=== PATIENT | female | born 1965 | race Two or more races ===

== ENCOUNTER 2023-10-25 14:41 | Emergency (ER) | payer OTHER, SELFPAY ==
[2023-10-25 14:44] VITALS: BP 160/90; PULSE 82; RESP 20; TEMP 37; O2SAT 99; BMI 40.6
--- NOTE | 2023-10-25 14:46 | ED_ITS ---
HPI - Abdominal Pain General Chief Complaint: Abdominal Pain Stated Complaint: R Side Pain Time Seen by Provider: 10/25/23 22:29 Related Data Allergies Allergy/AdvReac Type Severity Reaction Status Date / Time egg Allergy Rash Verified 10/25/23 14:48 Penicillins Allergy Rash Verified 10/25/23 14:48 [facility] Social History Social History Advance Directives: No Advance Directives Information Provided: No Physical Exam ED Vital Signs: BMI result Body Mass Index 40.6 Course Course Course Narrative: This is a rapid medical exam. Deferred additional HPI, ROS, PE to primary provider. 57 yo female with history of asthma, DM, hypothyroidism, HTN here with right sided abdominal pain, nausea x 3 days. Will obtain labs, UA VSS Medical Decision Making Lab Data 10/25/23 15:01 10/25/23 15:01 Labs: Lab Results 10/25/23 Range/Units 15:01 WBC 10.1 (4.8-10.8) X10*3/uL RBC 5.09 (4.20-5.50) X10*6/uL Hgb 13.3 (12.0-16.0) g/dl Hct 41.6 (37.0-47.0) % MCV 81.7 (80.0-98.0) fL MCH 26.1 L (27.0-33.0) pg MCHC 32.0 (31.0-35.0) g/dl RDW 14.0 (11.0-16.0) % Plt Count 348 (160-400) X10*3/uL MPV 9.3 L (9.4-12.3) fL Immature Gran % (Auto) 0.3 (0.0-0.4) % Neut % (Auto) 50.4 (45-73) % Lymph % (Auto) 39.3 (20-40) % [place] % (Auto) 4.9 (2-11) % Eos % (Auto) 4.6 H (0-4) % Baso % (Auto) 0.5 (0-2) % Lymph # (Auto) 4.0 (1.2-4.9) X10*3/uL [place] # (Auto) 0.5 (0.1-1.2) X10*3/uL Eos # (Auto) 0.5 H (0.0-0.4) X10*3/uL Baso # (Auto) 0.1 (0.0-0.2) X10*3/uL Abs Immat Gran (auto) 0.03 (0.00-0.03) X10*3/uL Absolute Neuts (auto) 5.1 (2.0-8.3) x10*3/uL Absolute Nucleated RBC 0.000 (0.0-0.012) X10*3/uL Nucleated RBC % (auto) 0.0 (0.0-0.2) /100WBC Sodium 140 (135-145) mmol/L Potassium 3.8 (3.3-5.1) mmol/L Chloride 108 (96-108) mmol/L Carbon Dioxide 25 (22-29) mmol/L Anion Gap 11 L (12-20) BUN 16 (9-16) mg/dL Creatinine 0.92 (0.5-1.4) mg/dL Estim Creat Clear Calc 85.6 Estimated GFR > 60 Random Glucose 119 H (60-115) mg/dL Calcium 11.4 H (8.4-10.2) mg/dL Total Bilirubin 0.2 (0.0-1.0) mg/dL Direct Bilirubin < 0.2 (0.0-0.5) mg/dL AST 11 (5-31) U/L ALT 15 (0-31) U/L Alkaline Phosphatase 105 (39-117) U/L Total Protein 7.2 (6.5-8.0) g/dL Albumin 4.0 (3.5-5.0) g/dL Urine Color Yellow Urine Appearance Turbid Urine pH 8.5 (5.0-9.0) Ur Specific [place] 1.015 (1.005-1.025) Urine Protein Negative (Neg-Trace) mg/dL Urine Glucose (UA) Negative (Negative) mg/dL Urine Ketones Negative (Negative) mg/dL Urine Blood Negative (Negative) Urine Nitrite Negative (Negative) Ur Leukocyte Esterase Trace H (Negative) Urine RBC 0-2 (0-2) /HPF Urine WBC 0-5 (0-5) /HPF Ur Squamous Epith Cells 0-2 (0-2) /HPF Urine Bacteria None Seen (None Seen) Hyaline Casts 0-2 (0-2) /LPF Discharge Plan Discharge Clinical Impression: Abdominal pain Patient Disposition: Left W/O Completing Treatment Interventions: LWBS Worksheet Last Done: 10/26/23 00:47 Discharge Date/Time: 10/26/23 00:47
[2023-10-25 15:13] LABS: MANUAL DIFF FLAG NO
[2023-10-25 15:15] LABS: Basophils Absolute Auto 0.1 X10*3/uL (0.0-0.2); Basophils Percent Auto 0.5 % (0-2); Eosinophils Absolute Auto 0.5 X10*3/uL (0.0-0.4); Eosinophils Percent Auto 4.6 % (0-4); Hematocrit 41.6 % (37.0-47.0); Hemoglobin 13.3 g/dl (12.0-16.0); Imm Gran Abs Auto 0.03 X10*3/uL (0.00-0.03); Imm Gran Pct Auto 0.3 % (0.0-0.4); Lymphocytes Percent Auto 39.3 % (20-40); Mean Corpuscular Hemoglobin 26.1 pg (27.0-33.0); Mean Corpuscular Volume 81.7 fL (80.0-98.0); Mean Platelet Volume 9.3 fL (9.4-12.3); Monocytes Absolute Auto 0.5 X10*3/uL (0.1-1.2); Monocytes Percent Auto 4.9 % (2-11); Neutrophils Absolute Auto 5.1 x10*3/uL (2.0-8.3); Neutrophils Percent Auto 50.4 % (45-73); Platelet Count 348 X10*3/uL (160-400); Red Blood Count 5.09 X10*6/uL (4.20-5.50); White Blood Count 10.1 X10*3/uL (4.8-10.8)
[2023-10-25 15:16] LABS: Appearance Urine Turbid; Color Urine Yellow; Glucose Urine UA Negative (Negative); Leukocyte Esterase Urine Trace (Negative); Nitrite Urine Negative (Negative); PH 8.5 (5.0-9.0); Specific Gravity - Urine 1.015 (1.005-1.025); UMIC TRIGGER UACC YES; Urine Blood Negative (Negative); Urine Ketones Negative (Negative); Urine Protein Negative (Neg-Trace)
[2023-10-25 15:21] LABS: Bacteria Urine None Seen (None Seen); Hyaline Casts Urine 0-2 /LPF (0-2); RBC Urine 0-2 /HPF (0-2); Squamous Epithelial Cell Urine 0-2 /HPF (0-2); WBC Urine 0-5 /HPF (0-5)
[2023-10-25 15:31] LABS: Alanine Aminotransferase 15 U/L (0-31); Alkaline Phosphatase 105 U/L (39-117); Anion Gap 11 (12-20); Aspartate Amino Transferase 11 U/L (5-31); Bilirubin Direct < 0.2 mg/dL (0.0-0.5); Bilirubin Total 0.2 mg/dL (0.0-1.0); Blood Urea Nitrogen 16 mg/dL (9-16); Calcium 11.4 mg/dL (8.4-10.2); Carbon Dioxide 25 mmol/L (22-29); Chloride 108 mmol/L (96-108); Creatinine Clr Calc Pharmacy 85.6; Estimated Glomerular Filt Rate > 60; Glucose Random 119 mg/dL (60-115); Potassium 3.8 mmol/L (3.3-5.1); Sodium 140 mmol/L (135-145); Total Protein 7.2 g/dL (6.5-8.0)
--- OUTSIDE RECORDS SUMMARY | 2023-10-25 23:53 | XMS_ITS | Continuity of Care Document ---
Author Name Unknown Organization [facility] Address [address] [place] [address]- Care Team Providers Care Wildlife Refuge Specialist Name Role Phone Bridget Burk INSURANCE CLAIM APPROVER, Ila Primary Care Physician Encounter [facility] Date(s): 02/23/23 - 03/25/[address] [address]- Encounter Diagnosis Diabetes mellitus(Discharge Diagnosis) - 02/24/23 Allergies, Adverse Reactions, Alerts Substance Reaction Severity Status penicillin rash Active Celexa rash Active Egg Allergy Active Immunizations Given and Recorded Vaccine Date Status Refusal Reason pneumococcal 23-valent vaccine 12/21/18 Given pneumococcal 13-valent vaccine 10/24/17 Given influenza virus vaccine, inactivated 10/24/17 Give n influenza virus vaccine, inactivated 08/09/16 Give n tetanus/diphtheria/pertussis, acel(Tdap) 07/03/15 Given tetanus-diphtheria toxoids (Td) 05/01/99 Given Medications acetaZOLAMIDE 250 mg oral tablet 250 mg, 1, tablet, By Mouth, 2 times a day, prescribed by Neurology, Refills 0, Maintenance, 01/03/17 8:43:00 Start Date: 01/03/17 Status: Ordered Advair HFA 230 mcg / 21 mcg 2 puffs, Inhalation, 2 times a day, # 12 Gm, 6 Refills, Maintenance, 08/26/22 10:52:00 [facility] #[id number], 30, INHALE 2 PUFFS BY MOUTH TWICE DAILY, 165, cm, 05/20/22 13:56:00 EDT, Height, 118, kg, 01/18/22 15:08:00 EDT, Dry Weight Start Date: 08/26/22 Status: Ordered AutoCPAP 10-16 with heated humidification AutoCPAP 10-16 with heated humidification, See Instructions, # 1 each, Refills 0, Tot. Refills 0, Maintenance, use overnight and [facility]aps from [facility], 03/25/20 13:05:00 EDT, Compound Start Date: 03/25/20 Status: Ordered Blood Pressure Monitor See Instructions, # 1 each, Maintenance, dx: htn on antihypertensive medicines. dx: obesity - pls supply cuff which is 21 inches or more in size sig: check bp daily to help adjust medications. lengthof need: 99, 02/12/21 13:25:00 EDT, Compound Start Date: 02/12/21 Status: Ordered Compression stockings calf length 20-30mmg Hg pressure Compression stockings calf length 20-30mmg Hg pressure, See Instructions, # 2 pair, Refills 6, Tot.Refills 6, Maintenance, use for venous stasis Length of need: 99, 04/15/16 10:59:18, Compound Start Date: 04/15/16 Status: Ordered Cpap suplies: mask, tubing, filters, head gear and water chamber Cpap suplies: mask, tubing, filters, head gear and water chamber, See Instructions, # 1 each, Refills 12, Tot. Refills 12, Maintenance, Use with c-pap machine, 06/12/21 10:46:00 EDT, Compound Start Date: 06/12/21 Status: Ordered desloratadine 5 mg oral tablet 1 tablet = 5 mg, By Mouth, Daily, # 30 tablet, 5 Refills, Maintenance, 06/04/20 13:35:00 EDT, Tablet, [facility] #[id number], 165, cm, 03/14/20 15:15:00 EDT, Height Start Date: 06/04/20 Status: Ordered dextromethorphan-guaifenesin 10 mg-100 mg/5 mL oral liquid 5 mL, By Mouth, Every 4 hours, PRN for cough, # 300 mL, 0 Refills, Maintenance, 03/24/22 10:17:00 EDT, Liquid, [facility] #[id number], Partial fill upon patient request if the prescription is for a schedule II opioid drug., 5 mL By Mouth Every 4... Start Date: 03/24/22 Status: Ordered Diclofenac = 75 mg, By Mouth, 2 times a day, prescribed by Dr. Pierre, Neurologist in [facility] takesprn, 0 Refills, Maintenance, 08/09/16 8:32:51 Start Date: 08/09/16 Status: Ordered docusate sodium 100 mg oral capsule 1 capsule = 100 mg, By Mouth, 2 times a day, PRN as needed for constipation, with plenty of water, # 60 capsule, 1 Refills, Maintenance, 02/21/23 15:56:00 EDT, Capsule, [facility] #[id number], Partial fill upon patient request if the prescription... Start Date: 02/21/23 Stop Date: 04/22/23 Status: Ordered docusate sodium 100 mg oral capsule 100 mg, 1, capsule, By Mouth, 2 times a day, PRN, Use 1 tab po bid as needed for constipation to achieve soft stools., # 60 capsule, Refills 0, Tot. Refills 0, Maintenance, for constipation, 12/31/2312:29:00 EDT, Route to [facility]acy Electronically, [facility] Start Date: 12/31/22 Stop Date: 01/30/23 Status: Ordered Freestyle Lite Lancets See Instructions, # 200 each, Refills 5, Tot. Refills 5, Maintenance, use as directed for Type 2 Diabetes Mellitus Check Blood sugar once a day in AM, 03/11/21 10:43:00 EDT, Supply, 165, cm, :56:00 EDT, Height Start Date: 03/11/21 Stop Date: 09/07/21 Status: Ordered Freestyle Lite Monitor See Instructions, # 1 each, Maintenance, Check blood sugar once a day, 03/11/21 10:41:00 EDT, Supply, 165, cm, 03/11/21 9:56:00 EDT, Height Start Date: 03/11/21 Status: Ordered Freestyle Lite Test Strips See Instructions, # 200 each, Tot. Refills 5, Maintenance, use as directed for Type 2 Diabetes Mellitus, 03/11/21 10:42:00 EDT, Supply, 165, cm, 03/11/21 9:56:00 EDT, Height Start Date: 03/11/21 Stop Date: 04/10/21 Status: Ordered Gabapentin = 300 mg, By Mouth, Daily, 0 Refills, Maintenance, 10/19/17 14:27:32 Start Date: 10/19/17 Status: Ordered hydrochlorothiazide-lisinopril 25 mg-20 mg oral tablet 1 tablet, By Mouth, Daily, ADEQUATE WATER AND CONTINUE TO MONITOR BLOOD PRESSURE., # 270 tablet, 0 Refills, Maintenance, 05/29/22 21:25:00 EDT, [email or web address] #[id number], 90, TAKE 1 TABLET BY MOUTHEVERY DAY, DRINK ADEQUATE WATER AND CONTINUE TO MON... Start Date: 05/29/22 Status: Ordered ipratropium nasal 21 mcg/inh spray See Instructions, PRN Nasal Congestion, 1 spray each nostril BID, # 1 each, 4 Refills, Maintenance,07/10/20 14:41:00 EDT, [facility] #[id number], 1 spray each nostril BID,PRN:Nasal Congestion, 165, cm, 03/14/20 15:15:00 EDT, Height Start Date: 07/10/20 Status: Ordered levothyroxine 175 mcg (0.175 mg) oral tablet 1 tablet, By Mouth, Daily, # 90 tablet, 0 Refills, Maintenance, 03/20/23 19:27:00 EDT, [email or web address] #[email or web address], 165, cm, 02/21/23 15:26:00 EDT, Height, 112.7, kg, 09/27/22 14:59:00 EST, Dry Weight Start Date: 03/20/23 Status: Ordered lidocaine 4% topical cream 1 application, Topically, 3 times a day, # 15 Gm, 1 Refills, Maintenance, 03/14/20 15:53:00 EDT, Cream, [email or web address] #[id number], 1 application Topically 3 times a day, 165, cm, 03/14/20 15:15:00 EDT, Height, 118.4, kg, 04/28/18 17:05:00 EDT, Dry W... Start Date: 03/14/20 Status: Ordered Lubricant Eye Drops ophthalmic solution 1 drops, Eyes, Both, 2 times a day, PRN for dry eyes, # 30 each, 1 Refills, Maintenance, 06/04/20 13:37:00 EDT, Solution, [email or web address] #[email or web address], 1 drops Eyes, Both 2 times a day,PRN:for dry eyes, 165, cm, 03/14/20 15:15:00 EDT, Height Start Date: 06/04/20 Status: Ordered metFORMIN 750 mg oral tablet, extended release 1 tablet = 750 mg, By Mouth, 2 times a day, Take with meals., # 60 tablet, 2 Refills, Maintenance, 05/22/23 21:27:00 EDT, ER Tablet, [facility] #[id number], Partial fill upon patient request if the prescription is for a schedule II opioid drug.,... Start Date: 05/22/23 Stop Date: 08/20/23 Status: Ordered metFORMIN 750 mg oral tablet, extended release 1 tablet = 750 mg, By Mouth, Daily, for 30 days, Take 1, 750 mg tablet with breakfast and 1, 750 mgtablet with dinner/evening meal. Take 12 hours apart., # 30 tablet, 2 Refills, Hard Stop 05/22/23 21:27:00 EDT, 02/21/23 21:27:00 EDT, ER Tablet, W... Start Date: 02/21/23 Stop Date: 05/22/23 Status: Ordered MiraLax oral powder for reconstitution = 17 Gm, By Mouth, Daily, PRN Constipation, dissolve in water before taking, # 255 Gm, 0 Refills, Maintenance, 02/21/23 15:55:00 EDT, REC Powder, [facility] #[id number], Partial fill upon patient request if the prescription is for a schedule II o... Start Date: 02/21/23 Status: Ordered Nebulizer tubing Nebulizer tubing, See Instructions, # 1 each, Refills 0, Tot. Refills 0, Maintenance, Neb tubing, 07/11/19 11:11:45 EDT, Compound Start Date: 07/11/19 Status: Ordered Nebulizer/Compressor See Instructions, # 1 each, Maintenance, Nebulizer and tubing, 07/11/19 11:07:06 EDT, Compound Start Date: 07/11/19 Status: Ordered pantoprazole 40 mg oral delayed release tablet 1 tablet, By Mouth, Daily, # 90 tablet, 3 Refills, Maintenance, 09/27/22 15:11:00 EST, 165, cm, 09/27/22 14:59:00 EST, Height, 112.7, kg, 09/27/22 14:59:00 EST, Dry Weight Start Date: 09/27/22 Status: Ordered polyethylene glycol 3350 oral powder for reconstitution = 17 Gm, By Mouth, Daily, PRN for constipation, dissolve in water before taking, # 255 Gm, 0 Refills, Maintenance, 12/31/22 13:28:00 EDT, REC Powder, [facility] #[id number], Partial fill upon patient request if the prescription is for a schedule... Start Date: 12/31/22 Status: Ordered ProAir HFA 90 mcg/inh inhalation aerosol with adapter 2, puffs, Inhalation, Every 4 hours, PRN, # 8.5 Gm, Refills 0, Route to Pharmacy Electronically, [id number], [facility] #[id number], 165, cm, 04/30/22 10:50:00 EDT, Height, 118, kg, 01/18/22 15:08:00 EDT, Dry Weight Start Date: 05/10/22 Status: Ordered Saline Mist 0.65% nasal spray 1 sprays, Nares, Both, 3 times a day, followed by bulb suction as directed and as needed for nasal congestion., # 1 each, 4 Refills, Maintenance, 09/08/20 12:56:00 [facility], [email or web address] #[id number], 1sprays Nares, Both 3 times a day,x7 days,Instr:foll... Start Date: 09/08/20 Stop Date: 10/13/20 Status: Ordered Senna 8.6 mg oral tablet See Instructions, Start 1 tablet by mouth at night. If no relief, increase to 2 tablets by mouth atnight. If no relief, increase to 2 tablets in AM and 2 tablets in PM., # 50 tablet, Refills 0, Tot.Refills 0, Maintenance, 12/31/22 13:29:00 EDT, Inst... Start Date: 12/31/22 Status: Ordered sertraline 25 mg oral tablet 1 tablet, By Mouth, Daily, # 30 tablet, 0 Refills, Maintenance, 10/27/22 17:07:00 EST, [facility] #[id number], 165, cm, 09/27/22 14:59:00 EST, Height, 112.7, kg, 09/27/22 14:59:00 EST, Dry Weight Start Date: 10/27/22 Status: Ordered sucralfate 1 gm oral tablet See Instructions, # 120 tablet, TAKE 1 TABLET BY MOUTH FOUR TIMES DAILY, [id number] Start Date: 03/26/19 Status: Ordered Zithromax Z-Mulugeta 250 mg oral tablet 1 pack/packet, By Mouth, Once, # 6 tablet, 0 Refills, Soft Stop, 03/24/22 10:16:00 EDT, Tablet, [facility] #[id number], Partial fill upon patient request if the prescription is for a schedule IIopioid drug., 165, cm, 02/03/22 16:08:00 EDT, Heigh... Start Date: 03/24/22 Status: Ordered Problem List Condition Confirmation Course Effective Dates Status Health St atus Informant Abdominal pain, lower Confirmed Active Asthma Confirmed Active Mild binge-eating disorder, in partial remission Confirmed Active Burning epigastric pain Confirmed Active Chronic abdominal pain Confirmed Active Chronic pseudotumor- followed by Mike, has had 9 operations including multiple shunts etc. Confirmed 1991 Active Depression Confirmed Active Diabetic peripheral neuropathy Confirmed Active Diagnostic colonoscopy Confirmed Active Neuropathy, peripheral Confirmed Active Heartburn Confirmed Active Hypertension Confirmed Active Hypothyroid Confirmed Active Tonsillar enlargement Confirmed Active Low back pain Confirmed Active Migraines Confirmed Active Anxiety and depression Confirmed Active Morbid obesity with BMI of 40.0-44.9, adult Confirmed Active Myalgia/myositis - lower leg Confirmed Active Nasal congestion Confirmed Active TOÑITO on CPAP Confirmed Active Severe obesity Confirmed Active Type 2 diabetes mellitus with hemoglobin A1c goal of less than 7.0% Confirmed Active Diagnosis Diagnosis Type Effective Dates Health Status inical Service Informant Diabetes mellitus Discharge Diagnosis 02/24/23 Non-Specified Social History Social History Type Response Smoking Status Former smoker; Tobac co user in household: No; Other: stop 3 years ago 2012; entered on: 08/19/15 Sex Patient Care team information Care Team Personnel Name: Vanessa Perry NP Position: S PCO Associate Professional Member Role: Lifetime Consulting Provider Address: Address: [address] [place] [address] Name: Ila Freed NP Position: [facility]O Associate Professional Member Role: PCP Address: Address: [address] [place], [place] [id number]- Care Team Related Persons Name: YESENIA ALARCON Address: [place] [address] Name: DORA ALARCON Address: home [address] [place] [id number]
--- OUTSIDE RECORDS SUMMARY | 2023-10-25 23:53 | XMS_ITS | Continuity of Care Document ---
Author Name Unknown Organization [facility] Address [address] [place] [id number]- Care Team Providers Care Installers Mechanical Name Role Phone Bridget Burk NP, Ila Primary Care Physician Encounter [facility] [place] Date(s[place] 08/02/23 - 10/21/23 [facility] [address] [place] [id number] Attending Physician: Maya Tenorio MD Admitting Physician: Maya Tenorio MD Referring Physician: Bridget Burk NP, Ila Allergies, Adverse Reactions, Alerts Substance Reaction Severity Status penicillin rash Active Celexa rash Active Egg Allergy Active Immunizations Given and Recorded Vaccine Date Status Refusal Reason pneumococcal 23-valent vaccine 12/21/18 Given pneumococcal 13-valent vaccine 10/24/17 Given influenza virus vaccine, inactivated 10/24/17 Give n influenza virus vaccine, inactivated 08/09/16 Give n tetanus/diphtheria/pertussis, acel(Tdap) 07/03/15 Given tetanus-diphtheria toxoids (Td) 05/01/99 Given Medications acetaminophen-oxyCODONE 325 mg-5 mg oral tablet 30 each, 0 Refill(s), TAKE 1 TABLET BY MOUTH EVERY 6 HOURS NEEDED, Refills 0, 10/14/23 10:24:00 EST, Partial fill upon patient request if the prescription is for a schedule II opioid drug. Start Date: 10/14/23 Status: Ordered acetaminophen/butalbital/caffeine 325 mg-50 mg-40 mg oral tablet 2 each, 0 Refill(s), TAKE 1 TABLET BY MOUTH EVERY 4 TO 6 HOURS FOR 30 DAYS, 0 Refills, 10/14/23 10:24:00 EST, Partial fill upon patient request if the prescription is for a schedule II opioid drug. Start Date: 10/14/23 Status: Ordered acetaZOLAMIDE 250 mg oral tablet 250 mg, 1, tablet, By Mouth, 2 times a day, prescribed by Neurology, Refills 0, Maintenance, 01/03/17 8:43:00 Start Date: 01/03/17 Status: Ordered Advair HFA 230 mcg / 21 mcg 2 puffs, Inhalation, 2 times a day, # 12 Gm, 5 Refills, Maintenance, 06/06/23 10:02:00 EDT, [facility] #[id number], 30, INHALE 2 PUFFS BY MOUTH TWICE DAILY, 165, cm, 05/12/23 12:42:00 EDT, Height, 112.7, kg, 09/27/22 14:59:00 EST, Dry Weight Start Date: 06/06/23 Status: Ordered amitriptyline 25 mg oral tablet 60 each, 0 Refill(s), TAKE 2 TABLETS BY MOUTH EVERY DAY, Refills 0, 10/14/23 10:24:00 EST, Partial fill upon patient request if the prescription is for a schedule II opioid drug. Start Date: 10/14/23 Status: Ordered AutoCPAP 10-16 with heated humidification AutoCPAP 10-16 with heated humidification, See Instructions, # 1 each, Refills 0, Tot. Refills 0, Maintenance, use overnight and naps from [facility], 03/25/20 13:05:00 EDT, Compound Start Date: 03/25/20 [...] 5 Refills, Maintenance, 06/04/20 13:35:00 EDT, Tablet, [facility] #[id number], 165, cm, 03/14/20 15:15:00 EDT, Height Start Date: 06/04/20 Status: Ordered diclofenac sodium 75 mg oral delayed release tablet 54 each, 0 Refill(s), TAKE 1 TABLET BY MOUTH TWICE DAILY AFTER A MEAL, 0 Refills, 10/14/23 10:24:00EST, Partial fill upon patient request if the prescription is for a schedule II opioid drug. Start Date: 10/14/23 Status: Ordered docusate sodium 100 mg oral capsule 1 capsule = 100 mg, By Mouth, 2 times a day, PRN as needed for constipation, with plenty of water, # 60 capsule, 1 Refills, Maintenance, 02/21/23 15:56:00 EDT, Capsule, [facility] #[id number], Partial fill upon patient request if the prescription... Start Date: 02/21/23 Stop Date: 04/22/23 Status: Ordered Freestyle Lite Lancets See Instructions, [...] Date: 03/11/21 Stop Date: 04/10/21 Status: Ordered ipratropium nasal 21 mcg/inh spray See Instructions, PRN Nasal Congestion, 1 spray each nostril BID, # 1 each, 4 Refills, Maintenance,07/10/20 14:41:00 EDT, [facility] #[id number], 1 spray each nostril BID,PRN:Nasal Congestion, 165, cm, 03/14/20 15:15:00 EDT, Height Start Date: 07/10/20 Status: Ordered levothyroxine 150 mcg (0.15 mg) oral tablet 1 tablet = 150 mcg, By Mouth, Daily, # 30 tablet, 11 Refills, Maintenance, 05/21/23 7:23:00 EDT, Tablet, [facility] #[id number], Partial fill upon patient request if the prescription is for a schedule II opioid drug., 165, cm, 05/12/23 12:42:00 E... Start Date: 05/21/23 Stop Date: 05/15/24 Status: Ordered lidocaine 5% topical film 1 patch, Topically, Daily, PRN Pain , Moderate, remove patches after 12 hours, # 30 patch, 1 Refills, Maintenance, 08/08/23 14:19:00 EST, Film, [facility] #[id number], Partial fill upon patient request if the prescription is for a schedule II opi... Start Date: 08/08/23 Status: Ordered lisinopril 20 mg oral tablet 1, tablet, By Mouth, Daily, # 90 tablet, Refills 0, Maintenance, 10/17/23 13:56:00 EST, Route to Pharmacy Electronically, [facility] #[id number], 165, cm, 10/14/23 10:25:00 EST, Height, 112.7, kg, 09/27/22 14:59:00 EST, Dry Weight Start Date: 10/17/23 Status: Ordered metFORMIN 750 mg oral tablet, extended release See Instructions, TAKE 1 TABLET BY MOUTH TWICE DAILY TAKE WITH MEALS, # 60 tablet, 3 Refills, Maintenance, 08/03/23 20:55:00 EST, [facility] #[id number], 165, cm, 07/25/23 13:56:00 EST, Height, 112.7, kg, 09/27/22 14:59:00 EST, Dry Weight Start Date: 08/03/23 Status: Ordered MiraLax oral powder for reconstitution = 17 Gm, By Mouth, Daily, PRN Constipation, dissolve in water before taking, # 255 Gm, 0 Refills, Maintenance, 02/21/23 15:55:00 EDT, REC Powder, [facility] #[id number], Partial fill upon patient request if the [...] tablet, By Mouth, Daily, # 90 tablet, 1 Refills, Maintenance, 09/26/23 20:15:00 EST, 165, cm, 09/08/23 15:01:00 EST, Height, 112.7, kg, 09/27/22 14:59:00 EST, Dry Weight Start Date: 09/26/23 Status: Ordered polyethylene glycol 3350 oral powder for reconstitution = 17 Gm, By Mouth, Daily, PRN for constipation, dissolve in water before taking, # 255 Gm, 0 Refills, Maintenance, 12/31/22 13:28:00 EDT, REC Powder, [facility] #[id number], Partial fill upon patient request if the prescription is for a schedule... Start Date: 12/31/22 Status: Ordered ProAir HFA 90 mcg/inh inhalation aerosol with adapter 2, puffs, Inhalation, Every 4 hours, PRN, # 8.5 Gm, Refills 0, Route to Pharmacy Electronically, [id number], [facility] #[id number], 165, cm, 04/30/22 10:50:00 EDT, Height, 118, kg, 01/18/22 15:08:00 EDT, Dry Weight Start Date: 05/10/22 Status: Ordered Saline Mist 0.65% nasal spray 1 sprays, Nares, Both, 3 times a day, followed by bulb suction as directed and as needed for nasal congestion., # 1 each, 4 Refills, Maintenance, 09/08/20 12:56:00 EST, [facility] #[id number], 1sprays Nares, Both 3 times a day,x7 [...] tablet, 0 Refills, Maintenance, 10/27/22 17:07:00 EST, [facility] #[id number], 165, cm, 09/27/22 14:59:00 EST, Height, 112.7, kg, 09/27/22 14:59:00 EST, Dry Weight Start Date: 10/27/22 Status: Ordered sucralfate 1 gm oral tablet See Instructions, # 120 tablet, TAKE 1 TABLET BY MOUTH FOUR TIMES DAILY, [id number] Start Date: 03/26/19 Status: Ordered Problem List Condition Confirmation Course [...] goal of less than 7.0% Confirmed Active Social History Social History Type Response Smoking Status Former smoker; Tobac co user in household: No; Other: stop 3 years ago 2012; entered on: 08/19/15 Sex Patient Care team information Care Team Personnel Name: Vanessa Perry NP Position: [facility] PCO Associate Professional Member Role: Lifetime Consulting Provider Address: Address: [address] [place] [address]- Name: Ila Freed NP Position[facility] Associate Professional Member Role: PCP Address: Address: [address] [place] [address] Care Team Related Persons Name: YESENIA ALARCON Address: [place] [address] Name: DORA ALARCON Address: home [address] [place] [address]
--- OUTSIDE RECORDS SUMMARY | 2023-10-25 23:54 | XMS_ITS | Continuity of Care Document ---
Author Name Unknown Organization [facility] Address [address] [place] [address]- Care Team Providers Care Senior Associate Name Role Phone Bridget Burk COMMIS CHEF, Ila Primary Care Physician Encounter [facility] [place] Date(s): 07/08/23 - 08/07/23 [facility] [address] [place] [id number] Allergies, Adverse Reactions, Alerts Substance Reaction Severity [...] Gm, 5 Refills, Maintenance, 06/06/23 10:02:00 EDT, [facility] #[id number], 30, INHALE 2 PUFFS BY MOUTH TWICE DAILY, 165, cm, 05/12/23 12:42:00 EDT, Height, 112.7, kg, 09/27/22 14:59:00 EST, Dry Weight Start Date: 06/06/23 Status: Ordered amLODIPine 5 mg oral tablet 5 mg, 1, tablet, By Mouth, Daily, # 30 tablet, Refills 0, Tot. Refills 0, Maintenance, 07/18/23 12:11:00 EDT, Route to Pharmacy Electronically, [facility] #[id number], Partial fill upon patient request if the prescription is for a schedule II opi... Start Date: 07/18/23 Status: Ordered AutoCPAP 10-16 with heated humidification [...] 5 Refills, Maintenance, 06/04/20 13:35:00 EDT, Tablet, [facility] #[id number], 165, cm, 03/14/20 15:15:00 EDT, Height Start Date: 06/04/20 Status: Ordered dextromethorphan-guaifenesin 10 mg-100 mg/5 mL oral liquid 5 mL, By Mouth, Every 4 hours, PRN for cough, # 300 mL, 0 Refills, Maintenance, 03/24/22 10:17:00 EDT, Liquid, [facility] #[id number], Partial fill upon patient request if the prescription is for a schedule II opioid drug., 5 mL By Mouth Every 4... Start Date: 03/24/22 Status: Ordered Diclofenac = 75 mg, By Mouth, 2 times a day, prescribed by Dr. Pierre, Neurologist in [facility] takesprn, 0 Refills, Maintenance, 08/09/16 8:32:51 Start Date: 08/09/16 Status: Ordered docusate sodium 100 mg oral capsule 1 capsule = 100 mg, By Mouth, 2 times a day, PRN as needed for constipation, with plenty of water, # 60 capsule, 1 Refills, Maintenance, 02/21/23 15:56:00 EDT, Capsule, [facility] #[id number], Partial fill upon patient request if the [...] 10/19/17 14:27:32 Start Date: 10/19/17 Status: Ordered ipratropium nasal 21 mcg/inh spray See Instructions, PRN Nasal Congestion, 1 spray each nostril BID, # 1 each, 4 Refills, Maintenance,07/10/20 14:41:00 EDT, [facility] #[id number], 1 spray each nostril BID,PRN:Nasal Congestion, 165, cm, 03/14/20 15:15:00 EDT, Height Start Date: 07/10/20 Status: Ordered levothyroxine 150 mcg (0.15 mg) oral tablet 1 tablet = 150 mcg, By Mouth, Daily, # 30 tablet, 11 Refills, Maintenance, 05/21/23 7:23:00 EDT, Tablet, [facility] #[id number], Partial fill upon patient request if the prescription is for a schedule II opioid drug., 165, cm, 05/12/23 12:42:00 E... Start Date: 05/21/23 Stop Date: 05/15/24 Status: Ordered lidocaine 4% topical cream 1 application, Topically, 3 times a day, # 15 Gm, 1 Refills, Maintenance, 03/14/20 15:53:00 EDT, Cream, [facility] #[id number], 1 application Topically 3 times a day, 165, cm, 03/14/20 15:15:00 EDT, Height, 118.4, kg, 04/28/18 17:05:00 EDT, Dry W... Start Date: 03/14/20 Status: Ordered lisinopril 20 mg oral tablet 20 mg, 1, tablet, By Mouth, Daily, # 90 tablet, Refills 0, Tot. Refills 0, Maintenance, 07/18/23 12:11:00 EDT, Route to Pharmacy Electronically, [facility] #[id number], Partial fill upon patientrequest if the prescription is for a schedule II op... Start Date: 07/18/23 Status: Ordered Lubricant Eye Drops ophthalmic solution 1 drops, Eyes, Both, 2 times a day, PRN for dry eyes, # 30 each, 1 Refills, Maintenance, 06/04/20 13:37:00 EDT, Solution, [facility] #[id number], 1 drops Eyes, Both 2 times a day,PRN:for dry eyes, 165, cm, 03/14/20 15:15:00 EDT, Height Start Date: 06/04/20 Status: Ordered metFORMIN 750 mg oral tablet, extended release See Instructions, TAKE 1 TABLET BY MOUTH TWICE DAILY TAKE WITH MEALS, # 60 tablet, 3 Refills, Maintenance, 08/03/23 20:55:00 EST, [facility] #[id number], 165, cm, 07/25/23 13:56:00 EST, Height, 112.7, kg, 09/27/22 14:59:00 EST, Dry Weight Start Date: 08/03/23 Status: Ordered MiraLax oral powder for reconstitution = 17 Gm, By Mouth, Daily, PRN Constipation, dissolve in water before taking, # 255 Gm, 0 Refills, Maintenance, 02/21/23 15:55:00 EDT, REC Powder, [facility] #[id number], Partial fill upon patient request if the [...] Refills, Maintenance, 12/31/22 13:28:00 EDT, REC Powder, [facility] #[id number], Partial fill upon patient request if the prescription is for a schedule... Start Date: 12/31/22 Status: Ordered ProAir HFA 90 mcg/inh inhalation aerosol with adapter 2, puffs, Inhalation, Every 4 hours, PRN, # 8.5 Gm, Refills 0, Route to Pharmacy Electronically, [id number], [facility] #[id number], 165, cm, 04/30/22 10:50:00 EDT, Height, 118, kg, 01/18/22 15:08:00 EDT, Dry Weight Start Date: 05/10/22 Status: Ordered Saline Mist 0.65% nasal spray 1 sprays, Nares, Both, 3 times a day, followed by bulb suction as directed and as needed for nasal congestion., # 1 each, 4 Refills, Maintenance, 09/08/20 12:56:00 EST, [facility] #[id number], 1sprays Nares, Both 3 times a day,x7 [...] tablet, 0 Refills, Maintenance, 10/27/22 17:07:00 EST, [facility] #[id number], 165, cm, 09/27/22 14:59:00 EST, Height, 112.7, kg, 09/27/22 14:59:00 EST, Dry Weight Start Date: 10/27/22 Status: Ordered sucralfate 1 gm oral tablet See Instructions, # 120 tablet, TAKE 1 TABLET BY MOUTH FOUR TIMES DAILY, [id number] Start Date: 03/26/19 Status: Ordered Zithromax Z-Mulugeta 250 mg oral tablet 1 pack/packet, By Mouth, Once, # 6 tablet, 0 Refills, Soft Stop, 03/24/22 10:16:00 EDT, Tablet, [facility] #[id number], Partial fill upon patient request if the [...] Team Personnel Name: Vanessa Perry NP Position: [facility] PCO Associate Professional Member Role: [employer] Provider Address: Address: [address] [place] [address]- Name: Ila Freed NP Position: [facility] PCO Associate Professional Member Role: PCP Address: Address: [address] [place] [address] Care Team Related Persons Name: YESENIA ALARCON Address: [place] [address] Name: DORA ALARCON Address: home [address] [place] [address]
--- OUTSIDE RECORDS SUMMARY | 2023-10-25 23:54 | XMS_ITS | Continuity of Care Document ---
Author Name Unknown Organization [facility] Address [address] [place] [address]- Care Team Providers Care Physical Therapy Aide Name Role Phone Bridget Burk NP, Ila Primary Care Physician Encounter [facility] Date(s): 10/19/22 - 11/18/[address] [address] Allergies, Adverse Reactions, Alerts Substance Reaction [...] 12 Gm, 6 Refills, Maintenance, 08/26/22 10:52:00 [facility], [facility] #[id number], 30, INHALE 2 PUFFS BY MOUTH TWICE [...] 5 Refills, Maintenance, 06/04/20 13:35:00 EDT, Tablet, [facility] #[id number], 165, cm, 03/14/20 15:15:00 EDT, Height Start Date: 06/04/20 Status: Ordered dextromethorphan-guaifenesin 10 mg-100 mg/5 mL oral liquid 5 mL, By Mouth, Every 4 hours, PRN for cough, # 300 mL, 0 Refills, Maintenance, 03/24/22 10:17:00 EDT, Liquid, [facility] #[id number], Partial fill upon patient request if the prescription is for a schedule II opioid drug., 5 mL By Mouth Every 4... Start Date: 03/24/22 Status: Ordered Diclofenac = 75 mg, By Mouth, 2 times a day, prescribed by Dr. Pierre, Neurologist in [facility] takesprn, 0 Refills, Maintenance, 08/09/16 8:32:51 Start Date: 08/09/16 Status: Ordered Freestyle Lite Lancets See Instructions, # 200 each, Refills 5, Tot. Refills 5, Maintenance, use as directed for Type 2 Diabetes Mellitus Check Blood sugar once a day in AM, 03/11/21 10:43:00 EDT, Supply, 165, cm, 219:56:00 EDT, Height Start Date: 03/11/21 Stop Date: [...] tablet, 0 Refills, Maintenance, 05/29/22 21:25:00 EDT, [facility] #[id number], 90, TAKE 1 TABLET BY MOUTHEVERY DAY, DRINK ADEQUATE WATER AND CONTINUE TO MON... Start Date: 05/29/22 Status: Ordered ipratropium nasal 21 mcg/inh spray See Instructions, PRN Nasal Congestion, 1 spray each nostril BID, # 1 each, 4 Refills, Maintenance,07/10/20 14:41:00 EDT, [facility] #[id number], 1 spray each nostril BID,PRN:Nasal Congestion, 165, cm, 03/14/20 15:15:00 EDT, Height Start Date: 07/10/20 Status: Ordered levothyroxine 175 mcg (0.175 mg) oral tablet 1 tablet, By Mouth, Daily, # 90 tablet, 1 Refills, [facility] #[id number], 165, cm, 03/26/22 11:46:00 EDT, Height, 118, kg, 01/18/22 15:08:00 EDT, Dry Weight Start Date: 04/29/22 Status: Ordered lidocaine 4% topical cream 1 application, Topically, 3 times a day, # 15 Gm, 1 Refills, Maintenance, 03/14/20 15:53:00 EDT, Cream, [facility] #[id number], 1 application Topically 3 times a day, 165, cm, 03/14/20 15:15:00 EDT, Height, 118.4, kg, 04/28/18 17:05:00 EDT, Dry W... Start Date: 03/14/20 Status: Ordered Lubricant Eye Drops ophthalmic solution 1 drops, Eyes, Both, 2 times a day, PRN for dry eyes, # 30 each, 1 Refills, Maintenance, 06/04/20 13:37:00 EDT, Solution, [facility] #[id number], 1 drops Eyes, Both 2 times a day,PRN:for dry eyes, 165, cm, 03/14/20 15:15:00 EDT, Height Start Date: 06/04/20 Status: Ordered MetFORMIN (Eqv-Glucophage XR) 500 mg oral tablet, extended release 2 tablet, By Mouth, Daily, # 180 tablet, 0 Refills, Maintenance, 10/21/22 10:18:00 EST, [facility] #[id number], 165, cm, 09/27/22 14:59:00 EST, Height, 112.7, kg, 09/27/22 14:59:00 EST, Dry Weight Start Date: 10/21/22 Status: Ordered Nebulizer tubing Nebulizer tubing, See [...] Dry Weight Start Date: 09/27/22 Status: Ordered ProAir HFA 90 mcg/inh inhalation aerosol with adapter 2, puffs, Inhalation, Every 4 hours, PRN, # 8.5 Gm, Refills 0, Route to Pharmacy Electronically, [id number], [facility] #[id number], 165, cm, 04/30/22 10:50:00 EDT, Height, 118, kg, 01/18/22 15:08:00 EDT, Dry Weight Start Date: 05/10/22 Status: Ordered rosuvastatin 10 mg oral tablet 1 tablet = 10 mg, By Mouth, Daily, Take 1 tablet/day at the same time each day. Take with or without food. May take with food if it causes an upset stomach., # 30 tablet, 6 Refills, Maintenance, 02/03/22 17:18:00 EDT, Tablet, [facility] #1... Start Date: 02/03/22 Stop Date: 09/01/22 Status: Ordered Saline Mist 0.65% nasal spray 1 sprays, Nares, Both, 3 times a day, followed by bulb suction as directed and as needed for nasal congestion., # 1 each, 4 Refills, Maintenance, 09/08/20 12:56:00 EST, [facility] #[id number], 1sprays Nares, Both 3 times a day,x7 days,Instr:foll... Start Date: 09/08/20 Stop Date: 10/13/20 Status: Ordered sertraline 25 mg oral tablet 1 tablet, By Mouth, Daily, # 30 tablet, 0 Refills, Maintenance, 10/27/22 17:07:00 EST, [facility] #[id number], 165, cm, 09/27/22 14:59:00 EST, Height, 112.7, kg, 09/27/22 14:59:00 EST, Dry Weight Start Date: 10/27/22 Status: Ordered sucralfate 1 gm oral tablet See Instructions, # 120 tablet, TAKE 1 TABLET BY MOUTH FOUR TIMES DAILY, [facility] [id number] Start Date: 03/26/19 Status: Ordered Zithromax Z-Mulugeta 250 mg oral tablet 1 pack/packet, By Mouth, Once, # 6 tablet, 0 Refills, Soft Stop, 03/24/22 10:16:00 EDT, Tablet, [facility] #[id number], Partial fill upon patient request if the [...] colonoscopy Confirmed Active Neuropathy, peripheral Confirmed Active Goal-TO WORK ON HEADACHES Confirmed Active Heartburn Confirmed Active Hypertension Confirmed [...] Care team information Care Team Personnel Name: Ila Freed NP Position: [facility] PCO Associate Professional Member Role: PCP Address: Address: [address] [place] [address]- Care Team Related Persons Name: YESENIA ALARCON Address: [place] [address] Name: DORA ALARCON Address: home [address] [place] [address]
--- OUTSIDE RECORDS SUMMARY | 2023-10-25 23:54 | XMS_ITS | Continuity of Care Document ---
Author Name Unknown Organization [facility] Address [address] [place] [address]- Care Team Providers Care Dope Edger Name Role Phone Zuleika Head NP Primary Care Physician Encounter [facility] Date(s): 04/14/20 - 05/14/[address] [address]- [facility] Attending Physician: Nely Medina Allergies, Adverse Reactions, Alerts Substance Reaction Severity [...] 8:43:00 Start Date: 01/03/17 Status: Ordered Advair Diskus 500 mcg-50 mcg inhalation powder 1, puffs, Inhalation, 2 times a day, rinse mouth and throat after use, # 60 each, Refills 3, Tot. Refills 3, Maintenance, 10/02/19 16:07:00 EST, Powder, Route to Pharmacy Electronically, [id number], [email or web address] #[id number]... Start Date: 10/02/19 Status: Ordered AirDuo RespiClick 55 mcg-14 mcg/inh inhalation powder 1, inhalation, Inhalation, 2 times a day, # 1 each, Refills 11, Tot. Refills 11, Maintenance, 12/10/19 12:44:00 EDT, Route to Pharmacy Electronically, [id number], [facility] #[id number], 165, cm, 11/26/19 14:41:00 EDT, [facility] Start Date: 12/10/19 Status: Ordered albuterol 0.083% inhalation solution 3 mL = 2.5 mg, Neb, Once, given as duoneb LOT [id number] EXP 01/2021, 0 Refills, Maintenance, 07/11/19 11:14:40 EDT Start Date: 07/11/19 Status: Ordered albuterol-ipratropium 3 mg-0.5 mg/3 ml inhalation solution 3 mL, Inhalation, 4 times a day, # 30 each, 0 Refills, Maintenance, 10/02/19 16:07:00 EST, Solution, [facility] #[id number], 3 mL Inhalation 4 times a day, 165, cm, 10/02/19 15:38:00 EST, Height, 118.4, kg, 04/28/18 17:05:00 EDT, Dry Weight Start Date: 10/02/19 Status: Ordered amitriptyline 25 mg oral tablet 1, tablet, By Mouth, 2 times a day, # 60 tablet, Refills 2, Tot. Refills 0, Maintenance, 09/13/19 16:25:00 EST, Route to Pharmacy Electronically, [facility] #[id number], 165, cm, 07/11/19 10:33:00 EDT, Height, 118.4, kg, 04/28/18 17:05:00 EDT, Start Date: 09/13/19 Status: Ordered AutoCPAP 10-16 with heated humidification AutoCPAP 10-16 with heated humidification, See Instructions, # 1 each, Refills 0, Tot. Refills 0, Maintenance, use overnight and naps from [facility], 03/25/20 13:05:00 EDT, Compound Start Date: 03/25/20 Status: Ordered cetirizine 10 mg oral tablet 1 tablet = 10 mg, By Mouth, Daily, # 30 tablet, 11 Refills, Maintenance, 10/02/19 16:08:00 EST, Tablet, [facility] #[id number], 165, cm, 10/02/19 15:38:00 EST, Height, 118.4, kg, 04/28/18 17:05:00 EDT, Dry Weight Start Date: 10/02/19 Status: Ordered Compression stockings calf length 20-30mmg Hg pressure Compression stockings calf length 20-30mmg Hg pressure, See Instructions, # 2 pair, Refills 6, Tot.Refills 6, Maintenance, use for venous stasis Length of need: 99, 04/15/16 10:59:18, Compound Start Date: 04/15/16 Status: Ordered cyclobenzaprine 10 mg oral tablet 10 mg, 1, tablet, By Mouth, 3 times a day, PRN, prescribed by Dr Pierre Neurologist in [place], # 30 tablet, Refills 0, Maintenance, for spasm, 08/09/16 8:33:39 Start Date: 08/09/16 Stop Date: 08/23/16 Status: Ordered Diclofenac = 75 mg, By Mouth, 2 times a day, prescribed by Dr. Pierre, Neurologist in [place] pt states takesprn, 0 Refills, Maintenance, 08/09/16 8:32:51 Start Date: 08/09/16 Status: Ordered Fioricet Tablet 1 tab, By Mouth, Every 4 hours, prescribed by Dr. Mckeon for migraines, # 30 tablet, 0 Refills, Maintenance, 04/18/14 11:41:59 Start Date: 04/18/14 Status: Ordered Flonase 50 mcg/inh nasal spray 1 sprays, Nares, Both, 2 times a day, # 16 Gm, 2 Refills, Maintenance, 10/02/19 16:08:00 EST, [place], [email or web address] #[id number], 1 sprays Nares, Both 2 times a day, 165, cm, 10/02/19 15:38:00 EST, Height, 118.4, kg, 04/28/18 17:05:00 EDT, Dry Weight Start Date: 10/02/19 Status: Ordered Gabapentin = 300 mg, By Mouth, Daily, 0 Refills, Maintenance, 10/19/17 14:27:32 Start Date: 10/19/17 Status: Ordered hydrochlorothiazide-lisinopril 12.5 mg-20 mg oral tablet 1 tablet, By Mouth, Daily, for blood pressure, # 30 tablet, 1 Refills, Maintenance, 04/04/20 14:33:00 EDT, Tablet, [facility] #[id number], 1 tablet By Mouth Daily,x30 days,Instr:for blood pressure, 165, cm, 03/14/20 15:15:00 EDT, Height, 118.4, k... Start Date: 04/04/20 Stop Date: 06/03/20 Status: Ordered Ipratropium 0.02% Inhalation Solution 2.5, mL, Neb, Once, given as duoneb LOT [id number] EXP 12/2020, Refills 0, Maintenance, 07/11/19 11:15:17 EDT Start Date: 07/11/19 Status: Ordered ipratropium nasal 21 mcg/inh spray See Instructions, PRN Nasal Congestion, 1 spray each nostril BID, # 1 each, 4 Refills, Maintenance,06/09/17 9:14:23, 1 spray each nostril BID,PRN:Nasal Congestion Start Date: 06/09/17 Status: Ordered levothyroxine 175 mcg (0.175 mg) oral tablet 1 tablet, By Mouth, Daily, # 90 tablet, 2 Refills, Maintenance, 12/27/19 15:39:00 EDT, [facility] #[id number], 165, cm, 11/26/19 14:41:00 EDT, Height, 118.4, kg, 04/28/18 17:05:00 EDT, Dry Weight Start Date: 12/27/19 Status: Ordered lidocaine 4% topical cream 1 application, Topically, 3 times a day, # 15 Gm, 1 Refills, Maintenance, 03/14/20 15:53:00 EDT, Cream, [facility] #[id number], 1 application Topically 3 times a day, 165, cm, 03/14/20 15:15:00 EDT, Height, 118.4, kg, 04/28/18 17:05:00 EDT, Dry W... Start Date: 03/14/20 Status: Ordered metFORMIN 500 mg oral tablet, extended release 2 tablet = 1,000 mg, By Mouth, Daily, # 60 tablet, 5 Refills, Maintenance, 02/18/20 18:03:00 EDT, [facility] #[id number], 165, cm, 02/18/20 15:42:00 EDT, Height, 118.4, kg, 04/28/18 17:05:00 EDT, Dry Weight Start Date: 02/18/20 Stop Date: 08/16/20 Status: Ordered MiraLax oral powder for reconstitution = 17 Gm, By Mouth, Daily, # 527 Gm, 0 Refills, Maintenance, 07/11/19 11:15:11 EDT, 17 Gm By Mouth Daily Start Date: 07/11/19 Status: Ordered Nebulizer tubing Nebulizer tubing, See Instructions, # 1 each, Refills 0, Tot. Refills 0, Maintenance, Neb tubing, 07/11/19 11:11:45 EDT, Compound Start Date: 07/11/19 Status: Ordered Nebulizer/Compressor See Instructions, # 1 each, Maintenance, Nebulizer and tubing, 07/11/19 11:07:06 EDT, Compound Start Date: 07/11/19 Status: Ordered Percocet-5/325 325 mg-5 mg oral tablet 2, tablet, By Mouth, Every 8 hours, Refills 0, Tot. Refills 0, Maintenance, 12/22/15 9:08:45 Start Date: 12/22/15 Status: Ordered ProAir HFA 90 mcg/inh inhalation aerosol with adapter 2, puffs, Inhalation, Every 4 hours, PRN, # 1 each, Refills 11, Tot. Refills 11, Maintenance, 10/02/19 16:08:00 EST, Aerosol, Route to Pharmacy Electronically, [id number], [facility] #[id number], 165, cm, 10/02/19 15:38:... Start Date: 10/02/19 Stop Date: 09/26/20 Status: Ordered Protonix 40 mg oral delayed release tablet 1 tablet = 40 mg, By Mouth, Daily, # 90 tablet, 0 Refills, Maintenance, 04/04/20 14:33:00 EDT, EC Tablet, 165, cm, 03/14/20 15:15:00 EDT, Height, 118.4, kg, 04/28/18 17:05:00 EDT, Dry Weight Start Date: 04/04/20 Status: Ordered sertraline 25 mg oral tablet 1 tablet, By Mouth, Daily, # 30 tablet, 2 Refills, Maintenance, 09/13/19 16:25:00 EST, [facility] #[id number], 165, cm, 07/11/19 10:33:00 EDT, Height, 118.4, kg, 04/28/18 17:05:00 EDT, Dry Weight Start Date: 09/13/19 Status: Ordered sucralfate 1 gm oral tablet See Instructions, # 120 tablet, TAKE 1 TABLET BY MOUTH FOUR TIMES DAILY, [facility] [id number] Start Date: 03/26/19 Status: Ordered traZODone 50 mg oral tablet 1, tablet, By Mouth, Daily at bedtime, # 30 tablet, Refills 2, Tot. Refills 0, Maintenance, 02/20/20 15:07:00 EDT, Route to Pharmacy Electronically, [facility] #[id number], 165, cm, 02/18/20 15:42:00 EDT, Height, 118.4, kg, 04/28/18 17:05:00 EDT,... 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, has had 9 operations including multiple shunts etc.(Confirmed) 1991 Active Depression(Confirmed) Active Diabetic peripheral neuropathy(Confirmed) Active Diagnostic colonoscopy(Confirmed) Active Neuropathy, peripheral(Confirmed) Active Goal-TO WORK ON HEADACHES(Confirmed) Active Heartburn(Confirmed) Active Hypertension(Confirmed) Active Hypothyroid(Confirmed) Active Tonsillar enlargement(Confirmed) Active Low back pain(Confirmed) Active Migraines(Confirmed) Active Anxiety and depression(Confirmed) Active Morbid obesity with BMI of 4 0.0-44.9, adult(Confirmed) Active Myalgia/myositis - lower leg(Confirmed) Active Nasal congestion(Confirmed) Active TOÑITO on CPAP(Confirmed) Active Type 2 diabetes mellitus wit h hemoglobin A1c goal of less than 7.0%(Confirmed) Active Social History Social History Type Response Smoking Status Former smoker; Tobac co user in household: No; Other: stop 3 years ago 2012; entered on: 08/19/15 Sex
--- OUTSIDE RECORDS SUMMARY | 2023-10-25 23:54 | XMS_ITS | Continuity of Care Document ---
Author Name Unknown Organization [facility] Address [address] [place] [address]- Care Team Providers Care Tin Worker Name Role Phone Bridget Burk BROODMARE FOREMAN, Ila Primary Care Physician Encounter [facility] Date(s): 11/20/21 - 12/20/[address] [id number] Allergies, Adverse Reactions, Alerts Substance Reaction [...] puffs, Inhalation, 2 times a day, # 60 each, 6 Refills, Maintenance, 06/17/21 11:50:00 EDT, Aerosol, [facility] #[id number], Partial fill upon patient request if the prescription is for a schedule II opioid drug., 2 puffs Inhalation 2 times a d... Start Date: 06/17/21 Status: Ordered Aspercreme 10% topical cream 1 application, Topically, 4 times a day, PRN for pain, n., # 1 each, 3 Refills, Maintenance, 07/13/21 11:47:00 EDT, Cream, [facility] #[id number], Partial fill upon patient request if the prescription is for a schedule II opioid drug., 1 applicat... Start Date: 07/13/21 Stop Date: 11/10/21 Status: Ordered AutoCPAP 10-16 with heated humidification [...] 5 Refills, Maintenance, 06/04/20 13:35:00 EDT, Tablet, [facility] #[id number], 165, cm, 03/14/20 15:15:00 EDT, Height Start Date: 06/04/20 Status: Ordered dextromethorphan-guaifenesin 10 mg-100 mg/5 mL oral liquid 5 mL, By Mouth, Every 4 hours, PRN for cough, # 300 mL, 0 Refills, Maintenance, 09/08/20 12:59:00 EST, Liquid, [facility] #[id number], Partial fill upon patient request if the prescription is for a schedule II opioid drug., 5 mL By Mouth Every 4... Start Date: 09/08/20 Status: Ordered Diclofenac = 75 mg, By Mouth, 2 times a day, prescribed by Dr. Pierre, Neurologist in [facility] states takesprn, 0 Refills, Maintenance, 08/09/16 8:32:51 [...] oral tablet 1 tablet, By Mouth, Daily, You are due for lab work. Order is in please go to the lab thank you FORBLOOD PRESSURE., # 30 tablet, 2 Refills, Maintenance, 11/04/21 16:10:00 [facility] #[id number], pt needs labs, 1 tablet By Mouth Daily,x3... Start Date: 11/04/21 Stop Date: 02/02/22 Status: Ordered ipratropium nasal 21 mcg/inh spray See Instructions, PRN Nasal Congestion, 1 spray each nostril BID, # 1 each, 4 Refills, Maintenance,07/10/20 14:41:00 EDT, [facility][id number], 1 spray each nostril BID,PRN:Nasal Congestion, 165, cm, 03/14/20 15:15:00 EDT, Height Start Date: 07/10/20 Status: Ordered levothyroxine 175 mcg (0.175 mg) oral tablet 1 tablet, By Mouth, Daily, # 90 tablet, 2 Refills, Maintenance, 09/01/21 12:27:00 EST, [facility] #[id number], 165, cm, 07/13/21 11:17:00 EDT, Height Start Date: 09/01/21 Status: Ordered lidocaine 4% topical cream 1 application, Topically, 3 times a day, # 15 Gm, 1 Refills, Maintenance, 03/14/20 15:53:00 EDT, Cream, [email or web address] #52551, 1 application Topically 3 times a day, 165, cm, 03/14/20 15:15:00 EDT, Height, 118.4, kg, 04/28/18 17:05:00 EDT, Dry W... Start Date: 03/14/20 Status: Ordered Lubricant Eye Drops ophthalmic solution 1 drops, Eyes, Both, 2 times a day, PRN for dry eyes, # 30 each, 1 Refills, Maintenance, 06/04/20 13:37:00 EDT, Solution, [email or web address] #55925, 1 drops Eyes, Both 2 times a day,PRN:for dry eyes, 165, cm, 03/14/20 15:15:00 EDT, Height Start Date: 06/04/20 Status: Ordered metFORMIN 500 mg oral tablet, extended release 2 tablet = 1,000 mg, By Mouth, Daily, # 60 tablet, 2 Refills, Maintenance, 11/04/21 16:11:00 EST, [facility] #[id number], 165, cm, 09/25/21 7:59:00 EST, Height Start Date: 11/04/21 Stop Date: 02/02/22 Status: Ordered Nebulizer tubing Nebulizer tubing, See [...] Mouth, Daily, # 90 tablet, 0 Refills, 165, cm, 09/25/21 7:59:00 EST, Height Start Date: 10/08/21 Status: Ordered ProAir HFA 90 mcg/inh inhalation aerosol with adapter 2, puffs, Inhalation, Every 4 hours, PRN, for 30 days, # 1 each, Refills 2, Tot. Refills 2, Hard Stop 02/05/22 9:34:00 EDT, 11/07/21 9:34:00 EST, Aerosol, Route to Pharmacy Electronically, [id number], [id number]... Start Date: 11/07/21 Stop Date: 02/05/22 Status: Ordered Saline Mist 0.65% nasal spray 1 sprays, Nares, Both, 3 times a day, followed by bulb suction as directed and as needed for nasal congestion., # 1 each, 4 Refills, Maintenance, 09/08/20 12:56:00 EST, [email or web address] #[id number], 1sprays Nares, Both 3 times a day,x7 days,Instr:foll... Start Date: 09/08/20 Stop Date: 10/13/20 Status: Ordered sertraline 25 mg oral tablet 1 tablet, By Mouth, Daily, # 30 tablet, 3 Refills, Maintenance, 09/01/21 12:27:00 EST, [email or web address] #[id number], 165, cm, 07/13/21 11:17:00 EDT, Height Start Date: 09/01/21 Status: Ordered sucralfate 1 gm oral tablet See Instructions, # 120 tablet, TAKE 1 TABLET BY MOUTH FOUR TIMES DAILY, [facility] [id number] Start Date: 03/26/19 Status: Ordered Problem List Condition Effective Dates Status Health Status Inform ant Abdominal pain, lower(Confirmed) Active Asthma(Confirmed) Active Mild binge-eating disorder, in partial remission(Confirmed) Active Burning epigastric pain(Confirmed) Active Chronic abdominal pain(Confirmed) Active Chronic pseudotumor- followe d by Mike, [...] Nasal congestion(Confirmed) Active TOÑITO on CPAP(Confirmed) Active Severe obesity(Confirmed) Active Type 2 diabetes mellitus wit h hemoglobin A1c goal of less than 7.0%(Confirmed) Active Social History Social History Type Response Smoking Status Former smoker; Tobac co user in household: No; Other: stop 3 years ago 2012; entered on: 08/19/15 Sex
--- OUTSIDE RECORDS SUMMARY | 2023-10-25 23:54 | XMS_ITS | Continuity of Care Document ---
Author Name Unknown Organization [facility] Address [address] [place] [address]- Care Team Providers Care Surveyor Helper Name Role Phone Bridget Burk STOCK COUNTER, Ila Primary Care Physician Encounter [facility] Date(s): 08/29/23 - 09/28/[address] [id number] Allergies, Adverse Reactions, Alerts Substance Reaction Severity [...] Gm, 5 Refills, Maintenance, 06/06/23 10:02:00 EDT, [facility] #[id number], 30, INHALE 2 PUFFS BY MOUTH TWICE DAILY, 165, cm, 05/12/23 12:42:00 EDT, Height, 112.7, kg, 09/27/22 14:59:00 EST, Dry Weight Start Date: 06/06/23 Status: Ordered amLODIPine 5 mg oral tablet 5 mg, 1, tablet, By Mouth, Daily, # 30 tablet, Refills 0, Tot. Refills 0, Maintenance, 10/30/23 12:11:00 EDT, Route to Pharmacy Electronically, [facility] #[id number], Partial fill upon patient request if the prescription is for a schedule II opi... Start Date: 07/18/23 Status: Ordered AutoCPAP 10-16 with heated humidification AutoCPAP 10-16 with heated humidification, See Instructions, # 1 each, Refills 0, Tot. Refills 0, Maintenance, use overnight and naps from [facility] [place], 03/25/20 13:05:00 EDT, Compound Start Date: 03/25/20 Status: Ordered Blood Pressure Monitor See Instructions, # 1 each, Maintenance, dx: htn on antihypertensive medicines. dx: obesity - pls supply cuff which is 21 inches or more in size sig: check bp daily to help adjust medications. lengthof need: 99, 02/12/21 13:25:00 EDT, Compound Start Date: 02/12/21 Status: Ordered capsaicin 0.025% topical cream 1 application, Topically, 2 times a day, PRN Pain , Moderate, avoid contact with face and eyes apply to affected area do not use at same time with Lidocaine patch. Make sure skin is clear, clean and dry. If any irritaiton, stop using., # 45 Gm, 0 Re... Start Date: 08/08/23 Status: Ordered Compression stockings calf length 20-30mmg [...] 5 Refills, Maintenance, 06/04/20 13:35:00 EDT, Tablet, [facility] #[id number], 165, cm, 03/14/20 15:15:00 EDT, Height Start Date: 06/04/20 Status: Ordered dextromethorphan-guaifenesin 10 mg-100 mg/5 mL oral liquid 5 mL, By Mouth, Every 4 hours, PRN for cough, # 300 mL, 0 Refills, Maintenance, 03/24/22 10:17:00 EDT, Liquid, [facility] #[id number], Partial fill upon patient request if the prescription is for a schedule II opioid drug., 5 mL By Mouth Every 4... Start Date: 03/24/22 Status: Ordered Diclofenac = 75 mg, By Mouth, 2 times a day, prescribed by Dr. Pierre, Neurologist in [facility] takesprn, 0 Refills, Maintenance, 08/09/16 8:32:51 Start Date: 08/09/16 Status: Ordered docusate sodium 100 mg oral capsule 1 capsule = 100 mg, By Mouth, 2 times a day, PRN as needed for constipation, with plenty of water, # 60 capsule, 1 Refills, Maintenance, 02/21/23 15:56:00 EDT, Capsule, [facility] #[id number], Partial fill upon patient request if the [...] 1 each, 4 Refills, Maintenance,07/10/20 14:41:00 EDT, [facility] #[id number], 1 spray each nostril BID,PRN:Nasal Congestion, 165, cm, 03/14/20 15:15:00 EDT, Height Start Date: 07/10/20 Status: Ordered levothyroxine 150 mcg (0.15 mg) oral tablet 1 tablet = 150 mcg, By Mouth, Daily, # 30 tablet, 11 Refills, Maintenance, 05/21/23 7:23:00 EDT, [facility] #[id number], Partial fill upon patient request if the prescription is for a schedule II opioid drug., 165, cm, 05/12/23 12:42:00 E... Start Date: 05/21/23 Stop Date: 05/15/24 Status: Ordered lidocaine 4% topical cream 1 application, Topically, 3 times a day, # 15 Gm, 1 Refills, Maintenance, 03/14/20 15:53:00 EDT, Cream, [facility] #[id number], 1 application Topically 3 times a day, 165, cm, 03/14/20 15:15:00 EDT, Height, 118.4, kg, 08/10/18 17:05:00 EDT, Dry W... Start Date: 03/14/20 Status: Ordered lidocaine 5% topical film 1 patch, Topically, Daily, PRN Pain , Moderate, remove patches after 12 hours, # 30 patch, 1 Refills, Maintenance, 08/08/23 14:19:00 EST, Film, [facility] #[id number], Partial fill upon patient request if the prescription is for a schedule II opi... Start Date: 08/08/23 Status: Ordered lisinopril 20 mg oral tablet 20 mg, 1, tablet, By Mouth, Daily, # 90 tablet, Refills 0, Tot. Refills 0, Maintenance, 07/18/23 12:11:00 EDT, Route to Pharmacy Electronically, [facility] #[id number], Partial fill upon patientrequest if the prescription is for a schedule II op... Start Date: 07/18/23 Status: Ordered Lubricant Eye Drops ophthalmic solution 1 drops, Eyes, Both, 2 times a day, PRN for dry eyes, # 30 each, 1 Refills, Maintenance, 06/04/20 13:37:00 EDT, Solution, [facility] #[id number], 1 drops Eyes, Both 2 times a day,PRN:for dry eyes, 165, cm, 03/14/20 15:15:00 EDT, Height Start Date: 06/04/20 Status: Ordered metFORMIN 750 mg oral tablet, extended release See Instructions, TAKE 1 TABLET BY MOUTH TWICE DAILY TAKE WITH MEALS, # 60 tablet, 3 Refills, Maintenance, 08/03/23 20:55:00 EST, [facility] #[id number], 165, cm, 07/25/23 13:56:00 EST, Height, 112.7, kg, 09/27/22 14:59:00 EST, Dry Weight Start Date: 08/03/23 Status: Ordered MiraLax oral powder for reconstitution = 17 Gm, By Mouth, Daily, PRN Constipation, dissolve in water before taking, # 255 Gm, 0 Refills, Maintenance, 02/21/23 15:55:00 EDT, REC Powder, [facility] #[id number], Partial fill upon patient request if the [...] Refills, Maintenance, 12/31/22 13:28:00 EDT, REC Powder, [facility] #[id number], Partial fill upon patient request if the prescription is for a schedule... Start Date: 12/31/22 Status: Ordered ProAir HFA 90 mcg/inh inhalation aerosol with adapter 2, puffs, Inhalation, Every 4 hours, PRN, # 8.5 Gm, Refills 0, Route to Pharmacy Electronically, [id number], [facility] #[id number], 165, cm, 04/30/22 10:50:00 EDT, Height, 118, kg, 01/18/22 15:08:00 EDT, Dry Weight Start Date: 05/10/22 Status: Ordered Saline Mist 0.65% nasal spray 1 sprays, Nares, Both, 3 times a day, followed by bulb suction as directed and as needed for nasal congestion., # 1 each, 4 Refills, Maintenance, 09/08/20 12:56:00 EST, [facility] #[id number], 1sprays Nares, Both 3 times a day,x7 [...] tablet, 0 Refills, Maintenance, 10/27/22 17:07:00 EST, [facility] #[id number], 165, cm, 09/27/22 14:59:00 EST, Height, 112.7, kg, 09/27/22 14:59:00 EST, Dry Weight Start Date: 10/27/22 Status: Ordered sucralfate 1 gm oral tablet See Instructions, # 120 tablet, TAKE 1 TABLET BY MOUTH FOUR TIMES DAILY, [facility] [id number] Start Date: 03/26/19 Status: Ordered Zithromax Z-Mulugeta 250 mg oral tablet 1 pack/packet, By Mouth, Once, # 6 tablet, 0 Refills, Soft Stop, 03/24/22 10:16:00 EDT, Tablet, [facility] #[id number], Partial fill upon patient request if the prescription is for a schedule IIopioid drug., 165, cm, 02/03/22 16:08:00 EDT, [facility]... Start Date: 03/24/22 Status: Ordered Problem List Condition Confirmation Course Effective Dates Status [facility] atus Informant Abdominal pain, lower Confirmed [...] Team Personnel Name: Vanessa Perry NP Position: [facility] Associate Professional Member Role: Lifetime Consulting Provider Address: Address: [address] [place] [address]- Name: Ila Freed NP [facility] Associate Professional Member Role: PCP Address: Address: [address] [place] [address]- Care Team Related Persons Name: YESENIA ALARCON Address: [place] [address] Name: DORA ALARCON Address: home [address] [place] [id number]
--- OUTSIDE RECORDS SUMMARY | 2023-10-25 23:54 | XMS_ITS | Continuity of Care Document ---
Author Name Unknown Organization [facility] Address [address] [place] [address]- Care Team Providers Care Senior Software Systems Engineer Name Role Phone Bridget Burk RADAR OPERATOR, Ila Primary Care Physician Encounter [facility] Date(s): 07/08/23 - 08/07/23 [facility] [address] [place] [address] Allergies, Adverse Reactions, Alerts Substance Reaction Severity [...] Gm, 5 Refills, Maintenance, 06/06/23 10:02:00 EDT, [email or web address] #[id number], 30, INHALE 2 PUFFS BY MOUTH TWICE DAILY, 165, cm, 05/12/23 12:42:00 EDT, Height, 112.7, kg, 09/27/22 14:59:00 EST, Dry Weight Start Date: 06/06/23 Status: Ordered amLODIPine 5 mg oral tablet 5 mg, 1, tablet, By Mouth, Daily, # 30 tablet, Refills 0, Tot. Refills 0, Maintenance, 07/18/23 12:11:00 EDT, Route to Pharmacy Electronically, [facility] #[id number], Partial fill upon patient request if the [...] 5 Refills, Maintenance, 06/04/20 13:35:00 EDT, Tablet, [facility] #[id number], 165, cm, 03/14/20 15:15:00 EDT, Height Start Date: 06/04/20 Status: Ordered dextromethorphan-guaifenesin 10 mg-100 mg/5 mL oral liquid 5 mL, By Mouth, Every 4 hours, PRN for cough, # 300 mL, 0 Refills, Maintenance, 03/24/22 10:17:00 EDT, Liquid, [email or web address] #[id number], Partial fill upon patient request if the prescription is for a schedule II opioid drug., 5 mL By Mouth Every 4... Start Date: 03/24/22 Status: Ordered Diclofenac = 75 mg, By Mouth, 2 times a day, prescribed by Dr. Pierre, Neurologist in [facility] takesprn, 0 Refills, Maintenance, 08/09/16 8:32:51 Start Date: 08/09/16 Status: Ordered docusate sodium 100 mg oral capsule 1 capsule = 100 mg, By Mouth, 2 times a day, PRN as needed for constipation, with plenty of water, # 60 capsule, 1 Refills, Maintenance, 02/21/23 15:56:00 EDT, Capsule, [email or web address] #[id number], Partial fill upon patient request if the [...] 1 each, 4 Refills, Maintenance,07/10/20 14:41:00 EDT, [facility] #[id number], 1 spray each nostril BID,PRN:Nasal Congestion, 165, cm, 03/14/20 15:15:00 EDT, Height Start Date: 07/10/20 Status: Ordered levothyroxine 150 mcg (0.15 mg) oral tablet 1 tablet = 150 mcg, By Mouth, Daily, # 30 tablet, 11 Refills, Maintenance, 05/21/23 7:23:00 EDT, Tablet, [facility] #[id number], Partial fill upon patient request if the prescription is for a schedule II opioid drug., 165, cm, 05/12/23 12:42:00 E... Start Date: 05/21/23 Stop Date: 05/15/24 Status: Ordered lidocaine 4% topical cream 1 application, Topically, 3 times a day, # 15 Gm, 1 Refills, Maintenance, 03/14/20 15:53:00 EDT, Cream, [facility] #[id number], 1 application Topically 3 times a day, 165, cm, 03/14/20 15:15:00 EDT, Height, 118.4, kg, 04/28/18 17:05:00 EDT, Dry W... Start Date: 03/14/20 Status: Ordered lisinopril 20 mg oral tablet 20 mg, 1, tablet, By Mouth, Daily, # 90 tablet, Refills 0, Tot. Refills 0, Maintenance, 07/18/23 12:11:00 EDT, Route to Pharmacy Electronically, [facility] #[id number], Partial fill upon patientrequest if the prescription is for a schedule II op... Start Date: 07/18/23 Status: Ordered Lubricant Eye Drops ophthalmic solution 1 drops, Eyes, Both, 2 times a day, PRN for dry eyes, # 30 each, 1 Refills, Maintenance, 06/04/20 13:37:00 EDT, Solution, [facility] #[id number], 1 drops Eyes, Both 2 times a day,PRN:for dry eyes, 165, cm, 03/14/20 15:15:00 EDT, Height Start Date: 06/04/20 Status: Ordered metFORMIN 750 mg oral tablet, extended release See Instructions, TAKE 1 TABLET BY MOUTH TWICE DAILY TAKE WITH MEALS, # 60 tablet, 3 Refills, Maintenance, 08/03/23 20:55:00 EST, [facility] #[id number], 165, cm, 07/25/23 13:56:00 EST, Height, 112.7, kg, 09/27/22 14:59:00 EST, Dry Weight Start Date: 08/03/23 Status: Ordered MiraLax oral powder for reconstitution = 17 Gm, By Mouth, Daily, PRN Constipation, dissolve in water before taking, # 255 Gm, 0 Refills, Maintenance, 02/21/23 15:55:00 EDT, REC Powder, [facility] #[id number], Partial fill upon patient request if the [...] Refills, Maintenance, 12/31/22 13:28:00 EDT, REC Powder, [facility] #[id number], Partial fill upon patient request if the prescription is for a schedule... Start Date: 12/31/22 Status: Ordered ProAir HFA 90 mcg/inh inhalation aerosol with adapter 2, puffs, Inhalation, Every 4 hours, PRN, # 8.5 Gm, Refills 0, Route to Pharmacy Electronically, [id number], [facility] #[id number], 165, cm, 04/30/22 10:50:00 EDT, Height, 118, kg, 01/18/22 15:08:00 EDT, Dry Weight Start Date: 05/10/22 Status: Ordered Saline Mist 0.65% nasal spray 1 sprays, Nares, Both, 3 times a day, followed by bulb suction as directed and as needed for nasal congestion., # 1 each, 4 Refills, Maintenance, 09/08/20 12:56:00 EST, [facility] #[id number], 1sprays Nares, Both 3 times a day,x7 [...] tablet, 0 Refills, Maintenance, 10/27/22 17:07:00 EST, [facility] #[id number], 165, cm, 09/27/22 14:59:00 EST, Height, 112.7, kg, 09/27/22 14:59:00 EST, Dry Weight Start Date: 10/27/22 Status: Ordered sucralfate 1 gm oral tablet See Instructions, # 120 tablet, TAKE 1 TABLET BY MOUTH FOUR TIMES DAILY, [facility] [id number] Start Date: 03/26/19 Status: Ordered Zithromax Z-Mulugeta 250 mg oral tablet 1 pack/packet, By Mouth, Once, # 6 tablet, 0 Refills, Soft Stop, 03/24/22 10:16:00 EDT, Tablet, [facility] #[id number], Partial fill upon patient request if the [...] Team Personnel Name: Vanessa Perry NP Position: [facility] Associate Professional Member Role: Lifetime Consulting Provider Address: Address: [address] [place] [address]- Name: Ila Freed NP Position: [facility] Associate Professional Member Role: PCP Address: Address: [address] [place] [address] Care Team Related Persons Name: YESENIA ALARCON Address: [place] [address] Name: DORA ALARCON Address: home [address] [place] [id number]
--- OUTSIDE RECORDS SUMMARY | 2023-10-25 23:54 | XMS_ITS | Continuity of Care Document ---
Author Name Unknown Organization [facility] Address [address] [place] [address]- Care Team Providers Care Elevator Constructor Name Role Phone Bridget Burk CARDIOVASCULAR SPECIALIST, Ila Primary Care Physician Encounter [facility] Date(s): 05/21/23 - 06/20/23 [facility] [address] [place] [id number] Allergies, Adverse Reactions, Alerts Substance Reaction [...] Gm, 5 Refills, Maintenance, 06/06/23 10:02:00 EDT, [facility] #[id number], 30, INHALE 2 PUFFS BY MOUTH TWICE DAILY, 165, cm, 05/12/23 12:42:00 EDT, Height, 112.7, kg, 09/27/22 14:59:00 EST, Dry Weight Start Date: 06/06/23 Status: Ordered AutoCPAP 10-16 with heated humidification [...] 5 Refills, Maintenance, 06/04/20 13:35:00 EDT, Tablet, [facility] #[id number], 165, cm, 03/14/20 15:15:00 EDT, Height Start Date: 06/04/20 Status: Ordered dextromethorphan-guaifenesin 10 mg-100 mg/5 mL oral liquid 5 mL, By Mouth, Every 4 hours, PRN for cough, # 300 mL, 0 Refills, Maintenance, 03/24/22 10:17:00 EDT, Liquid, [facility] #60702, Partial fill upon patient request if the prescription is for a schedule II opioid drug., 5 mL By Mouth Every 4... Start Date: 03/24/22 Status: Ordered Diclofenac = 75 mg, By Mouth, 2 times a day, prescribed by Dr. Pierre, Neurologist in [place] pt states takesprn, 0 Refills, Maintenance, 08/09/16 8:32:51 Start Date: 08/09/16 Status: Ordered docusate sodium 100 mg oral capsule 1 capsule = 100 mg, By Mouth, 2 times a day, PRN as needed for constipation, with plenty of water, # 60 capsule, 1 Refills, Maintenance, 02/21/23 15:56:00 EDT, Capsule, [facility] #31508, Partial fill upon patient request if the [...] tablet, 0 Refills, Maintenance, 05/29/22 21:25:00 EDT, [facility] #[id number], 90, TAKE 1 TABLET BY MOUTHEVERY DAY, DRINK ADEQUATE WATER AND CONTINUE TO MON... Start Date: 05/29/22 Status: Ordered ipratropium nasal 21 mcg/inh spray See Instructions, PRN Nasal Congestion, 1 spray each nostril BID, # 1 each, 4 Refills, Maintenance,07/10/20 14:41:00 EDT, [facility] #28675, 1 spray each nostril BID,PRN:Nasal Congestion, 165, cm, 03/14/20 15:15:00 EDT, Height Start Date: 07/10/20 Status: Ordered levothyroxine 150 mcg (0.15 mg) oral tablet 1 tablet = 150 mcg, By Mouth, Daily, # 30 tablet, 11 Refills, Maintenance, 05/21/23 7:23:00 EDT, Tablet, [facility] #95109, Partial fill upon patient request if the prescription is for a schedule II opioid drug., 165, cm, 05/12/23 12:42:00 E... Start Date: 05/21/23 Stop Date: 05/15/24 Status: Ordered lidocaine 4% topical cream 1 application, Topically, 3 times a day, # 15 Gm, 1 Refills, Maintenance, 03/14/20 15:53:00 EDT, Cream, [facility] #59473, 1 application Topically 3 times a day, 165, cm, 03/14/20 15:15:00 EDT, Height, 118.4, kg, 04/28/18 17:05:00 EDT, Dry W... Start Date: 03/14/20 Status: Ordered Lubricant Eye Drops ophthalmic solution 1 drops, Eyes, Both, 2 times a day, PRN for dry eyes, # 30 each, 1 Refills, Maintenance, 06/04/20 13:37:00 EDT, Solution, [facility] #57642, 1 drops Eyes, Both 2 times a day,PRN:for dry eyes, 165, cm, 03/14/20 15:15:00 EDT, Height Start Date: 06/04/20 Status: Ordered MetFORMIN (Eqv-Glucophage XR) 500 mg oral tablet, extended release 2 tablet, By Mouth, Daily, # 180 tablet, 0 Refills, Maintenance, 05/06/23 19:10:00 EDT, [facility] #69704, 165, cm, 02/21/23 15:26:00 EDT, Height, 112.7, kg, 09/27/22 14:59:00 EST, Dry Weight Start Date: 05/06/23 Status: Ordered MiraLax oral powder for reconstitution = 17 Gm, By Mouth, Daily, PRN Constipation, dissolve in water before taking, # 255 Gm, 0 Refills, Maintenance, 02/21/23 15:55:00 EDT, REC Powder, [facility] #31722, Partial fill upon patient request if the [...] Refills, Maintenance, 12/31/22 13:28:00 EDT, REC Powder, [facility] #[id number], Partial fill upon patient request if the prescription is for a schedule... Start Date: 12/31/22 Status: Ordered ProAir HFA 90 mcg/inh inhalation aerosol with adapter 2, puffs, Inhalation, Every 4 hours, PRN, # 8.5 Gm, Refills 0, Route to Pharmacy Electronically, [id number], [facility] #[id number], 165, cm, 04/30/22 10:50:00 EDT, Height, 118, kg, 01/18/22 15:08:00 EDT, Dry Weight Start Date: 05/10/22 Status: Ordered Saline Mist 0.65% nasal spray 1 sprays, Nares, Both, 3 times a day, followed by bulb suction as directed and as needed for nasal congestion., # 1 each, 4 Refills, Maintenance, 09/08/20 12:56:00 EST, [facility] #05678, 1sprays Nares, Both 3 times a day,x7 [...] tablet, 0 Refills, Maintenance, 10/27/22 17:07:00 EST, [facility] #07121, 165, cm, 09/27/22 14:59:00 EST, Height, 112.7, kg, 09/27/22 14:59:00 EST, Dry Weight Start Date: 10/27/22 Status: Ordered sucralfate 1 gm oral tablet See Instructions, # 120 tablet, TAKE 1 TABLET BY MOUTH FOUR TIMES DAILY, [facility] [id number] Start Date: 03/26/19 Status: Ordered Zithromax Z-Mulugeta 250 mg oral tablet 1 pack/packet, By Mouth, Once, # 6 tablet, 0 Refills, Soft Stop, 03/24/22 10:16:00 EDT, Tablet, [facility] #25804, Partial fill upon patient request if the prescription is for a schedule IIopioid drug., 165, cm, 02/03/22 16:08:00 EDT, [facility]... Start Date: 03/24/22 Status: Ordered Problem List [...] Team Personnel Name: Vanessa Perry NP Position: [facility] PCO Associate Professional Member Role: Lifetime Consulting Provider Address: Address: [address] [place] [address]- Name: Ila Freed NP [facility] Associate Professional Member Role: PCP Address: Address: [address] [place] [address]- Care Team Related Persons Name: YESENIA ALARCON Address: [place] [address] Name: DORA ALARCON Address: home [address] [place] [address]
--- OUTSIDE RECORDS SUMMARY | 2023-10-25 23:54 | XMS_ITS | Continuity of Care Document ---
Author Name Unknown Organization [facility] Address [address] [place] [address]- Care Team Providers Care Search And Rescue Officer Name Role Phone Bridget Burk NP, Ila Primary Care Physician Encounter [facility] Date(s): 09/08/23 - 10/08/[address] [address]- Attending Physician: Admtr, Nely Allergies, Adverse Reactions, Alerts Substance Reaction Severity [...] Gm, 5 Refills, Maintenance, 06/06/23 10:02:00 EDT, [facility] #97084, 30, INHALE 2 PUFFS BY MOUTH TWICE DAILY, 165, cm, 05/12/23 12:42:00 EDT, Height, 112.7, kg, 09/27/22 14:59:00 EST, Dry Weight Start Date: 06/06/23 Status: Ordered amLODIPine 5 mg oral tablet 5 mg, 1, tablet, By Mouth, Daily, # 30 tablet, Refills 0, Tot. Refills 0, Maintenance, 07/18/23 12:11:00 EDT, Route to Pharmacy Electronically, [facility] #[id number], Partial fill upon patient request if the [...] 5 Refills, Maintenance, 06/04/20 13:35:00 EDT, Tablet, [facility] #02404, 165, cm, 03/14/20 15:15:00 EDT, Height Start Date: 06/04/20 Status: Ordered dextromethorphan-guaifenesin 10 mg-100 mg/5 mL oral liquid 5 mL, By Mouth, Every 4 hours, PRN for cough, # 300 mL, 0 Refills, Maintenance, 03/24/22 10:17:00 EDT, Liquid, [facility] #00955, Partial fill upon patient request if the prescription is for a schedule II opioid drug., 5 mL By Mouth Every 4... Start Date: 03/24/22 Status: Ordered Diclofenac = 75 mg, By Mouth, 2 times a day, prescribed by Dr. Pierre, Neurologist in [facility] takesprn, 0 Refills, Maintenance, 08/09/16 8:32:51 Start Date: 08/09/16 Status: Ordered docusate sodium 100 mg oral capsule 1 capsule = 100 mg, By Mouth, 2 times a day, PRN as needed for constipation, with plenty of water, # 60 capsule, 1 Refills, Maintenance, 02/21/23 15:56:00 EDT, Capsule, [facility] #77705, Partial fill upon patient request if the [...] 1 each, 4 Refills, Maintenance,07/10/20 14:41:00 EDT, [facility] #05859, 1 spray each nostril BID,PRN:Nasal Congestion, 165, cm, 03/14/20 15:15:00 EDT, Height Start Date: 07/10/20 Status: Ordered levothyroxine 150 mcg (0.15 mg) oral tablet 1 tablet = 150 mcg, By Mouth, Daily, # 30 tablet, 11 Refills, Maintenance, 05/21/23 7:23:00 EDT, Tablet, [facility] #[id number], Partial fill upon patient request if the prescription is for a schedule II opioid drug., 165, cm, 05/12/23 12:42:00 E... Start Date: 05/21/23 Stop Date: 05/15/24 Status: Ordered lidocaine 4% topical cream 1 application, Topically, 3 times a day, # 15 Gm, 1 Refills, Maintenance, 03/14/20 15:53:00 EDT, Cream, [facility] #85922, 1 application Topically 3 times a day, 165, cm, 03/14/20 15:15:00 EDT, Height, 118.4, kg, 04/28/18 17:05:00 EDT, Dry W... Start Date: 03/14/20 Status: Ordered lidocaine 5% topical film 1 patch, Topically, Daily, PRN Pain , Moderate, remove patches after 12 hours, # 30 patch, 1 Refills, Maintenance, 08/08/23 14:19:00 EST, Film, [facility] #[id number], Partial fill upon patient request if the prescription is for a schedule II opi... Start Date: 08/08/23 Status: Ordered lisinopril 20 mg oral tablet 20 mg, 1, tablet, By Mouth, Daily, # 90 tablet, Refills 0, Tot. Refills 0, Maintenance, 07/18/23 12:11:00 EDT, Route to Pharmacy Electronically, [facility] #[id number], Partial fill upon patientrequest if the prescription is for a schedule II op... Start Date: 07/18/23 Status: Ordered Lubricant Eye Drops ophthalmic solution 1 drops, Eyes, Both, 2 times a day, PRN for dry eyes, # 30 each, 1 Refills, Maintenance, 06/04/20 13:37:00 EDT, Solution, [facility] #[id number], 1 drops Eyes, Both 2 times a day,PRN:for dry eyes, 165, cm, 03/14/20 15:15:00 EDT, Height Start Date: 06/04/20 Status: Ordered metFORMIN 750 mg oral tablet, extended release See Instructions, TAKE 1 TABLET BY MOUTH TWICE DAILY TAKE WITH MEALS, # 60 tablet, 3 Refills, Maintenance, 08/03/23 20:55:00 EST, [facility] #[id number], 165, cm, 07/25/23 13:56:00 EST, Height, 112.7, kg, 09/27/22 14:59:00 EST, Dry Weight Start Date: 08/03/23 Status: Ordered MiraLax oral powder for reconstitution = 17 Gm, By Mouth, Daily, PRN Constipation, dissolve in water before taking, # 255 Gm, 0 Refills, Maintenance, 02/21/23 15:55:00 EDT, REC Powder, [facility] #[id number], Partial fill upon patient request if the [...] Refills, Maintenance, 12/31/22 13:28:00 EDT, REC Powder, [facility] #[id number], Partial fill upon patient request if the prescription is for a schedule... Start Date: 12/31/22 Status: Ordered ProAir HFA 90 mcg/inh inhalation aerosol with adapter 2, puffs, Inhalation, Every 4 hours, PRN, # 8.5 Gm, Refills 0, Route to Pharmacy Electronically, [id number], [facility] #[id number], 165, cm, 04/30/22 10:50:00 EDT, Height, 118, kg, 01/18/22 15:08:00 EDT, Dry Weight Start Date: 05/10/22 Status: Ordered Saline Mist 0.65% nasal spray 1 sprays, Nares, Both, 3 times a day, followed by bulb suction as directed and as needed for nasal congestion., # 1 each, 4 Refills, Maintenance, 09/08/20 12:56:00 EST, [facility] #94645, 1sprays Nares, Both 3 times a day,x7 [...] tablet, 0 Refills, Maintenance, 10/27/22 17:07:00 EST, [facility] #68424, 165, cm, 09/27/22 14:59:00 EST, Height, 112.7, kg, 09/27/22 14:59:00 EST, Dry Weight Start Date: 10/27/22 Status: Ordered sucralfate 1 gm oral tablet See Instructions, # 120 tablet, TAKE 1 TABLET BY MOUTH FOUR TIMES DAILY, [facility] [address] Start Date: 03/26/19 Status: Ordered Zithromax Z-Mulugeta 250 mg oral tablet 1 pack/packet, By Mouth, Once, # 6 tablet, 0 Refills, Soft Stop, 03/24/22 10:16:00 EDT, Tablet, [facility] #02891, Partial fill upon patient request if the prescription is for a schedule IIopioid drug., 165, cm, 02/03/22 16:08:00 EDT, Heigh... Start Date: 03/24/22 Status: Ordered Problem List Condition Confirmation Course Effective Dates Status [facility] atus Informant Abdominal pain, lower [...] years ago 2012; entered on: 08/19/15 Sex Laboratory * Zhou Garza: PERFORM Event Display: Laboratory Results Scanned Authored Date: [id number] Consult note * Valentina Montana: MODIFY, SIGN Aniyah Mae DO: PERFORM, SIGN Aniyah Mae DO: SIGN, VERIFY Aniyah Mae DO: VERIFY Event Display: Consultation Note Authored Date: [id number] Patient: GLADIS JOSUE Age: 44 years Sex: Female : 1965 Associated Diagnoses: None Author: Aniyah Mae DO Attachments: None Consult to: General Surgery or Dermatology Reason for Consultation Changing Mole. Gladis Josue was seen in the office of Dr. Beebe who was concerned about a 6 mm medium nevus on tip of he L- shoulder with irregular borders and color. He recommended that she be seen by a surgeon /maori liaison adviser to do an excisional biopsy. 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 Penicillin- No reactions were documented. Current medications (Selected) Prescriptions Ordered Advair Diskus 500 mcg-50 mcg inhalation powder: 1 puffs, Inhalation, 2 times a day, # 1 cartridge, 3 Refills, Maintenance, Powder Flexeril 10 mg oral tablet: 1 tablet = 10 mg, By Mouth, 2 times a day, PRN spasm, # 6 tablet, 0 Refills, Maintenance, Tablet Levoxyl 0.2 mg oral tablet: 1 tablet = 200 mcg, By Mouth, Daily, # 30 tablet, 11 Refills ProAir HFA 90 mcg/inh inhalation aerosol with adapter: 2 puffs, Inhalation, Every 4 hours, PRN for wheezing, # 8.5 Gm, 11 Refills, Maintenance, Aerosol Zoloft 50 mg oral tablet: 1 tablet = 50 mg, By Mouth, Daily, # 30 tablet, 3 Refills, Maintenance, Bereavement, Tablet levothyroxine 175 mcg (0.175 mg) oral tablet: 1 tablet = 0.175 mg, By Mouth, Daily, # 30 tablet, 5 Refills, Maintenance omeprazole 20 mg oral enteric coated tablet: 1 tablet = 20 mg, By Mouth, Daily, # 60 tablet, 1 Refills, Maintenance post op boot: post op boot, See Instructions, # 1 applicator, Refills 0, Tot. Refills 0, Maintenance, 1 ramiro, 03/16/10 13:26:27 Suspended Hydrochlorothiazide: 12.5, mg, By Mouth, Daily, 30, 2, 0, 2, 01/17/07 13:53:22, Print GAVIN Number, [id number], Constant Indicator Documented Medications Documented Fioricet 325 mg-50 mg-40 mg oral tablet: 2, tablet, By Mouth, Every 4 hours, 0, 0, 11/21/07 14:59:25, Print GAVIN Number, [address] [place] [address], 51, Constant Indicator Percocet-5/325 325 mg-5 mg oral tablet: 1, tablet, By Mouth, Every 6 hours, 0, 0, 11/21/07 14:58:57, Print GAVIN Number, [address] [place] [address], 54, Constant Indicator * Valentina Montana: PERFORM Event Display: Consultation Note Authored Date: APPT MADE FOR 06/11/10 @ 10:00AM DR. [facility] [facility] REF#[id number] 15 VISITS Radiology * Hillary Constantino: PERFORM Event Display: Radiology Results Scanned Authored Date: [id number] * Hillary Constantino: PERFORM Event Display: Radiology Results Scanned Authored Date: [id number] * Adriana Rudolph: PERFORM Event Display: Radiology Results Scanned Authored Date: [id number] Patient Care team information Care Team Personnel Name: Vanessa Perry NP Position: [facility] PCO Associate Professional Member Role: Lifetime Consulting Provider Address: Address: [address] [place] [address]- Name: Ila Freed NP Position: [facility]O Associate Professional Member Role: PCP Address: Address: [address] [place] [address]- Care Team Related Persons Name: YESENIA ALARCON Address: [place] [address] Name: DORA ALARCON Address: home [address] [place] [address]
--- OUTSIDE RECORDS SUMMARY | 2023-10-25 23:54 | XMS_ITS | Continuity of Care Document ---
Author Name Unknown Organization [facility] Address [address] [place] [address]- Care Team Providers Care Public Services Librarian Name Role Phone Sonido VILLAREAL, Zuleika Lincoln Primary Care Physician [phone] Encounter [facility] Date(s): 09/08/20 - 10/08/[address] [address] Attending Physician: Nely Mednia Allergies, Adverse Reactions, Alerts Substance Reaction Severity [...] throat after use, # 60 each, Refills 11, Tot. Refills 11, Maintenance, 07/10/20 14:48:00 EDT, Powder, Route to Pharmacy Electronically, [id number], [facility] #10... Start Date: 07/10/20 Status: Ordered albuterol 0.083% inhalation solution 3 mL = 2.5 mg, Neb, Once, given as duoneb LOT [id number] EXP 01/2021, 0 Refills, Maintenance, 07/11/19 11:14:40 EDT Start Date: 07/11/19 Status: Ordered albuterol-ipratropium 3 mg-0.5 mg/3 ml inhalation solution 3 mL, Inhalation, 4 times a day, # 30 each, 0 Refills, Maintenance, 10/02/19 16:07:00 EST, Solution, [facility] #[id number], 3 mL Inhalation 4 times a day, 165, cm, 10/02/19 15:38:00 EST, Height, 118.4, kg, 04/28/18 17:05:00 EDT, Dry Weight Start Date: 10/02/19 Status: Ordered AutoCPAP 10-16 with heated humidification AutoCPAP 10-16 with heated humidification, See Instructions, # 1 each, Refills 0, Tot. Refills 0, Maintenance, use overnight and naps from Regional, 03/25/20 13:05:00 EDT, Compound Start Date: 03/25/20 Status: Ordered Compression stockings calf length 20-30mmg Hg pressure Compression stockings calf length 20-30mmg Hg pressure, See Instructions, # 2 pair, Refills 6, Tot.Refills 6, Maintenance, use for venous stasis Length of need: 99, 04/15/16 10:59:18, Compound Start Date: 04/15/16 Status: Ordered desloratadine 5 mg oral tablet 1 tablet = 5 mg, By Mouth, Daily, # 30 tablet, 5 Refills, Maintenance, 06/04/20 13:35:00 EDT, Tablet, [facility] #87856, 165, cm, 03/14/20 15:15:00 EDT, Height Start Date: 06/04/20 Status: Ordered dextromethorphan-guaifenesin 10 mg-100 mg/5 mL oral liquid 5 mL, By Mouth, Every 4 hours, PRN for cough, # 300 mL, 0 Refills, Maintenance, 09/08/20 12:59:00 EST, Liquid, [facility] #15623, Partial fill upon patient request if the prescription is for a schedule II opioid drug., 5 mL By Mouth Every 4... Start Date: 09/08/20 Status: Ordered Diclofenac = 75 mg, By Mouth, 2 times a day, prescribed by Dr. Pierre, Neurologist in [facility] takesprn, 0 Refills, Maintenance, 08/09/16 8:32:51 Start Date: 08/09/16 Status: Ordered Fioricet Tablet 1 tab, By Mouth, Every 4 hours, prescribed by Dr. Mckeon for migraines, # 30 tablet, 0 Refills, Maintenance, 04/18/14 11:41:59 Start Date: 04/18/14 Status: Ordered Gabapentin = 300 mg, By Mouth, Daily, 0 Refills, Maintenance, 10/19/17 14:27:32 Start Date: 10/19/17 Status: Ordered hydrochlorothiazide-lisinopril 12.5 mg-20 mg oral tablet 1 tablet, By Mouth, Daily, FOR BLOOD PRESSURE., # 30 tablet, 2 Refills, Maintenance, 09/08/20 8:13:00 EST, [facility] #[id number], 30, 1 tablet By Mouth Daily,Instr:FOR BLOOD PRESSURE., 165, cm,03/14/20 15:15:00 EDT, Height Start Date: 09/08/20 Status: Ordered Ipratropium 0.02% Inhalation Solution 2.5, mL, Neb, Once, given as duoneb LOT [id number] EXP 12/2020, Refills 0, Maintenance, 07/11/19 11:15:17 EDT Start Date: 07/11/19 Status: Ordered ipratropium nasal 21 mcg/inh spray See Instructions, PRN Nasal Congestion, 1 spray each nostril BID, # 1 each, 4 Refills, Maintenance,07/10/20 14:41:00 EDT, [facility] #79050, 1 spray each nostril BID,PRN:Nasal Congestion, 165, cm, 03/14/20 15:15:00 EDT, Height Start Date: 07/10/20 Status: Ordered levothyroxine 175 mcg (0.175 mg) oral tablet 1 tablet, By Mouth, Daily, # 90 tablet, 2 Refills, Maintenance, 09/08/20 12:51:00 EST, [facility] #21969, 165, cm, 03/14/20 15:15:00 EDT, Height Start Date: 09/08/20 Status: Ordered lidocaine 4% topical cream 1 application, Topically, 3 times a day, # 15 Gm, 1 Refills, Maintenance, 03/14/20 15:53:00 EDT, Cream, [facility] #63444, 1 application Topically 3 times a day, 165, cm, 03/14/20 15:15:00 EDT, Height, 118.4, kg, 04/28/18 17:05:00 EDT, Dry W... Start Date: 03/14/20 Status: Ordered Lubricant Eye Drops ophthalmic solution 1 drops, Eyes, Both, 2 times a day, PRN for dry eyes, # 30 each, 1 Refills, Maintenance, 06/04/20 13:37:00 EDT, Solution, [facility] #[id number], 1 drops Eyes, Both 2 times a day,PRN:for dry eyes, 165, cm, 03/14/20 15:15:00 EDT, Height Start Date: 06/04/20 Status: Ordered metFORMIN 500 mg oral tablet, extended release 2 tablet = 1,000 mg, By Mouth, Daily, # 60 tablet, 5 Refills, Maintenance, 09/08/20 12:51:[facility], 165, cm, 03/14/20 15:15:00 EDT, Height Start Date: 09/08/20 Stop Date: 03/07/21 Status: Ordered Nebulizer tubing Nebulizer tubing, See [...] 16:08:00 EST, Aerosol, Route to Pharmacy Electronically, [id number], [facility] #[id number], 165, cm, 10/02/19 15:38:... Start Date: 10/02/19 Stop Date: 09/26/20 Status: Ordered Protonix 40 mg oral delayed release tablet 1 tablet = 40 mg, By Mouth, Daily, # 90 tablet, 0 Refills, Maintenance, 07/15/20 12:27:00 EDT, EC Tablet, 165, cm, 03/14/20 15:15:00 EDT, Height, Dry Weight Start Date: 07/15/20 Status: Ordered Saline Mist 0.65% nasal spray 1 sprays, Nares, Both, 3 times a day, followed by bulb suction as directed and as needed for nasal congestion., # 1 each, 4 Refills, Maintenance, 09/08/20 12:56:00 EST, [facility] #67466, 1sprays Nares, Both 3 times a day,x7 days,Instr:foll... Start Date: 09/08/20 Stop Date: 10/13/20 Status: Ordered Spiriva HandiHaler 18 mcg inhalation capsule 1 capsule = 18 mcg, Inhalation, Daily, use two inhalations of one capsule for each dose, # 30 capsule, 11 Refills, Maintenance, 07/10/20 14:50:00 EDT, [facility] #19537, 165, cm, 03/14/20 15:15:00 EDT, Height Start Date: 07/10/20 Status: Ordered sucralfate 1 gm oral tablet See Instructions, # 120 tablet, TAKE 1 TABLET BY MOUTH FOUR TIMES DAILY, [facility] [address] Start Date: 03/26/19 Status: Ordered traZODone 50 mg oral tablet 1, tablet, By Mouth, Daily at bedtime, # 30 tablet, Refills 2, Tot. Refills 2, Maintenance, 09/14/20 12:55:00 EST, Route to Pharmacy Electronically, [facility] #42900, 165, cm, 03/14/20 15:15:00 EDT, Height Start Date: 09/14/20 Status: Ordered Problem List Condition Effective Dates [...]
--- OUTSIDE RECORDS SUMMARY | 2023-10-25 23:54 | XMS_ITS | Continuity of Care Document ---
Author Name Unknown Organization [facility] Address [address] [address]- Care Team Providers Care Cadd Instructor Name Role Phone Bridget Burk PRECINCT POLICE SERGEANT, Ila Primary Care Physician Encounter [facility] Date(s): 09/21/23 - 10/21/23 [facility] [address] [place] [address]- Attending Physician: Nely Medina Admitting Physician: AdmtrNely Referring Physician: Admtr Ar8 Allergies, Adverse Reactions, Alerts Substance Reaction Severity [...] Gm, 5 Refills, Maintenance, 06/06/23 10:02:00 EDT, [facility] #[id number], 30, INHALE 2 PUFFS BY MOUTH TWICE [...] 0, Maintenance, use overnight and naps from [facility], 03/25/20 13:05:00 EDT, Compound Start Date: 03/25/20 [...] 5 Refills, Maintenance, 06/04/20 13:35:00 EDT, Tablet, [facility] #[id number], 165, cm, 03/14/20 15:15:00 EDT, Height Start [...] 1 Refills, Maintenance, 02/21/23 15:56:00 EDT, Capsule, [facility] #[id number], Partial fill upon patient request if the [...] 1 each, 4 Refills, Maintenance,07/10/20 14:41:00 EDT, [facility] #[id number], 1 spray each nostril BID,PRN:Nasal Congestion, 165, cm, 03/14/20 15:15:00 EDT, Height Start Date: 07/10/20 Status: Ordered levothyroxine 150 mcg (0.15 mg) oral tablet 1 tablet = 150 mcg, By Mouth, Daily, # 30 tablet, 11 Refills, Maintenance, 05/21/23 7:23:00 EDT, Tablet, [facility] #[id number], Partial fill upon patient request if the prescription is for a schedule II opioid drug., 165, cm, 05/12/23 12:42:00 E... Start Date: 05/21/23 Stop Date: 05/15/24 Status: Ordered lidocaine 5% topical film 1 patch, Topically, Daily, PRN Pain , Moderate, remove patches after 12 hours, # 30 patch, 1 Refills, Maintenance, 08/08/23 14:19:00 EST, Film, [facility] #[id number], Partial fill upon patient request if the prescription is for a schedule II opi... Start Date: 08/08/23 Status: Ordered lisinopril 20 mg oral tablet 1, tablet, By Mouth, Daily, # 90 tablet, Refills 0, Maintenance, 10/17/23 13:56:00 EST, Route to Pharmacy Electronically, [facility] #[id number], 165, cm, 10/14/23 10:25:00 EST, Height, 112.7, kg, 09/27/22 14:59:00 EST, Dry Weight Start Date: 10/17/23 Status: Ordered metFORMIN 750 mg oral tablet, extended release See Instructions, TAKE 1 TABLET BY MOUTH TWICE DAILY TAKE WITH MEALS, # 60 tablet, 3 Refills, Maintenance, 08/03/23 20:55:00 EST, [facility] #[id number], 165, cm, 07/25/23 13:56:00 EST, Height, 112.7, kg, 09/27/22 14:59:00 EST, Dry Weight Start Date: 08/03/23 Status: Ordered MiraLax oral powder for reconstitution = 17 Gm, By Mouth, Daily, PRN Constipation, dissolve in water before taking, # 255 Gm, 0 Refills, Maintenance, 02/21/23 15:55:00 EDT, REC Powder, [facility] #[id number], Partial fill upon patient request if the [...] Refills, Maintenance, 12/31/22 13:28:00 EDT, REC Powder, [facility] #[id number], Partial fill upon patient request if the prescription is for a schedule... Start Date: 12/31/22 Status: Ordered ProAir HFA 90 mcg/inh inhalation aerosol with adapter 2, puffs, Inhalation, Every 4 hours, PRN, # 8.5 Gm, Refills 0, Route to Pharmacy Electronically, [id number], [facility] #[id number], 165, cm, 04/30/22 10:50:00 EDT, Height, 118, kg, 01/18/22 15:08:00 EDT, Dry Weight Start Date: 05/10/22 Status: Ordered Saline Mist 0.65% nasal spray 1 sprays, Nares, Both, 3 times a day, followed by bulb suction as directed and as needed for nasal congestion., # 1 each, 4 Refills, Maintenance, 09/08/20 12:56:00 EST, [facility] #[id number], 1sprays Nares, Both 3 times a day,x7 [...] tablet, 0 Refills, Maintenance, 10/27/22 17:07:00 EST, [facility] #[id number], 165, cm, 09/27/22 14:59:00 EST, Height, 112.7, kg, 09/27/22 14:59:00 EST, Dry Weight Start Date: 10/27/22 Status: Ordered sucralfate 1 gm oral tablet See Instructions, # 120 tablet, TAKE 1 TABLET BY MOUTH FOUR TIMES DAILY, [facility] [id number] Start Date: 03/26/19 Status: Ordered Problem List [...] Team Personnel Name: Vanessa Perry NP Position: [facility] Associate Professional Member Role: Lifetime Consulting Provider Address: Address: [address] [place] [address] Name: Ila Freed NP Position: [facility] Associate Professional Member Role: PCP Address: Address: [address] [place] [address] Care Team Related Persons Name: YESENIA ALARCON Address: [place] [address] Name: DORA ALARCON Address: [place] [address]
--- OUTSIDE RECORDS SUMMARY | 2023-10-25 23:54 | XMS_ITS | Continuity of Care Document ---
Author Name Unknown Organization [facility] Address [address] [place] [address]- Care Team Providers Care Black Studies Professor Name Role Phone Bridget Burk ROTATING EQUIPMENT SPECIALIST, Ila Primary Care Physician Encounter [facility] Date(s): 07/16/23 - 08/15/23 [facility] [address] [place] [address] Allergies, Adverse Reactions, Alerts Substance Reaction [...] Gm, 5 Refills, Maintenance, 06/06/23 10:02:00 EDT, [facility] #[id number], 30, INHALE 2 PUFFS BY MOUTH TWICE DAILY, 165, cm, 05/12/23 12:42:00 EDT, Height, 112.7, kg, 09/27/22 14:59:00 EST, Dry Weight Start Date: 06/06/23 Status: Ordered amLODIPine 5 mg oral tablet 5 mg, 1, tablet, By Mouth, Daily, # 30 tablet, Refills 0, Tot. Refills 0, Maintenance, 07/18/23 12:11:00 EDT, Route to Pharmacy Electronically, [facility] #[id number], Partial fill upon patient request if the prescription is for a schedule II opi... Start Date: 07/18/23 Status: Ordered AutoCPAP 10-16 with heated humidification AutoCPAP 10-16 with heated humidification, See Instructions, # 1 each, Refills 0, Tot. Refills 0, Maintenance, use overnight and naps from [facility], 03/25/20 13:05:00 EDT, Compound Start [...] 5 Refills, Maintenance, 06/04/20 13:35:00 EDT, Tablet, [facility] #08502, 165, cm, 03/14/20 15:15:00 EDT, Height Start Date: 06/04/20 Status: Ordered dextromethorphan-guaifenesin 10 mg-100 mg/5 mL oral liquid 5 mL, By Mouth, Every 4 hours, PRN for cough, # 300 mL, 0 Refills, Maintenance, 03/24/22 10:17:00 EDT, Liquid, [facility] #[id number], Partial fill upon patient request if the prescription is for a schedule II opioid drug., 5 mL By Mouth Every 4... Start Date: 03/24/22 Status: Ordered Diclofenac = 75 mg, By Mouth, 2 times a day, prescribed by Dr. Pierre, Neurologist in [facility] takesprn, 0 Refills, Maintenance, 08/09/16 8:32:51 Start Date: 08/09/16 Status: Ordered docusate sodium 100 mg oral capsule 1 capsule = 100 mg, By Mouth, 2 times a day, PRN as needed for constipation, with plenty of water, # 60 capsule, 1 Refills, Maintenance, 02/21/23 15:56:00 EDT, Capsule, [facility] #[id number], Partial fill upon patient request if the [...] 1 each, 4 Refills, Maintenance,07/10/20 14:41:00 EDT, [facility] #[id number], 1 spray each nostril BID,PRN:Nasal Congestion, 165, cm, 03/14/20 15:15:00 EDT, Height Start Date: 07/10/20 Status: Ordered levothyroxine 150 mcg (0.15 mg) oral tablet 1 tablet = 150 mcg, By Mouth, Daily, # 30 tablet, 11 Refills, Maintenance, 05/21/23 7:23:00 EDT, Tablet, [facility] #[id number], Partial fill upon patient request if the prescription is for a schedule II opioid drug., 165, cm, 05/12/23 12:42:00 E... Start Date: 05/21/23 Stop Date: 05/15/24 Status: Ordered lidocaine 4% topical cream 1 application, Topically, 3 times a day, # 15 Gm, 1 Refills, Maintenance, 03/14/20 15:53:00 EDT, Cream, [facility] #39948, 1 application Topically 3 times a day, 165, cm, 03/14/20 15:15:00 EDT, Height, 118.4, kg, 04/28/18 17:05:00 EDT, Dry W... Start Date: 03/14/20 Status: Ordered lidocaine 5% topical film 1 patch, Topically, Daily, PRN Pain , Moderate, remove patches after 12 hours, # 30 patch, 1 Refills, Maintenance, 08/08/23 14:19:00 EST, Film, [facility] #[id number], Partial fill upon patient request if the prescription is for a schedule II opi... Start Date: 08/08/23 Status: Ordered lisinopril 20 mg oral tablet 20 mg, 1, tablet, By Mouth, Daily, # 90 tablet, Refills 0, Tot. Refills 0, Maintenance, 07/18/23 12:11:00 EDT, Route to Pharmacy Electronically, [facility] #[id number], Partial fill upon patientrequest if the prescription is for a schedule II op... Start Date: 07/18/23 Status: Ordered Lubricant Eye Drops ophthalmic solution 1 drops, Eyes, Both, 2 times a day, PRN for dry eyes, # 30 each, 1 Refills, Maintenance, 06/04/20 13:37:00 EDT, Solution, [facility] #06376, 1 drops Eyes, Both 2 times a day,PRN:for dry eyes, 165, cm, 03/14/20 15:15:00 EDT, Height Start Date: 06/04/20 Status: Ordered metFORMIN 750 mg oral tablet, extended release See Instructions, TAKE 1 TABLET BY MOUTH TWICE DAILY TAKE WITH MEALS, # 60 tablet, 3 Refills, Maintenance, 08/03/23 20:55:00 EST, [facility] #[id number], 165, cm, 07/25/23 13:56:00 EST, Height, 112.7, kg, 09/27/22 14:59:00 EST, Dry Weight Start Date: 08/03/23 Status: Ordered MiraLax oral powder for reconstitution = 17 Gm, By Mouth, Daily, PRN Constipation, dissolve in water before taking, # 255 Gm, 0 Refills, Maintenance, 02/21/23 15:55:00 EDT, REC Powder, [facility] #[id number], Partial fill upon patient request if the [...] Refills, Maintenance, 12/31/22 13:28:00 EDT, REC Powder, [facility] #[id number], Partial fill upon patient request if the prescription is for a schedule... Start Date: 12/31/22 Status: Ordered ProAir HFA 90 mcg/inh inhalation aerosol with adapter 2, puffs, Inhalation, Every 4 hours, PRN, # 8.5 Gm, Refills 0, Route to Pharmacy Electronically, [id number], [facility] #[id number], 165, cm, 04/30/22 10:50:00 EDT, Height, 118, kg, 01/18/22 15:08:00 EDT, Dry Weight Start Date: 05/10/22 Status: Ordered Saline Mist 0.65% nasal spray 1 sprays, Nares, Both, 3 times a day, followed by bulb suction as directed and as needed for nasal congestion., # 1 each, 4 Refills, Maintenance, 09/08/20 12:56:00 EST, [facility] #[id number], 1sprays Nares, Both 3 times a day,x7 [...] tablet, 0 Refills, Maintenance, 10/27/22 17:07:00 EST, [facility] #[id number], 165, cm, 09/27/22 14:59:00 EST, Height, 112.7, kg, 09/27/22 14:59:00 EST, Dry Weight Start Date: 10/27/22 Status: Ordered sucralfate 1 gm oral tablet See Instructions, # 120 tablet, TAKE 1 TABLET BY MOUTH FOUR TIMES DAILY, [facility]343 Start Date: 03/26/19 Status: Ordered Zithromax Z-Mulugeta 250 mg oral tablet 1 pack/packet, By Mouth, Once, # 6 tablet, 0 Refills, Soft Stop, 03/24/22 10:16:00 EDT, Tablet, [facility] #32807, Partial fill upon patient request if the prescription is for a schedule IIopioid drug., 165, cm, 02/03/22 16:08:00 EDT, Heigh... Start Date: 03/24/22 Status: Ordered Problem List Condition Confirmation Course Effective Dates Status [facility] atus Informant Abdominal pain, lower [...] TOÑITO on CPAP Confirmed Active Severe obesity (BMI 35.0-39.9) with comorbidity Confirmed Active Type 2 diabetes mellitus with hemoglobin A1c goal of less than 7.0% Confirmed Active Social History Social History Type Response Smoking Status Former smoker; Tobac co user in household: No; Other: stop 3 years ago 2012; entered on: 08/19/15 Sex Patient Care team information Care Team Personnel Name: Vanessa Perry NP Position: [facility] PCO Associate Professional Member Role: Lifetime Consulting Provider Address: Address: [address] [place] [address]- Name: Ila Freed NP Position: [facility]O Associate Professional Member Role: PCP Address: Address: [address] [place] [address]- Care Team Related Persons Name: YESENIA ALARCON Address: [place] [address] Name: DORA ALARCON Address: home [address] [place] [id number]
--- OUTSIDE RECORDS SUMMARY | 2023-10-25 23:55 | XMS_ITS | Continuity of Care Document ---
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 Apprentice Name Role Phone Bridget Burk FURNACE FITTER, Ila Primary Care Physician Encounter [facility] Date(s): 02/24/22 - 03/26/22 [facility] [address] [place], [place] [address] Attending Physician: Nely Medina Admitting Physician: AdmtrNely Referring Physician: Admtr, Ar8 Allergies, Adverse Reactions, Alerts Substance Reaction [...] 6 Refills, Maintenance, 06/17/21 11:50:00 EDT, [facility], [id number], Partial fill upon patient request if the prescription is for a schedule II opioid drug., 2 puffs Inhalation 2 times a d... Start Date: 06/17/21 Status: Ordered AutoCPAP 10-16 with heated humidification [...] 5 Refills, Maintenance, 06/04/20 13:35:00 EDT, Tablet, [facility] #[id number], 165, cm, 03/14/20 15:15:00 EDT, Height Start Date: 06/04/20 Status: Ordered dextromethorphan-guaifenesin 10 mg-100 mg/5 mL oral liquid 5 mL, By Mouth, Every 4 hours, PRN for cough, # 300 mL, 0 Refills, Maintenance, 03/24/22 10:17:00 EDT, Liquid, [facility] #[id number], Partial fill upon patient request if the prescription is for a schedule II opioid drug., 5 mL By Mouth Every 4... Start Date: 03/24/22 Status: Ordered Diclofenac = 75 mg, By Mouth, 2 times a day, prescribed by Dr. Pierre, Neurologist in [place] pt states takesprn, 0 Refills, Maintenance, 08/09/16 [...] 30 tablet, 2 Refills, Maintenance, 11/04/21 16:10:00 [facility] #17908, pt needs labs, 1 tablet By Mouth Daily,x3... Start Date: 11/04/21 Stop Date: 02/02/22 Status: Ordered hydrochlorothiazide-lisinopril 25 mg-20 mg oral tablet 1 tablet, By Mouth, Daily, Continue to monitor your blood pressure at home. Please bring your bloodpressure recordings to your next provider's appointment. Be sure to drink adequate water., # 90 tablet, 2 Refills, Maintenance, 01/20/22 17:16:00 EDT... Start Date: 01/20/22 Status: Ordered ipratropium nasal 21 mcg/inh spray See Instructions, PRN Nasal Congestion, 1 spray each nostril BID, # 1 each, 4 Refills, Maintenance,07/10/20 14:41:00 EDT, [facility] #[id number], 1 spray each nostril BID,PRN:Nasal Congestion, 165, cm, 03/14/20 15:15:00 EDT, Height Start Date: 07/10/20 Status: Ordered levothyroxine 175 mcg (0.175 mg) oral tablet 1 tablet, By Mouth, Daily, # 90 tablet, 2 Refills, Maintenance, 09/01/21 12:27:00 EST, [facility] #[id number], 165, cm, 07/13/21 11:17:00 EDT, Height Start Date: 09/01/21 Status: Ordered lidocaine 4% topical cream 1 application, Topically, 3 times a day, # 15 Gm, 1 Refills, Maintenance, 03/14/20 15:53:00 EDT, Cream, [facility] #15836, 1 application Topically 3 times a day, 165, cm, 03/14/20 15:15:00 EDT, Height, 118.4, kg, 04/28/18 17:05:00 EDT, Dry W... Start Date: 03/14/20 Status: Ordered Lubricant Eye Drops ophthalmic solution 1 drops, Eyes, Both, 2 times a day, PRN for dry eyes, # 30 each, 1 Refills, Maintenance, 06/04/20 13:37:00 EDT, Solution, [facility] #[id number], 1 drops Eyes, Both 2 times a day,PRN:for dry eyes, 165, cm, 03/14/20 15:15:00 EDT, Height Start Date: 06/04/20 Status: Ordered metFORMIN 500 mg oral tablet, extended release 2 tablet = 1,000 mg, By Mouth, Daily, # 60 tablet, 5 Refills, Maintenance, 02/02/22 16:11:00 EDT, [facility] #58698, 165, cm, 01/20/22 15:45:00 EDT, Height, 118, kg, 01/18/22 15:08:00 EDT, Dry Weight Start Date: 02/02/22 Stop Date: 08/01/22 Status: Ordered Nebulizer tubing Nebulizer tubing, See [...] Daily, # 90 tablet, 0 Refills, Maintenance, 01/06/22 10:09:00 EDT, 165, cm, 01/04/22 8:59:00 EDT, Height Start Date: 01/06/22 Status: Ordered predniSONE 20 mg oral tablet 2 tablet = 40 mg, By Mouth, Daily, for 5 days, # 10 tablet, 0 Refills, Acute 03/29/22 10:16:00 EDT,03/24/22 10:16:00 EDT, Tablet, [facility] #[id number], Partial fill upon patient request if the prescription is for a schedule II opioid drug., 16... Start Date: 03/24/22 Stop Date: 03/29/22 Status: Ordered rosuvastatin 10 mg oral tablet 1 tablet = 10 mg, By Mouth, Daily, Take 1 tablet/day at the same time each day. Take with or without food. May take with food if it causes an upset stomach., # 30 tablet, 6 Refills, Maintenance, 02/03/22 17:18:00 EDT, Tablet, [facility] #1... Start Date: 02/03/22 Stop Date: 09/01/22 Status: Ordered Saline Mist 0.65% nasal spray 1 sprays, Nares, Both, 3 times a day, followed by bulb suction as directed and as needed for nasal congestion., # 1 each, 4 Refills, Maintenance, 09/08/20 12:56:00 EST, [facility] #06256, 1sprays Nares, Both 3 times a day,x7 days,Instr:foll... Start Date: 09/08/20 Stop Date: 10/13/20 Status: Ordered sertraline 25 mg oral tablet 1 tablet, By Mouth, Daily, # 30 tablet, 3 Refills, Maintenance, 09/01/21 12:27:00 EST, [facility] #[id number], 165, cm, 07/13/21 11:17:00 EDT, Height Start Date: 09/01/21 Status: Ordered sucralfate 1 gm oral tablet See Instructions, # 120 tablet, TAKE 1 TABLET BY MOUTH FOUR TIMES DAILY, [facility] 09860 Start Date: 03/26/19 Status: Ordered Zithromax Z-Mulugeta 250 mg oral tablet 1 pack/packet, By Mouth, Once, # 6 tablet, 0 Refills, Soft Stop, 03/24/22 10:16:00 EDT, Tablet, [facility] #[id number], Partial fill upon patient request if the prescription is for a schedule IIopioid drug., 165, cm, 02/03/22 16:08:00 EDT, Heigh... Start Date: 03/24/22 Status: Ordered Problem List Condition Effective Dates [...]
--- OUTSIDE RECORDS SUMMARY | 2023-10-25 23:55 | XMS_ITS | Continuity of Care Document ---
Author Name Unknown Organization [facility] Address [address] [place] [address]- Care Team Providers Care Hotel Superintendent Name Role Phone Bridget Burk NP, Ila Primary Care Physician Encounter [facility] Date(s): 01/25/23 - 02/24/[address] [address] Allergies, Adverse Reactions, [...] 12 Gm, 6 Refills, Maintenance, 08/26/22 10:52:00 Innovate/Protect, [facility] #75811, 30, INHALE 2 PUFFS BY MOUTH TWICE [...] 5 Refills, Maintenance, 06/04/20 13:35:00 EDT, Tablet, [facility] #10457, 165, cm, 03/14/20 15:15:00 EDT, Height Start Date: 06/04/20 Status: Ordered dextromethorphan-guaifenesin 10 mg-100 mg/5 mL oral liquid 5 mL, By Mouth, Every 4 hours, PRN for cough, # 300 mL, 0 Refills, Maintenance, 03/24/22 10:17:00 EDT, Liquid, [facility] #[id number], Partial fill upon patient request if the prescription is for a schedule II opioid drug., 5 mL By Mouth Every 4... Start Date: 03/24/22 Status: Ordered Diclofenac = 75 mg, By Mouth, 2 times a day, prescribed by Dr. Pierre, Neurologist in [facility] takesprn, 0 Refills, Maintenance, 08/09/16 8:32:51 Start Date: 08/09/16 Status: Ordered docusate sodium 100 mg oral capsule 1 capsule = 100 mg, By Mouth, 2 times a day, PRN as needed for constipation, with plenty of water, # 60 capsule, 1 Refills, Maintenance, 02/21/23 15:56:00 EDT, Capsule, [facility] #[id number], Partial fill upon patient request if the [...] tablet, 0 Refills, Maintenance, 05/29/22 21:25:00 EDT, [facility] #64634, 90, TAKE 1 TABLET BY MOUTHEVERY DAY, DRINK ADEQUATE WATER AND CONTINUE TO MON... Start Date: 05/29/22 Status: Ordered ipratropium nasal 21 mcg/inh spray See Instructions, PRN Nasal Congestion, 1 spray each nostril BID, # 1 each, 4 Refills, Maintenance,07/10/20 14:41:00 EDT, [facility] #36419, 1 spray each nostril BID,PRN:Nasal Congestion, 165, cm, 03/14/20 15:15:00 EDT, Height Start Date: 07/10/20 Status: Ordered levothyroxine 175 mcg (0.175 mg) oral tablet 1 tablet, By Mouth, Daily, # 90 tablet, 0 Refills, Maintenance, 12/27/22 10:51:00 EDT, [facility] #[id number], 165, cm, 09/27/22 14:59:00 EST, Height, 112.7, kg, 09/27/22 14:59:00 EST, Dry Weight Start Date: 12/27/22 Status: Ordered lidocaine 4% topical cream 1 application, Topically, 3 times a day, # 15 Gm, 1 Refills, Maintenance, 03/14/20 15:53:00 EDT, Cream, [facility] #[id number], 1 application Topically 3 times a day, 165, cm, 03/14/20 15:15:00 EDT, Height, 118.4, kg, 04/28/18 17:05:00 EDT, Dry W... Start Date: 03/14/20 Status: Ordered Lubricant Eye Drops ophthalmic solution 1 drops, Eyes, Both, 2 times a day, PRN for dry eyes, # 30 each, 1 Refills, Maintenance, 06/04/20 13:37:00 EDT, Solution, [facility] #34073, 1 drops Eyes, Both 2 times a day,PRN:for dry eyes, 165, cm, 03/14/20 15:15:00 EDT, Height Start Date: 06/04/20 Status: Ordered metFORMIN 750 mg oral tablet, extended release 1 tablet = 750 mg, By Mouth, 2 times a day, Take with meals., # 60 tablet, 2 Refills, Maintenance, 05/22/23 21:27:00 EDT, ER Tablet, [facility] #04001, Partial fill upon patient request if the [...] Refills, Maintenance, 02/21/23 15:55:00 EDT, REC Powder, [facility] #27677, Partial fill upon patient request if the [...] Refills, Maintenance, 12/31/22 13:28:00 EDT, REC Powder, [facility] #61802, Partial fill upon patient request if the prescription is for a schedule... Start Date: 12/31/22 Status: Ordered ProAir HFA 90 mcg/inh inhalation aerosol with adapter 2, puffs, Inhalation, Every 4 hours, PRN, # 8.5 Gm, Refills 0, Route to Pharmacy Electronically, [id number], [facility] #[id number], 165, cm, 04/30/22 10:50:00 EDT, Height, 118, kg, 01/18/22 15:08:00 EDT, Dry Weight Start Date: 05/10/22 Status: Ordered Saline Mist 0.65% nasal spray 1 sprays, Nares, Both, 3 times a day, followed by bulb suction as directed and as needed for nasal congestion., # 1 each, 4 Refills, Maintenance, 09/08/20 12:56:00 EST, [facility] #[id number], 1sprays Nares, Both 3 times a day,x7 [...] tablet, 0 Refills, Maintenance, 10/27/22 17:07:00 EST, [facility] #54200, 165, cm, 09/27/22 14:59:00 EST, Height, 112.7, kg, 09/27/22 14:59:00 EST, Dry Weight Start Date: 10/27/22 Status: Ordered sucralfate 1 gm oral tablet See Instructions, # 120 tablet, TAKE 1 TABLET BY MOUTH FOUR TIMES DAILY, [facility] Start Date: 03/26/19 Status: Ordered Zithromax Z-Mulugeta 250 mg oral tablet 1 pack/packet, By Mouth, Once, # 6 tablet, 0 Refills, Soft Stop, 03/24/22 10:16:00 EDT, Tablet, [facility] #[id number], Partial fill upon patient request if the [...] Team Personnel Name: Vanessa Perry NP Position: [facility] PCO Associate Professional Member Role: Lifetime Consulting Provider Address: Address: [address] [place] [id number]- Name: Ila Freed NP Position: [facility] Associate Professional Member Role: PCP Address: Address: [address] [place] [id number]- [place] Care Team Related Persons Name: YESENIA ALARCON Address: [place] [address] Name: DORA ALARCON Address: home [address] [place] [id number]
--- OUTSIDE RECORDS SUMMARY | 2023-10-25 23:55 | XMS_ITS | Continuity of Care Document ---
Author Name Unknown Organization [facility] Address [address] [place] [id number]- Care Team Providers Care Mmd Unit Teacher Name Role Phone Bridget Burk NP, Ila Primary Care Physician [place] [facility] [place] [facility] [address] [address] Attending Physician: Nely Medina Admitting Physician: [...] 6 Refills, Maintenance, 06/17/21 11:50:00 EDT, Aerosol, [facility][id number], Partial fill upon patient request if the [...] 5 Refills, Maintenance, 06/04/20 13:35:00 EDT, Tablet, [facility] #[id number], 165, cm, 03/14/20 15:15:00 EDT, Height Start Date: 06/04/20 Status: Ordered dextromethorphan-guaifenesin 10 mg-100 mg/5 mL oral liquid 5 mL, By Mouth, Every 4 hours, PRN for cough, # 300 mL, 0 Refills, Maintenance, 03/24/22 10:17:00 EDT, Liquid, [facility] #[id number], Partial fill upon patient request if the prescription is for a schedule II opioid drug., 5 mL By Mouth Every 4... Start Date: 03/24/22 Status: Ordered Diclofenac = 75 mg, By Mouth, 2 times a day, prescribed by Dr. Pierre, Neurologist in [place] pt states takesprn, 0 Refills, Maintenance, 08/09/16 [...] 30 tablet, 2 Refills, Maintenance, 11/04/21 16:10:00 [facility] #[id number], pt needs labs, 1 tablet By Mouth [...] 1 each, 4 Refills, Maintenance,07/10/20 14:41:00 EDT, [facility] #[id number], 1 spray each nostril BID,PRN:Nasal Congestion, 165, cm, 03/14/20 15:15:00 EDT, Height Start Date: 07/10/20 Status: Ordered levothyroxine 175 mcg (0.175 mg) oral tablet 1 tablet, By Mouth, Daily, # 90 tablet, 2 Refills, Maintenance, 09/01/21 12:27:00 EST, [facility] #[id number], 165, cm, 07/13/21 11:17:00 EDT, Height Start Date: 09/01/21 Status: Ordered lidocaine 4% topical cream 1 application, Topically, 3 times a day, # 15 Gm, 1 Refills, Maintenance, 03/14/20 15:53:00 EDT, Cream, [facility] #[id number], 1 application Topically 3 times a day, 165, cm, 03/14/20 15:15:00 EDT, Height, 118.4, kg, 04/28/18 17:05:00 EDT, Dry W... Start Date: 03/14/20 Status: Ordered Lubricant Eye Drops ophthalmic solution 1 drops, Eyes, Both, 2 times a day, PRN for dry eyes, # 30 each, 1 Refills, Maintenance, 06/04/20 13:37:00 EDT, Solution, [facility] #21177, 1 drops Eyes, Both 2 times a day,PRN:for dry eyes, 165, cm, 03/14/20 15:15:00 EDT, Height Start Date: 06/04/20 Status: Ordered metFORMIN 500 mg oral tablet, extended release 2 tablet = 1,000 mg, By Mouth, Daily, # 60 tablet, 5 Refills, Maintenance, 02/02/22 16:11:00 EDT, [facility] #[id number], 165, cm, 01/20/22 15:45:00 EDT, Height, 118, [...] EDT, Height Start Date: 01/06/22 Status: Ordered rosuvastatin 10 mg oral tablet 1 tablet = 10 mg, By Mouth, Daily, Take 1 tablet/day at the same time each day. Take with or without food. May take with food if it causes an upset stomach., # 30 tablet, 6 Refills, Maintenance, 02/03/22 17:18:00 EDT, Tablet, [facility] #1... Start Date: 02/03/22 Stop Date: 09/01/22 Status: Ordered Saline Mist 0.65% nasal spray 1 sprays, Nares, Both, 3 times a day, followed by bulb suction as directed and as needed for nasal congestion., # 1 each, 4 Refills, Maintenance, 09/08/20 12:56:00 [facility] #[id number], 1sprays Nares, Both 3 times a day,x7 days,Instr:foll... Start Date: 09/08/20 Stop Date: 10/13/20 Status: Ordered sertraline 25 mg oral tablet 1 tablet, By Mouth, Daily, # 30 tablet, 3 Refills, Maintenance, 09/01/21 12:27:00 [facility] #[id number], 165, cm, 07/13/21 11:17:00 EDT, Height Start Date: 09/01/21 Status: Ordered sucralfate 1 gm oral tablet See Instructions, # 120 tablet, TAKE 1 TABLET BY MOUTH FOUR TIMES DAILY, [facility] [address] Start Date: 03/26/19 Status: Ordered Zithromax Z-Mulugeta 250 mg oral tablet 1 pack/packet, By Mouth, Once, # 6 tablet, 0 Refills, Soft Stop, 03/24/22 10:16:00 EDT, Tablet, [facility] #[id number], Partial fill upon patient request if the [...]
--- OUTSIDE RECORDS SUMMARY | 2023-10-25 23:55 | XMS_ITS | Continuity of Care Document ---
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 Name Role Phone Bridget Burk OPTOMETRY DOCTOR, Ila Primary Care Physician Encounter [facility] Date(s): 07/13/23 - 08/14/[address] [address] Attending Physician: Not on Staff, Attending MD Allergies, Adverse Reactions, Alerts Substance Reaction Severity [...] Gm, 5 Refills, Maintenance, 06/06/23 10:02:00 EDT, [facility] #[id number], 30, INHALE 2 PUFFS BY MOUTH TWICE DAILY, 165, cm, 05/12/23 12:42:00 EDT, Height, 112.7, kg, 09/27/22 14:59:00 EST, Dry Weight Start Date: 06/06/23 Status: Ordered amLODIPine 5 mg oral tablet 5 mg, 1, tablet, By Mouth, Daily, # 30 tablet, Refills 0, Tot. Refills 0, Maintenance, 07/18/23 12:11:00 EDT, Route to Pharmacy Electronically, [facility] #[id number], Partial fill upon patient request if the prescription is for a schedule II opi... Start Date: 07/18/23 Status: Ordered AutoCPAP 10-16 with heated humidification AutoCPAP 10-16 with heated humidification, See Instructions, # 1 each, Refills 0, Tot. Refills 0, Maintenance, [facility], 03/25/20 13:05:00 EDT, Compound Start Date: [...] 5 Refills, Maintenance, 06/04/20 13:35:00 EDT, Tablet, [facility] #[id number], 165, cm, 03/14/20 15:15:00 EDT, Height Start Date: 06/04/20 Status: Ordered dextromethorphan-guaifenesin 10 mg-100 mg/5 mL oral liquid 5 mL, By Mouth, Every 4 hours, PRN for cough, # 300 mL, 0 Refills, Maintenance, 03/24/22 10:17:00 EDT, Liquid, [facility] #[id number], Partial fill upon patient request if the prescription is for a schedule II opioid drug., 5 mL By Mouth Every 4... Start Date: 03/24/22 Status: Ordered Diclofenac = 75 mg, By Mouth, 2 times a day, prescribed by Dr. Pierre, Neurologist in [facility] takesprn, 0 Refills, Maintenance, 08/09/16 8:32:51 Start Date: 08/09/16 Status: Ordered docusate sodium 100 mg oral capsule 1 capsule = 100 mg, By Mouth, 2 times a day, PRN as needed for constipation, with plenty of water, # 60 capsule, 1 Refills, Maintenance, 02/21/23 15:56:00 EDT, Capsule, [facility] #[id number], Partial fill upon patient request if the [...] 1 each, 4 Refills, Maintenance,07/10/20 14:41:00 EDT, [facility] #[id number], 1 spray each nostril BID,PRN:Nasal Congestion, 165, cm, 03/14/20 15:15:00 EDT, Height Start Date: 07/10/20 Status: Ordered levothyroxine 150 mcg (0.15 mg) oral tablet 1 tablet = 150 mcg, By Mouth, Daily, # 30 tablet, 11 Refills, Maintenance, 05/21/23 7:23:00 EDT, Tablet, [facility] #[id number], Partial fill upon patient request if the prescription is for a schedule II opioid drug., 165, cm, 05/12/23 12:42:00 E... Start Date: 05/21/23 Stop Date: 05/15/24 Status: Ordered lidocaine 4% topical cream 1 application, Topically, 3 times a day, # 15 Gm, 1 Refills, Maintenance, 03/14/20 15:53:00 EDT, Cream, [facility] #[id number], 1 application Topically 3 times a day, 165, cm, 03/14/20 15:15:00 EDT, Height, 118.4, kg, 04/28/18 17:05:00 EDT, Dry W... Start Date: 03/14/20 Status: Ordered lidocaine 5% topical film 1 patch, Topically, Daily, PRN Pain , Moderate, remove patches after 12 hours, # 30 patch, 1 Refills, Maintenance, 08/08/23 14:19:00 EST, Film, [facility] #[id number], Partial fill upon patient request if the prescription is for a schedule II opi... Start Date: 08/08/23 Status: Ordered lisinopril 20 mg oral tablet 20 mg, 1, tablet, By Mouth, Daily, # 90 tablet, Refills 0, Tot. Refills 0, Maintenance, 07/18/23 12:11:00 EDT, Route to Pharmacy Electronically, [facility] #[id number], Partial fill upon patientrequest if the prescription is for a schedule II op... Start Date: 07/18/23 Status: Ordered Lubricant Eye Drops ophthalmic solution 1 drops, Eyes, Both, 2 times a day, PRN for dry eyes, # 30 each, 1 Refills, Maintenance, 06/04/20 13:37:00 EDT, Solution, [facility] #[id number], 1 drops Eyes, Both 2 times a day,PRN:for dry eyes, 165, cm, 03/14/20 15:15:00 EDT, Height Start Date: 06/04/20 Status: Ordered metFORMIN 750 mg oral tablet, extended release See Instructions, TAKE 1 TABLET BY MOUTH TWICE DAILY TAKE WITH MEALS, # 60 tablet, 3 Refills, Maintenance, 08/03/23 20:55:00 EST, [facility] #[id number], 165, cm, 07/25/23 13:56:00 EST, Height, 112.7, kg, 09/27/22 14:59:00 EST, Dry Weight Start Date: 08/03/23 Status: Ordered MiraLax oral powder for reconstitution = 17 Gm, By Mouth, Daily, PRN Constipation, dissolve in water before taking, # 255 Gm, 0 Refills, Maintenance, 02/21/23 15:55:00 EDT, REC Powder, [facility] #[id number], Partial fill upon patient request if the [...] Refills, Maintenance, 12/31/22 13:28:00 EDT, REC Powder, [facility] #[id number], Partial fill upon patient request if the prescription is for a schedule... Start Date: 12/31/22 Status: Ordered ProAir HFA 90 mcg/inh inhalation aerosol with adapter 2, puffs, Inhalation, Every 4 hours, PRN, # 8.5 Gm, Refills 0, Route to Pharmacy Electronically, [id number], [facility] #[id number], 165, cm, 04/30/22 10:50:00 EDT, Height, 118, kg, 01/18/22 15:08:00 EDT, Dry Weight Start Date: 05/10/22 Status: Ordered Saline Mist 0.65% nasal spray 1 sprays, Nares, Both, 3 times a day, followed by bulb suction as directed and as needed for nasal congestion., # 1 each, 4 Refills, Maintenance, 09/08/20 12:56:00 EST, [facility] #[id number], 1sprays Nares, Both 3 times a day,x7 [...] tablet, 0 Refills, Maintenance, 10/27/22 17:07:00 EST, [facility] #46686, 165, cm, 09/27/22 14:59:00 EST, Height, 112.7, kg, 09/27/22 14:59:00 EST, Dry Weight Start Date: 10/27/22 Status: Ordered sucralfate 1 gm oral tablet See Instructions, # 120 tablet, TAKE 1 TABLET BY MOUTH FOUR TIMES DAILY, [facility] 49656 Start Date: 03/26/19 Status: Ordered Zithromax Z-Mulugeta 250 mg oral tablet 1 pack/packet, By Mouth, Once, # 6 tablet, 0 Refills, Soft Stop, 03/24/22 10:16:00 EDT, Tablet, [facility] #12793, Partial fill upon patient request if the prescription is for a schedule IIopioid drug., 165, cm, 02/03/22 16:08:00 EDT, Heigh... Start Date: 03/24/22 Status: Ordered Problem List Condition Confirmation Course Effective Dates Status [facility] atus Informant Abdominal pain, lower [...] Team Personnel Name: Vanessa Perry NP Position: [facility] PC[facility] Associate Professional Member Role: Lifetime Consulting Provider Address: Address: [address] [place] [address]- Name: Ila Freed NP Position: [facility] Associate Professional Member Role: PCP Address: Address: [address] [place] [address] Care Team Related Persons Name: YESENIA ALARCON Address: [place] [address] Name: DORA ALARCON Address: home [address] [place] [address]
--- OUTSIDE RECORDS SUMMARY | 2023-10-25 23:55 | XMS_ITS | Continuity of Care Document ---
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 Start Date: 07/10/20 Status: Ordered albuterol 0.083% inhalation solution 3 mL = 2.5 mg, Neb, Once, given as duoneb LOT [id number] EXP 01/2021, 0 Refills, Maintenance, 07/11/19 11:14:40 EDT Start Date: 07/11/19 Status: Ordered albuterol-ipratropium 3 mg-0.5 mg/3 ml inhalation solution 3 mL, Inhalation, 4 times a day, # 30 each, 0 Refills, Maintenance, 10/02/19 16:07:00 EST, Solution, [facility] #[id number], 3 mL Inhalation 4 times a day, [...] 5 Refills, Maintenance, 06/04/20 13:35:00 EDT, Tablet, [facility] #76081, 165, cm, 03/14/20 15:15:00 EDT, Height Start Date: 06/04/20 Status: Ordered dextromethorphan-guaifenesin 10 mg-100 mg/5 mL oral liquid 5 mL, By Mouth, Every 4 hours, PRN for cough, # 300 mL, 0 Refills, Maintenance, 09/08/20 12:59:00 EST, Liquid, [facility] #59292, Partial fill upon patient request if the prescription is for a schedule II opioid drug., 5 mL By Mouth Every 4... Start Date: 09/08/20 Status: Ordered Diclofenac = 75 mg, By Mouth, 2 times a day, prescribed by Dr. Pierre, Neurologist in [place] pt states takesprn, 0 Refills, Maintenance, 08/09/16 [...] please go to the lab thank you ANDRES JALLOH., # 30 tablet, 2 Refills, Maintenance, 12/17/20 16:02:00 EDT, [facility] #24138, 30, pt needs labs, 1 tablet By Mouth David... Start Date: 12/17/20 Status: Ordered Ipratropium 0.02% Inhalation Solution 2.5, mL, Neb, Once, given as duoneb LOT [id number] EXP 12/2020, Refills 0, Maintenance, 07/11/19 11:15:17 EDT Start Date: 07/11/19 Status: Ordered ipratropium nasal 21 mcg/inh spray See Instructions, PRN Nasal Congestion, 1 spray each nostril BID, # 1 each, 4 Refills, Maintenance,07/10/20 14:41:00 EDT, [facility] #50873, 1 spray each nostril BID,PRN:Nasal Congestion, 165, cm, 03/14/20 15:15:00 EDT, Height Start Date: 07/10/20 Status: Ordered levothyroxine 175 mcg (0.175 mg) oral tablet 1 tablet, By Mouth, Daily, # 90 tablet, 2 Refills, Maintenance, 09/08/20 12:51:00 EST, [facility] #09702, 165, cm, 03/14/20 15:15:00 EDT, Height Start Date: 09/08/20 Status: Ordered lidocaine 4% topical cream 1 application, Topically, 3 times a day, # 15 Gm, 1 Refills, Maintenance, 03/14/20 15:53:00 EDT, Cream, [facility] #91235, 1 application Topically 3 times a day, 165, cm, 03/14/20 15:15:00 EDT, Height, 118.4, kg, 04/28/18 17:05:00 EDT, Dry W... Start Date: 03/14/20 Status: Ordered Lubricant Eye Drops ophthalmic solution 1 drops, Eyes, Both, 2 times a day, PRN for dry eyes, # 30 each, 1 Refills, Maintenance, 06/04/20 13:37:00 EDT, Solution, [facility] #[id number], 1 drops Eyes, Both 2 times a day,PRN:for dry eyes, 165, cm, 03/14/20 15:15:00 EDT, Height Start Date: 06/04/20 Status: Ordered metFORMIN 500 mg oral tablet, extended release 2 tablet = 1,000 mg, By Mouth, Daily, # 60 tablet, 5 Refills, Maintenance, 09/08/20 12:51:00 EST, [facility] #[id number], 165, cm, 03/14/20 15:15:00 EDT, Height Start [...] Daily, # 90 tablet, 2 Refills, Maintenance, 10/14/20 13:13:00 EST, 165, cm, 03/14/20 15:15:00 EDT, Height Start Date: 10/14/20 Status: Ordered Percocet-5/325 325 mg-5 mg oral tablet 2, tablet, By Mouth, Every 8 hours, Refills 0, Tot. Refills 0, Maintenance, 12/22/15 9:08:45 Start Date: 12/22/15 Status: Ordered ProAir HFA 90 mcg/inh inhalation aerosol with adapter 2, puffs, Inhalation, Every 4 hours, PRN, # 1 each, Refills 11, Tot. Refills 11, Maintenance, 11/12/20 9:34:00 EST, Aerosol, Route to Pharmacy Electronically, [id number], [facility] #[id number], 165, cm, 11/12/20 9:01:00... Start Date: 11/12/20 Stop Date: 11/07/21 Status: Ordered Saline Mist 0.65% nasal spray 1 sprays, Nares, Both, 3 times a day, followed by bulb suction as directed and as needed for nasal congestion., # 1 each, 4 Refills, Maintenance, 09/08/20 12:56:00 EST, [facility] #[id number], 1sprays Nares, Both 3 times a day,x7 days,Instr:foll... Start Date: 09/08/20 Stop Date: 10/13/20 Status: Ordered sertraline 25 mg oral tablet 1 tablet, By Mouth, Daily, # 30 tablet, 3 Refills, Maintenance, 02/10/21 22:06:00 EDT, [facility] #[id number], 165, cm, 01/16/21 16:24:00 EDT, Height Start Date: 02/10/21 Status: Ordered Spiriva HandiHaler 18 mcg inhalation capsule 1 capsule = 18 mcg, Inhalation, Daily, use two inhalations of one capsule for each dose, # 30 capsule, 11 Refills, Maintenance, 07/10/20 14:50:00 EDT, [facility] #20035, 165, cm, 03/14/20 15:15:00 EDT, Height Start Date: 07/10/20 Status: Ordered sucralfate 1 gm oral tablet See Instructions, # 120 tablet, TAKE 1 TABLET BY MOUTH FOUR TIMES DAILY, [facility] 29965 Start Date: 03/26/19 Status: Ordered traZODone 50 mg oral tablet 1, tablet, By Mouth, Daily at bedtime, # 30 tablet, Refills 2, Tot. Refills 2, Maintenance, 12/12/20 11:25:00 EDT, Route to Pharmacy Electronically, [facility] #[id number], 165, cm, 11/12/20 9:01:00 EST, Height Start Date: 12/12/20 Status: Ordered Problem List Condition Effective Dates [...]
--- OUTSIDE RECORDS SUMMARY | 2023-10-25 23:55 | XMS_ITS | Continuity of Care Document ---
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 Refills 0, Maintenance, 07/18/23 12:11:00 EDT, Route to Pharmacy Electronically, [facility] #[id number], Partial fill upon patient request if the prescription is for a schedule II opi... Start Date: 07/18/23 Status: Ordered AutoCPAP 10-16 with heated humidification AutoCPAP 10-16 with heated humidification, See Instructions, # 1 each, Refills 0, Tot. Refills 0, Maintenance, use overnight and naps from [facility], 03/25/20 13:05:00 EDT, Compound Start [...] 5 Refills, Maintenance, 06/04/20 13:35:00 EDT, Tablet, [facility] #[id number], 165, cm, 03/14/20 15:15:00 EDT, Height Start Date: 06/04/20 Status: Ordered dextromethorphan-guaifenesin 10 mg-100 mg/5 mL oral liquid 5 mL, By Mouth, Every 4 hours, PRN for cough, # 300 mL, 0 Refills, Maintenance, 03/24/22 10:17:00 EDT, Liquid, [facility] #[id number], Partial fill upon patient request if the prescription is for a schedule II opioid drug., 5 mL By Mouth Every 4... Start Date: 03/24/22 Status: Ordered Diclofenac = 75 mg, By Mouth, 2 times a day, prescribed by Dr. Pierre, Neurologist in [facility] takesprn, 0 Refills, Maintenance, 08/09/16 8:32:51 Start Date: 08/09/16 Status: Ordered docusate sodium 100 mg oral capsule 1 capsule = 100 mg, By Mouth, 2 times a day, PRN as needed for constipation, with plenty of water, # 60 capsule, 1 Refills, Maintenance, 02/21/23 15:56:00 EDT, Capsule, [facility] #[id number], Partial fill upon patient request if the [...] 1 each, 4 Refills, Maintenance,07/10/20 14:41:00 EDT, [facility] #[id number], 1 spray each nostril BID,PRN:Nasal Congestion, 165, cm, 03/14/20 15:15:00 EDT, Height Start Date: 07/10/20 Status: Ordered levothyroxine 150 mcg (0.15 mg) oral tablet 1 tablet = 150 mcg, By Mouth, Daily, # 30 tablet, 11 Refills, Maintenance, 05/21/23 7:23:00 EDT, [facility] #88254, Partial fill upon patient request if the prescription is for a schedule II opioid drug., 165, cm, 05/12/23 12:42:00 E... Start Date: 05/21/23 Stop Date: 05/15/24 Status: Ordered lidocaine 4% topical cream 1 application, Topically, 3 times a day, # 15 Gm, 1 Refills, Maintenance, 03/14/20 15:53:00 EDT, Cream, [facility] #[id number], 1 application Topically 3 times a day, 165, cm, 03/14/20 15:15:00 EDT, Height, 118.4, kg, 04/28/18 17:05:00 EDT, Dry W... Start Date: 03/14/20 Status: Ordered lidocaine 5% topical film 1 patch, Topically, Daily, PRN Pain , Moderate, remove patches after 12 hours, # 30 patch, 1 Refills, Maintenance, 08/08/23 14:19:00 EST, Film, [facility] #[id number], Partial fill upon patient request if the prescription is for a schedule II opi... Start Date: 08/08/23 Status: Ordered lisinopril 20 mg oral tablet 20 mg, 1, tablet, By Mouth, Daily, # 90 tablet, Refills 0, Tot. Refills 0, Maintenance, 07/18/23 12:11:00 EDT, Route to Pharmacy Electronically, [facility] #[id number], Partial fill upon patientrequest if the prescription is for a schedule II op... Start Date: 07/18/23 Status: Ordered Lubricant Eye Drops ophthalmic solution 1 drops, Eyes, Both, 2 times a day, PRN for dry eyes, # 30 each, 1 Refills, Maintenance, 06/04/20 13:37:00 EDT, Solution, [facility] #43101, 1 drops Eyes, Both 2 times a day,PRN:for dry eyes, 165, cm, 03/14/20 15:15:00 EDT, Height Start Date: 06/04/20 Status: Ordered metFORMIN 750 mg oral tablet, extended release See Instructions, TAKE 1 TABLET BY MOUTH TWICE DAILY TAKE WITH MEALS, # 60 tablet, 3 Refills, Maintenance, 08/03/23 20:55:00 EST, [facility] #[id number], 165, cm, 07/25/23 13:56:00 EST, Height, 112.7, kg, 09/27/22 14:59:00 EST, Dry Weight Start Date: 08/03/23 Status: Ordered MiraLax oral powder for reconstitution = 17 Gm, By Mouth, Daily, PRN Constipation, dissolve in water before taking, # 255 Gm, 0 Refills, Maintenance, 02/21/23 15:55:00 EDT, REC Powder, [facility] #[id number], Partial fill upon patient request if the [...] Refills, Maintenance, 12/31/22 13:28:00 EDT, REC Powder, [facility] #13753, Partial fill upon patient request if the prescription is for a schedule... Start Date: 12/31/22 Status: Ordered ProAir HFA 90 mcg/inh inhalation aerosol with adapter 2, puffs, Inhalation, Every 4 hours, PRN, # 8.5 Gm, Refills 0, Route to Pharmacy Electronically, [id number], [facility] #[id number], 165, cm, 04/30/22 10:50:00 EDT, Height, 118, kg, 01/18/22 15:08:00 EDT, Dry Weight Start Date: 05/10/22 Status: Ordered Saline Mist 0.65% nasal spray 1 sprays, Nares, Both, 3 times a day, followed by bulb suction as directed and as needed for nasal congestion., # 1 each, 4 Refills, Maintenance, 09/08/20 12:56:00 EST, [facility] #48274, 1sprays Nares, Both 3 times a day,x7 [...] tablet, 0 Refills, Maintenance, 10/27/22 17:07:00 EST, [facility] #[id number], 165, cm, 09/27/22 14:59:00 EST, Height, 112.7, kg, 09/27/22 14:59:00 EST, Dry Weight Start Date: 10/27/22 Status: Ordered sucralfate 1 gm oral tablet See Instructions, # 120 tablet, TAKE 1 TABLET BY MOUTH FOUR TIMES DAILY, [facility] [address] Start Date: 03/26/19 Status: Ordered Zithromax Z-Mulugeta 250 mg oral tablet 1 pack/packet, By Mouth, Once, # 6 tablet, 0 Refills, Soft Stop, 03/24/22 10:16:00 EDT, Tablet, [facility] #74017, Partial fill upon patient request if the prescription is for a schedule IIopioid drug., 165, cm, 02/03/22 16:08:00 EDT, Heigh... Start Date: 03/24/22 Status: Ordered Problem List Condition Confirmation Course Effective Dates Status [facility] atus Informant Abdominal pain, lower Confirmed [...] Team Personnel Name: Vanessa Perry NP Position: [facility] PCO Associate Professional Member Role: Lifetime Consulting Provider Address: Address: [address] [place] [address] Name: Ila Freed NP Position[facility] Associate Professional Member Role: PCP Address: Address: [address] [place] [address] Care Team Related Persons Name: YESENIA ALAROCN Address: [place] [address] Name: DORA ALARCON Address: [place] [address]
--- OUTSIDE RECORDS SUMMARY | 2023-10-25 23:55 | XMS_ITS | Continuity of Care Document ---
Author Name Unknown Organization [facility] Address [address] [place] [address]- Care Team Providers Care Utility Teller Name Role Phone Bridget Burk NP, Ila Primary Care Physician Encounter [facility] Date(s): 02/21/23 - 03/23/[address] [address]- Attending Physician: Admtr, Nely Allergies, Adverse Reactions, [...] 12 Gm, 6 Refills, Maintenance, 08/26/22 10:52:00 EST, [facility] #[id number], 30, INHALE 2 PUFFS BY MOUTH TWICE [...] 5 Refills, Maintenance, 06/04/20 13:35:00 EDT, Tablet, [facility] #[id number], 165, cm, 03/14/20 15:15:00 EDT, Height Start Date: 06/04/20 Status: Ordered dextromethorphan-guaifenesin 10 mg-100 mg/5 mL oral liquid 5 mL, By Mouth, Every 4 hours, PRN for cough, # 300 mL, 0 Refills, Maintenance, 03/24/22 10:17:00 EDT, Liquid, [facility] #[id number], Partial fill upon patient request if the prescription is for a schedule II opioid drug., 5 mL By Mouth Every 4... Start Date: 03/24/22 Status: Ordered Diclofenac = 75 mg, By Mouth, 2 times a day, prescribed by Dr. Pierre, Neurologist in [facility] takesprn, 0 Refills, Maintenance, 08/09/16 8:32:51 Start Date: 08/09/16 Status: Ordered docusate sodium 100 mg oral capsule 1 capsule = 100 mg, By Mouth, 2 times a day, PRN as needed for constipation, with plenty of water, # 60 capsule, 1 Refills, Maintenance, 02/21/23 15:56:00 EDT, Capsule, [facility] #[id number], Partial fill upon patient request if the [...] tablet, 0 Refills, Maintenance, 05/29/22 21:25:00 EDT, [facility] #[id number], 90, TAKE 1 TABLET BY MOUTHEVERY DAY, DRINK ADEQUATE WATER AND CONTINUE TO MON... Start Date: 05/29/22 Status: Ordered ipratropium nasal 21 mcg/inh spray See Instructions, PRN Nasal Congestion, 1 spray each nostril BID, # 1 each, 4 Refills, Maintenance,07/10/20 14:41:00 EDT, [facility] #[id number], 1 spray each nostril BID,PRN:Nasal Congestion, 165, cm, 03/14/20 15:15:00 EDT, Height Start Date: 07/10/20 Status: Ordered levothyroxine 175 mcg (0.175 mg) oral tablet 1 tablet, By Mouth, Daily, # 90 tablet, 0 Refills, Maintenance, 03/20/23 19:27:00 EDT, [facility] #[id number], 165, cm, 02/21/23 15:26:00 EDT, Height, 112.7, kg, 09/27/22 14:59:00 EST, Dry Weight Start Date: 03/20/23 Status: Ordered lidocaine 4% topical cream 1 application, Topically, 3 times a day, # 15 Gm, 1 Refills, Maintenance, 03/14/20 15:53:00 EDT, Cream, [facility] #[id number], 1 application Topically 3 times a day, 165, cm, 03/14/20 15:15:00 EDT, Height, 118.4, kg, 04/28/18 17:05:00 EDT, Dry W... Start Date: 03/14/20 Status: Ordered Lubricant Eye Drops ophthalmic solution 1 drops, Eyes, Both, 2 times a day, PRN for dry eyes, # 30 each, 1 Refills, Maintenance, 06/04/20 13:37:00 EDT, Solution, [facility] #[id number], 1 drops Eyes, Both 2 times a day,PRN:for dry eyes, 165, cm, 03/14/20 15:15:00 EDT, Height Start Date: 06/04/20 Status: Ordered metFORMIN 750 mg oral tablet, extended release 1 tablet = 750 mg, By Mouth, 2 times a day, Take with meals., # 60 tablet, 2 Refills, Maintenance, 05/22/23 21:27:00 EDT, ER Tablet, [facility] #[id number], Partial fill upon patient request if the [...] Refills, Maintenance, 02/21/23 15:55:00 EDT, REC Powder, [facility] #35792, Partial fill upon patient request if the [...] Refills, Maintenance, 12/31/22 13:28:00 EDT, REC Powder, [facility] #79815, Partial fill upon patient request if the prescription is for a schedule... Start Date: 12/31/22 Status: Ordered ProAir HFA 90 mcg/inh inhalation aerosol with adapter 2, puffs, Inhalation, Every 4 hours, PRN, # 8.5 Gm, Refills 0, Route to Pharmacy Electronically, [id number], [facility] #[id number], 165, cm, 04/30/22 10:50:00 EDT, Height, 118, kg, 01/18/22 15:08:00 EDT, Dry Weight Start Date: 05/10/22 Status: Ordered Saline Mist 0.65% nasal spray 1 sprays, Nares, Both, 3 times a day, followed by bulb suction as directed and as needed for nasal congestion., # 1 each, 4 Refills, Maintenance, 09/08/20 12:56:00 EST, [facility] #[id number], 1sprays Nares, Both 3 times a day,x7 [...] tablet, 0 Refills, Maintenance, 10/27/22 17:07:00 EST, [facility] #[id number], 165, cm, 09/27/22 14:59:00 EST, Height, 112.7, kg, 09/27/22 14:59:00 EST, Dry Weight Start Date: 10/27/22 Status: Ordered sucralfate 1 gm oral tablet See Instructions, # 120 tablet, TAKE 1 TABLET BY MOUTH FOUR TIMES DAILY, [facility] Start Date: 03/26/19 Status: Ordered Zithromax Z-Mulugeta 250 mg oral tablet 1 pack/packet, By Mouth, Once, # 6 tablet, 0 Refills, Soft Stop, 03/24/22 10:16:00 EDT, Tablet, [facility] #[id number], Partial fill upon patient request if the [...] Event Display: Laboratory Results Scanned Authored Date: [id number] Consult note * Valentina Montana: MODIFY, SIGN Aniyah Mae DO: PERFORM, SIGN Aniyah Mae DO: SIGN, VERIFY Aniyah Mae DO: VERIFY Event Display: Consultation Note Authored Date: Patient: GLADIS JOSUE Age: 44 years Sex: [...] that she be 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 Allergies Allergic Reactions (Selected) Celexa- [...] 0, 2, 01/17/07 13:53:22, Print [facility] Number, [id number], Constant Indicator Documented Medications Documented Fioricet 325 mg-50 mg-40 mg oral tablet: 2, tablet, By Mouth, Every 4 hours, 0, 0, 11/21/07 14:59:25, Print [facility] Number, [address] [place] [address], 51, Constant Indicator Percocet-5/325 325 mg-5 mg oral tablet: 1, tablet, By Mouth, Every 6 hours, 0, 0, 11/21/07 14:58:57, Print [facility] Number, [address] [place] [address], 54, Constant Indicator * Valentina Montana: PERFORM Event Display: Consultation Note Authored Date: [id number] APPT MADE FOR 06/11/10 @ 10:00AM [facility] [address] [place] [address] REF#[id number] 15 VISITS Radiology * Hillary Constantino: PERFORM Event Display: Radiology Results Scanned Authored Date: [id number] * Hillary Constantino: PERFORM Event Display: Radiology Results Scanned Authored Date: [id number] * Adriana Rudolph: PERFORM Event Display: Radiology Results Scanned Authored Date: [id number] Patient Care team information Care Team Personnel Name: Vanessa Perry NP Position: [facility] Associate Professional Member Role: Lifetime Consulting Provider Address: Address: [address] [place] [address]- [place] Name: Ila Freed NP Position: [facility] Associate Professional Member Role: PCP Address: Address: [address] [place], [place] [phone]- Care Team Related Persons Name: YESENIA ALARCON Address: [place] [address] Name: DORA ALARCON Address: home [address] [place] [id number]
--- OUTSIDE RECORDS SUMMARY | 2023-10-25 23:55 | XMS_ITS | Continuity of Care Document ---
Author Name Unknown Organization [facility] Address Unknown Care Team Providers Care Buckle Sewer Machine Name Role Phone Sonido VILLAREAL, Zuleika Lincoln Primary Care Physician [place] [facility] [facility] [id number] Date(s): 09/25/21 - 10/25/21 [facility] Attending Physician: Nely Medina Admitting Physician: Nely Medina Referring Physician: Nely Medina Allergies, Adverse Reactions, Alerts [...] 6 Refills, Maintenance, 06/17/21 11:50:00 EDT, Aerosol, [facility] #[id number], Partial fill upon patient request if the prescription is for a schedule II opioid drug., 2 puffs Inhalation 2 times a d... Start Date: 06/17/21 Status: Ordered Aspercreme 10% topical cream 1 application, Topically, 4 times a day, PRN for pain, n., # 1 each, 3 Refills, Maintenance, 07/13/21 11:47:00 EDT, Cream, [facility] #60462, Partial fill upon patient request if the [...] 5 Refills, Maintenance, 06/04/20 13:35:00 EDT, Tablet, [facility] #02694, 165, cm, 03/14/20 15:15:00 EDT, Height Start Date: 06/04/20 Status: Ordered dextromethorphan-guaifenesin 10 mg-100 mg/5 mL oral liquid 5 mL, By Mouth, Every 4 hours, PRN for cough, # 300 mL, 0 Refills, Maintenance, 09/08/20 12:59:00 EST, Liquid, [facility] #[id number], Partial fill upon patient request if the prescription is for a schedule II opioid drug., 5 mL By Mouth Every 4... Start Date: 09/08/20 Status: Ordered Diclofenac = 75 mg, By Mouth, 2 times a day, prescribed by Dr. Pierre, Neurologist in [facility] states takesprn, 0 Refills, Maintenance, 08/09/16 [...] thank you FORBLOOD PRESSURE., # 30 tablet, 5 Refills, Maintenance, 06/12/21 11:20:00 EDT, [facility] #40481, 30, pt needs labs, 1 tablet By Mouth David... Start Date: 06/12/21 Status: Ordered ipratropium nasal 21 mcg/inh spray See Instructions, PRN Nasal Congestion, 1 spray each nostril BID, # 1 each, 4 Refills, Maintenance,07/10/20 14:41:00 EDT, [facility] #35037, 1 spray each nostril BID,PRN:Nasal Congestion, 165, cm, 03/14/20 15:15:00 EDT, Height Start Date: 07/10/20 Status: Ordered levothyroxine 175 mcg (0.175 mg) oral tablet 1 tablet, By Mouth, Daily, # 90 tablet, 2 Refills, Maintenance, 09/01/21 12:27:00 EST, [facility] #21850, 165, cm, 07/13/21 11:17:00 EDT, Height Start Date: 09/01/21 Status: Ordered lidocaine 4% topical cream 1 application, Topically, 3 times a day, # 15 Gm, 1 Refills, Maintenance, 03/14/20 15:53:00 EDT, Cream, [facility] #81093, 1 application Topically 3 times a day, 165, cm, 03/14/20 15:15:00 EDT, Height, 118.4, kg, 04/28/18 17:05:00 EDT, Dry W... Start Date: 03/14/20 Status: Ordered Lubricant Eye Drops ophthalmic solution 1 drops, Eyes, Both, 2 times a day, PRN for dry eyes, # 30 each, 1 Refills, Maintenance, 06/04/20 13:37:00 EDT, Solution, [facility] #51900, 1 drops Eyes, Both 2 times a day,PRN:for dry eyes, 165, cm, 03/14/20 15:15:00 EDT, Height Start Date: 06/04/20 Status: Ordered metFORMIN 500 mg oral tablet, extended release 2 tablet = 1,000 mg, By Mouth, Daily, # 60 tablet, 5 Refills, Maintenance, 03/11/21 10:40:00 EDT, [facility] #04443, 165, cm, 03/11/21 9:56:00 EDT, Height Start Date: 03/11/21 Stop Date: 09/07/21 Status: Ordered Nebulizer tubing Nebulizer tubing, See [...] for 30 days, # 1 each, Refills 11, Tot. Refills 11, Hard Stop 11/07/21 9:34:00 EST, 11/12/20 9:34:00 EST, Aerosol, Route to Pharmacy Electronically, [id number], [facility] #... Start Date: 11/12/20 Stop Date: 11/07/21 Status: Ordered Saline Mist 0.65% nasal spray 1 sprays, Nares, Both, 3 times a day, followed by bulb suction as directed and as needed for nasal congestion., # 1 each, 4 Refills, Maintenance, 09/08/20 12:56:00 EST, [facility] #79383, 1sprays Nares, Both 3 times a day,x7 days,Instr:foll... Start Date: 09/08/20 Stop Date: 10/13/20 Status: Ordered sertraline 25 mg oral tablet 1 tablet, By Mouth, Daily, # 30 tablet, 3 Refills, Maintenance, 09/01/21 12:27:00 EST, [facility] #76615, 165, cm, 07/13/21 11:17:00 EDT, Height Start Date: 09/01/21 Status: Ordered sucralfate 1 gm oral tablet See Instructions, # 120 tablet, TAKE 1 TABLET BY MOUTH FOUR TIMES DAILY, [facility] Start Date: 03/26/19 Status: Ordered Problem List [...]
--- OUTSIDE RECORDS SUMMARY | 2023-10-25 23:55 | XMS_ITS | Continuity of Care Document ---
Author Name Unknown Organization [facility] Address [address] [place] [address]- Care Team Providers Care Senior Functional Analyst Name Role Phone Bridget Burk NP, Ila Primary Care Physician Encounter [facility] [place] ACCT R [id number] Date(s): 05/09/23 - 07/10/[address] [address]- Attending Physician: Rebeca Hylton MD Admitting Physician: Rebeca Hylton MD Allergies, Adverse Reactions, Alerts Substance Reaction [...] Gm, 5 Refills, Maintenance, 06/06/23 10:02:00 EDT, [facility] #[id number], 30, INHALE 2 PUFFS BY MOUTH TWICE DAILY, 165, cm, 05/12/23 12:42:00 EDT, Height, 112.7, kg, 09/27/22 14:59:00 EST, Dry Weight Start Date: 9/18/23 Status: Ordered AutoCPAP 10-16 with heated humidification [...] 5 Refills, Maintenance, 06/04/20 13:35:00 EDT, Tablet, [facility] #35683, 165, cm, 03/14/20 15:15:00 EDT, Height Start Date: 06/04/20 Status: Ordered dextromethorphan-guaifenesin 10 mg-100 mg/5 mL oral liquid 5 mL, By Mouth, Every 4 hours, PRN for cough, # 300 mL, 0 Refills, Maintenance, 03/24/22 10:17:00 EDT, Liquid, [facility] #57395, Partial fill upon patient request if the prescription is for a schedule II opioid drug., 5 mL By Mouth Every 4... Start Date: 03/24/22 Status: Ordered Diclofenac = 75 mg, By Mouth, 2 times a day, prescribed by Dr. Pierre, Neurologist in [facility] takesprn, 0 Refills, Maintenance, 08/09/16 8:32:51 Start Date: 08/09/16 Status: Ordered docusate sodium 100 mg oral capsule 1 capsule = 100 mg, By Mouth, 2 times a day, PRN as needed for constipation, with plenty of water, # 60 capsule, 1 Refills, Maintenance, 02/21/23 15:56:00 EDT, Capsule, [facility] #[id number], Partial fill upon patient request if the [...] cm, 03/11/21 9:56:00 EDT, Height Start Date: 6/23/21 Stop Date: 04/10/21 Status: Ordered Gabapentin = 300 mg, By Mouth, Daily, 0 Refills, Maintenance, 10/19/17 14:27:32 Start Date: 10/19/17 Status: Ordered hydrochlorothiazide-lisinopril 25 mg-20 mg oral tablet 1 tablet, By Mouth, Daily, ADEQUATE WATER AND CONTINUE TO MONITOR BLOOD PRESSURE., # 270 tablet, 0 Refills, Maintenance, 06/23/23 6:36:00 EDT, [facility] #00287, 77, TAKE 1 TABLET BY MOUTH EVERY DAY, DRINK ADEQUATE WATER AND CONTINUE TO FRANCISCO... Start Date: 06/23/23 Status: Ordered ipratropium nasal 21 mcg/inh spray See Instructions, PRN Nasal Congestion, 1 spray each nostril BID, # 1 each, 4 Refills, Maintenance,07/10/20 14:41:00 EDT, [facility] #39177, 1 spray each nostril BID,PRN:Nasal Congestion, 165, cm, 03/14/20 15:15:00 EDT, Height Start Date: 07/10/20 Status: Ordered levothyroxine 150 mcg (0.15 mg) oral tablet 1 tablet = 150 mcg, By Mouth, Daily, # 30 tablet, 11 Refills, Maintenance, 05/21/23 7:23:00 EDT, Tablet, [facility] #[id number], Partial fill upon patient request if the prescription is for a schedule II opioid drug., 165, cm, 05/12/23 12:42:00 E... Start Date: 05/21/23 Stop Date: 05/15/24 Status: Ordered lidocaine 4% topical cream 1 application, Topically, 3 times a day, # 15 Gm, 1 Refills, Maintenance, 03/14/20 15:53:00 EDT, Cream, [facility] #31231, 1 application Topically 3 times a day, 165, cm, 03/14/20 15:15:00 EDT, Height, 118.4, kg, 04/28/18 17:05:00 EDT, Dry W... Start Date: 03/14/20 Status: Ordered Lubricant Eye Drops ophthalmic solution 1 drops, Eyes, Both, 2 times a day, PRN for dry eyes, # 30 each, 1 Refills, Maintenance, 06/04/20 13:37:00 EDT, Solution, [facility] #48212, 1 drops Eyes, Both 2 times a day,PRN:for dry eyes, 165, cm, 03/14/20 15:15:00 EDT, Height Start Date: 06/04/20 Status: Ordered metFORMIN 750 mg oral tablet, extended release See Instructions, TAKE 1 TABLET BY MOUTH TWICE DAILY TAKE WITH MEALS, # 60 tablet, 0 Refills, Maintenance, 07/06/23 20:00:00 EDT, [facility] #[id number], 165, cm, 05/12/23 12:42:00 EDT, Height, 112.7, kg, 09/27/22 14:59:00 EST, Dry Weight Start Date: 07/06/23 Status: Ordered MiraLax oral powder for reconstitution = 17 Gm, By Mouth, Daily, PRN Constipation, dissolve in water before taking, # 255 Gm, 0 Refills, Maintenance, 02/21/23 15:55:00 EDT, REC Powder, [facility] #[id number], Partial fill upon patient request if the [...] Refills, Maintenance, 12/31/22 13:28:00 EDT, REC Powder, [facility] #03542, Partial fill upon patient request if the prescription is for a schedule... Start Date: 12/31/22 Status: Ordered ProAir HFA 90 mcg/inh inhalation aerosol with adapter 2, puffs, Inhalation, Every 4 hours, PRN, # 8.5 Gm, Refills 0, Route to Pharmacy Electronically, [id number], [facility] #35001, 165, cm, 04/30/22 10:50:00 EDT, Height, 118, kg, 01/18/22 15:08:00 EDT, Dry Weight Start Date: 05/10/22 Status: Ordered Saline Mist 0.65% nasal spray 1 sprays, Nares, Both, 3 times a day, followed by bulb suction as directed and as needed for nasal congestion., # 1 each, 4 Refills, Maintenance, 09/08/20 12:56:00 EST, [facility] #57023, 1sprays Nares, Both 3 times a day,x7 [...] tablet, 0 Refills, Maintenance, 10/27/22 17:07:00 EST, [facility] #[id number], 165, cm, 09/27/22 14:59:00 EST, Height, 112.7, kg, 09/27/22 14:59:00 EST, Dry Weight Start Date: 10/27/22 Status: Ordered sucralfate 1 gm oral tablet See Instructions, # 120 tablet, TAKE 1 TABLET BY MOUTH FOUR TIMES DAILY, [facility] Start Date: 03/26/19 Status: Ordered Zithromax Z-Mulugeta 250 mg oral tablet 1 pack/packet, By Mouth, Once, # 6 tablet, 0 Refills, Soft Stop, 03/24/22 10:16:00 EDT, Tablet, [facility] #39036, Partial fill upon patient request if the [...] Team Personnel Name: Vanessa Perry NP Position: [facility] Associate Professional Member Role: Lifetime Consulting Provider Address: Address: [address] [place] [address]- Name: Ila Freed NP Position: [facility] Associate Professional Member Role: PCP Address: Address: [address] [place] [address]- Care Team Related Persons Name: YESENIA ALARCON Address: [place] [address] Name: DORA ALARCON Address: home [address] [place] [address]
--- OUTSIDE RECORDS SUMMARY | 2023-10-25 23:55 | XMS_ITS | Continuity of Care Document ---
Author Name Unknown Organization [facility] Address [address] [place] [address]- Care Team Providers Care Foreign Exchange Dealer Name Role Phone Bridget Burk MANAGING DIRECTOR ATLAS, Ila Primary Care Physician [facility]counter [facility] Date(s): 07/13/23 - 08/13/[address] [address] Attending Physician: Not on Staff, Attending MD [...] Gm, 5 Refills, Maintenance, 06/06/23 10:02:00 EDT, [facility] #[id number], 30, INHALE 2 PUFFS BY MOUTH TWICE DAILY, 165, cm, 05/12/23 12:42:00 EDT, Height, 112.7, kg, 09/27/22 14:59:00 EST, Dry Weight Start Date: 06/06/23 Status: Ordered amLODIPine 5 mg oral tablet 5 mg, 1, tablet, By Mouth, Daily, # 30 tablet, Refills 0, Tot. Refills 0, Maintenance, 07/18/23 12:11:00 EDT, Route to Pharmacy Electronically, [facility] #[id number], Partial fill upon patient request if the prescription is for a schedule II opi... Start Date: 07/18/23 Status: Ordered AutoCPAP 10-16 with heated humidification AutoCPAP 10-16 with heated humidification, See Instructions, # 1 each, Refills 0, Tot. Refills 0, Maintenance, use overnight and naps from [facility], 03/25/20 13:05:00 EDT, Compound Start Date: [...] 5 Refills, Maintenance, 06/04/20 13:35:00 EDT, Tablet, [facility] #[id number], 165, cm, 03/14/20 15:15:00 EDT, Height Start Date: 06/04/20 Status: Ordered dextromethorphan-guaifenesin 10 mg-100 mg/5 mL oral liquid 5 mL, By Mouth, Every 4 hours, PRN for cough, # 300 mL, 0 Refills, Maintenance, 03/24/22 10:17:00 EDT, Liquid, [facility] #[id number], Partial fill upon patient request if the prescription is for a schedule II opioid drug., 5 mL By Mouth Every 4... Start Date: 03/24/22 Status: Ordered Diclofenac = 75 mg, By Mouth, 2 times a day, prescribed by Dr. Pierre, Neurologist in [facility] takesprn, 0 Refills, Maintenance, 08/09/16 8:32:51 Start Date: 08/09/16 Status: Ordered docusate sodium 100 mg oral capsule 1 capsule = 100 mg, By Mouth, 2 times a day, PRN as needed for constipation, with plenty of water, # 60 capsule, 1 Refills, Maintenance, 02/21/23 15:56:00 EDT, Capsule, [facility] #[id number], Partial fill upon patient request if the [...] 1 each, 4 Refills, Maintenance,07/10/20 14:41:00 EDT, [facility] #[id number], 1 spray each nostril BID,PRN:Nasal Congestion, 165, cm, 03/14/20 15:15:00 EDT, Height Start Date: 07/10/20 Status: Ordered levothyroxine 150 mcg (0.15 mg) oral tablet 1 tablet = 150 mcg, By Mouth, Daily, # 30 tablet, 11 Refills, Maintenance, 05/21/23 7:23:00 EDT, Tablet, [facility] #[id number], Partial fill upon patient request if the prescription is for a schedule II opioid drug., 165, cm, 05/12/23 12:42:00 E... Start Date: 05/21/23 Stop Date: 05/15/24 Status: Ordered lidocaine 4% topical cream 1 application, Topically, 3 times a day, # 15 Gm, 1 Refills, Maintenance, 03/14/20 15:53:00 EDT, Cream, [facility] #[id number], 1 application Topically 3 times a day, 165, cm, 03/14/20 15:15:00 EDT, Height, 118.4, kg, 04/28/18 17:05:00 EDT, Dry W... Start Date: 03/14/20 Status: Ordered lidocaine 5% topical film 1 patch, Topically, Daily, PRN Pain , Moderate, remove patches after 12 hours, # 30 patch, 1 Refills, Maintenance, 08/08/23 14:19:00 EST, Film, [facility] #[id number], Partial fill upon patient request if the prescription is for a schedule II opi... Start Date: 08/08/23 Status: Ordered lisinopril 20 mg oral tablet 20 mg, 1, tablet, By Mouth, Daily, # 90 tablet, Refills 0, Tot. Refills 0, Maintenance, 07/18/23 12:11:00 EDT, Route to Pharmacy Electronically, [facility] #[id number], Partial fill upon patientrequest if the prescription is for a schedule II op... Start Date: 07/18/23 Status: Ordered Lubricant Eye Drops ophthalmic solution 1 drops, Eyes, Both, 2 times a day, PRN for dry eyes, # 30 each, 1 Refills, Maintenance, 06/04/20 13:37:00 EDT, Solution, [facility] #[id number], 1 drops Eyes, Both 2 times a day,PRN:for dry eyes, 165, cm, 03/14/20 15:15:00 EDT, Height Start Date: 06/04/20 Status: Ordered metFORMIN 750 mg oral tablet, extended release See Instructions, TAKE 1 TABLET BY MOUTH TWICE DAILY TAKE WITH MEALS, # 60 tablet, 3 Refills, Maintenance, 08/03/23 20:55:00 EST, [facility] #[id number], 165, cm, 07/25/23 13:56:00 EST, Height, 112.7, kg, 09/27/22 14:59:00 EST, Dry Weight Start Date: 08/03/23 Status: Ordered MiraLax oral powder for reconstitution = 17 Gm, By Mouth, Daily, PRN Constipation, dissolve in water before taking, # 255 Gm, 0 Refills, Maintenance, 02/21/23 15:55:00 EDT, REC Powder, [facility] #[id number], Partial fill upon patient request if the [...] Refills, Maintenance, 12/31/22 13:28:00 EDT, REC Powder, [facility] #[id number], Partial fill upon patient request if the prescription is for a schedule... Start Date: 12/31/22 Status: Ordered ProAir HFA 90 mcg/inh inhalation aerosol with adapter 2, puffs, Inhalation, Every 4 hours, PRN, # 8.5 Gm, Refills 0, Route to Pharmacy Electronically, [id number], [facility] #[id number], 165, cm, 04/30/22 10:50:00 EDT, Height, 118, kg, 01/18/22 15:08:00 EDT, Dry Weight Start Date: 05/10/22 Status: Ordered Saline Mist 0.65% nasal spray 1 sprays, Nares, Both, 3 times a day, followed by bulb suction as directed and as needed for nasal congestion., # 1 each, 4 Refills, Maintenance, 09/08/20 12:56:00 EST, [facility] #[id number], 1sprays Nares, Both 3 times a day,x7 [...] tablet, 0 Refills, Maintenance, 10/27/22 17:07:00 EST, [facility] #[id number], 165, cm, 09/27/22 14:59:00 EST, Height, 112.7, kg, 09/27/22 14:59:00 EST, Dry Weight Start Date: 10/27/22 Status: Ordered sucralfate 1 gm oral tablet See Instructions, # 120 tablet, TAKE 1 TABLET BY MOUTH FOUR TIMES DAILY, [facility] Start Date: 03/26/19 Status: Ordered Zithromax Z-Mulugeta 250 mg oral tablet 1 pack/packet, By Mouth, Once, # 6 tablet, 0 Refills, Soft Stop, 03/24/22 10:16:00 EDT, Tablet, [facility] #62024, Partial fill upon patient request if the prescription is for a schedule IIopioid drug., 165, cm, 02/03/22 16:08:00 EDT, Heigh... Start Date: 03/24/22 Status: Ordered Problem List Condition Confirmation Course Effective Dates Status [facility] atus Informant Abdominal pain, lower Confirmed [...] Team Personnel Name: Vanessa Perry NP Position: [facility] Associate Professional Member Role: Lifetime Consulting Provider Address: Address: [address] [place] [address] Name: Ila Freed NP Position: [facility] Associate Professional Member Role: PCP Address: Address: [address] [place] [address] Care Team Related Persons Name: YESENIA ALARCON Address: [place] [address] Name: DORA ALARCON Address: home [address] [place] [address]
--- OUTSIDE RECORDS SUMMARY | 2023-10-25 23:55 | XMS_ITS | Continuity of Care Document ---
Author Name Unknown Organization [facility] Address [address] [place] [address]- Care Team Providers Care Inhalation Therapist Name Role Phone Zuleika Head NP Primary Care Physician [phone] [place] [facility] [place] 09/01/21 - 10/01/[address] [address] Allergies, Adverse Reactions, Alerts Substance Reaction [...] 6 Refills, Maintenance, 06/17/21 11:50:00 EDT, Aerosol, [facility] #[id number], Partial fill upon patient request if the prescription is for a schedule II opioid drug., 2 puffs Inhalation 2 times a d... Start Date: 06/17/21 Status: Ordered Aspercreme 10% topical cream 1 application, Topically, 4 times a day, PRN for pain, n., # 1 each, 3 Refills, Maintenance, 07/13/21 11:47:00 EDT, Cream, [facility] #[id number], Partial fill upon patient request if the [...] 5 Refills, Maintenance, 06/04/20 13:35:00 EDT, Tablet, [facility] #[id number], 165, cm, 03/14/20 15:15:00 EDT, Height Start Date: 06/04/20 Status: Ordered dextromethorphan-guaifenesin 10 mg-100 mg/5 mL oral liquid 5 mL, By Mouth, Every 4 hours, PRN for cough, # 300 mL, 0 Refills, Maintenance, 09/08/20 12:59:00 EST, Liquid, [facility] #[id number], Partial fill upon patient request if the prescription is for a schedule II opioid drug., 5 mL By Mouth Every 4... Start Date: 09/08/20 Status: Ordered Diclofenac = 75 mg, By Mouth, 2 times a day, prescribed by Dr. Pierre, Neurologist in [facility] states takesprn, 0 Refills, Maintenance, 08/09/16 [...] tablet, 5 Refills, Maintenance, 06/12/21 11:20:00 EDT, [facility] #[id number], 30, pt needs labs, 1 tablet By Mouth David... Start Date: 06/12/21 Status: Ordered ipratropium nasal 21 mcg/inh spray See Instructions, PRN Nasal Congestion, 1 spray each nostril BID, # 1 each, 4 Refills, Maintenance,07/10/20 14:41:00 EDT, [facility] #[id number], 1 spray each nostril BID,PRN:Nasal Congestion, 165, cm, 03/14/20 15:15:00 EDT, Height Start Date: 07/10/20 Status: Ordered levothyroxine 175 mcg (0.175 mg) oral tablet 1 tablet, By Mouth, Daily, # 90 tablet, 2 Refills, Maintenance, 09/01/21 12:27:00 EST, [facility] #[id number], 165, cm, 07/13/21 11:17:00 EDT, Height Start Date: 09/01/21 Status: Ordered lidocaine 4% topical cream 1 application, Topically, 3 times a day, # 15 Gm, 1 Refills, Maintenance, 03/14/20 15:53:00 EDT, Cream, [facility] #[id number], 1 application Topically 3 times a day, 165, cm, 03/14/20 15:15:00 EDT, Height, 118.4, kg, 04/28/18 17:05:00 EDT, Dry W... Start Date: 03/14/20 Status: Ordered Lubricant Eye Drops ophthalmic solution 1 drops, Eyes, Both, 2 times a day, PRN for dry eyes, # 30 each, 1 Refills, Maintenance, 06/04/20 13:37:00 EDT, Solution, [facility] #[id number], 1 drops Eyes, Both 2 times a day,PRN:for dry eyes, 165, cm, 03/14/20 15:15:00 EDT, Height Start Date: 06/04/20 Status: Ordered metFORMIN 500 mg oral tablet, extended release 2 tablet = 1,000 mg, By Mouth, Daily, # 60 tablet, 5 Refills, Maintenance, 03/11/21 10:40:00 EDT, [facility] #[id number], 165, cm, 03/11/21 9:56:00 EDT, Height Start [...] Daily, # 90 tablet, 0 Refills, Maintenance, 07/10/21 7:00:00 EDT, 165, cm, 06/17/21 11:21:00 EDT, Height Start Date: 07/10/21 Status: Ordered ProAir HFA 90 mcg/inh inhalation aerosol with adapter 2, puffs, Inhalation, Every 4 hours, PRN, for 30 days, # 1 each, Refills 11, Tot. Refills 11, Hard Stop 11/07/21 9:34:00 EST, 11/12/20 9:34:00 EST, Aerosol, Route to Pharmacy Electronically, [id number], [facility] #... Start Date: 11/12/20 Stop Date: 11/07/21 Status: Ordered Saline Mist 0.65% nasal spray 1 sprays, Nares, Both, 3 times a day, followed by bulb suction as directed and as needed for nasal congestion., # 1 each, 4 Refills, Maintenance, 09/08/20 12:56:00 EST, [facility] #[id number], 1sprays Nares, Both 3 times a day,x7 days,Instr:foll... Start Date: 09/08/20 Stop Date: 10/13/20 Status: Ordered sertraline 25 mg oral tablet 1 tablet, By Mouth, Daily, # 30 tablet, 3 Refills, Maintenance, 09/01/21 12:27:00 EST, [facility] #[id number], 165, cm, 07/13/21 11:17:00 EDT, Height Start Date: 09/01/21 Status: Ordered sucralfate 1 gm oral tablet See Instructions, # 120 tablet, TAKE 1 TABLET BY MOUTH FOUR TIMES DAILY, [facility] 93264 Start Date: 03/26/19 Status: Ordered Problem List [...]
--- OUTSIDE RECORDS SUMMARY | 2023-10-25 23:55 | XMS_ITS | Continuity of Care Document ---
Author Name Unknown Organization [facility] Address [address] [place] [address]- Care Team Providers Care Tread Tuber Machine Operator Name Role Phone Zuleika Head NP Primary Care Physician Encounter [facility] Date(s): 04/04/20 - 05/04/[address] [address]- [facility] Allergies, Adverse Reactions, Alerts Substance Reaction Severity [...] 16:07:00 EST, Powder, Route to Pharmacy Electronically, [id number], [facility] #[id number]... Start Date: 10/02/19 Status: Ordered AirDuo RespiClick 55 mcg-14 mcg/inh inhalation powder 1, inhalation, Inhalation, 2 times a day, # 1 each, Refills 11, Tot. Refills 11, Maintenance, 12/10/19 12:44:00 EDT, Route to Pharmacy Electronically, [id number], [facility] #[id number], 165, cm, 11/26/19 14:41:00 EDT, [place]. Start Date: 12/10/19 Status: Ordered albuterol 0.083% inhalation solution 3 mL = 2.5 mg, Neb, Once, given as duoneb LOT [id number] EXP 01/2021, 0 Refills, Maintenance, 07/11/19 11:14:40 EDT Start Date: 07/11/19 Status: Ordered albuterol-ipratropium 3 mg-0.5 mg/3 ml inhalation solution 3 mL, Inhalation, 4 times a day, # 30 each, 0 Refills, Maintenance, 10/02/19 16:07:00 EST, Solution, [facility] #[id number], 3 mL Inhalation 4 times a day, 165, cm, 10/02/19 15:38:00 EST, Height, 118.4, kg, 04/28/18 17:05:00 EDT, Dry Weight Start Date: 10/02/19 Status: Ordered amitriptyline 25 mg oral tablet 1, tablet, By Mouth, 2 times a day, # 60 tablet, Refills 2, Tot. Refills 0, Maintenance, 09/13/19 16:25:00 EST, Route to Pharmacy Electronically, [facility] #[id number], 165, cm, 07/11/19 10:33:00 EDT, Height, 118.4, [...] 11 Refills, Maintenance, 10/02/19 16:08:00 EST, Tablet, [facility] #[id number], 165, cm, 10/02/19 15:38:00 EST, Height, 118.4, [...] PRN, prescribed by Dr Pierre Neurologist in [place], # 30 tablet, Refills 0, Maintenance, for spasm, 08/09/16 8:33:39 Start Date: 08/09/16 Stop Date: 08/23/16 Status: Ordered Diclofenac = 75 mg, By Mouth, 2 times a day, prescribed by Dr. Pierre, Neurologist in [place] pt states takesprn, 0 Refills, Maintenance, 08/09/16 8:32:51 Start Date: 08/09/16 Status: Ordered Fioricet Tablet 1 tab, By Mouth, Every 4 hours, prescribed by Dr. Mckeon for migraines, # 30 tablet, 0 Refills, Maintenance, 04/18/14 11:41:59 Start Date: 04/18/14 Status: Ordered Flonase 50 mcg/inh nasal spray 1 sprays, Nares, Both, 2 times a day, # 16 Gm, 2 Refills, Maintenance, 10/02/19 16:08:00 EST, [place], [facility] #[id number], 1 sprays Nares, Both 2 times a [...] 1 Refills, Maintenance, 04/04/20 14:33:00 EDT, Tablet, [facility] #[id number], 1 tablet By Mouth Daily,x30 days,Instr:for blood pressure, 165, cm, 03/14/20 15:15:00 EDT, Height, 118.4, k... Start Date: 04/04/20 Stop Date: 06/03/20 Status: Ordered Ipratropium 0.02% Inhalation Solution 2.5, mL, Neb, Once, given as duoneb LOT [id number] EXP 12/2020, Refills 0, Maintenance, 07/11/19 11:15:17 [...] tablet, 2 Refills, Maintenance, 12/27/19 15:39:00 EDT, [facility] #[id number], 165, cm, 11/26/19 14:41:00 EDT, Height, 118.4, kg, 04/28/18 17:05:00 EDT, Dry Weight Start Date: 12/27/19 Status: Ordered lidocaine 4% topical cream 1 application, Topically, 3 times a day, # 15 Gm, 1 Refills, Maintenance, 03/14/20 15:53:00 EDT, Cream, [facility] #[id number], 1 application Topically 3 times a day, 165, cm, 03/14/20 15:15:00 EDT, Height, 118.4, kg, 04/28/18 17:05:00 EDT, Dry W... Start Date: 03/14/20 Status: Ordered metFORMIN 500 mg oral tablet, extended release 2 tablet = 1,000 mg, By Mouth, Daily, # 60 tablet, 5 Refills, Maintenance, 02/18/20 18:03:00 EDT, [facility] #[id number], 165, cm, 02/18/20 15:42:00 EDT, Height, 118.4, [...] 16:08:00 EST, Aerosol, Route to Pharmacy Electronically, [id number], [facility] #[id number], 165, cm, 10/02/19 15:38:... Start Date: 10/02/19 [...] tablet, 2 Refills, Maintenance, 09/13/19 16:25:00 EST, [facility] #[id number], 165, cm, 07/11/19 10:33:00 EDT, Height, 118.4, kg, 04/28/18 17:05:00 EDT, Dry Weight Start Date: 09/13/19 Status: Ordered sucralfate 1 gm oral tablet See Instructions, # 120 tablet, TAKE 1 TABLET BY MOUTH FOUR TIMES DAILY, [facility] [id number] Start Date: 03/26/19 Status: Ordered traZODone 50 mg oral tablet 1, tablet, By Mouth, Daily at bedtime, # 30 tablet, Refills 2, Tot. Refills 0, Maintenance, 02/20/20 15:07:00 EDT, Route to Pharmacy Electronically, [facility] #[id number], 165, cm, 02/18/20 15:42:00 EDT, Height, 118.4, [...]
--- OUTSIDE RECORDS SUMMARY | 2023-10-25 23:55 | XMS_ITS | Continuity of Care Document ---
Author Name Unknown Organization [facility] Address [address] [place] [address]- Care Team Providers Care Motion Picture Scene Builder Name Role Phone Bridget Burk NP, Ila Primary Care Physician [place] [facility] [id number] Date(s): 04/04/23 - 06/09/[address] [address]- Attending Physician: Rebeca Hylton MD Admitting Physician: [...] Gm, 5 Refills, Maintenance, 06/06/23 10:02:00 EDT, [facility] #[id number], 30, INHALE 2 PUFFS BY MOUTH TWICE [...] 5 Refills, Maintenance, 06/04/20 13:35:00 EDT, Tablet, [facility] #[id number], 165, cm, 03/14/20 15:15:00 EDT, Height Start Date: 06/04/20 Status: Ordered dextromethorphan-guaifenesin 10 mg-100 mg/5 mL oral liquid 5 mL, By Mouth, Every 4 hours, PRN for cough, # 300 mL, 0 Refills, Maintenance, 03/24/22 10:17:00 EDT, Liquid, [facility] #[id number], Partial fill upon patient request if the prescription is for a schedule II opioid drug., 5 mL By Mouth Every 4... Start Date: 03/24/22 Status: Ordered Diclofenac = 75 mg, By Mouth, 2 times a day, prescribed by Dr. Pierre, Neurologist in [facility] takesprn, 0 Refills, Maintenance, 08/09/16 8:32:51 Start Date: 08/09/16 Status: Ordered docusate sodium 100 mg oral capsule 1 capsule = 100 mg, By Mouth, 2 times a day, PRN as needed for constipation, with plenty of water, # 60 capsule, 1 Refills, Maintenance, 02/21/23 15:56:00 EDT, Capsule, [facility] #[id number], Partial fill upon patient request if the [...] tablet, 0 Refills, Maintenance, 05/29/22 21:25:00 EDT, [facility] #[id number], 90, TAKE 1 TABLET BY MOUTHEVERY DAY, DRINK ADEQUATE WATER AND CONTINUE TO MON... Start Date: 05/29/22 Status: Ordered ipratropium nasal 21 mcg/inh spray See Instructions, PRN Nasal Congestion, 1 spray each nostril BID, # 1 each, 4 Refills, Maintenance,07/10/20 14:41:00 EDT, [facility] #[id number], 1 spray each nostril BID,PRN:Nasal Congestion, 165, cm, 03/14/20 15:15:00 EDT, Height Start Date: 07/10/20 Status: Ordered levothyroxine 150 mcg (0.15 mg) oral tablet 1 tablet = 150 mcg, By Mouth, Daily, # 30 tablet, 11 Refills, Maintenance, 05/21/23 7:23:00 EDT, Tablet, [facility] #[id number], Partial fill upon patient request if the prescription is for a schedule II opioid drug., 165, cm, 05/12/23 12:42:00 E... Start Date: 05/21/23 Stop Date: 05/15/24 Status: Ordered lidocaine 4% topical cream 1 application, Topically, 3 times a day, # 15 Gm, 1 Refills, Maintenance, 03/14/20 15:53:00 EDT, Cream, [facility] #[id number], 1 application Topically 3 times a day, 165, cm, 03/14/20 15:15:00 EDT, Height, 118.4, kg, 04/28/18 17:05:00 EDT, Dry W... Start Date: 03/14/20 Status: Ordered Lubricant Eye Drops ophthalmic solution 1 drops, Eyes, Both, 2 times a day, PRN for dry eyes, # 30 each, 1 Refills, Maintenance, 06/04/20 13:37:00 EDT, Solution, [facility] #[id number], 1 drops Eyes, Both 2 times a day,PRN:for dry eyes, 165, cm, 03/14/20 15:15:00 EDT, Height Start Date: 06/04/20 Status: Ordered MetFORMIN (Eqv-Glucophage XR) 500 mg oral tablet, extended release 2 tablet, By Mouth, Daily, # 180 tablet, 0 Refills, Maintenance, 05/06/23 19:10:00 EDT, [facility] #[id number], 165, cm, 02/21/23 15:26:00 EDT, Height, 112.7, kg, 09/27/22 14:59:00 EST, Dry Weight Start Date: 05/06/23 Status: Ordered MiraLax oral powder for reconstitution = 17 Gm, By Mouth, Daily, PRN Constipation, dissolve in water before taking, # 255 Gm, 0 Refills, Maintenance, 02/21/23 15:55:00 EDT, REC Powder, [facility] #[id number], Partial fill upon patient request if the [...] Refills, Maintenance, 12/31/22 13:28:00 EDT, REC Powder, [facility] #[id number], Partial fill upon patient request if the prescription is for a schedule... Start Date: 12/31/22 Status: Ordered ProAir HFA 90 mcg/inh inhalation aerosol with adapter 2, puffs, Inhalation, Every 4 hours, PRN, # 8.5 Gm, Refills 0, Route to Pharmacy Electronically, [id number], [facility] #[id number], 165, cm, 04/30/22 10:50:00 EDT, Height, 118, kg, 01/18/22 15:08:00 EDT, Dry Weight Start Date: 05/10/22 Status: Ordered Saline Mist 0.65% nasal spray 1 sprays, Nares, Both, 3 times a day, followed by bulb suction as directed and as needed for nasal congestion., # 1 each, 4 Refills, Maintenance, 09/08/20 12:56:00 EST, [facility] #[id number], 1sprays Nares, Both 3 times a day,x7 [...] tablet, 0 Refills, Maintenance, 10/27/22 17:07:00 EST, [facility] #[id number], 165, cm, 09/27/22 14:59:00 EST, Height, 112.7, kg, 09/27/22 14:59:00 EST, Dry Weight Start Date: 10/27/22 Status: Ordered sucralfate 1 gm oral tablet See Instructions, # 120 tablet, TAKE 1 TABLET BY MOUTH FOUR TIMES DAILY, [facility] [id number] Start Date: 03/26/19 Status: Ordered Zithromax Z-Mulugeta 250 mg oral tablet 1 pack/packet, By Mouth, Once, # 6 tablet, 0 Refills, Soft Stop, 03/24/22 10:16:00 EDT, Tablet, [facility] #[id number], Partial fill upon patient request if the [...] Team Personnel Name: Vanessa Perry NP Position[facility] Associate Professional Member Role: Lifetime Consulting Provider Address: Address: [address] [place] [address]- Name: Ila Freed NP Position: [facility] Associate Professional Member Role: PCP Address: Address: [address] [place] [address]- Care Team Related Persons Name: YESENIA ALARCON Address: [place] [address] Name: DORA ALARCON Address: home [address] [place] [address]
--- OUTSIDE RECORDS SUMMARY | 2023-10-25 23:56 | XMS_ITS | Continuity of Care Document ---
Author Name Unknown Organization [facility] Address [address] [place] [address]- Care Team Providers Care Registered Radiation Therapist Name Role Phone Bridget Burk ACTUARIAL TECHNICIAN, Ila Primary Care Physician Encounter [facility] Date(s): 05/21/23 - 06/20/23 [facility] [address] [place] [id number] Allergies, Adverse Reactions, Alerts Substance Reaction Severity [...] Gm, 5 Refills, Maintenance, 06/06/23 10:02:00 EDT, [email or web address] #[id number], 30, INHALE 2 PUFFS BY MOUTH TWICE [...] 5 Refills, Maintenance, 06/04/20 13:35:00 EDT, Tablet, [email or web address] #[id number], 165, cm, 03/14/20 15:15:00 EDT, Height Start Date: 06/04/20 Status: Ordered dextromethorphan-guaifenesin 10 mg-100 mg/5 mL oral liquid 5 mL, By Mouth, Every 4 hours, PRN for cough, # 300 mL, 0 Refills, Maintenance, 03/24/22 10:17:00 EDT, Liquid, [email or web address] #[id number], Partial fill upon patient request if the prescription is for a schedule II opioid drug., 5 mL By Mouth Every 4... Start Date: 03/24/22 Status: Ordered Diclofenac = 75 mg, By Mouth, 2 times a day, prescribed by Dr. Pierre, Neurologist in [place] pt states takesprn, 0 Refills, Maintenance, 08/09/16 8:32:51 Start Date: 08/09/16 Status: Ordered docusate sodium 100 mg oral capsule 1 capsule = 100 mg, By Mouth, 2 times a day, PRN as needed for constipation, with plenty of water, # 60 capsule, 1 Refills, Maintenance, 02/21/23 15:56:00 EDT, Capsule, [email or web address] #[id number], Partial fill upon patient request if the [...] tablet, 0 Refills, Maintenance, 05/29/22 21:25:00 EDT, [facility] #79159, 90, TAKE 1 TABLET BY MOUTHEVERY DAY, DRINK ADEQUATE WATER AND CONTINUE TO MON... Start Date: 05/29/22 Status: Ordered ipratropium nasal 21 mcg/inh spray See Instructions, PRN Nasal Congestion, 1 spray each nostril BID, # 1 each, 4 Refills, Maintenance,07/10/20 14:41:00 EDT, [facility] #[id number], 1 spray each nostril BID,PRN:Nasal Congestion, 165, cm, 03/14/20 15:15:00 EDT, Height Start Date: 07/10/20 Status: Ordered levothyroxine 150 mcg (0.15 mg) oral tablet 1 tablet = 150 mcg, By Mouth, Daily, # 30 tablet, 11 Refills, Maintenance, 05/21/23 7:23:00 EDT, Tablet, [facility] #[id number], Partial fill upon patient request if the prescription is for a schedule II opioid drug., 165, cm, 05/12/23 12:42:00 E... Start Date: 05/21/23 Stop Date: 05/15/24 Status: Ordered lidocaine 4% topical cream 1 application, Topically, 3 times a day, # 15 Gm, 1 Refills, Maintenance, 03/14/20 15:53:00 EDT, Cream, [facility] #38840, 1 application Topically 3 times a day, 165, cm, 03/14/20 15:15:00 EDT, Height, 118.4, kg, 04/28/18 17:05:00 EDT, Dry W... Start Date: 03/14/20 Status: Ordered Lubricant Eye Drops ophthalmic solution 1 drops, Eyes, Both, 2 times a day, PRN for dry eyes, # 30 each, 1 Refills, Maintenance, 06/04/20 13:37:00 EDT, Solution, [facility] #14947, 1 drops Eyes, Both 2 times a day,PRN:for dry eyes, 165, cm, 03/14/20 15:15:00 EDT, Height Start Date: 06/04/20 Status: Ordered MetFORMIN (Eqv-Glucophage XR) 500 mg oral tablet, extended release 2 tablet, By Mouth, Daily, # 180 tablet, 0 Refills, Maintenance, 05/06/23 19:10:00 EDT, [email or web address] #[id number], 165, cm, 02/21/23 15:26:00 EDT, Height, 112.7, kg, 09/27/22 14:59:00 EST, Dry Weight Start Date: 05/06/23 Status: Ordered MiraLax oral powder for reconstitution = 17 Gm, By Mouth, Daily, PRN Constipation, dissolve in water before taking, # 255 Gm, 0 Refills, Maintenance, 02/21/23 15:55:00 EDT, REC Powder, [facility] #40493, Partial fill upon patient request if the [...] Refills, Maintenance, 12/31/22 13:28:00 EDT, REC Powder, [facility] #60772, Partial fill upon patient request if the prescription is for a schedule... Start Date: 12/31/22 Status: Ordered ProAir HFA 90 mcg/inh inhalation aerosol with adapter 2, puffs, Inhalation, Every 4 hours, PRN, # 8.5 Gm, Refills 0, Route to Pharmacy Electronically, [id number], [facility] #[id number], 165, cm, 04/30/22 10:50:00 EDT, Height, 118, kg, 01/18/22 15:08:00 EDT, Dry Weight Start Date: 05/10/22 Status: Ordered Saline Mist 0.65% nasal spray 1 sprays, Nares, Both, 3 times a day, followed by bulb suction as directed and as needed for nasal congestion., # 1 each, 4 Refills, Maintenance, 09/08/20 12:56:00 EST, [facility] #43058, 1sprays Nares, Both 3 times a day,x7 [...] tablet, 0 Refills, Maintenance, 10/27/22 17:07:00 EST, [facility] #52774, 165, cm, 09/27/22 14:59:00 EST, Height, 112.7, kg, 09/27/22 14:59:00 EST, Dry Weight Start Date: 10/27/22 Status: Ordered sucralfate 1 gm oral tablet See Instructions, # 120 tablet, TAKE 1 TABLET BY MOUTH FOUR TIMES DAILY, [facility] [address] Start Date: 03/26/19 Status: Ordered Zithromax Z-Mulugeta 250 mg oral tablet 1 pack/packet, By Mouth, Once, # 6 tablet, 0 Refills, Soft Stop, 03/24/22 10:16:00 EDT, Tablet, [email or web address] #[id number], Partial fill upon patient request if the [...] Team Personnel Name: Vanessa Perry NP Position: [facility] Associate Professional Member Role: Lifetime Consulting Provider Address: Address: [address] [place] [address]- Name: Ila Freed NP Position: [facility] Associate Professional Member Role: PCP Address: Address: [address] [place] [address]- Care Team Related Persons Name: YESENIA ALARCON Address: [place] [address] Name: DORA ALARCON Address: home [address] [place] [id number]
--- OUTSIDE RECORDS SUMMARY | 2023-10-25 23:56 | XMS_ITS | Continuity of Care Document ---
Author Name Unknown Organization [facility] Address [address] [place] [address]- Care Team Providers Care Electronic Components Assembler Name Role Phone Bridget Burk NP, Ila Primary Care Physician Encounter [facility] Date(s): 01/10/23 - 02/09/[address] [id number] Allergies, Adverse Reactions, Alerts Substance Reaction [...] 12 Gm, 6 Refills, Maintenance, 08/26/22 10:52:00 Filtec, [facility] #[id number], 30, INHALE 2 PUFFS BY MOUTH TWICE [...] 5 Refills, Maintenance, 06/04/20 13:35:00 EDT, Tablet, [facility] #60726, 165, cm, 03/14/20 15:15:00 EDT, Height Start Date: 06/04/20 Status: Ordered dextromethorphan-guaifenesin 10 mg-100 mg/5 mL oral liquid 5 mL, By Mouth, Every 4 hours, PRN for cough, # 300 mL, 0 Refills, Maintenance, 03/24/22 10:17:00 EDT, Liquid, [facility] #89933, Partial fill upon patient request if the prescription is for a schedule II opioid drug., 5 mL By Mouth Every 4... Start Date: 03/24/22 Status: Ordered Diclofenac = 75 mg, By Mouth, 2 times a day, prescribed by Dr. Pierre, Neurologist in [facility] takesprn, 0 Refills, Maintenance, 08/09/16 [...] tablet, 0 Refills, Maintenance, 05/29/22 21:25:00 EDT, [facility] #46353, 90, TAKE 1 TABLET BY MOUTHEVERY DAY, DRINK ADEQUATE WATER AND CONTINUE TO MON... Start Date: 05/29/22 Status: Ordered ipratropium nasal 21 mcg/inh spray See Instructions, PRN Nasal Congestion, 1 spray each nostril BID, # 1 each, 4 Refills, Maintenance,07/10/20 14:41:00 EDT, [facility] #40267, 1 spray each nostril BID,PRN:Nasal Congestion, 165, cm, 03/14/20 15:15:00 EDT, Height Start Date: 07/10/20 Status: Ordered levothyroxine 175 mcg (0.175 mg) oral tablet 1 tablet, By Mouth, Daily, # 90 tablet, 0 Refills, Maintenance, 12/27/22 10:51:00 EDT, [facility] #70744, 165, cm, 09/27/22 14:59:00 EST, Height, 112.7, kg, 09/27/22 14:59:00 EST, Dry Weight Start Date: 12/27/22 Status: Ordered lidocaine 4% topical cream 1 application, Topically, 3 times a day, # 15 Gm, 1 Refills, Maintenance, 03/14/20 15:53:00 EDT, [facility], [facility] #[id number], 1 application Topically 3 times a day, 165, cm, 03/14/20 15:15:00 EDT, Height, 118.4, kg, 04/28/18 17:05:00 EDT, Dry W... Start Date: 03/14/20 Status: Ordered Lubricant Eye Drops ophthalmic solution 1 drops, Eyes, Both, 2 times a day, PRN for dry eyes, # 30 each, 1 Refills, Maintenance, 06/04/20 13:37:00 EDT, Solution, [facility] #96903, 1 drops Eyes, Both 2 times a day,PRN:for dry eyes, 165, cm, 03/14/20 15:15:00 EDT, Height Start Date: 06/04/20 Status: Ordered MetFORMIN (Eqv-Glucophage XR) 500 mg oral tablet, extended release 2 tablet, By Mouth, Daily, # 60 tablet, 0 Refills, Maintenance, 01/22/23 11:10:00 EDT, [facility] #87539, 165, cm, 01/11/23 14:39:00 EDT, Height, 112.7, kg, 09/27/22 14:59:00 EST, Dry Weight Start Date: 01/22/23 Status: Ordered Nebulizer tubing Nebulizer tubing, See [...] Refills, Maintenance, 12/31/22 13:28:00 EDT, REC Powder, [facility] #78685, Partial fill upon patient request if the prescription is for a schedule... Start Date: 12/31/22 Status: Ordered ProAir HFA 90 mcg/inh inhalation aerosol with adapter 2, puffs, Inhalation, Every 4 hours, PRN, # 8.5 Gm, Refills 0, Route to Pharmacy Electronically, [id number], [facility] #[id number], 165, cm, 04/30/22 10:50:00 EDT, Height, 118, [...] 6 Refills, Maintenance, 02/03/22 17:18:00 EDT, Tablet, [facility] #1... Start Date: 02/03/22 Stop Date: 09/01/22 Status: Ordered Saline Mist 0.65% nasal spray 1 sprays, Nares, Both, 3 times a day, followed by bulb suction as directed and as needed for nasal congestion., # 1 each, 4 Refills, Maintenance, 09/08/20 12:56:00 EST, [facility] #19101, 1sprays Nares, Both 3 times a day,x7 [...] tablet, 0 Refills, Maintenance, 10/27/22 17:07:00 EST, [facility] #32247, 165, cm, 09/27/22 14:59:00 EST, Height, 112.7, kg, 09/27/22 14:59:00 EST, Dry Weight Start Date: 10/27/22 Status: Ordered sucralfate 1 gm oral tablet See Instructions, # 120 tablet, TAKE 1 TABLET BY MOUTH FOUR TIMES DAILY, [facility] [address] Start Date: 03/26/19 Status: Ordered Zithromax Z-Mulugeta 250 mg oral tablet 1 pack/packet, By Mouth, Once, # 6 tablet, 0 Refills, Soft Stop, 03/24/22 10:16:00 EDT, Tablet, [facility] #39224, Partial fill upon patient request if the [...] Confirmed Active TOÑITO on CPAP Confirmed Active Type 2 diabetes mellitus with hemoglobin A1c goal of less than 7.0% Confirmed Active Social History Social History Type Response Smoking Status Former smoker; Tobac co user in household: No; Other: stop 3 years ago 2012; entered on: 08/19/15 Sex Patient Care team information Care Team Personnel Name: Vanessa Perry NP Position: [facility] Associate Professional Member Role: Lifetime Consulting Provider Address: Address: [address] [place] [address]- Name: Ila Freed NP Position: [facility] Associate Professional Member Role: PCP Address: Address: [address] [place] [address]- Care Team Related Persons Name: YESENIA ALARCON Address: [place] [address] Name: DORA ALARCON Address: home [address] [place] [address]
--- OUTSIDE RECORDS SUMMARY | 2023-10-25 23:56 | XMS_ITS | Continuity of Care Document ---
Author Name Unknown Organization [facility] Address [address] [place] [address]- Care Team Providers Care Clinical Trials Nurse Name Role Phone Bridget Burk NP, Ila Primary Care Physician Encounter [facility] Date(s): 07/14/23 - 08/13/[address] [address] Attending Physician: Cassie Jack MD Admitting Physician: Cassie Jack MD Allergies, Adverse Reactions, Alerts Substance Reaction [...] Gm, 5 Refills, Maintenance, 06/06/23 10:02:00 EDT, [facility] #71331, 30, INHALE 2 PUFFS BY MOUTH TWICE DAILY, 165, cm, 05/12/23 12:42:00 EDT, Height, 112.7, kg, 09/27/22 14:59:00 EST, Dry Weight Start Date: 06/06/23 Status: Ordered amLODIPine 5 mg oral tablet 5 mg, 1, tablet, By Mouth, Daily, # 30 tablet, Refills 0, Tot. Refills 0, Maintenance, 07/18/23 12:11:00 EDT, Route to Pharmacy Electronically, [facility] #[id number], Partial fill upon patient request if the prescription is for a schedule II opi... Start Date: 07/18/23 Status: Ordered AutoCPAP 10-16 with heated humidification AutoCPAP 10-16 with heated humidification, See Instructions, # 1 each, Refills 0, Tot. Refills 0, Maintenance, use overnight and naps from [facility], 03/25/20 13:05:00 EDT, Compound Start Date: 03/25/20 [...] 5 Refills, Maintenance, 06/04/20 13:35:00 EDT, Tablet, [facility] #00900, 165, cm, 03/14/20 15:15:00 EDT, Height Start Date: 06/04/20 Status: Ordered dextromethorphan-guaifenesin 10 mg-100 mg/5 mL oral liquid 5 mL, By Mouth, Every 4 hours, PRN for cough, # 300 mL, 0 Refills, Maintenance, 03/24/22 10:17:00 EDT, Liquid, [facility] #25596, Partial fill upon patient request if the prescription is for a schedule II opioid drug., 5 mL By Mouth Every 4... Start Date: 03/24/22 Status: Ordered Diclofenac = 75 mg, By Mouth, 2 times a day, prescribed by Dr. Pierre, Neurologist in [facility] takesprn, 0 Refills, Maintenance, 08/09/16 8:32:51 Start Date: 08/09/16 Status: Ordered docusate sodium 100 mg oral capsule 1 capsule = 100 mg, By Mouth, 2 times a day, PRN as needed for constipation, with plenty of water, # 60 capsule, 1 Refills, Maintenance, 02/21/23 15:56:00 EDT, Capsule, [facility] #45065, Partial fill upon patient request if the [...] 1 each, 4 Refills, Maintenance,07/10/20 14:41:00 EDT, [facility] #[id number], 1 spray each nostril BID,PRN:Nasal Congestion, 165, cm, 03/14/20 15:15:00 EDT, Height Start Date: 07/10/20 Status: Ordered levothyroxine 150 mcg (0.15 mg) oral tablet 1 tablet = 150 mcg, By Mouth, Daily, # 30 tablet, 11 Refills, Maintenance, 05/21/23 7:23:00 EDT, [facility] #92535, Partial fill upon patient request if the prescription is for a schedule II opioid drug., 165, cm, 05/12/23 12:42:00 E... Start Date: 05/21/23 Stop Date: 05/15/24 Status: Ordered lidocaine 4% topical cream 1 application, Topically, 3 times a day, # 15 Gm, 1 Refills, Maintenance, 03/14/20 15:53:00 EDT, Cream, [facility] #73209, 1 application Topically 3 times a day, 165, cm, 03/14/20 15:15:00 EDT, Height, 118.4, kg, 04/28/18 17:05:00 EDT, Dry W... Start Date: 03/14/20 Status: Ordered lidocaine 5% topical film 1 patch, Topically, Daily, PRN Pain , Moderate, remove patches after 12 hours, # 30 patch, 1 Refills, Maintenance, 08/08/23 14:19:00 EST, Film, [facility] #09849, Partial fill upon patient request if the prescription is for a schedule II opi... Start Date: 08/08/23 Status: Ordered lisinopril 20 mg oral tablet 20 mg, 1, tablet, By Mouth, Daily, # 90 tablet, Refills 0, Tot. Refills 0, Maintenance, 07/18/23 12:11:00 EDT, Route to Pharmacy Electronically, [facility] #[id number], Partial fill upon patientrequest if the prescription is for a schedule II op... Start Date: 07/18/23 Status: Ordered Lubricant Eye Drops ophthalmic solution 1 drops, Eyes, Both, 2 times a day, PRN for dry eyes, # 30 each, 1 Refills, Maintenance, 06/04/20 13:37:00 EDT, Solution, [facility] #52464, 1 drops Eyes, Both 2 times a day,PRN:for dry eyes, 165, cm, 03/14/20 15:15:00 EDT, Height Start Date: 06/04/20 Status: Ordered metFORMIN 750 mg oral tablet, extended release See Instructions, TAKE 1 TABLET BY MOUTH TWICE DAILY TAKE WITH MEALS, # 60 tablet, 3 Refills, Maintenance, 08/03/23 20:55:00 EST, [facility] #88049, 165, cm, 07/25/23 13:56:00 EST, Height, 112.7, kg, 09/27/22 14:59:00 EST, Dry Weight Start Date: 08/03/23 Status: Ordered MiraLax oral powder for reconstitution = 17 Gm, By Mouth, Daily, PRN Constipation, dissolve in water before taking, # 255 Gm, 0 Refills, Maintenance, 02/21/23 15:55:00 EDT, REC Powder, [facility] #72078, Partial fill upon patient request if the [...] Refills, Maintenance, 12/31/22 13:28:00 EDT, REC Powder, [email or web address] #75822, Partial fill upon patient request if the prescription is for a schedule... Start Date: 12/31/22 Status: Ordered ProAir HFA 90 mcg/inh inhalation aerosol with adapter 2, puffs, Inhalation, Every 4 hours, PRN, # 8.5 Gm, Refills 0, Route to Pharmacy Electronically, [id number], [facility] #[id number], 165, cm, 04/30/22 10:50:00 EDT, Height, 118, kg, 01/18/22 15:08:00 EDT, Dry Weight Start Date: 05/10/22 Status: Ordered Saline Mist 0.65% nasal spray 1 sprays, Nares, Both, 3 times a day, followed by bulb suction as directed and as needed for nasal congestion., # 1 each, 4 Refills, Maintenance, 09/08/20 12:56:00 EST, [facility] #59470, 1sprays Nares, Both 3 times a day,x7 [...] tablet, 0 Refills, Maintenance, 10/27/22 17:07:00 EST, [facility] #21019, 165, cm, 09/27/22 14:59:00 EST, Height, 112.7, kg, 09/27/22 14:59:00 EST, Dry Weight Start Date: 10/27/22 Status: Ordered sucralfate 1 gm oral tablet See Instructions, # 120 tablet, TAKE 1 TABLET BY MOUTH FOUR TIMES DAILY, [facility] [address] Start Date: 03/26/19 Status: Ordered Zithromax Z-Mulugeta 250 mg oral tablet 1 pack/packet, By Mouth, Once, # 6 tablet, 0 Refills, Soft Stop, 03/24/22 10:16:00 EDT, Tablet, [facility] #90612, Partial fill upon patient request if the [...] Team Personnel Name: Vanessa Perry NP [facility] Associate Professional Member Role: Lifetime Consulting Provider Address: Address: [address] [place] [address] Name: Ila Freed NP Position: [facility] Associate Professional Member Role: PCP Address: Address: [address] [place] [address] Care Team Related Persons Name: YESENIA ALARCON Address: [place] [address] Name: DORA ALARCON Address: [place] [address]
--- OUTSIDE RECORDS SUMMARY | 2023-10-25 23:56 | XMS_ITS | Continuity of Care Document ---
Author Name Unknown Organization [facility] Address [address] [place] [address]- Care Team Providers Care Image Scientist Name Role Phone Bridget Burk CLAY MODELER, Ila Primary Care Physician Encounter [facility] Date(s): 01/18/23 - 02/17/[address] [id number] Allergies, Adverse Reactions, Alerts Substance [...] Gm, 6 Refills, Maintenance, 08/26/22 10:52:00 EST, [facility] #[id number], 30, INHALE 2 PUFFS BY MOUTH TWICE DAILY, 165, cm, 05/20/22 13:56:00 EDT, Height, 118, kg, 01/18/22 15:08:00 EDT, Dry Weight Start Date: 08/26/22 Status: Ordered AutoCPAP 10-16 with heated humidification AutoCPAP 10-16 with heated humidification, See Instructions, # 1 each, Refills 0, Tot. Refills 0, Maintenance, use overnight and naps from [facility], 03/25/20 13:05:00 EDT, Compound Start Date: [...] 5 Refills, Maintenance, 06/04/20 13:35:00 EDT, Tablet, [facility] #15325, 165, cm, 03/14/20 15:15:00 EDT, Height Start Date: 06/04/20 Status: Ordered dextromethorphan-guaifenesin 10 mg-100 mg/5 mL oral liquid 5 mL, By Mouth, Every 4 hours, PRN for cough, # 300 mL, 0 Refills, Maintenance, 03/24/22 10:17:00 EDT, Liquid, [facility] #38742, Partial fill upon patient request if the prescription is for a schedule II opioid drug., 5 mL By Mouth Every 4... Start Date: 03/24/22 Status: Ordered Diclofenac = 75 mg, By Mouth, 2 times a day, prescribed by Dr. Pierre, Neurologist in [place] pt states takesprn, 0 Refills, Maintenance, 08/09/16 [...] tablet, 0 Refills, Maintenance, 05/29/22 21:25:00 EDT, [facility] #82606, 90, TAKE 1 TABLET BY MOUTHEVERY DAY, DRINK ADEQUATE WATER AND CONTINUE TO MON... Start Date: 05/29/22 Status: Ordered ipratropium nasal 21 mcg/inh spray See Instructions, PRN Nasal Congestion, 1 spray each nostril BID, # 1 each, 4 Refills, Maintenance,07/10/20 14:41:00 EDT, [facility] #[id number], 1 spray each nostril BID,PRN:Nasal Congestion, 165, cm, 03/14/20 15:15:00 EDT, Height Start Date: 07/10/20 Status: Ordered levothyroxine 175 mcg (0.175 mg) oral tablet 1 tablet, By Mouth, Daily, # 90 tablet, 0 Refills, Maintenance, 12/27/22 10:51:00 EDT, [facility] #63484, 165, cm, 09/27/22 14:59:00 EST, Height, 112.7, kg, 09/27/22 14:59:00 EST, Dry Weight Start Date: 12/27/22 Status: Ordered lidocaine 4% topical cream 1 application, Topically, 3 times a day, # 15 Gm, 1 Refills, Maintenance, 03/14/20 15:53:00 EDT, Cream, [facility] #45027, 1 application Topically 3 times a day, 165, cm, 03/14/20 15:15:00 EDT, Height, 118.4, kg, 04/28/18 17:05:00 EDT, Dry W... Start Date: 03/14/20 Status: Ordered Lubricant Eye Drops ophthalmic solution 1 drops, Eyes, Both, 2 times a day, PRN for dry eyes, # 30 each, 1 Refills, Maintenance, 06/04/20 13:37:00 EDT, Solution, [facility] #24231, 1 drops Eyes, Both 2 times a day,PRN:for dry eyes, 165, cm, 03/14/20 15:15:00 EDT, Height Start Date: 06/04/20 Status: Ordered MetFORMIN (Eqv-Glucophage XR) 500 mg oral tablet, extended release 2 tablet, By Mouth, Daily, # 60 tablet, 0 Refills, Maintenance, 01/22/23 11:10:00 EDT, [facility] #43747, 165, cm, 01/11/23 14:39:00 EDT, Height, 112.7, [...] Refills, Maintenance, 12/31/22 13:28:00 EDT, REC Powder, [facility] #[id number], Partial fill upon patient request if the prescription is for a schedule... Start Date: 12/31/22 Status: Ordered ProAir HFA 90 mcg/inh inhalation aerosol with adapter 2, puffs, Inhalation, Every 4 hours, PRN, # 8.5 Gm, Refills 0, Route to Pharmacy Electronically, [id number], [facility] #[id number], 165, cm, 04/30/22 10:50:00 EDT, Height, 118, kg, 01/18/22 15:08:00 EDT, Dry Weight Start Date: 05/10/22 Status: Ordered rosuvastatin 10 mg oral tablet 1 tablet, By Mouth, Daily, WITH OR WITHOUT FOOD., # 30 tablet, 0 Refills, Maintenance, 02/15/23 13:10:00 EDT, [facility] #38867, 165, cm, 01/11/23 14:39:00 EDT, Height, 112.7, kg, 09/27/22 14:59:00 EST, Dry Weight Start Date: 02/15/23 Status: Ordered Saline Mist 0.65% nasal spray 1 sprays, Nares, Both, 3 times a day, followed by bulb suction as directed and as needed for nasal congestion., # 1 each, 4 Refills, Maintenance, 09/08/20 12:56:00 EST, [facility] #45815, 1sprays Nares, Both 3 times a day,x7 [...] tablet, 0 Refills, Maintenance, 10/27/22 17:07:00 EST, [facility] #08932, 165, cm, 09/27/22 14:59:00 EST, Height, 112.7, kg, 09/27/22 14:59:00 EST, Dry Weight Start Date: 10/27/22 Status: Ordered sucralfate 1 gm oral tablet See Instructions, # 120 tablet, TAKE 1 TABLET BY MOUTH FOUR TIMES DAILY, [facility] [address] Start Date: 03/26/19 Status: Ordered Zithromax Z-Mulugeta 250 mg oral tablet 1 pack/packet, By Mouth, Once, # 6 tablet, 0 Refills, Soft Stop, 03/24/22 10:16:00 EDT, Tablet, [facility] #[id number], Partial fill upon patient request if the [...] Team Personnel Name: Vanessa Perry NP Position: [facility] Associate Professional Member Role: Lifetime Consulting Provider Address: Address: [address] [place] [address]- Name: Ila Freed NP Position: [facility] Associate Professional Member Role: PCP Address: Address: [address] [place] [address]- Care Team Related Persons Name: YESENIA ALARCON Address: [place] [address] Name: DORA ALARCON Address: home [address] [place] [id number]
--- OUTSIDE RECORDS SUMMARY | 2023-10-25 23:56 | XMS_ITS | Continuity of Care Document ---
Author Name Unknown Organization [facility] Address [address] [place] [address]- Care Team Providers Care Automatic Clipper And Stripper Name Role Phone Zuleika Head NP Primary Care Physician Encounter [facility] Date(s): 06/04/20 - 07/04/[address] [address]- [facility] Attending Physician: Nely Medina Allergies, Adverse Reactions, [...] 16:07:00 EST, Powder, Route to Pharmacy Electronically, [id number], [facility][id number]... Start Date: 10/02/19 Status: Ordered AirDuo RespiClick 55 mcg-14 mcg/inh inhalation powder 1, inhalation, Inhalation, 2 times a day, # 1 each, Refills 11, Tot. Refills 11, Maintenance, 12/10/19 12:44:00 EDT, Route to Pharmacy Electronically, [id number], [facility] #[id number], 165, cm, 11/26/19 14:41:00 EDT, [facility].. Start Date: 12/10/19 Status: Ordered albuterol 0.083% inhalation solution 3 mL = 2.5 mg, Neb, Once, given as duoneb LOT [id number] EXP 01/2021, 0 Refills, Maintenance, 07/11/19 11:14:40 EDT Start Date: 07/11/19 Status: Ordered albuterol-ipratropium 3 mg-0.5 mg/3 ml inhalation solution 3 mL, Inhalation, 4 times a day, # 30 each, 0 Refills, Maintenance, 10/02/19 16:07:00 EST, Solution, [facility] #[id number], 3 mL Inhalation 4 times a day, 165, cm, 10/02/19 15:38:00 EST, Height, 118.4, kg, 04/28/18 17:05:00 EDT, Dry Weight Start Date: 10/02/19 Status: Ordered amitriptyline 25 mg oral tablet 1, tablet, By Mouth, 2 times a day, # 60 tablet, Refills 2, Tot. Refills 0, Maintenance, 09/13/19 16:25:00 EST, Route to Pharmacy Electronically, [facility] #[id number], 165, cm, 07/11/19 10:33:00 EDT, Height, 118.4, [...] PRN, prescribed by Dr Pierre Neurologist in [place], # 30 tablet, Refills 0, Maintenance, for spasm, 08/09/16 8:33:39 Start Date: 08/09/16 Stop Date: 08/23/16 Status: Ordered desloratadine 5 mg oral tablet 1 tablet = 5 mg, By Mouth, Daily, # 30 tablet, 5 Refills, Maintenance, 06/04/20 13:35:00 EDT, Tablet, [facility] #[id number], 165, cm, 03/14/20 15:15:00 EDT, Height Start Date: 06/04/20 Status: Ordered Diclofenac = 75 mg, By Mouth, 2 times a day, prescribed by Dr. Pierre, Neurologist in [place] pt states takesprn, 0 Refills, Maintenance, 08/09/16 [...] 1 Refills, Maintenance, 04/04/20 14:33:00 EDT, Tablet, [facility] #23751, 1 tablet By Mouth Daily,x30 days,Instr:for blood pressure, 165, cm, 03/14/20 15:15:00 EDT, Height, 118.4, k... Start Date: 04/04/20 Stop Date: 06/03/20 Status: Ordered Ipratropium 0.02% Inhalation Solution 2.5, mL, Neb, Once, given as duoneb LOT [id number] EXP 12/2020, Refills 0, Maintenance, 07/11/19 11:15:17 [...] tablet, 2 Refills, Maintenance, 12/27/19 15:39:00 EDT, [facility] #58543, 165, cm, 11/26/19 14:41:00 EDT, Height, 118.4, kg, 04/28/18 17:05:00 EDT, Dry Weight Start Date: 12/27/19 Status: Ordered lidocaine 4% topical cream 1 application, Topically, 3 times a day, # 15 Gm, 1 Refills, Maintenance, 03/14/20 15:53:00 EDT, Cream, [facility] #[id number], 1 application Topically 3 times a day, 165, cm, 03/14/20 15:15:00 EDT, Height, 118.4, kg, 04/28/18 17:05:00 EDT, Dry W... Start Date: 03/14/20 Status: Ordered Lubricant Eye Drops ophthalmic solution 1 drops, Eyes, Both, 2 times a day, PRN for dry eyes, # 30 each, 1 Refills, Maintenance, 06/04/20 13:37:00 EDT, Solution, [facility] #54631, 1 drops Eyes, Both 2 times a day,PRN:for dry eyes, 165, cm, 03/14/20 15:15:00 EDT, Height Start Date: 06/04/20 Status: Ordered metFORMIN 500 mg oral tablet, extended release 2 tablet = 1,000 mg, By Mouth, Daily, # 60 tablet, 5 Refills, Maintenance, 02/18/20 18:03:00 EDT, [facility] #29120, 165, cm, 02/18/20 15:42:00 EDT, Height, 118.4, [...] 16:08:00 EST, Aerosol, Route to Pharmacy Electronically, [id number], [facility] #[id number], 165, cm, 10/02/19 15:38:... Start Date: 10/02/19 Stop Date: 09/26/20 Status: Ordered Protonix 40 mg oral delayed release tablet 1 tablet = 40 mg, By Mouth, Daily, # 90 tablet, 0 Refills, Maintenance, 04/04/20 14:33:00 EDT, EC Tablet, 165, cm, 03/14/20 15:15:00 EDT, Height, 118.4, kg, 04/28/18 17:05:00 EDT, Dry Weight Start Date: 04/04/20 Status: Ordered Saline Mist 0.65% nasal spray 1 sprays, Nares, Both, 3 times a day, followed by bulb suction as directed and as needed for nasal congestion., # 1 each, 4 Refills, Maintenance, 06/04/20 13:36:00 EDT, [facility] #22886, 1sprays Nares, Both 3 times a day,x7 days,Instr:foll... Start Date: 06/04/20 Stop Date: 07/09/20 Status: Ordered sertraline 25 mg oral tablet 1 tablet, By Mouth, Daily, # 30 tablet, 2 Refills, Maintenance, 09/13/19 16:25:00 EST, [facility] #82378, 165, cm, 07/11/19 10:33:00 EDT, Height, 118.4, kg, 04/28/18 17:05:00 EDT, Dry Weight Start Date: 09/13/19 Status: Ordered sucralfate 1 gm oral tablet See Instructions, # 120 tablet, TAKE 1 TABLET BY MOUTH FOUR TIMES DAILY, [facility] [address] Start Date: 03/26/19 Status: Ordered traZODone 50 mg oral tablet 1, tablet, By Mouth, Daily at bedtime, # 30 tablet, Refills 2, Tot. Refills 2, Maintenance, 05/21/20 14:41:00 EDT, Route to Pharmacy Electronically, [facility] #22133, 165, cm, 03/14/20 15:15:00 EDT, Height, Dry Weight Start Date: 05/21/20 Status: Ordered Problem List Condition Effective Dates [...]
--- OUTSIDE RECORDS SUMMARY | 2023-10-25 23:56 | XMS_ITS | Continuity of Care Document ---
Author Name Unknown Organization [facility] Address [address] [place] [address]- Care Team Providers Care Management Development Specialist Name Role Phone Sonido VILLAREAL, Zuleika Lincoln Primary Care Physician [phone] Encounter [facility] Date(s): 01/16/21 - 02/15/[address] [address] Attending Physician: Kayden Hedrick MD Admitting Physician: Kayden Hedrick MD Referring Physician: Zuleika Head NP Allergies, Adverse Reactions, Alerts Substance Reaction Severity [...] 14:48:00 EDT, Powder, Route to Pharmacy Electronically, [id number], [facility]... Start Date: 07/10/20 Status: Ordered albuterol 0.083% inhalation solution 3 mL = 2.5 mg, Neb, Once, given as duoneb LOT [id number] EXP 01/2021, 0 Refills, Maintenance, 07/11/19 11:14:40 EDT Start Date: 07/11/19 Status: Ordered albuterol-ipratropium 3 mg-0.5 mg/3 ml inhalation solution 3 mL, Inhalation, 4 times a day, # 30 each, 0 Refills, Maintenance, 10/02/19 16:07:00 EST, Solution, [facility] #[id number], 3 mL Inhalation 4 times a day, [...] 5 Refills, Maintenance, 06/04/20 13:35:00 EDT, Tablet, [facility] #09616, 165, cm, 03/14/20 15:15:00 EDT, Height Start Date: 06/04/20 Status: Ordered dextromethorphan-guaifenesin 10 mg-100 mg/5 mL oral liquid 5 mL, By Mouth, Every 4 hours, PRN for cough, # 300 mL, 0 Refills, Maintenance, 09/08/20 12:59:00 EST, Liquid, [facility] #31326, Partial fill upon patient request if the prescription is for a schedule II opioid drug., 5 mL By Mouth Every 4... Start Date: 09/08/20 Status: Ordered Diclofenac = 75 mg, By Mouth, 2 times a day, prescribed by Dr. Pierre, Neurologist in [place] pt states takesprn, 0 Refills, Maintenance, 08/09/16 [...] tablet, 2 Refills, Maintenance, 12/17/20 16:02:00 EDT, [facility] #67181, 30, pt needs labs, 1 tablet By Mouth David... Start Date: 12/17/20 Status: Ordered Ipratropium 0.02% Inhalation Solution 2.5, mL, Neb, Once, given as duoneb LOT [id number] EXP 12/2020, Refills 0, Maintenance, 07/11/19 11:15:17 EDT Start Date: 07/11/19 Status: Ordered ipratropium nasal 21 mcg/inh spray See Instructions, PRN Nasal Congestion, 1 spray each nostril BID, # 1 each, 4 Refills, Maintenance,07/10/20 14:41:00 EDT, [facility] #[id number], 1 spray each nostril BID,PRN:Nasal Congestion, 165, cm, 03/14/20 15:15:00 EDT, Height Start Date: 07/10/20 Status: Ordered levothyroxine 175 mcg (0.175 mg) oral tablet 1 tablet, By Mouth, Daily, # 90 tablet, 2 Refills, Maintenance, 09/08/20 12:51:00 [facility], 165, cm, 03/14/20 15:15:00 EDT, Height Start Date: 09/08/20 Status: Ordered lidocaine 4% topical cream 1 application, Topically, 3 times a day, # 15 Gm, 1 Refills, Maintenance, 03/14/20 15:53:00 EDT, Cream, [facility] #33151, 1 application Topically 3 times a day, 165, cm, 03/14/20 15:15:00 EDT, Height, 118.4, kg, 04/28/18 17:05:00 EDT, Dry W... Start Date: 03/14/20 Status: Ordered Lubricant Eye Drops ophthalmic solution 1 drops, Eyes, Both, 2 times a day, PRN for dry eyes, # 30 each, 1 Refills, Maintenance, 06/04/20 13:37:00 EDT, Solution, [facility] #35329, 1 drops Eyes, Both 2 times a day,PRN:for dry eyes, 165, cm, 03/14/20 15:15:00 EDT, Height Start Date: 06/04/20 Status: Ordered metFORMIN 500 mg oral tablet, extended release 2 tablet = 1,000 mg, By Mouth, Daily, # 60 tablet, 5 Refills, Maintenance, 09/08/20 12:51:00 EST, [facility] #25447, 165, cm, 03/14/20 15:15:00 EDT, Height Start [...] 9:34:00 EST, Aerosol, Route to Pharmacy Electronically, [id number], [facility] #[id number], 165, cm, 11/12/20 9:01:00... Start Date: 11/12/20 Stop Date: 11/07/21 Status: Ordered Saline Mist 0.65% nasal spray 1 sprays, Nares, Both, 3 times a day, followed by bulb suction as directed and as needed for nasal congestion., # 1 each, 4 Refills, Maintenance, 09/08/20 12:56:00 EST, [facility] #40925, 1sprays Nares, Both 3 times a day,x7 days,Instr:foll... Start Date: 09/08/20 Stop Date: 10/13/20 Status: Ordered sertraline 25 mg oral tablet 1 tablet, By Mouth, Daily, # 30 tablet, 3 Refills, Maintenance, 02/10/21 22:06:00 EDT, [facility] #71099, 165, cm, 01/16/21 16:24:00 EDT, Height Start Date: 02/10/21 Status: Ordered Spiriva HandiHaler 18 mcg inhalation capsule 1 capsule = 18 mcg, Inhalation, Daily, use two inhalations of one capsule for each dose, # 30 capsule, 11 Refills, Maintenance, 07/10/20 14:50:00 EDT, [facility] #26588, 165, cm, 03/14/20 15:15:00 EDT, Height Start Date: 07/10/20 Status: Ordered sucralfate 1 gm oral tablet See Instructions, # 120 tablet, TAKE 1 TABLET BY MOUTH FOUR TIMES DAILY, [facility] [address]95 Start Date: 03/26/19 Status: Ordered traZODone 50 mg oral tablet 1, tablet, By Mouth, Daily at bedtime, # 30 tablet, Refills 2, Tot. Refills 2, Maintenance, 12/12/20 11:25:00 EDT, Route to Pharmacy Electronically, [facility] #63837, 165, cm, 11/12/20 9:01:00 EST, Height Start [...]
--- OUTSIDE RECORDS SUMMARY | 2023-10-25 23:56 | XMS_ITS | Continuity of Care Document ---
Author Name Unknown Organization [facility] Address [address] [place] [address]- Care Team Providers Care Cad Designer Drafter Name Role Phone Bridget Burk ACCOUNTING ANALYST, Ila Primary Care Physician Encounter [facility] Date(s): 12/29/22 - 01/28/[address] [address] Allergies, Adverse Reactions, Alerts Substance [...] Gm, 6 Refills, Maintenance, 08/26/22 10:52:00 EST, [facility] #22443, 30, INHALE 2 PUFFS BY MOUTH TWICE DAILY, 165, cm, 05/20/22 13:56:00 EDT, Height, 118, kg, 01/18/22 15:08:00 EDT, Dry Weight Start Date: 08/26/22 Status: Ordered AutoCPAP 10-16 with heated humidification AutoCPAP 10-16 with heated humidification, See Instructions, # 1 each, Refills 0, Tot. Refills 0, Maintenance, use overnight and naps from [facility], 03/25/20 13:05:00 EDT, Compound Start Date: 03/25/20 [...] 5 Refills, Maintenance, 06/04/20 13:35:00 EDT, Tablet, [facility] #73783, 165, cm, 03/14/20 15:15:00 EDT, Height Start Date: 06/04/20 Status: Ordered dextromethorphan-guaifenesin 10 mg-100 mg/5 mL oral liquid 5 mL, By Mouth, Every 4 hours, PRN for cough, # 300 mL, 0 Refills, Maintenance, 03/24/22 10:17:00 EDT, Liquid, [facility] #99817, Partial fill upon patient request if the prescription is for a schedule II opioid drug., 5 mL By Mouth Every 4... Start Date: 03/24/22 Status: Ordered Diclofenac = 75 mg, By Mouth, 2 times a day, prescribed by Dr. Pierre, Neurologist in [place] pt states takesprn, 0 Refills, Maintenance, 08/09/16 [...] tablet, 0 Refills, Maintenance, 05/29/22 21:25:00 EDT, [facility] #17146, 90, TAKE 1 TABLET BY MOUTHEVERY DAY, DRINK ADEQUATE WATER AND CONTINUE TO MON... Start Date: 05/29/22 Status: Ordered ipratropium nasal 21 mcg/inh spray See Instructions, PRN Nasal Congestion, 1 spray each nostril BID, # 1 each, 4 Refills, Maintenance,07/10/20 14:41:00 EDT, [facility] #39521, 1 spray each nostril BID,PRN:Nasal Congestion, 165, cm, 03/14/20 15:15:00 EDT, Height Start Date: 07/10/20 Status: Ordered levothyroxine 175 mcg (0.175 mg) oral tablet 1 tablet, By Mouth, Daily, # 90 tablet, 0 Refills, Maintenance, 12/27/22 10:51:00 EDT, [facility] #63880, 165, cm, 09/27/22 14:59:00 EST, Height, 112.7, kg, 09/27/22 14:59:00 EST, Dry Weight Start Date: 12/27/22 Status: Ordered lidocaine 4% topical cream 1 application, Topically, 3 times a day, # 15 Gm, 1 Refills, Maintenance, 03/14/20 15:53:00 EDT, Cream, [facility] #55133, 1 application Topically 3 times a day, 165, cm, 03/14/20 15:15:00 EDT, Height, 118.4, kg, 04/28/18 17:05:00 EDT, Dry W... Start Date: 03/14/20 Status: Ordered Lubricant Eye Drops ophthalmic solution 1 drops, Eyes, Both, 2 times a day, PRN for dry eyes, # 30 each, 1 Refills, Maintenance, 06/04/20 13:37:00 EDT, Solution, [facility] #31126, 1 drops Eyes, Both 2 times a day,PRN:for dry eyes, 165, cm, 03/14/20 15:15:00 EDT, Height Start Date: 06/04/20 Status: Ordered MetFORMIN (Eqv-Glucophage XR) 500 mg oral tablet, extended release 2 tablet, By Mouth, Daily, # 60 tablet, 0 Refills, Maintenance, 01/22/23 11:10:00 EDT, [facility] #16640, 165, cm, 01/11/23 14:39:00 EDT, Height, 112.7, [...] Refills, Maintenance, 12/31/22 13:28:00 EDT, REC Powder, [facility] #25761, Partial fill upon patient request if the prescription is for a schedule... Start Date: 12/31/22 Status: Ordered ProAir HFA 90 mcg/inh inhalation aerosol with adapter 2, puffs, Inhalation, Every 4 hours, PRN, # 8.5 Gm, Refills 0, Route to Pharmacy Electronically, [id number], [facility] #53085, 165, cm, 04/30/22 10:50:00 EDT, Height, 118, [...] 6 Refills, Maintenance, 02/03/22 17:18:00 EDT, Tablet, [facility] #1... Start Date: 02/03/22 Stop Date: 09/01/22 Status: Ordered Saline Mist 0.65% nasal spray 1 sprays, Nares, Both, 3 times a day, followed by bulb suction as directed and as needed for nasal congestion., # 1 each, 4 Refills, Maintenance, 09/08/20 12:56:00 EST, [facility] #98894, 1sprays Nares, Both 3 times a day,x7 [...] tablet, 0 Refills, Maintenance, 10/27/22 17:07:00 EST, [facility] #56438, 165, cm, 09/27/22 14:59:00 EST, Height, 112.7, kg, 09/27/22 14:59:00 EST, Dry Weight Start Date: 10/27/22 Status: Ordered sucralfate 1 gm oral tablet See Instructions, # 120 tablet, TAKE 1 TABLET BY MOUTH FOUR [place], [place] [address] Start Date: 03/26/19 Status: Ordered Zithromax Z-Mulugeta 250 mg oral tablet 1 pack/packet, By Mouth, Once, # 6 tablet, 0 Refills, Soft Stop, 03/24/22 10:16:00 EDT, Tablet, [facility] #58646, Partial fill upon patient request if the [...] Team Personnel Name: Vanessa Perry NP Position: [facility] PCO Associate Professional Member Role: Lifetime Consulting Provider Address: Address: [address] [place] [address]- Name: Ila Freed NP Position: [facility] Associate Professional Member Role: PCP Address: Address: [address] [place] [address]- Care Team Related Persons Name: YESENIA ALARCON Address: [place] [address] Name: DORA ALARCON Address: home [address] [place] [id number]
--- OUTSIDE RECORDS SUMMARY | 2023-10-25 23:56 | XMS_ITS | Continuity of Care Document ---
Author Name Unknown Organization [facility] Address [address] [place] [address]- Care Team Providers Care Manager User Experience Name Role Phone Bridget Burk NP, Ila Primary Care Physician Encounter [facility] Date(s): 12/11/21 - 04/10/22 [facility] [address] [address] Attending Physician: Go GASCA, Leta Manzo Admitting Physician: Leta Stiles MD Referring Physician: Bridget Burk NP, Ila [...] 6 Refills, Maintenance, 06/17/21 11:50:00 EDT, Aerosol, [facility] #85627, Partial fill upon patient request if the [...] 5 Refills, Maintenance, 06/04/20 13:35:00 EDT, Tablet, [facility] #17513, 165, cm, 03/14/20 15:15:00 EDT, Height Start Date: 06/04/20 Status: Ordered dextromethorphan-guaifenesin 10 mg-100 mg/5 mL oral liquid 5 mL, By Mouth, Every 4 hours, PRN for cough, # 300 mL, 0 Refills, Maintenance, 03/24/22 10:17:00 EDT, Liquid, [facility] #54606, Partial fill upon patient request if the prescription is for a schedule II opioid drug., 5 mL By Mouth Every 4... Start Date: 03/24/22 Status: Ordered Diclofenac = 75 mg, By Mouth, 2 times a day, prescribed by Dr. Pierre, Neurologist in [facility] states takesprn, 0 Refills, Maintenance, 08/09/16 [...] 30 tablet, 2 Refills, Maintenance, 11/04/21 16:10:00 [id number], pt needs labs, 1 tablet By Mouth [...] 1 each, 4 Refills, Maintenance,07/10/20 14:41:00 EDT, [facility] #81834, 1 spray each nostril BID,PRN:Nasal Congestion, 165, cm, 03/14/20 15:15:00 EDT, Height Start Date: 07/10/20 Status: Ordered levothyroxine 175 mcg (0.175 mg) oral tablet 1 tablet, By Mouth, Daily, # 90 tablet, 2 Refills, Maintenance, 09/01/21 12:27:00 EST, [facility] #30174, 165, cm, 07/13/21 11:17:00 EDT, Height Start Date: 09/01/21 Status: Ordered lidocaine 4% topical cream 1 application, Topically, 3 times a day, # 15 Gm, 1 Refills, Maintenance, 03/14/20 15:53:00 EDT, Cream, [facility] #76751, 1 application Topically 3 times a day, 165, cm, 03/14/20 15:15:00 EDT, Height, 118.4, kg, 04/28/18 17:05:00 EDT, Dry W... Start Date: 03/14/20 Status: Ordered Lubricant Eye Drops ophthalmic solution 1 drops, Eyes, Both, 2 times a day, PRN for dry eyes, # 30 each, 1 Refills, Maintenance, 06/04/20 13:37:00 EDT, Solution, [facility] #80879, 1 drops Eyes, Both 2 times a day,PRN:for dry eyes, 165, cm, 03/14/20 15:15:00 EDT, Height Start Date: 06/04/20 Status: Ordered metFORMIN 500 mg oral tablet, extended release 2 tablet = 1,000 mg, By Mouth, Daily, # 60 tablet, 5 Refills, Maintenance, 02/02/22 16:11:00 EDT, [facility] #27317, 165, cm, 01/20/22 15:45:00 EDT, Height, 118, [...] 6 Refills, Maintenance, 02/03/22 17:18:00 EDT, Tablet, [facility] #1... Start Date: 02/03/22 Stop Date: 09/01/22 Status: Ordered Saline Mist 0.65% nasal spray 1 sprays, Nares, Both, 3 times a day, followed by bulb suction as directed and as needed for nasal congestion., # 1 each, 4 Refills, Maintenance, 09/08/20 12:56:00 [facility], 1sprays Nares, Both 3 times a day,x7 days,Instr:foll... Start Date: 09/08/20 Stop Date: 10/13/20 Status: Ordered sertraline 25 mg oral tablet 1 tablet, By Mouth, Daily, # 30 tablet, 3 Refills, Maintenance, 09/01/21 12:27:00 [facility]08698, 165, cm, 07/13/21 11:17:00 EDT, Height Start Date: 12/14/21 Status: Ordered sucralfate 1 gm oral tablet See Instructions, # 120 tablet, TAKE 1 TABLET BY MOUTH FOUR TIMES DAILY, [facility] [address] Start Date: 03/26/19 Status: Ordered Zithromax Z-Mulugeta 250 mg oral tablet 1 pack/packet, By Mouth, Once, # 6 tablet, 0 Refills, Soft Stop, 03/24/22 10:16:00 EDT, Tablet, [facility] #72784, Partial fill upon patient request if the [...]
--- OUTSIDE RECORDS SUMMARY | 2023-10-25 23:56 | XMS_ITS | Continuity of Care Document ---
Author Name Unknown Organization [facility] Address [address] [place] [address]- Care Team Providers Care Sharepoint Web Developer Name Role Phone Bridget Burk NP, Ila Primary Care Physician Encounter [id number] Date(s): 09/27/22 - 10/31/[address] [address] Attending Physician: Not on Staff, Attending [...] 12 Gm, 6 Refills, Maintenance, 08/26/22 10:52:00 [facility] #[id number], 30, INHALE 2 PUFFS BY MOUTH TWICE [...] 5 Refills, Maintenance, 06/04/20 13:35:00 EDT, Tablet, [facility] #[id number], 165, cm, 03/14/20 15:15:00 EDT, Height Start Date: 06/04/20 Status: Ordered dextromethorphan-guaifenesin 10 mg-100 mg/5 mL oral liquid 5 mL, By Mouth, Every 4 hours, PRN for cough, # 300 mL, 0 Refills, Maintenance, 03/24/22 10:17:00 EDT, Liquid, [facility] #56398, Partial fill upon patient request if the prescription is for a schedule II opioid drug., 5 mL By Mouth Every 4... Start Date: 03/24/22 Status: Ordered Diclofenac = 75 mg, By Mouth, 2 times a day, prescribed by Dr. Pierre, Neurologist in [facility] takesprn, 0 Refills, Maintenance, 08/09/16 8:32:51 [...] tablet, 0 Refills, Maintenance, 05/29/22 21:25:00 EDT, [facility] #[id number], 90, TAKE 1 TABLET BY MOUTHEVERY DAY, DRINK ADEQUATE WATER AND CONTINUE TO MON... Start Date: 05/29/22 Status: Ordered ipratropium nasal 21 mcg/inh spray See Instructions, PRN Nasal Congestion, 1 spray each nostril BID, # 1 each, 4 Refills, Maintenance,07/10/20 14:41:00 EDT, [facility] #[id number], 1 spray each nostril BID,PRN:Nasal Congestion, 165, cm, 03/14/20 15:15:00 EDT, Height Start Date: 07/10/20 Status: Ordered levothyroxine 175 mcg (0.175 mg) oral tablet 1 tablet, By Mouth, Daily, # 90 tablet, 1 Refills, [facility] #12250, 165, cm, 03/26/22 11:46:00 EDT, Height, 118, kg, 01/18/22 15:08:00 EDT, Dry Weight Start Date: 04/29/22 Status: Ordered lidocaine 4% topical cream 1 application, Topically, 3 times a day, # 15 Gm, 1 Refills, Maintenance, 03/14/20 15:53:00 EDT, Cream, [facility] #10476, 1 application Topically 3 times a day, 165, cm, 03/14/20 15:15:00 EDT, Height, 118.4, kg, 04/28/18 17:05:00 EDT, Dry W... Start Date: 03/14/20 Status: Ordered Lubricant Eye Drops ophthalmic solution 1 drops, Eyes, Both, 2 times a day, PRN for dry eyes, # 30 each, 1 Refills, Maintenance, 06/04/20 13:37:00 EDT, Solution, [facility] #74728, 1 drops Eyes, Both 2 times a day,PRN:for dry eyes, 165, cm, 03/14/20 15:15:00 EDT, Height Start Date: 06/04/20 Status: Ordered MetFORMIN (Eqv-Glucophage XR) 500 mg oral tablet, extended release 2 tablet, By Mouth, Daily, # 180 tablet, 0 Refills, Maintenance, 10/21/22 10:18:00 EST, [facility] #69782, 165, cm, 09/27/22 14:59:00 EST, Height, 112.7, [...] Gm, Refills 0, Route to Pharmacy Electronically, [id number], [facility] #[id number], 165, cm, 04/30/22 10:50:00 EDT, Height, 118, [...] 6 Refills, Maintenance, 02/03/22 17:18:00 EDT, Tablet, [facility] #1... Start Date: 02/03/22 Stop Date: 09/01/22 Status: Ordered Saline Mist 0.65% nasal spray 1 sprays, Nares, Both, 3 times a day, followed by bulb suction as directed and as needed for nasal congestion., # 1 each, 4 Refills, Maintenance, 09/08/20 12:56:00 EST, [facility] #06441, 1sprays Nares, Both 3 times a day,x7 days,Instr:foll... Start Date: 09/08/20 Stop Date: 10/13/20 Status: Ordered sertraline 25 mg oral tablet 1 tablet, By Mouth, Daily, # 30 tablet, 0 Refills, Maintenance, 10/27/22 17:07:00 EST, [facility] #[id number], 165, cm, 09/27/22 14:59:00 EST, Height, 112.7, kg, 09/27/22 14:59:00 EST, Dry Weight Start Date: 10/27/22 Status: Ordered sucralfate 1 gm oral tablet See Instructions, # 120 tablet, TAKE 1 TABLET BY MOUTH FOUR TIMES DAILY, [facility] Start Date: 03/26/19 Status: Ordered Zithromax Z-Mulugeta 250 mg oral tablet 1 pack/packet, By Mouth, Once, # 6 tablet, 0 Refills, Soft Stop, 03/24/22 10:16:00 EDT, Tablet, [facility] #[id number], Partial fill upon patient request if the [...] Associate Professional Member Role: PCP Address: Address: [address] [place] [address]- Care Team Related Persons Name: YESENIA ALARCON Address: [place] [address] Name: DORA ALARCON Address: home [address] [place] [address]
--- OUTSIDE RECORDS SUMMARY | 2023-10-25 23:56 | XMS_ITS | Continuity of Care Document ---
Author Name Unknown Organization [facility] Address [address] [place] [address]- Care Team Providers Care Dry Lumber Grader Name Role Phone Bridget Burk COMPUTER NUMERICAL CONTROL GRINDER, Ila Primary Care Physician [place] [facility] [place] [facility] [address] [place], [place] [address] Attending Physician: Not on Staff, [...] 6 Refills, Maintenance, 06/17/21 11:50:00 EDT, Aerosol, [facility] #[id number], Partial fill upon patient request if the prescription is for a schedule II opioid drug., 2 puffs Inhalation 2 times a d... Start Date: 06/17/21 Status: Ordered Aspercreme 10% topical cream 1 application, Topically, 4 times a day, PRN for pain, n., # 1 each, 3 Refills, Maintenance, 07/13/21 11:47:00 EDT, Cream, [facility] #75531, Partial fill upon patient request if the [...] 5 Refills, Maintenance, 06/04/20 13:35:00 EDT, Tablet, [facility] #61426, 165, cm, 03/14/20 15:15:00 EDT, Height Start Date: 06/04/20 Status: Ordered dextromethorphan-guaifenesin 10 mg-100 mg/5 mL oral liquid 5 mL, By Mouth, Every 4 hours, PRN for cough, # 300 mL, 0 Refills, Maintenance, 09/08/20 12:59:00 EST, Liquid, [facility] #48507, Partial fill upon patient request if the prescription is for a schedule II opioid drug., 5 mL By Mouth Every 4... Start Date: 09/08/20 Status: Ordered Diclofenac = 75 mg, By Mouth, 2 times a day, prescribed by Dr. Pierre, Neurologist in [facility] states takesprn, 0 Refills, Maintenance, 08/09/16 [...] 30 tablet, 2 Refills, Maintenance, 11/04/21 16:10:00 [facility] #10925, pt needs labs, 1 tablet By Mouth Daily,x3... Start Date: 11/04/21 Stop Date: 5/17/22 Status: Ordered hydrochlorothiazide-lisinopril 25 mg-20 mg oral [...] 1 each, 4 Refills, Maintenance,07/10/20 14:41:00 EDT, [facility] #55255, 1 spray each nostril BID,PRN:Nasal Congestion, 165, cm, 03/14/20 15:15:00 EDT, Height Start Date: 07/10/20 Status: Ordered levothyroxine 175 mcg (0.175 mg) oral tablet 1 tablet, By Mouth, Daily, # 90 tablet, 2 Refills, Maintenance, 09/01/21 12:27:00 EST, [facility] #05060, 165, cm, 07/13/21 11:17:00 EDT, Height Start Date: 09/01/21 Status: Ordered lidocaine 4% topical cream 1 application, Topically, 3 times a day, # 15 Gm, 1 Refills, Maintenance, 03/14/20 15:53:00 EDT, Cream, [facility] #45605, 1 application Topically 3 times a day, 165, cm, 03/14/20 15:15:00 EDT, Height, 118.4, kg, 04/28/18 17:05:00 EDT, Dry W... Start Date: 03/14/20 Status: Ordered Lubricant Eye Drops ophthalmic solution 1 drops, Eyes, Both, 2 times a day, PRN for dry eyes, # 30 each, 1 Refills, Maintenance, 06/04/20 13:37:00 EDT, Solution, [facility] #99640, 1 drops Eyes, Both 2 times a day,PRN:for dry eyes, 165, cm, 03/14/20 15:15:00 EDT, Height Start Date: 06/04/20 Status: Ordered metFORMIN 500 mg oral tablet, extended release 2 tablet = 1,000 mg, By Mouth, Daily, # 60 tablet, 5 Refills, Maintenance, 02/02/22 16:11:00 EDT, [facility] #[id number], 165, cm, 01/20/22 15:45:00 EDT, Height, 118, [...] 6 Refills, Maintenance, 02/03/22 17:18:00 EDT, Tablet, [facility] #1... Start Date: 02/03/22 Stop Date: 09/01/22 Status: Ordered Saline Mist 0.65% nasal spray 1 sprays, Nares, Both, 3 times a day, followed by bulb suction as directed and as needed for nasal congestion., # 1 each, 4 Refills, Maintenance, 09/08/20 12:56:00 EST, [facility] #64630, 1sprays Nares, Both 3 times a day,x7 days,Instr:foll... Start Date: 09/08/20 Stop Date: 10/13/20 Status: Ordered sertraline 25 mg oral tablet 1 tablet, By Mouth, Daily, # 30 tablet, 3 Refills, Maintenance, 09/01/21 12:27:00 EST, [facility] #23297, 165, cm, 07/13/21 11:17:00 EDT, Height Start Date: 09/01/21 Status: Ordered sucralfate 1 gm oral tablet See Instructions, # 120 tablet, TAKE 1 TABLET BY MOUTH FOUR TIMES DAILY, [facility] Start Date: 03/26/19 Status: Ordered Problem List [...]
--- OUTSIDE RECORDS SUMMARY | 2023-10-25 23:56 | XMS_ITS | Continuity of Care Document ---
Author Name Unknown Organization [facility] Address [address] [place] [address]- Care Team Providers Care Film Maker Name Role Phone Bridget Burk HEAD OF PRODUCT, Ila Primary Care Physician Encounter [facility] Date(s): 01/02/22 - 02/01/[address] [address] Allergies, Adverse Reactions, Alerts Substance [...] 6 Refills, Maintenance, 06/17/21 11:50:00 EDT, [facility]ol, [facility]32279, Partial fill upon patient request if the prescription is for a schedule II opioid drug., 2 puffs Inhalation 2 times a d... Start Date: 06/17/21 Status: Ordered Aspercreme 10% topical cream 1 application, Topically, 4 times a day, PRN for pain, n., # 1 each, 3 Refills, Maintenance, 07/13/21 11:47:00 EDT, Cream, [facility] #00159, Partial fill upon patient request if the [...] 5 Refills, Maintenance, 06/04/20 13:35:00 EDT, Tablet, [facility] #92321, 165, cm, 03/14/20 15:15:00 EDT, Height Start Date: 06/04/20 Status: Ordered dextromethorphan-guaifenesin 10 mg-100 mg/5 mL oral liquid 5 mL, By Mouth, Every 4 hours, PRN for cough, # 300 mL, 0 Refills, Maintenance, 09/08/20 12:59:00 EST, Liquid, [facility] #32109, Partial fill upon patient request if the prescription is for a schedule II opioid drug., 5 mL By Mouth Every 4... Start Date: 09/08/20 Status: Ordered Diclofenac = 75 mg, By Mouth, 2 times a day, prescribed by Dr. Pierre, Neurologist in [facility] states takesprn, 0 Refills, Maintenance, 08/09/16 [...] 30 tablet, 2 Refills, Maintenance, 11/04/21 16:10:00 [facility] #[id number], pt needs labs, 1 tablet By Mouth [...] 1 each, 4 Refills, Maintenance,07/10/20 14:41:00 EDT, [facility] #[id number], 1 spray each nostril BID,PRN:Nasal Congestion, 165, cm, 03/14/20 15:15:00 EDT, Height Start Date: 07/10/20 Status: Ordered levothyroxine 175 mcg (0.175 mg) oral tablet 1 tablet, By Mouth, Daily, # 90 tablet, 2 Refills, Maintenance, 09/01/21 12:27:00 EST, [facility] #15014, 165, cm, 07/13/21 11:17:00 EDT, Height Start Date: 09/01/21 Status: Ordered lidocaine 4% topical cream 1 application, Topically, 3 times a day, # 15 Gm, 1 Refills, Maintenance, 03/14/20 15:53:00 EDT, Cream, [facility] #[id number], 1 application Topically 3 times a day, 165, cm, 03/14/20 15:15:00 EDT, Height, 118.4, kg, 04/28/18 17:05:00 EDT, Dry W... Start Date: 03/14/20 Status: Ordered Lubricant Eye Drops ophthalmic solution 1 drops, Eyes, Both, 2 times a day, PRN for dry eyes, # 30 each, 1 Refills, Maintenance, 06/04/20 13:37:00 EDT, Solution, [facility] #[id number], 1 drops Eyes, Both 2 times a day,PRN:for dry eyes, 165, cm, 03/14/20 15:15:00 EDT, Height Start Date: 06/04/20 Status: Ordered metFORMIN 500 mg oral tablet, extended release 2 tablet = 1,000 mg, By Mouth, Daily, for 30 days, # 60 tablet, 2 Refills, Hard Stop 02/02/22 16:11:00 EDT, 11/04/21 16:11:00 EST, [facility] #[id number], 165, cm, 09/25/21 7:59:00 EST, Height Start Date: 11/04/21 Stop Date: 02/02/22 Status: Ordered metFORMIN 500 mg oral tablet, extended release 2 tablet = 1,000 mg, By Mouth, Daily, # 60 tablet, 5 Refills, Maintenance, 02/02/22 16:11:00 EDT, [facility] #[id number], 165, cm, 01/20/22 15:45:00 EDT, Height, 118, [...] EDT, Height Start Date: 01/06/22 Status: Ordered ProAir HFA 90 mcg/inh inhalation aerosol with adapter 2, puffs, Inhalation, Every 4 hours, PRN, for 30 days, # 1 each, Refills 2, Tot. Refills 2, Hard Stop 02/05/22 9:34:00 EDT, 11/07/21 9:34:00 EST, Aerosol, Route to Pharmacy Electronically, [id number], [facility] #10... Start Date: 11/07/21 Stop Date: 02/05/22 Status: Ordered Saline Mist 0.65% nasal spray 1 sprays, Nares, Both, 3 times a day, followed by bulb suction as directed and as needed for nasal congestion., # 1 each, 4 Refills, Maintenance, 09/08/20 12:56:00 EST, [facility] #[id number], 1sprays Nares, Both 3 times a day,x7 days,Instr:foll... Start Date: 09/08/20 Stop Date: 10/13/20 Status: Ordered sertraline 25 mg oral tablet 1 tablet, By Mouth, Daily, # 30 tablet, 3 Refills, Maintenance, 09/01/21 12:27:00 EST, [facility] #[id number], 165, cm, 07/13/21 11:17:00 EDT, Height Start Date: 09/01/21 Status: Ordered sucralfate 1 gm oral tablet See Instructions, # 120 tablet, TAKE 1 TABLET BY MOUTH FOUR TIMES DAILY, [facility]18 Start Date: 03/26/19 Status: Ordered Problem List [...]
--- OUTSIDE RECORDS SUMMARY | 2023-10-25 23:56 | XMS_ITS | Continuity of Care Document ---
Author Name Unknown Organization [facility] Address [address] [place] [address]- Care Team Providers Care Sourcing Coordinator Name Role Phone Zuleika Head NP Primary Care Physician Encounter [facility] Date(s): 10/02/19 - 10/12/[address] [address]- [facility] Attending Physician: Admtr, Ar8 Allergies, Adverse Reactions, Alerts [...] 16:07:00 EST, Powder, Route to Pharmacy Electronically, [id number], [facility] #[id number]... Start Date: 10/02/19 Status: Ordered albuterol 0.083% inhalation solution 3 mL = 2.5 mg, Neb, Once, given as duoneb LOT [id number] EXP 01/2021, 0 Refills, Maintenance, 07/11/19 11:14:40 EDT Start Date: 07/11/19 Status: Ordered albuterol-ipratropium 3 mg-0.5 mg/3 ml inhalation solution 3 mL, Inhalation, 4 times a day, # 30 each, 0 Refills, Maintenance, 10/02/19 16:07:00 EST, Solution, [facility] #[id number], 3 mL Inhalation 4 times a day, 165, cm, 10/02/19 15:38:00 EST, Height, 118.4, kg, 04/28/18 17:05:00 EDT, Dry Weight Start Date: 10/02/19 Status: Ordered amitriptyline 25 mg oral tablet 1, tablet, By Mouth, 2 times a day, # 60 tablet, Refills 2, Tot. Refills 0, Maintenance, 09/13/19 16:25:00 EST, Route to Pharmacy Electronically, [facility] #[id number], 165, cm, 07/11/19 10:33:00 EDT, Height, 118.4, kg, 04/28/18 17:05:00 EDT, . Start Date: 09/13/19 Status: Ordered cetirizine 10 mg oral tablet 1 tablet = 10 mg, By Mouth, Daily, # 30 tablet, 11 Refills, Maintenance, 10/02/19 16:08:00 EST, Tablet, [facility] #[id number], 165, cm, 10/02/19 15:38:00 EST, Height, 118.4, [...] PRN, prescribed by Dr Pierre Neurologist in [place], # 30 tablet, Refills 0, Maintenance, for spasm, 08/09/16 8:33:39 Start Date: 08/09/16 Stop Date: 08/23/16 Status: Ordered Diclofenac = 75 mg, By Mouth, 2 times a day, prescribed by Dr. Pierre, Neurologist in [place] pt states takesprn, 0 Refills, Maintenance, 08/09/16 8:32:51 Start Date: 08/09/16 Status: Ordered Fioricet Tablet 1 tab, By Mouth, Every 4 hours, prescribed by Dr. Mckeon for migraines, # 30 tablet, 0 Refills, Maintenance, 04/18/14 11:41:59 Start Date: 04/18/14 Status: Ordered Flonase 50 mcg/inh nasal spray 1 sprays, Nares, Both, 2 times a day, # 16 Gm, 2 Refills, Maintenance, 10/02/19 16:08:00 EST, [place], [facility] #[id number], 1 sprays Nares, Both 2 times a day, 165, cm, 10/02/19 15:38:00 EST, Height, 118.4, kg, 04/28/18 17:05:00 EDT, Dry Weight Start Date: 10/02/19 Status: Ordered Gabapentin = 300 mg, By Mouth, Daily, 0 Refills, Maintenance, 10/19/17 14:27:32 Start Date: 10/19/17 Status: Ordered hydrochlorothiazide-lisinopril 12.5 mg-20 mg oral tablet 1 tablet, By Mouth, Daily, for blood pressure, # 30 tablet, 5 Refills, Maintenance, 06/25/19 10:51:36 EDT, Tablet, 1 tablet By Mouth Daily,x30 days,Instr:for blood pressure Start Date: 06/25/19 Stop Date: 12/22/19 Status: Ordered Ipratropium 0.02% Inhalation Solution 2.5, mL, Neb, Once, given as duoneb LOT [id number] EXP 12/2020, Refills 0, Maintenance, 07/11/19 11:15:17 EDT Start Date: 07/11/19 Status: Ordered ipratropium nasal 21 mcg/inh spray See Instructions, PRN Nasal Congestion, 1 spray each nostril BID, # 1 each, 4 Refills, Maintenance,06/09/17 9:14:23, 1 spray each nostril BID,PRN:Nasal Congestion Start Date: 06/09/17 Status: Ordered levothyroxine 175 mcg (0.175 mg) oral tablet 1 tablet = 175 mcg, By Mouth, Daily, # 90 tablet, 0 Refills, Maintenance, 07/25/19 12:03:57 EST, Tablet Start Date: 07/25/19 Status: Ordered lidocaine 4% topical cream 1 application, Topically, 3 times a day, # 15 Gm, 1 Refills, Maintenance, 03/08/19 9:36:31 EDT, Cream, 1 application Topically 3 times a day Start Date: 03/08/19 Status: Ordered metFORMIN 500 mg oral tablet, extended release 2 tablet = 1,000 mg, By Mouth, Daily, replaces 750 mg tablet for diabetes, # 60 tablet, 5 Refills, Maintenance, 02/08/19 12:32:01 EDT Start Date: 02/08/19 Stop Date: 08/07/19 Status: Ordered MiraLax oral powder for reconstitution [...] 16:08:00 EST, Aerosol, Route to Pharmacy Electronically, [id number], [facility] #[id number], 165, cm, 10/02/19 15:38:... Start Date: 10/02/19 Stop Date: 09/26/20 Status: Ordered Protonix 40 mg oral delayed release tablet 1 tablet = 40 mg, By Mouth, Daily, # 90 tablet, 3 Refills, Maintenance, 03/08/19 9:38:16 EDT, [facility] Tablet Start Date: 03/08/19 Status: Ordered sertraline 25 mg oral tablet 1 tablet, By Mouth, Daily, # 30 tablet, 2 Refills, Maintenance, 09/13/19 16:25:00 EST, [facility] #[id number], 165, cm, 07/11/19 10:33:00 EDT, Height, 118.4, kg, 04/28/18 17:05:00 EDT, Dry Weight Start Date: 09/13/19 Status: Ordered Spiriva HandiHaler 18 mcg Inhalation Capsule 1 capsule = 18 mcg, Inhalation, Daily, use two inhalations of one capsule for each dose, # 30 each,11 Refills, Maintenance, 10/19/17 14:43:40, 1 capsule Inhalation Daily,Instr:use two inhalations ofone capsule for each dose Start Date: 10/19/17 Status: Ordered sucralfate 1 gm oral tablet See Instructions, # 120 tablet, TAKE 1 TABLET BY MOUTH FOUR TIMES DAILY, [facility] 83728 Start Date: 03/26/19 Status: Ordered Problem List [...]
--- OUTSIDE RECORDS SUMMARY | 2023-10-25 23:56 | XMS_ITS | Continuity of Care Document ---
Author Name Unknown Organization [facility] Address [address] [place] [address]- Care Team Providers Care Butter Grader Name Role Phone Bridget Burk JUDICIAL CLERK, Ila Primary Care Physician Encounter [facility] Date(s): 02/02/23 - 03/04/[address] [address] Allergies, Adverse Reactions, Alerts [...] Gm, 6 Refills, Maintenance, 08/26/22 10:52:00 EST, [facility] #[id number], 30, INHALE 2 PUFFS BY MOUTH TWICE DAILY, 165, cm, 05/20/22 13:56:00 EDT, Height, 118, kg, 01/18/22 15:08:00 EDT, Dry Weight Start Date: 08/26/22 Status: Ordered AutoCPAP 10-16 with heated humidification AutoCPAP 10-16 with heated humidification, See Instructions, # 1 each, Refills 0, Tot. Refills 0, Maintenance, use overnight and naps from [facility], 03/25/20 13:05:00 EDT, Compound Start Date: [...] 5 Refills, Maintenance, 06/04/20 13:35:00 EDT, Tablet, [facility] #89335, 165, cm, 03/14/20 15:15:00 EDT, Height Start Date: 06/04/20 Status: Ordered dextromethorphan-guaifenesin 10 mg-100 mg/5 mL oral liquid 5 mL, By Mouth, Every 4 hours, PRN for cough, # 300 mL, 0 Refills, Maintenance, 03/24/22 10:17:00 EDT, Liquid, [facility] #11514, Partial fill upon patient request if the prescription is for a schedule II opioid drug., 5 mL By Mouth Every 4... Start Date: 03/24/22 Status: Ordered Diclofenac = 75 mg, By Mouth, 2 times a day, prescribed by Dr. Pierre, Neurologist in [place] pt states takesprn, 0 Refills, Maintenance, 08/09/16 8:32:51 Start Date: 08/09/16 Status: Ordered docusate sodium 100 mg oral capsule 1 capsule = 100 mg, By Mouth, 2 times a day, PRN as needed for constipation, with plenty of water, # 60 capsule, 1 Refills, Maintenance, 02/21/23 15:56:00 EDT, Capsule, [facility] #[id number], Partial fill upon patient request if the [...] mg, By Mouth, Daily, 0 Refills, Maintenance, 01/31/18 14:27:32 Start Date: 10/19/17 Status: Ordered hydrochlorothiazide-lisinopril 25 mg-20 mg oral tablet 1 tablet, By Mouth, Daily, ADEQUATE WATER AND CONTINUE TO MONITOR BLOOD PRESSURE., # 270 tablet, 0 Refills, Maintenance, 05/29/22 21:25:00 EDT, [facility] #17325, 90, TAKE 1 TABLET BY MOUTHEVERY DAY, DRINK ADEQUATE WATER AND CONTINUE TO MON... Start Date: 05/29/22 Status: Ordered ipratropium nasal 21 mcg/inh spray See Instructions, PRN Nasal Congestion, 1 spray each nostril BID, # 1 each, 4 Refills, Maintenance,07/10/20 14:41:00 EDT, [facility] #54970, 1 spray each nostril BID,PRN:Nasal Congestion, 165, cm, 03/14/20 15:15:00 EDT, Height Start Date: 07/10/20 Status: Ordered levothyroxine 175 mcg (0.175 mg) oral tablet 1 tablet, By Mouth, Daily, # 90 tablet, 0 Refills, Maintenance, 12/27/22 10:51:00 EDT, [facility] #[id number], 165, cm, 09/27/22 14:59:00 EST, Height, 112.7, kg, 09/27/22 14:59:00 EST, Dry Weight Start Date: 12/27/22 Status: Ordered lidocaine 4% topical cream 1 application, Topically, 3 times a day, # 15 Gm, 1 Refills, Maintenance, 03/14/20 15:53:00 EDT, Cream, [facility] #77462, 1 application Topically 3 times a day, 165, cm, 03/14/20 15:15:00 EDT, Height, 118.4, kg, 04/28/18 17:05:00 EDT, Dry W... Start Date: 03/14/20 Status: Ordered Lubricant Eye Drops ophthalmic solution 1 drops, Eyes, Both, 2 times a day, PRN for dry eyes, # 30 each, 1 Refills, Maintenance, 06/04/20 13:37:00 EDT, Solution, [facility] #10871, 1 drops Eyes, Both 2 times a day,PRN:for dry eyes, 165, cm, 03/14/20 15:15:00 EDT, Height Start Date: 06/04/20 Status: Ordered metFORMIN 750 mg oral tablet, extended release 1 tablet = 750 mg, By Mouth, 2 times a day, Take with meals., # 60 tablet, 2 Refills, Maintenance, 05/22/23 21:27:00 EDT, ER Tablet, [facility] #01513, Partial fill upon patient request if the [...] Refills, Maintenance, 02/21/23 15:55:00 EDT, REC Powder, [facility] #45205, Partial fill upon patient request if the [...] Refills, Maintenance, 12/31/22 13:28:00 EDT, REC Powder, [facility] #74660, Partial fill upon patient request if the prescription is for a schedule... Start Date: 12/31/22 Status: Ordered ProAir HFA 90 mcg/inh inhalation aerosol with adapter 2, puffs, Inhalation, Every 4 hours, PRN, # 8.5 Gm, Refills 0, Route to Pharmacy Electronically, [id number], [facility] #[id number], 165, cm, 04/30/22 10:50:00 EDT, Height, 118, kg, 01/18/22 15:08:00 EDT, Dry Weight Start Date: 05/10/22 Status: Ordered Saline Mist 0.65% nasal spray 1 sprays, Nares, Both, 3 times a day, followed by bulb suction as directed and as needed for nasal congestion., # 1 each, 4 Refills, Maintenance, 09/08/20 12:56:00 EST, [facility] #40280, 1sprays Nares, Both 3 times a day,x7 [...] tablet, 0 Refills, Maintenance, 10/27/22 17:07:00 EST, [facility] #44218, 165, cm, 09/27/22 14:59:00 EST, Height, 112.7, kg, 09/27/22 14:59:00 EST, Dry Weight Start Date: 10/27/22 Status: Ordered sucralfate 1 gm oral tablet See Instructions, # 120 tablet, TAKE 1 TABLET BY MOUTH FOUR TIMES DAILY, [facility] [address] Start Date: 03/26/19 Status: Ordered Zithromax Z-Mulugeta 250 mg oral tablet 1 pack/packet, By Mouth, Once, # 6 tablet, 0 Refills, Soft Stop, 03/24/22 10:16:00 EDT, Tablet, [facility] #76790, Partial fill upon patient request if the [...] Team Personnel Name: Vanessa Perry NP Position: [facility] Associate Professional Member Role: Lifetime Consulting Provider Address: Address: [address] [place] [address] Name: Ila Freed NP Position: [facility] Associate Professional Member Role: PCP Address: Address: [address] [place] [address] Care Team Related Persons Name: YESENIA ALARCON Address: [place] [address] Name: DORA ALARCON Address: home [address] [place] [id number]"
--- OUTSIDE RECORDS SUMMARY | 2023-10-25 23:56 | XMS_ITS | Continuity of Care Document ---
Author Name Unknown Organization [facility] ter Address [address] [place] [address]- Care Team Providers Care Foreclosure Clerk Name Role Phone Bridget Burk NP, Ila Primary Care Physician Encounter [facility] Date(s): 01/18/22 - 01/18/[address] [address]- Discharge Disposition: A-D/C Home Attending Physician: Sherly Marti MD Admitting Physician: Sherly Marti MD Referring Physician: Not on Staff, Referring MD Allergies, Adverse Reactions, Alerts Substance Reaction [...] 6 Refills, Maintenance, 06/17/21 11:50:00 EDT, [facility]ol, [facility], Partial fill upon patient request if the prescription is for a schedule II opioid drug., 2 puffs Inhalation 2 times a d... Start Date: 06/17/21 Status: Ordered Aspercreme 10% topical cream 1 application, Topically, 4 times a day, PRN for pain, n., # 1 each, 3 Refills, Maintenance, 07/13/21 11:47:00 EDT, Cream, [facility] #84236, Partial fill upon patient request if the [...] 5 Refills, Maintenance, 06/04/20 13:35:00 EDT, Tablet, [facility] #22241, 165, cm, 03/14/20 15:15:00 EDT, Height Start Date: 06/04/20 Status: Ordered dextromethorphan-guaifenesin 10 mg-100 mg/5 mL oral liquid 5 mL, By Mouth, Every 4 hours, PRN for cough, # 300 mL, 0 Refills, Maintenance, 09/08/20 12:59:00 EST, [facility] #41023, Partial fill upon patient request if the prescription is for a schedule II opioid drug., 5 mL By Mouth Every 4... Start Date: 09/08/20 Status: Ordered Diclofenac = 75 mg, By Mouth, 2 times a day, prescribed by Dr. Pierre, Neurologist in [facility] states takesprn, 0 Refills, Maintenance, [...] 30 tablet, 2 Refills, Maintenance, 11/04/21 16:10:[facility], pt needs labs, 1 tablet By Mouth Daily,x3... Start Date: 11/04/21 Stop Date: 02/02/22 Status: Ordered ipratropium nasal 21 mcg/inh spray See Instructions, PRN Nasal Congestion, 1 spray each nostril BID, # 1 each, 4 Refills, Maintenance,07/10/20 14:41:00 EDT, [facility] #91327, 1 spray each nostril BID,PRN:Nasal Congestion, 165, cm, 03/14/20 15:15:00 EDT, Height Start Date: 07/10/20 Status: Ordered levothyroxine 175 mcg (0.175 mg) oral tablet 1 tablet, By Mouth, Daily, # 90 tablet, 2 Refills, Maintenance, 09/01/21 12:27:00 EST, [facility] #56416, 165, cm, 07/13/21 11:17:00 EDT, Height Start Date: 09/01/21 Status: Ordered lidocaine 4% topical cream 1 application, Topically, 3 times a day, # 15 Gm, 1 Refills, Maintenance, 03/14/20 15:53:00 EDT, Cream, [facility] #02434, 1 application Topically 3 times a day, 165, cm, 03/14/20 15:15:00 EDT, Height, 118.4, kg, 04/28/18 17:05:00 EDT, Dry W... Start Date: 03/14/20 Status: Ordered Lubricant Eye Drops ophthalmic solution 1 drops, Eyes, Both, 2 times a day, PRN for dry eyes, # 30 each, 1 Refills, Maintenance, 06/04/20 13:37:00 EDT, Solution, [facility] #67796, 1 drops Eyes, Both 2 times a day,PRN:for dry eyes, 165, cm, 03/14/20 15:15:00 EDT, Height Start Date: 06/04/20 Status: Ordered metFORMIN 500 mg oral tablet, extended release 2 tablet = 1,000 mg, By Mouth, Daily, # 60 tablet, 2 Refills, Maintenance, 11/04/21 16:11:00 EST, [facility] #26068, 165, cm, 09/25/21 7:59:00 EST, Height Start [...] = 40 mg, By Mouth, Daily, for 4 days, # 8 tablet, 0 Refills, Acute 01/22/22 20:33:00 EDT, 01/18/22 20:33:00 EDT, Tablet, [facility] #33894, Partial fill upon patient request if theprescription is for a schedule II opioid drug., 165... Start Date: 01/18/22 Stop Date: 01/22/22 Status: Ordered ProAir HFA 90 mcg/inh inhalation aerosol with adapter 2, puffs, Inhalation, Every 4 hours, PRN, for 30 days, # 1 each, Refills 2, Tot. Refills 2, Hard Stop 02/05/22 9:34:00 EDT, 11/07/21 9:34:00 EST, Aerosol, Route to Pharmacy Electronically, [id number], [facility] #10... Start Date: 11/07/21 Stop Date: 02/05/22 Status: Ordered Saline Mist 0.65% nasal spray 1 sprays, Nares, Both, 3 times a day, followed by bulb suction as directed and as needed for nasal congestion., # 1 each, 4 Refills, Maintenance, 09/08/20 12:56:00 EST, [facility] #48786, 1sprays Nares, Both 3 times a day,x7 days,Instr:foll... Start Date: 09/08/20 Stop Date: 10/13/20 Status: Ordered sertraline 25 mg oral tablet 1 tablet, By Mouth, Daily, # 30 tablet, 3 Refills, Maintenance, 09/01/21 12:27:00 EST, [email or web address]52435, 165, cm, 07/13/21 11:17:00 EDT, Height Start Date: 09/01/21 Status: Ordered sucralfate 1 gm oral tablet See Instructions, # 120 tablet, TAKE 1 TABLET BY MOUTH FOUR TIMES DAILY, [facility] Start Date: 03/26/19 Status: Ordered Problem List [...] A1c goal of less than 7.0%(Confirmed) Active Results Radiology Reports * Exam Date Time Procedure Performing Provider Status 01/18/22 4:56 PM Chest Portable Kanchan Madera; Auth (Briana ified) Notes: (Chest Portable) Reason For Exam: Pleuritic Pain RESULT: Chest Portable Chest Portable INDICATION: Chest pain. COMPARISON: Multiple priors, the most recent 06/17/2021. FINDINGS: LINES AND TUBES: None. LUNGS AND PLEURA: Biapical pleural thickening, otherwise clear lungs. No pleural effusion. No pneumothorax. HEART, MEDIASTINUM AND ISSA: Heart is normal in size. Aorta is somewhat tortuous. BONES AND SOFT TISSUES: No acute abnormality. IMPRESSION: No acute abnormality. I have personally reviewed the images and I agree with this report. WSN: [id number] Ordering Physician: Kaiser Kevin Dictated By: Mohamud[Radiology] Kierra GASCA Dictated Date/Time: 01/18/22 5:08 pm Reviewed By: Panchito Rawls MD, V Signed By: Panchito Rawls MD, V Signed Date/Time: 01/18/22 5:13 pm Transcribed By: TENZIN Transcribed Date/Time: 01/18/22 4:58 pm Vital Signs Most recent to oldest [Reference Range]: 1 2 3 Height 165 cm (01/18/22 3:08 PM) 165 cm (01/18/22 2:42 PM) Weight 118 kg (01/18/22 3:08 PM) 118 kg (01/18/22 2:42 PM) Oxygen Saturation [94-100 %] 96 % (01/18/22 8:36 PM) 97 % (01/18/22 6:49 PM) 100 % (01/18/22 5:59 PM) Pulse Rate [55-90 bpm] 96 bpm *H* (01/18/22 8:36 PM) 103 bpm *H* (01/18/22 6:49 PM) 108 bpm *H* (01/18/22 5:59 PM) Body Mass Index [18.5-24.99] 43.34 *>HHI* (01/18/22 2:42 PM) Blood Pressure [90-138/55-84 mm Hg] 133/68mm Hg (01/18/22 8:36 PM) 148/72mm Hg *H* (01/18/22 6:49 PM) 130/58mm Hg (01/18/22 5:59 PM) Respiratory Rate [16-30 br/min] 15 br/min *L* (01/18/22 8:36 PM) 13 br/min *L* (01/18/22 6:49 PM) 12 br/min *L* (01/18/22 5:59 PM) Temperature [96.8-100.4 DegF] 97.9 DegF (01/18/22 8:36 PM) 97.5 DegF (01/18/22 2:42 PM) Mode of Delivery (Oxygen) Room air (01/18/22 8:36 PM) Room air (01/18/22 6:49 PM) Room air (01/18/22 5:59 PM) Blood pressure sites Arm, right (01/18/22 6:49 PM) Arm, right (01/18/22 5:59 PM) Arm, right (01/18/22 2:42 PM) Temperature Route Oral (01/18/22 8:36 PM) Oral (01/18/22 2:42 PM) Dry Weight 118 kg (01/18/22 3:08 PM) 118 kg (01/18/22 2:42 PM) Weight Obtained Via Patient/family state d (01/18/22 2:42 PM) Dry Weight Obtained Via Patient/family s tated (01/18/22 2:42 PM) Social History Social History Type Response Smoking Status Former smoker; Tobac co user in household: No; Other: stop 3 years ago 2012; entered on: 08/19/15 Sex
--- OUTSIDE RECORDS SUMMARY | 2023-10-25 23:57 | XMS_ITS | Continuity of Care Document ---
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 Start Date: 07/10/20 Status: Ordered albuterol 0.083% inhalation solution 3 mL = 2.5 mg, Neb, Once, given as duoneb LOT [id number] EXP 01/2021, 0 Refills, Maintenance, 07/11/19 11:14:40 EDT Start Date: 07/11/19 Status: Ordered albuterol-ipratropium 3 mg-0.5 mg/3 ml inhalation solution 3 mL, Inhalation, 4 times a day, # 30 each, 0 Refills, Maintenance, 10/02/19 16:07:00 EST, Solution, [facility] #30074, 3 mL Inhalation 4 times a day, 165, cm, 10/02/19 15:38:00 EST, Height, 118.4, kg, 04/28/18 17:05:00 EDT, Dry Weight Start Date: 10/02/19 Status: Ordered amitriptyline 25 mg oral tablet 1, tablet, By Mouth, 2 times a day, # 60 tablet, Refills 2, Tot. Refills 0, Maintenance, 09/13/19 16:25:00 EST, Route to Pharmacy Electronically, [facility] #89723, 165, cm, 07/11/19 10:33:00 EDT, Height, 118.4, kg, 04/28/18 17:05:00 EDT, . Start Date: 09/13/19 Status: Ordered AutoCPAP 10-16 with heated humidification AutoCPAP 10-16 with heated humidification, See Instructions, # 1 each, Refills 0, Tot. Refills 0, Maintenance, use overnight and naps from [facility], 03/25/20 13:05:00 EDT, Compound Start Date: 03/25/20 [...] PRN, prescribed by Dr Pierre Neurologist in [place], # 30 tablet, Refills 0, Maintenance, for spasm, 08/09/16 8:33:39 Start Date: 08/09/16 Stop Date: 08/23/16 Status: Ordered desloratadine 5 mg oral tablet 1 tablet = 5 mg, By Mouth, Daily, # 30 tablet, 5 Refills, Maintenance, 06/04/20 13:35:00 EDT, Tablet, [facility] #38256, 165, cm, 03/14/20 15:15:00 EDT, Height Start Date: 06/04/20 Status: Ordered Diclofenac = 75 mg, By Mouth, 2 times a day, prescribed by Dr. Pierre, Neurologist in [facility] takesprn, 0 Refills, Maintenance, 08/09/16 8:32:51 [...] Daily, FOR BLOOD PRESSURE., # 30 tablet, 0 Refills, Maintenance, 07/21/20 16:15:00 EST, [facility] #13296, 30, TAKE 1 TABLET BY MOUTH DAILY FOR BLOOD PRESSURE, 165, cm, 03/14/20 15:15:00 EDT, Height Start Date: 07/21/20 Status: Ordered Ipratropium 0.02% Inhalation Solution 2.5, mL, Neb, Once, given as duoneb LOT [id number] EXP 12/2020, Refills 0, Maintenance, 07/11/19 11:15:17 EDT Start Date: 07/11/19 Status: Ordered ipratropium nasal 21 mcg/inh spray See Instructions, PRN Nasal Congestion, 1 spray each nostril BID, # 1 each, 4 Refills, Maintenance,07/10/20 14:41:00 EDT, [facility] #11659, 1 spray each nostril BID,PRN:Nasal Congestion, 165, cm, 03/14/20 15:15:00 EDT, Height Start Date: 07/10/20 Status: Ordered levothyroxine 175 mcg (0.175 mg) oral tablet 1 tablet, By Mouth, Daily, # 90 tablet, 2 Refills, Maintenance, 12/27/19 15:39:00 EDT, [facility] #60380, 165, cm, 11/26/19 14:41:00 EDT, Height, 118.4, kg, 04/28/18 17:05:00 EDT, Dry Weight Start Date: 12/27/19 Status: Ordered lidocaine 4% topical cream 1 application, Topically, 3 times a day, # 15 Gm, 1 Refills, Maintenance, 03/14/20 15:53:00 EDT, Cream, [facility] #52748, 1 application Topically 3 times a day, 165, cm, 03/14/20 15:15:00 EDT, Height, 118.4, kg, 04/28/18 17:05:00 EDT, Dry W... Start Date: 03/14/20 Status: Ordered Lubricant Eye Drops ophthalmic solution 1 drops, Eyes, Both, 2 times a day, PRN for dry eyes, # 30 each, 1 Refills, Maintenance, 06/04/20 13:37:00 EDT, Solution, [facility] #39727, 1 drops Eyes, Both 2 times a day,PRN:for dry eyes, 165, cm, 03/14/20 15:15:00 EDT, Height Start Date: 06/04/20 Status: Ordered metFORMIN 500 mg oral tablet, extended release 2 tablet = 1,000 mg, By Mouth, Daily, # 60 tablet, 5 Refills, Maintenance, 02/18/20 18:03:00 EDT, [facility] #23357, 165, cm, 02/18/20 15:42:00 EDT, Height, 118.4, [...] 16:08:00 EST, Aerosol, Route to Pharmacy Electronically, [id number], [facility] #74159, 165, cm, 10/02/19 15:38:... Start Date: 10/02/19 [...] each, 4 Refills, Maintenance, 06/04/20 13:36:00 EDT, [facility] #53684, 1sprays Nares, Both 3 times a day,x7 days,Instr:foll... Start Date: 06/04/20 Stop Date: 07/09/20 Status: Ordered sertraline 25 mg oral tablet 1 tablet, By Mouth, Daily, # 30 tablet, 2 Refills, Maintenance, 09/13/19 16:25:00 EST, [facility] #21249, 165, cm, 07/11/19 10:33:00 EDT, Height, 118.4, kg, 04/28/18 17:05:00 EDT, Dry Weight Start Date: 09/13/19 Status: Ordered Spiriva HandiHaler 18 mcg inhalation capsule 1 capsule = 18 mcg, Inhalation, Daily, use two inhalations of one capsule for each dose, # 30 capsule, 11 Refills, Maintenance, 07/10/20 14:50:00 EDT, [facility] #66451, 165, cm, 03/14/20 15:15:00 EDT, Height Start Date: 07/10/20 Status: Ordered sucralfate 1 gm oral tablet See Instructions, # 120 tablet, TAKE 1 TABLET BY MOUTH FOUR TIMES DAILY, [facility] [address]41 Start Date: 03/26/19 Status: Ordered traZODone 50 mg oral tablet 1, tablet, By Mouth, Daily at bedtime, # 30 tablet, Refills 2, Tot. Refills 2, Maintenance, 05/21/20 14:41:00 EDT, Route to Pharmacy Electronically, [facility] #81133, 165, cm, 03/14/20 15:15:00 EDT, Height, Dry [...]
--- OUTSIDE RECORDS SUMMARY | 2023-10-25 23:57 | XMS_ITS | Continuity of Care Document ---
Author Name Unknown Organization [facility] Address [address] [place] [address]- Care Team Providers Care Personalized Living Manager Name Role Phone Bridget Burk NP, Ila Primary Care Physician [place] [facility] 09/27/22 - 10/27/[address] [address] Allergies, Adverse Reactions, Alerts Substance [...] 12 Gm, 6 Refills, Maintenance, 08/26/22 10:52:00 [employer], [facility] #69494, 30, INHALE 2 PUFFS BY MOUTH TWICE [...] 5 Refills, Maintenance, 06/04/20 13:35:00 EDT, Tablet, [facility] #23570, 165, cm, 03/14/20 15:15:00 EDT, Height Start Date: 06/04/20 Status: Ordered dextromethorphan-guaifenesin 10 mg-100 mg/5 mL oral liquid 5 mL, By Mouth, Every 4 hours, PRN for cough, # 300 mL, 0 Refills, Maintenance, 03/24/22 10:17:00 EDT, Liquid, [facility] #34469, Partial fill upon patient request if the prescription is for a schedule II opioid drug., 5 mL By Mouth Every 4... Start Date: 03/24/22 Status: Ordered Diclofenac = 75 mg, By Mouth, 2 times a day, prescribed by Dr. Pierre, Neurologist in [facility] takesprn, 0 Refills, Maintenance, 08/09/16 8:32:51 [...] tablet, 0 Refills, Maintenance, 05/29/22 21:25:00 EDT, [facility] #[id number], 90, TAKE 1 TABLET BY MOUTHEVERY DAY, DRINK ADEQUATE WATER AND CONTINUE TO MON... Start Date: 05/29/22 Status: Ordered ipratropium nasal 21 mcg/inh spray See Instructions, PRN Nasal Congestion, 1 spray each nostril BID, # 1 each, 4 Refills, Maintenance,07/10/20 14:41:00 EDT, [facility] #64884, 1 spray each nostril BID,PRN:Nasal Congestion, 165, cm, 03/14/20 15:15:00 EDT, Height Start Date: 07/10/20 Status: Ordered levothyroxine 175 mcg (0.175 mg) oral tablet 1 tablet, By Mouth, Daily, # 90 tablet, 1 Refills, [facility] #[id number], 165, cm, 03/26/22 11:46:00 EDT, Height, 118, kg, 01/18/22 15:08:00 EDT, Dry Weight Start Date: 04/29/22 Status: Ordered lidocaine 4% topical cream 1 application, Topically, 3 times a day, # 15 Gm, 1 Refills, Maintenance, 03/14/20 15:53:00 EDT, Cream, [facility] #54939, 1 application Topically 3 times a day, 165, cm, 03/14/20 15:15:00 EDT, Height, 118.4, kg, 04/28/18 17:05:00 EDT, Dry W... Start Date: 03/14/20 Status: Ordered Lubricant Eye Drops ophthalmic solution 1 drops, Eyes, Both, 2 times a day, PRN for dry eyes, # 30 each, 1 Refills, Maintenance, 06/04/20 13:37:00 EDT, Solution, [facility] #[id number], 1 drops Eyes, Both 2 times a day,PRN:for dry eyes, 165, cm, 03/14/20 15:15:00 EDT, Height Start Date: 06/04/20 Status: Ordered MetFORMIN (Eqv-Glucophage XR) 500 mg oral tablet, extended release 2 tablet, By Mouth, Daily, # 180 tablet, 0 Refills, Maintenance, 10/21/22 10:18:00 EST, [facility] #30459, 165, cm, 09/27/22 14:59:00 EST, Height, 112.7, [...] Gm, Refills 0, Route to Pharmacy Electronically, [id number], [facility] #00356, 165, cm, 04/30/22 10:50:00 EDT, Height, 118, [...] 6 Refills, Maintenance, 02/03/22 17:18:00 EDT, Tablet, [facility] #1... Start Date: 02/03/22 Stop Date: 09/01/22 Status: Ordered Saline Mist 0.65% nasal spray 1 sprays, Nares, Both, 3 times a day, followed by bulb suction as directed and as needed for nasal congestion., # 1 each, 4 Refills, Maintenance, 09/08/20 12:56:00 EST, [facility] #[id number], 1sprays Nares, Both 3 times a day,x7 days,Instr:foll... Start Date: 09/08/20 Stop Date: 10/13/20 Status: Ordered sertraline 25 mg oral tablet 1 tablet, By Mouth, Daily, # 30 tablet, 0 Refills, Maintenance, 10/27/22 17:07:00 EST, [facility] #[id number], 165, cm, 09/27/22 14:59:00 EST, Height, 112.7, kg, 09/27/22 14:59:00 EST, Dry Weight Start Date: 10/27/22 Status: Ordered sucralfate 1 gm oral tablet See Instructions, # 120 tablet, TAKE 1 TABLET BY MOUTH FOUR TIMES DAILY, [facility] [address] Start Date: 03/26/19 Status: Ordered Zithromax Z-Mulugeta 250 mg oral tablet 1 pack/packet, By Mouth, Once, # 6 tablet, 0 Refills, Soft Stop, 03/24/22 10:16:00 EDT, Tablet, [facility] #84118, Partial fill upon patient request if the [...] Associate Professional Member Role: PCP Address: Address: [address] [place] [address]- Care Team Related Persons Name: YESENIA ALARCON Address: [place] [address] Name: DORA ALARCON Address: home [address] [place] [address]
--- OUTSIDE RECORDS SUMMARY | 2023-10-25 23:57 | XMS_ITS | Continuity of Care Document ---
Author Name Unknown Organization [facility] Address [address] [place] [address] ve [address] [place] [address]- Care Team Providers Care Emergency Care Attendant Name Role Phone Bridget Burk NP, Ila Primary Care Physician Encounter [facility] ACCT R [id number] Date(s): 10/14/23 - 10/21/[address] [place] [address]- Attending Physician: Chayo Johnson MD Referring Physician: Bolivar Perez MD Allergies, Adverse Reactions, Alerts Substance Reaction [...] Gm, 5 Refills, Maintenance, 06/06/23 10:02:00 EDT, [facility] #[id number], 30, INHALE 2 PUFFS BY MOUTH TWICE [...] 0, Maintenance, use overnight and naps from [facility], 03/25/20 13:05:00 EDT, Compound Start [...] 5 Refills, Maintenance, 06/04/20 13:35:00 EDT, Tablet, [facility] #55007, 165, cm, 03/14/20 15:15:00 EDT, Height Start [...] 1 Refills, Maintenance, 02/21/23 15:56:00 EDT, Capsule, [facility] #[id number], Partial fill upon patient request if the [...] 1 each, 4 Refills, Maintenance,07/10/20 14:41:00 EDT, [facility] #51872, 1 spray each nostril BID,PRN:Nasal Congestion, 165, cm, 03/14/20 15:15:00 EDT, Height Start Date: 07/10/20 Status: Ordered levothyroxine 150 mcg (0.15 mg) oral tablet 1 tablet = 150 mcg, By Mouth, Daily, # 30 tablet, 11 Refills, Maintenance, 05/21/23 7:23:00 EDT, Tablet, [facility] #[id number], Partial fill upon patient request if the prescription is for a schedule II opioid drug., 165, cm, 05/12/23 12:42:00 E... Start Date: 05/21/23 Stop Date: 05/15/24 Status: Ordered lidocaine 5% topical film 1 patch, Topically, Daily, PRN Pain , Moderate, remove patches after 12 hours, # 30 patch, 1 Refills, Maintenance, 08/08/23 14:19:00 EST, Film, [facility] #[id number], Partial fill upon patient request if the prescription is for a schedule II opi... Start Date: 08/08/23 Status: Ordered lisinopril 20 mg oral tablet 1, tablet, By Mouth, Daily, # 90 tablet, Refills 0, Maintenance, 10/17/23 13:56:00 EST, Route to Pharmacy Electronically, [facility] #[id number], 165, cm, 10/14/23 10:25:00 EST, Height, 112.7, kg, 09/27/22 14:59:00 EST, Dry Weight Start Date: 10/17/23 Status: Ordered metFORMIN 750 mg oral tablet, extended release See Instructions, TAKE 1 TABLET BY MOUTH TWICE DAILY TAKE WITH MEALS, # 60 tablet, 3 Refills, Maintenance, 08/03/23 20:55:00 EST, [facility] #[id number], 165, cm, 07/25/23 13:56:00 EST, Height, 112.7, kg, 09/27/22 14:59:00 EST, Dry Weight Start Date: 08/03/23 Status: Ordered MiraLax oral powder for reconstitution = 17 Gm, By Mouth, Daily, PRN Constipation, dissolve in water before taking, # 255 Gm, 0 Refills, Maintenance, 02/21/23 15:55:00 EDT, REC Powder, [facility] #84291, Partial fill upon patient request if the [...] Refills, Maintenance, 12/31/22 13:28:00 EDT, REC Powder, [facility] #95388, Partial fill upon patient request if the prescription is for a schedule... Start Date: 12/31/22 Status: Ordered ProAir HFA 90 mcg/inh inhalation aerosol with adapter 2, puffs, Inhalation, Every 4 hours, PRN, # 8.5 Gm, Refills 0, Route to Pharmacy Electronically, [id number], [facility] #[id number], 165, cm, 04/30/22 10:50:00 EDT, Height, 118, kg, 01/18/22 15:08:00 EDT, Dry Weight Start Date: 05/10/22 Status: Ordered Saline Mist 0.65% nasal spray 1 sprays, Nares, Both, 3 times a day, followed by bulb suction as directed and as needed for nasal congestion., # 1 each, 4 Refills, Maintenance, 09/08/20 12:56:00 EST, [facility] #84633, 1sprays Nares, Both 3 times a day,x7 [...] tablet, 0 Refills, Maintenance, 10/27/22 17:07:00 EST, [facility] #30079, 165, cm, 09/27/22 14:59:00 EST, Height, 112.7, kg, 09/27/22 14:59:00 EST, Dry Weight Start Date: 10/27/22 Status: Ordered sucralfate 1 gm oral tablet See Instructions, # 120 tablet, TAKE 1 TABLET BY MOUTH FOUR TIMES DAILY, [facility] [address] Start Date: 03/26/19 Status: Ordered Problem List [...] goal of less than 7.0% Confirmed Active Vital Signs Most recent to oldest [Reference Range]: 1 Height 165 cm (10/14/23 10:25 AM) Weight 111.3 kg (10/14/23 10:25 AM) Pulse Rate [55-90 bpm] 75 bpm (10/14/23 10:25 AM) Body Mass Index [18.5-24.99 kg/m2] 40.88 kg/m2 *>HHI* (10/14/23 10:25 AM) Blood Pressure [90-138/55-84 mm Hg] 186/ 95mm Hg *H* (10/14/23 10:25 AM) Respiratory Rate [16-30 br/min] 20 br/mi n (10/14/23 10:25 AM) Temperature [96.8-100.4 DegF] 96.9 DegF (10/14/23 10:25 AM) Blood pressure sites Arm, left (10/14/23 10:25 AM) Temperature Route Temporal (10/14/23 10:25 AM) Weight Obtained Via Standing scale (10/14/23 10:25 AM) Social History Social History Type Response Smoking Status Former smoker; Tobac co user in household: No; Other: stop 3 years ago 2012; entered on: 08/19/15 Sex Patient Care team information Care Team Personnel Name: Vanessa Perry NP Position: [facility] Associate Professional Member Role: Lifetime Consulting Provider Address: Address: [address] [place] [address]- Name: Ila Freed NP Position: [facility] Associate Professional Member Role: PCP Address: Address: [address] [place] [address]- Care Team Related Persons Name: YESENIA ALARCON Address: [place] [address] Name: DORA ALARCON Address: home [address] [place] [address]
--- OUTSIDE RECORDS SUMMARY | 2023-10-25 23:57 | XMS_ITS | Continuity of Care Document ---
Author Name Unknown Organization [facility] Address [address] [place] [address]- Care Team Providers Care Automatic Transmission Mechanic Name Role Phone Bridget Burk BIRD TRAPPER, Ila Primary Care Physician [place] [facility] [place]/13[place] - 10/13/[address] [facility] [address] [place] [id number] Allergies, Adverse Reactions, Alerts Substance Reaction [...] Gm, 5 Refills, Maintenance, 06/06/23 10:02:00 EDT, [facility] #[id number], 30, INHALE 2 PUFFS BY MOUTH TWICE DAILY, 165, cm, 05/12/23 12:42:00 EDT, Height, 112.7, kg, 09/27/22 14:59:00 EST, Dry Weight Start Date: 06/06/23 Status: Ordered amLODIPine 5 mg oral tablet 5 mg, 1, tablet, By Mouth, Daily, # 30 tablet, Refills 0, Tot. Refills 0, Maintenance, 07/18/23 12:11:00 EDT, Route to Pharmacy Electronically, [facility] #58138, Partial fill upon patient request if the prescription is for a schedule II opi... Start Date: 07/18/23 Status: Ordered AutoCPAP 10-16 with heated humidification AutoCPAP 10-16 with heated humidification, See Instructions, # 1 each, Refills 0, Tot. Refills 0, Maintenance[facility] 03/25/20 13:05:00 EDT, Compound Start Date: [...] 5 Refills, Maintenance, 06/04/20 13:35:00 EDT, Tablet, [facility] #[id number], 165, cm, 03/14/20 15:15:00 EDT, Height Start Date: 06/04/20 Status: Ordered dextromethorphan-guaifenesin 10 mg-100 mg/5 mL oral liquid 5 mL, By Mouth, Every 4 hours, PRN for cough, # 300 mL, 0 Refills, Maintenance, 03/24/22 10:17:00 EDT, Liquid, [facility] #65909, Partial fill upon patient request if the prescription is for a schedule II opioid drug., 5 mL By Mouth Every 4... Start Date: 03/24/22 Status: Ordered Diclofenac = 75 mg, By Mouth, 2 times a day, prescribed by Dr. Pierre, Neurologist in [facility] takesprn, 0 Refills, Maintenance, 08/09/16 8:32:51 Start Date: 08/09/16 Status: Ordered docusate sodium 100 mg oral capsule 1 capsule = 100 mg, By Mouth, 2 times a day, PRN as needed for constipation, with plenty of water, # 60 capsule, 1 Refills, Maintenance, 02/21/23 15:56:00 EDT, Capsule, [facility] #97712, Partial fill upon patient request if the [...] 1 each, 4 Refills, Maintenance,07/10/20 14:41:00 EDT, [facility] #[id number], 1 spray each nostril BID,PRN:Nasal Congestion, 165, cm, 03/14/20 15:15:00 EDT, Height Start Date: 07/10/20 Status: Ordered levothyroxine 150 mcg (0.15 mg) oral tablet 1 tablet = 150 mcg, By Mouth, Daily, # 30 tablet, 11 Refills, Maintenance, 05/21/23 7:23:00 EDT, Tablet, [facility] #[id number], Partial fill upon patient request if the prescription is for a schedule II opioid drug., 165, cm, 05/12/23 12:42:00 E... Start Date: 05/21/23 Stop Date: 05/15/24 Status: Ordered lidocaine 4% topical cream 1 application, Topically, 3 times a day, # 15 Gm, 1 Refills, Maintenance, 03/14/20 15:53:00 EDT, Cream, [facility] #66797, 1 application Topically 3 times a day, 165, cm, 03/14/20 15:15:00 EDT, Height, 118.4, kg, 04/28/18 17:05:00 EDT, Dry W... Start Date: 03/14/20 Status: Ordered lidocaine 5% topical film 1 patch, Topically, Daily, PRN Pain , Moderate, remove patches after 12 hours, # 30 patch, 1 Refills, Maintenance, 08/08/23 14:19:00 EST, Film, [facility] #[id number], Partial fill upon patient request if the prescription is for a schedule II opi... Start Date: 08/08/23 Status: Ordered lisinopril 20 mg oral tablet 20 mg, 1, tablet, By Mouth, Daily, # 90 tablet, Refills 0, Tot. Refills 0, Maintenance, 07/18/23 12:11:00 EDT, Route to Pharmacy Electronically, [facility] #[id number], Partial fill upon patientrequest if the prescription is for a schedule II op... Start Date: 07/18/23 Status: Ordered Lubricant Eye Drops ophthalmic solution 1 drops, Eyes, Both, 2 times a day, PRN for dry eyes, # 30 each, 1 Refills, Maintenance, 06/04/20 13:37:00 EDT, Solution, [facility] #[id number], 1 drops Eyes, Both 2 times a day,PRN:for dry eyes, 165, cm, 03/14/20 15:15:00 EDT, Height Start Date: 06/04/20 Status: Ordered metFORMIN 750 mg oral tablet, extended release See Instructions, TAKE 1 TABLET BY MOUTH TWICE DAILY TAKE WITH MEALS, # 60 tablet, 3 Refills, Maintenance, 08/03/23 20:55:00 EST, [facility] #[id number], 165, cm, 07/25/23 13:56:00 EST, Height, 112.7, kg, 09/27/22 14:59:00 EST, Dry Weight Start Date: 08/03/23 Status: Ordered MiraLax oral powder for reconstitution = 17 Gm, By Mouth, Daily, PRN Constipation, dissolve in water before taking, # 255 Gm, 0 Refills, Maintenance, 02/21/23 15:55:00 EDT, REC Powder, [facility] #[id number], Partial fill upon patient request if the [...] Refills, Maintenance, 12/31/22 13:28:00 EDT, REC Powder, [facility] #58278, Partial fill upon patient request if the prescription is for a schedule... Start Date: 12/31/22 Status: Ordered ProAir HFA 90 mcg/inh inhalation aerosol with adapter 2, puffs, Inhalation, Every 4 hours, PRN, # 8.5 Gm, Refills 0, Route to Pharmacy Electronically, [id number], [facility] #[id number], 165, cm, 04/30/22 10:50:00 EDT, Height, 118, kg, 01/18/22 15:08:00 EDT, Dry Weight Start Date: 05/10/22 Status: Ordered Saline Mist 0.65% nasal spray 1 sprays, Nares, Both, 3 times a day, followed by bulb suction as directed and as needed for nasal congestion., # 1 each, 4 Refills, Maintenance, 09/08/20 12:56:00 EST, [facility] #[id number], 1sprays Nares, Both 3 times a day,x7 [...] tablet, 0 Refills, Maintenance, 10/27/22 17:07:00 EST, [facility] #[id number], 165, cm, 09/27/22 14:59:00 EST, Height, 112.7, kg, 09/27/22 14:59:00 EST, Dry Weight Start Date: 10/27/22 Status: Ordered sucralfate 1 gm oral tablet See Instructions, # 120 tablet, TAKE 1 TABLET BY MOUTH FOUR TIMES DAILY, [facility] 07[address] Start Date: 03/26/19 Status: Ordered Zithromax Z-Mulugeta 250 mg oral tablet 1 pack/packet, By Mouth, Once, # 6 tablet, 0 Refills, Soft Stop, 03/24/22 10:16:00 EDT, Tablet, [facility] #33846, Partial fill upon patient request if the prescription is for a schedule IIopioid drug., 165, cm, 02/03/22 16:08:00 EDT, Heigh... Start Date: 03/24/22 Status: Ordered Problem List Condition Confirmation Course Effective Dates Status [facility] atus Informant Abdominal pain, lower Confirmed [...] Team Personnel Name: Vanessa Perry NP Position: [facility] Associate Professional Member Role: Lifetime Consulting Provider Address: Address: [address] [place] [address] Name: Ila Freed NP [facility] Associate Professional Member Role: PCP Address: Address: [address] [place] [address] Care Team Related Persons Name: YESENIA ALARCON Address: [place] [address] Name: DORA ALARCON Address: [place] [address]
--- OUTSIDE RECORDS SUMMARY | 2023-10-25 23:57 | XMS_ITS | Continuity of Care Document ---
Author Name Unknown Organization [facility] Address [address] [place] [address]- Care Team Providers Care Authorization Manager Name Role Phone Bridget Burk NP, Ila Primary Care Physician Encounter [facility] Date(s): 04/30/22 - 05/30/[address] [address]- Attending Physician: Admtr, Nely Allergies, Adverse Reactions, [...] 2 times a day, # 1 each, 11 Refills, Maintenance, 05/20/22 13:58:00 EDT, [facility]erosol, [facility][id number], Partial fill upon patient request if the prescription is for a schedule II opioid drug., 2 puffs Inhalation 2 times a d... Start Date: 05/20/22 Status: Ordered AutoCPAP 10-16 with heated humidification [...] 5 Refills, Maintenance, 06/04/20 13:35:00 EDT, Tablet, [facility] #38513, 165, cm, 03/14/20 15:15:00 EDT, Height Start Date: 06/04/20 Status: Ordered dextromethorphan-guaifenesin 10 mg-100 mg/5 mL oral liquid 5 mL, By Mouth, Every 4 hours, PRN for cough, # 300 mL, 0 Refills, Maintenance, 03/24/22 10:17:00 EDT, Liquid, [facility] #[id number], Partial fill upon patient request if the prescription is for a schedule II opioid drug., 5 mL By Mouth Every 4... Start Date: 03/24/22 Status: Ordered Diclofenac = 75 mg, By Mouth, 2 times a day, prescribed by Dr. Pierre, Neurologist in [facility] takesprn, 0 Refills, Maintenance, 08/09/16 8:32:51 [...] tablet, 0 Refills, Maintenance, 05/29/22 21:25:00 EDT, [facility] #[id number], 90, TAKE 1 TABLET BY MOUTHEVERY DAY, DRINK ADEQUATE WATER AND CONTINUE TO MON... Start Date: 05/29/22 Status: Ordered ipratropium nasal 21 mcg/inh spray See Instructions, PRN Nasal Congestion, 1 spray each nostril BID, # 1 each, 4 Refills, Maintenance,07/10/20 14:41:00 EDT, [facility] #08564, 1 spray each nostril BID,PRN:Nasal Congestion, 165, cm, 03/14/20 15:15:00 EDT, Height Start Date: 07/10/20 Status: Ordered levothyroxine 175 mcg (0.175 mg) oral tablet 1 tablet, By Mouth, Daily, # 90 tablet, 1 Refills, [facility] #[id number], 165, cm, 03/26/22 11:46:00 EDT, Height, 118, kg, 01/18/22 15:08:00 EDT, Dry Weight Start Date: 04/29/22 Status: Ordered lidocaine 4% topical cream 1 application, Topically, 3 times a day, # 15 Gm, 1 Refills, Maintenance, 03/14/20 15:53:00 EDT, Cream, [facility] #[id number], 1 application Topically 3 times a day, 165, cm, 03/14/20 15:15:00 EDT, Height, 118.4, kg, 04/28/18 17:05:00 EDT, Dry W... Start Date: 03/14/20 Status: Ordered Lubricant Eye Drops ophthalmic solution 1 drops, Eyes, Both, 2 times a day, PRN for dry eyes, # 30 each, 1 Refills, Maintenance, 06/04/20 13:37:00 EDT, Solution, [facility] #13200, 1 drops Eyes, Both 2 times a day,PRN:for dry eyes, 165, cm, 03/14/20 15:15:00 EDT, Height Start Date: 06/04/20 Status: Ordered MetFORMIN (Eqv-Glucophage XR) 500 mg oral tablet, extended release 2 tablet, By Mouth, Daily, # 60 tablet, 0 Refills, Maintenance, 05/29/22 21:25:00 EDT, [facility], 165, cm, 05/20/22 13:56:00 EDT, Height, 118, kg, 01/18/22 15:08:00 EDT, Dry Weight Start Date: 05/29/22 Status: Ordered Nebulizer tubing Nebulizer tubing, See [...] Gm, Refills 0, Route to Pharmacy Electronically, [id number], [facility] #[id number], 165, cm, 04/30/22 10:50:00 EDT, Height, 118, [...] 6 Refills, Maintenance, 02/03/22 17:18:00 EDT, Tablet, [facility] #1... Start Date: 02/03/22 Stop Date: 09/01/22 Status: Ordered Saline Mist 0.65% nasal spray 1 sprays, Nares, Both, 3 times a day, followed by bulb suction as directed and as needed for nasal congestion., # 1 each, 4 Refills, Maintenance, 09/08/20 12:56:00 EST, [facility] #85791, 1sprays Nares, Both 3 times a day,x7 days,Instr:foll... Start Date: 09/08/20 Stop Date: 10/13/20 Status: Ordered sertraline 25 mg oral tablet 1 tablet, By Mouth, Daily, # 30 tablet, 0 Refills, [facility] #[id number], 165, cm, 04/30/22 10:50:00 EDT, Height, 118, kg, 01/18/22 15:08:00 EDT, Dry Weight Start Date: 04/30/22 Status: Ordered sucralfate 1 gm oral tablet See Instructions, # 120 tablet, TAKE 1 TABLET BY MOUTH FOUR TIMES DAILY, [facility] [address]52 Start Date: 03/26/19 Status: Ordered Zithromax Z-Mulugeta 250 mg oral tablet 1 pack/packet, By Mouth, Once, # 6 tablet, 0 Refills, Soft Stop, 03/24/22 10:16:00 EDT, Tablet, [facility] #[id number], Partial fill upon patient request if the [...] years ago 2012; entered on: 08/19/15 Sex Care Team Personnel Name: Ila Freed NP Address: [address] [place] [address]
--- OUTSIDE RECORDS SUMMARY | 2023-10-25 23:57 | XMS_ITS | Continuity of Care Document ---
Author Name Unknown Organization [facility] Address [address] [place] [address]- Care Team Providers Care Neon Glass Blower Name Role Phone Zuleika Head NP Primary Care Physician Encounter [facility] Date(s): 03/11/21 - 04/10/[address] [address] Attending Physician: AdmtrNely Allergies, Adverse Reactions, Alerts Substance Reaction Severity [...] 14:48:00 EDT, Powder, Route to Pharmacy Electronically, [id number], [facility] #10... Start Date: 07/10/20 Status: Ordered albuterol 0.083% inhalation solution 3 mL = 2.5 mg, Neb, Once, given as duoneb LOT [id number] EXP 01/2021, 0 Refills, Maintenance, 07/11/19 11:14:40 EDT Start Date: 07/11/19 Status: Ordered albuterol-ipratropium 3 mg-0.5 mg/3 ml inhalation solution 3 mL, Inhalation, 4 times a day, # 30 each, 0 Refills, Maintenance, 10/02/19 16:07:00 EST, Solution, [facility] #[id number], 3 mL Inhalation 4 times a day, [...] 5 Refills, Maintenance, 06/04/20 13:35:00 EDT, Tablet, [facility] #95039, 165, cm, 03/14/20 15:15:00 EDT, Height Start Date: 06/04/20 Status: Ordered dextromethorphan-guaifenesin 10 mg-100 mg/5 mL oral liquid 5 mL, By Mouth, Every 4 hours, PRN for cough, # 300 mL, 0 Refills, Maintenance, 09/08/20 12:59:00 EST, Liquid, [facility] #[id number], Partial fill upon patient request if the prescription is for a schedule II opioid drug., 5 mL By Mouth Every 4... Start Date: 09/08/20 Status: Ordered Diclofenac = 75 mg, By Mouth, 2 times a day, prescribed by Dr. Pierre, Neurologist in [facility] takesprn, 0 Refills, Maintenance, 08/09/16 8:32:51 Start Date: 08/09/16 Status: Ordered Fioricet Tablet 1 tab, By Mouth, Every 4 hours, prescribed by Dr. Mckeon for migraines, # 30 tablet, 0 Refills, Maintenance, 04/18/14 11:41:59 Start Date: 04/18/14 Status: Ordered Freestyle Lite Lancets See Instructions, [...] please go to the lab thank you [facility] JALLOH., # 30 tablet, 2 Refills, Maintenance, 03/11/21 10:40:00 EDT, [facility] #46321, 30, pt needs labs, 1 tablet By Mouth David... Start Date: 03/11/21 Status: Ordered Ipratropium 0.02% Inhalation Solution 2.5, mL, Neb, Once, given as duoneb LOT [id number] EXP 12/2020, Refills 0, Maintenance, 07/11/19 11:15:17 EDT Start Date: 07/11/19 Status: Ordered ipratropium nasal 21 mcg/inh spray See Instructions, PRN Nasal Congestion, 1 spray each nostril BID, # 1 each, 4 Refills, Maintenance,07/10/20 14:41:00 EDT, [facility] #[id number], 1 spray each nostril BID,PRN:Nasal Congestion, 165, cm, 03/14/20 15:15:00 EDT, Height Start Date: 07/10/20 Status: Ordered levothyroxine 175 mcg (0.175 mg) oral tablet 1 tablet, By Mouth, Daily, # 90 tablet, 2 Refills, Maintenance, 09/08/20 12:51:00 EST, [facility] #15486, 165, cm, 03/14/20 15:15:00 EDT, Height Start Date: 09/08/20 Status: Ordered lidocaine 4% topical cream 1 application, Topically, 3 times a day, # 15 Gm, 1 Refills, Maintenance, 03/14/20 15:53:00 EDT, Cream, [facility] #28361, 1 application Topically 3 times a day, 165, cm, 03/14/20 15:15:00 EDT, Height, 118.4, kg, 04/28/18 17:05:00 EDT, Dry W... Start Date: 03/14/20 Status: Ordered Lubricant Eye Drops ophthalmic solution 1 drops, Eyes, Both, 2 times a day, PRN for dry eyes, # 30 each, 1 Refills, Maintenance, 06/04/20 13:37:00 EDT, Solution, [facility] #03788, 1 drops Eyes, Both 2 times a day,PRN:for dry eyes, 165, cm, 03/14/20 15:15:00 EDT, Height Start Date: 06/04/20 Status: Ordered metFORMIN 500 mg oral tablet, extended release 2 tablet = 1,000 mg, By Mouth, Daily, # 60 tablet, 5 Refills, Maintenance, 03/11/21 10:40:00 EDT, [facility] #[id number], 165, cm, 03/11/21 9:56:00 EDT, Height Start [...] 9:34:00 EST, Aerosol, Route to Pharmacy Electronically, [id number], [facility] #[id number], 165, cm, 11/12/20 9:01:00... Start Date: 11/12/20 Stop Date: 11/07/21 Status: Ordered Saline Mist 0.65% nasal spray 1 sprays, Nares, Both, 3 times a day, followed by bulb suction as directed and as needed for nasal congestion., # 1 each, 4 Refills, Maintenance, 09/08/20 12:56:00 EST, [facility] #98128, 1sprays Nares, Both 3 times a day,x7 days,Instr:foll... Start Date: 09/08/20 Stop Date: 10/13/20 Status: Ordered sertraline 25 mg oral tablet 1 tablet, By Mouth, Daily, # 30 tablet, 3 Refills, Maintenance, 02/10/21 22:06:00 EDT, [facility] #66759, 165, cm, 01/16/21 16:24:00 EDT, Height Start Date: 02/10/21 Status: Ordered Spiriva HandiHaler 18 mcg inhalation capsule 1 capsule = 18 mcg, Inhalation, Daily, use two inhalations of one capsule for each dose, # 30 capsule, 11 Refills, Maintenance, 07/10/20 14:50:00 EDT, [facility] #58540, 165, cm, 03/14/20 15:15:00 EDT, Height Start Date: 07/10/20 Status: Ordered sucralfate 1 gm oral tablet See Instructions, # 120 tablet, TAKE 1 TABLET BY MOUTH FOUR TIMES DAILY, [facility] [address] Start Date: 03/26/19 Status: Ordered traZODone 50 mg oral tablet 1, tablet, By Mouth, Daily at bedtime, # 30 tablet, Refills 2, Tot. Refills 2, Maintenance, 03/11/21 10:40:00 EDT, Route to Pharmacy Electronically, [facility] #53910, 165, cm, 03/11/21 9:56:00 EDT, Height Start Date: 03/11/21 Status: Ordered Problem List Condition Effective Dates [...]
--- OUTSIDE RECORDS SUMMARY | 2023-10-25 23:57 | XMS_ITS | Continuity of Care Document ---
Author Name Unknown Organization [facility] Address [address] [address]- Care Team Providers Care Price Clerk Name Role Phone Bridget Burk FENCE POST CUTTER, Ila Primary Care Physician [facility]counter [facility] Date[facility]): 02/21/23 - 03/23/23 [facility] [address] [place] [id number] Attending Physician: AdmNely hodge Admitting Physician: Admtr, Ken8 Referring Physician: Admtr, [id number] Allergies, Adverse Reactions, [...] 12 Gm, 6 Refills, Maintenance, 08/26/22 10:52:00 [facility], [facility] #[id number], 30, INHALE 2 PUFFS BY MOUTH TWICE [...] 5 Refills, Maintenance, 06/04/20 13:35:00 EDT, Tablet, [facility] #[id number], 165, cm, 03/14/20 15:15:00 EDT, Height Start Date: 06/04/20 Status: Ordered dextromethorphan-guaifenesin 10 mg-100 mg/5 mL oral liquid 5 mL, By Mouth, Every 4 hours, PRN for cough, # 300 mL, 0 Refills, Maintenance, 03/24/22 10:17:00 EDT, Liquid, [facility] #59730, Partial fill upon patient request if the prescription is for a schedule II opioid drug., 5 mL By Mouth Every 4... Start Date: 03/24/22 Status: Ordered Diclofenac = 75 mg, By Mouth, 2 times a day, prescribed by Dr. Pierre, Neurologist in [facility] takesprn, 0 Refills, Maintenance, 08/09/16 8:32:51 Start Date: 08/09/16 Status: Ordered docusate sodium 100 mg oral capsule 1 capsule = 100 mg, By Mouth, 2 times a day, PRN as needed for constipation, with plenty of water, # 60 capsule, 1 Refills, Maintenance, 02/21/23 15:56:00 EDT, Capsule, [facility] #[id number], Partial fill upon patient request if the [...] tablet, 0 Refills, Maintenance, 05/29/22 21:25:00 EDT, [facility] #[id number], 90, TAKE 1 TABLET BY MOUTHEVERY DAY, DRINK ADEQUATE WATER AND CONTINUE TO MON... Start Date: 05/29/22 Status: Ordered ipratropium nasal 21 mcg/inh spray See Instructions, PRN Nasal Congestion, 1 spray each nostril BID, # 1 each, 4 Refills, Maintenance,07/10/20 14:41:00 EDT, [facility] #[id number], 1 spray each nostril BID,PRN:Nasal Congestion, 165, cm, 03/14/20 15:15:00 EDT, Height Start Date: 07/10/20 Status: Ordered levothyroxine 175 mcg (0.175 mg) oral tablet 1 tablet, By Mouth, Daily, # 90 tablet, 0 Refills, Maintenance, 03/20/23 19:27:00 EDT, [facility] #[id number], 165, cm, 02/21/23 15:26:00 EDT, Height, 112.7, kg, 09/27/22 14:59:00 EST, Dry Weight Start Date: 03/20/23 Status: Ordered lidocaine 4% topical cream 1 application, Topically, 3 times a day, # 15 Gm, 1 Refills, Maintenance, 03/14/20 15:53:00 EDT, Cream, [facility] #[id number], 1 application Topically 3 times a day, 165, cm, 03/14/20 15:15:00 EDT, Height, 118.4, kg, 04/28/18 17:05:00 EDT, Dry W... Start Date: 03/14/20 Status: Ordered Lubricant Eye Drops ophthalmic solution 1 drops, Eyes, Both, 2 times a day, PRN for dry eyes, # 30 each, 1 Refills, Maintenance, 06/04/20 13:37:00 EDT, Solution, [facility] #[id number], 1 drops Eyes, Both 2 times a day,PRN:for dry eyes, 165, cm, 03/14/20 15:15:00 EDT, Height Start Date: 06/04/20 Status: Ordered metFORMIN 750 mg oral tablet, extended release 1 tablet = 750 mg, By Mouth, 2 times a day, Take with meals., # 60 tablet, 2 Refills, Maintenance, 05/22/23 21:27:00 EDT, ER Tablet, [facility] #[id number], Partial fill upon patient request if the [...] Refills, Maintenance, 02/21/23 15:55:00 EDT, REC Powder, [facility] #[id number], Partial fill upon patient request if the [...] Refills, Maintenance, 12/31/22 13:28:00 EDT, REC Powder, [facility] #57304, Partial fill upon patient request if the prescription is for a schedule... Start Date: 12/31/22 Status: Ordered ProAir HFA 90 mcg/inh inhalation aerosol with adapter 2, puffs, Inhalation, Every 4 hours, PRN, # 8.5 Gm, Refills 0, Route to Pharmacy Electronically, [id number], [facility] #[id number], 165, cm, 04/30/22 10:50:00 EDT, Height, 118, kg, 01/18/22 15:08:00 EDT, Dry Weight Start Date: 05/10/22 Status: Ordered Saline Mist 0.65% nasal spray 1 sprays, Nares, Both, 3 times a day, followed by bulb suction as directed and as needed for nasal congestion., # 1 each, 4 Refills, Maintenance, 09/08/20 12:56:00 EST, [facility] #[id number], 1sprays Nares, Both 3 times a day,x7 [...] tablet, 0 Refills, Maintenance, 10/27/22 17:07:00 EST, [facility] #[id number], 165, cm, 09/27/22 14:59:00 EST, Height, 112.7, kg, 09/27/22 14:59:00 EST, Dry Weight Start Date: 10/27/22 Status: Ordered sucralfate 1 gm oral tablet See Instructions, # 120 tablet, TAKE 1 TABLET BY MOUTH FOUR TIMES DAILY, [facility] Start Date: 03/26/19 Status: Ordered Zithromax Z-Mulugeta 250 mg oral tablet 1 pack/packet, By Mouth, Once, # 6 tablet, 0 Refills, Soft Stop, 03/24/22 10:16:00 EDT, Tablet, [facility] #32634, Partial fill upon patient request if the [...] Member Role: Lifetime Consulting Provider Address: Address: [address] [place] [address] Name: Ila Freed NP Position: [facility] Associate Professional Member Role: PCP Address: Address: [address] [place] [address]- Care Team Related Persons Name: YESENIA ALARCON Address: [place] [address] Name: DORA ALARCON Address: home [address] [place] [id number]
--- OUTSIDE RECORDS SUMMARY | 2023-10-25 23:57 | XMS_ITS | Continuity of Care Document ---
Author Name Unknown Organization [facility] Address [address] [place] [address]- Care Team Providers Care Automobile Radiator Mechanic Name Role Phone Bridget Burk NP, Ila Primary Care Physician [facility]counter [facility] Date(s): 07/15/23 - 08/24/[address] [address] Attending Physician: Not on Staff, Attending MD Referring Physician: Banker GASCA, Jovani Gates Allergies, Adverse Reactions, Alerts Substance Reaction Severity [...] Gm, 5 Refills, Maintenance, 06/06/23 10:02:00 EDT, [facility] #[id number], 30, INHALE 2 PUFFS BY MOUTH TWICE DAILY, 165, cm, 05/12/23 12:42:00 EDT, Height, 112.7, kg, 09/27/22 14:59:00 EST, Dry Weight Start Date: 06/06/23 Status: Ordered amLODIPine 5 mg oral tablet 5 mg, 1, tablet, By Mouth, Daily, # 30 tablet, Refills 0, Tot. Refills 0, Maintenance, 07/18/23 12:11:00 EDT, Route to Pharmacy Electronically, [facility] #[id number], Partial fill upon patient request if the [...] 5 Refills, Maintenance, 06/04/20 13:35:00 EDT, Tablet, [facility] #03221, 165, cm, 03/14/20 15:15:00 EDT, Height Start Date: 06/04/20 Status: Ordered dextromethorphan-guaifenesin 10 mg-100 mg/5 mL oral liquid 5 mL, By Mouth, Every 4 hours, PRN for cough, # 300 mL, 0 Refills, Maintenance, 03/24/22 10:17:00 EDT, Liquid, [facility] #33526, Partial fill upon patient request if the prescription is for a schedule II opioid drug., 5 mL By Mouth Every 4... Start Date: 03/24/22 Status: Ordered Diclofenac = 75 mg, By Mouth, 2 times a day, prescribed by Dr. Pierre, Neurologist in [facility] takesprn, 0 Refills, Maintenance, 08/09/16 8:32:51 Start Date: 08/09/16 Status: Ordered docusate sodium 100 mg oral capsule 1 capsule = 100 mg, By Mouth, 2 times a day, PRN as needed for constipation, with plenty of water, # 60 capsule, 1 Refills, Maintenance, 02/21/23 15:56:00 EDT, Capsule, [facility] #[id number], Partial fill upon patient request if the [...] AM, 03/11/21 10:43:00 EDT, Supply, 165, cm, 06/23/219:56:00 EDT, Height Start Date: 03/11/21 Stop Date: [...] 1 each, 4 Refills, Maintenance,07/10/20 14:41:00 EDT, [facility] #[id number], 1 spray each nostril BID,PRN:Nasal Congestion, 165, cm, 03/14/20 15:15:00 EDT, Height Start Date: 07/10/20 Status: Ordered levothyroxine 150 mcg (0.15 mg) oral tablet 1 tablet = 150 mcg, By Mouth, Daily, # 30 tablet, 11 Refills, Maintenance, 05/21/23 7:23:00 EDT, [facility] #[id number], Partial fill upon patient request if the prescription is for a schedule II opioid drug., 165, cm, 05/12/23 12:42:00 E... Start Date: 05/21/23 Stop Date: 05/15/24 Status: Ordered lidocaine 4% topical cream 1 application, Topically, 3 times a day, # 15 Gm, 1 Refills, Maintenance, 03/14/20 15:53:00 EDT, Cream, [facility] #[id number], 1 application Topically 3 times a day, 165, cm, 03/14/20 15:15:00 EDT, Height, 118.4, kg, 04/28/18 17:05:00 EDT, Dry W... Start Date: 03/14/20 Status: Ordered lidocaine 5% topical film 1 patch, Topically, Daily, PRN Pain , Moderate, remove patches after 12 hours, # 30 patch, 1 Refills, Maintenance, 08/08/23 14:19:00 EST, Film, [facility] #[id number], Partial fill upon patient request if the prescription is for a schedule II opi... Start Date: 08/08/23 Status: Ordered lisinopril 20 mg oral tablet 20 mg, 1, tablet, By Mouth, Daily, # 90 tablet, Refills 0, Tot. Refills 0, Maintenance, 07/18/23 12:11:00 EDT, Route to Pharmacy Electronically, [facility] #[id number], Partial fill upon patientrequest if the prescription is for a schedule II op... Start Date: 07/18/23 Status: Ordered Lubricant Eye Drops ophthalmic solution 1 drops, Eyes, Both, 2 times a day, PRN for dry eyes, # 30 each, 1 Refills, Maintenance, 06/04/20 13:37:00 EDT, Solution, [facility] #[id number], 1 drops Eyes, Both 2 times a day,PRN:for dry eyes, 165, cm, 03/14/20 15:15:00 EDT, Height Start Date: 06/04/20 Status: Ordered metFORMIN 750 mg oral tablet, extended release See Instructions, TAKE 1 TABLET BY MOUTH TWICE DAILY TAKE WITH MEALS, # 60 tablet, 3 Refills, Maintenance, 08/03/23 20:55:00 EST, [facility] #[id number], 165, cm, 07/25/23 13:56:00 EST, Height, 112.7, kg, 09/27/22 14:59:00 EST, Dry Weight Start Date: 08/03/23 Status: Ordered MiraLax oral powder for reconstitution = 17 Gm, By Mouth, Daily, PRN Constipation, dissolve in water before taking, # 255 Gm, 0 Refills, Maintenance, 02/21/23 15:55:00 EDT, REC Powder, [facility] #[id number], Partial fill upon patient request if the [...] Refills, Maintenance, 12/31/22 13:28:00 EDT, REC Powder, [facility] #[id number], Partial fill upon patient request if the prescription is for a schedule... Start Date: 12/31/22 Status: Ordered ProAir HFA 90 mcg/inh inhalation aerosol with adapter 2, puffs, Inhalation, Every 4 hours, PRN, # 8.5 Gm, Refills 0, Route to Pharmacy Electronically, [id number], [facility] #[id number], 165, cm, 04/30/22 10:50:00 EDT, Height, 118, kg, 01/18/22 15:08:00 EDT, Dry Weight Start Date: 05/10/22 Status: Ordered Saline Mist 0.65% nasal spray 1 sprays, Nares, Both, 3 times a day, followed by bulb suction as directed and as needed for nasal congestion., # 1 each, 4 Refills, Maintenance, 09/08/20 12:56:00 EST, [facility] #[id number], 1sprays Nares, Both 3 times a day,x7 [...] tablet, 0 Refills, Maintenance, 10/27/22 17:07:00 EST, [facility] #[id number], 165, cm, 09/27/22 14:59:00 EST, Height, 112.7, kg, 09/27/22 14:59:00 EST, Dry Weight Start Date: 10/27/22 Status: Ordered sucralfate 1 gm oral tablet See Instructions, # 120 tablet, TAKE 1 TABLET BY MOUTH FOUR TIMES DAILY, [facility] 45756 Start Date: 03/26/19 Status: Ordered Zithromax Z-Mulugeta 250 mg oral tablet 1 pack/packet, By Mouth, Once, # 6 tablet, 0 Refills, Soft Stop, 03/24/22 10:16:00 EDT, Tablet, [facility] #58677, Partial fill upon patient request if the [...] Name: Vanessa Perry NP Position: [facility] Associate Professional Member Role: Lifetime Consulting Provider Address: Address: [address] [place] [address] Name: Ila Freed NP [facility] Associate Professional Member Role: PCP Address: Address: [address] [place] [address] Care Team Related Persons Name: YESENIA ALARCON Address: [place] [address] Name: DORA ALARCON Address: [place] [address]
--- OUTSIDE RECORDS SUMMARY | 2023-10-25 23:57 | XMS_ITS | Continuity of Care Document ---
Author Name Unknown Organization [facility] Address [address] [place] [address]- Care Team Providers Care Marketing Communications Coordinator Name Role Phone Bridget Burk TORPEDO WORKER, Ila Primary Care Physician [facility] Date(s): 07/12/23 - 08/13/[address] [address] Attending Physician: Not on Staff, Attending MD [...] Gm, 5 Refills, Maintenance, 06/06/23 10:02:00 EDT, [facility] #[id number], 30, INHALE 2 PUFFS BY MOUTH TWICE DAILY, 165, cm, 05/12/23 12:42:00 EDT, Height, 112.7, kg, 09/27/22 14:59:00 EST, Dry Weight Start Date: 06/06/23 Status: Ordered amLODIPine 5 mg oral tablet 5 mg, 1, tablet, By Mouth, Daily, # 30 tablet, Refills 0, Tot. Refills 0, Maintenance, 07/18/23 12:11:00 EDT, Route to Pharmacy Electronically, [facility] #[id number], Partial fill upon patient request if the prescription is for a schedule II opi... Start Date: 07/18/23 Status: Ordered AutoCPAP 10-16 with heated humidification AutoCPAP 10-16 with heated humidification, See Instructions, # 1 each, Refills 0, Tot. Refills 0, Maintenance, use overnight and naps from [facility], 03/25/20 13:05:00 EDT, Compound Start Date: [...] 5 Refills, Maintenance, 06/04/20 13:35:00 EDT, Tablet, [facility] #[id number], 165, cm, 03/14/20 15:15:00 EDT, Height Start Date: 06/04/20 Status: Ordered dextromethorphan-guaifenesin 10 mg-100 mg/5 mL oral liquid 5 mL, By Mouth, Every 4 hours, PRN for cough, # 300 mL, 0 Refills, Maintenance, 03/24/22 10:17:00 EDT, Liquid, [facility] #[id number], Partial fill upon patient request if the prescription is for a schedule II opioid drug., 5 mL By Mouth Every 4... Start Date: 03/24/22 Status: Ordered Diclofenac = 75 mg, By Mouth, 2 times a day, prescribed by Dr. Pierre, Neurologist in [facility] takesprn, 0 Refills, Maintenance, 08/09/16 8:32:51 Start Date: 08/09/16 Status: Ordered docusate sodium 100 mg oral capsule 1 capsule = 100 mg, By Mouth, 2 times a day, PRN as needed for constipation, with plenty of water, # 60 capsule, 1 Refills, Maintenance, 02/21/23 15:56:00 EDT, Capsule, [facility] #[id number], Partial fill upon patient request if the [...] 1 each, 4 Refills, Maintenance,07/10/20 14:41:00 EDT, [facility] #[id number], 1 spray each nostril BID,PRN:Nasal Congestion, 165, cm, 03/14/20 15:15:00 EDT, Height Start Date: 07/10/20 Status: Ordered levothyroxine 150 mcg (0.15 mg) oral tablet 1 tablet = 150 mcg, By Mouth, Daily, # 30 tablet, 11 Refills, Maintenance, 05/21/23 7:23:00 EDT, Tablet, [facility] #[id number], Partial fill upon patient request if the prescription is for a schedule II opioid drug., 165, cm, 05/12/23 12:42:00 E... Start Date: 05/21/23 Stop Date: 05/15/24 Status: Ordered lidocaine 4% topical cream 1 application, Topically, 3 times a day, # 15 Gm, 1 Refills, Maintenance, 03/14/20 15:53:00 EDT, Cream, [facility] #57382, 1 application Topically 3 times a day, 165, cm, 03/14/20 15:15:00 EDT, Height, 118.4, kg, 04/28/18 17:05:00 EDT, Dry W... Start Date: 03/14/20 Status: Ordered lidocaine 5% topical film 1 patch, Topically, Daily, PRN Pain , Moderate, remove patches after 12 hours, # 30 patch, 1 Refills, Maintenance, 08/08/23 14:19:00 EST, Film, [facility] #[id number], Partial fill upon patient request if the prescription is for a schedule II opi... Start Date: 08/08/23 Status: Ordered lisinopril 20 mg oral tablet 20 mg, 1, tablet, By Mouth, Daily, # 90 tablet, Refills 0, Tot. Refills 0, Maintenance, 07/18/23 12:11:00 EDT, Route to Pharmacy Electronically, [facility] #[id number], Partial fill upon patientrequest if the prescription is for a schedule II op... Start Date: 07/18/23 Status: Ordered Lubricant Eye Drops ophthalmic solution 1 drops, Eyes, Both, 2 times a day, PRN for dry eyes, # 30 each, 1 Refills, Maintenance, 06/04/20 13:37:00 EDT, Solution, [facility] #[id number], 1 drops Eyes, Both 2 times a day,PRN:for dry eyes, 165, cm, 03/14/20 15:15:00 EDT, Height Start Date: 06/04/20 Status: Ordered metFORMIN 750 mg oral tablet, extended release See Instructions, TAKE 1 TABLET BY MOUTH TWICE DAILY TAKE WITH MEALS, # 60 tablet, 3 Refills, Maintenance, 08/03/23 20:55:00 EST, [facility] #[id number], 165, cm, 07/25/23 13:56:00 EST, Height, 112.7, kg, 09/27/22 14:59:00 EST, Dry Weight Start Date: 08/03/23 Status: Ordered MiraLax oral powder for reconstitution = 17 Gm, By Mouth, Daily, PRN Constipation, dissolve in water before taking, # 255 Gm, 0 Refills, Maintenance, 02/21/23 15:55:00 EDT, REC Powder, [facility] #[id number], Partial fill upon patient request if the [...] Refills, Maintenance, 12/31/22 13:28:00 EDT, REC Powder, [facility] #[id number], Partial fill upon patient request if the prescription is for a schedule... Start Date: 12/31/22 Status: Ordered ProAir HFA 90 mcg/inh inhalation aerosol with adapter 2, puffs, Inhalation, Every 4 hours, PRN, # 8.5 Gm, Refills 0, Route to Pharmacy Electronically, [id number], [facility] #[id number], 165, cm, 04/30/22 10:50:00 EDT, Height, 118, kg, 01/18/22 15:08:00 EDT, Dry Weight Start Date: 05/10/22 Status: Ordered Saline Mist 0.65% nasal spray 1 sprays, Nares, Both, 3 times a day, followed by bulb suction as directed and as needed for nasal congestion., # 1 each, 4 Refills, Maintenance, 09/08/20 12:56:00 EST, [facility] #52035, 1sprays Nares, Both 3 times a day,x7 [...] tablet, 0 Refills, Maintenance, 10/27/22 17:07:00 EST, [facility] #[id number], 165, cm, 09/27/22 14:59:00 EST, Height, 112.7, kg, 09/27/22 14:59:00 EST, Dry Weight Start Date: 10/27/22 Status: Ordered sucralfate 1 gm oral tablet See Instructions, # 120 tablet, TAKE 1 TABLET BY MOUTH FOUR TIMES DAILY, [facility] 23834 Start Date: 03/26/19 Status: Ordered Zithromax Z-Mulugeta 250 mg oral tablet 1 pack/packet, By Mouth, Once, # 6 tablet, 0 Refills, Soft Stop, 03/24/22 10:16:00 EDT, Tablet, [facility] #67237, Partial fill upon patient request if the prescription is for a schedule IIopioid drug., 165, cm, 02/03/22 16:08:00 EDT, Heigh... Start Date: 03/24/22 Status: Ordered Problem List Condition Confirmation Course Effective Dates Status [facility] Informant Abdominal pain, lower Confirmed [...] leg Confirmed Active Nasal congestion Confirmed Active OTÑITO on CPAP Confirmed Active Severe obesity (BMI 35.0-39.9) with comorbidity Confirmed Active Type 2 diabetes mellitus with hemoglobin A1c goal of less than 7.0% Confirmed Active Social History Social History Type Response Smoking Status Former smoker; Tobac co user in household: No; Other: stop 3 years ago 2012; entered on: 08/19/15 Sex Patient Care team information Care Team Personnel Name: Vanessa ePrry NP Position: [facility] Associate Professional Member Role: Lifetime Consulting Provider Address: Address: [address] [place] [address] Name: Ila Freed [facility] Associate Professional Member Role: PCP Address: Address: [address] [place] [address] Care Team Related Persons Name: YESENIA ALARCON Address: [place] [address] Name: DORA ALARCON Address: home [address] [place] [address]
--- OUTSIDE RECORDS SUMMARY | 2023-10-25 23:57 | XMS_ITS | Continuity of Care Document ---
Author Name Unknown Organization [facility] Address [address] [place] [address]- Care Team Providers Care Industrial Engineering Professor Name Role Phone Zuleika Head NP Primary Care Physician Encounter [facility] Date(s): 09/25/21 - 10/25/[address] [address] Allergies, Adverse Reactions, Alerts Substance Reaction [...] 6 Refills, Maintenance, 06/17/21 11:50:00 EDT, Aerosol, [facility] #31312, Partial fill upon patient request if the prescription is for a schedule II opioid drug., 2 puffs Inhalation 2 times a d... Start Date: 06/17/21 Status: Ordered Aspercreme 10% topical cream 1 application, Topically, 4 times a day, PRN for pain, n., # 1 each, 3 Refills, Maintenance, 07/13/21 11:47:00 EDT, Cream, [facility] #04252, Partial fill upon patient request if the [...] 5 Refills, Maintenance, 06/04/20 13:35:00 EDT, Tablet, [facility] #[id number], 165, cm, 03/14/20 15:15:00 EDT, Height Start Date: 06/04/20 Status: Ordered dextromethorphan-guaifenesin 10 mg-100 mg/5 mL oral liquid 5 mL, By Mouth, Every 4 hours, PRN for cough, # 300 mL, 0 Refills, Maintenance, 09/08/20 12:59:00 EST, Liquid, [facility] #34081, Partial fill upon patient request if the prescription is for a schedule II opioid drug., 5 mL By Mouth Every 4... Start Date: 09/08/20 Status: Ordered Diclofenac = 75 mg, By Mouth, 2 times a day, prescribed by Dr. Pierre, Neurologist in [facility] states takesprn, 0 Refills, Maintenance, 08/09/16 [...] tablet, 5 Refills, Maintenance, 06/12/21 11:20:00 EDT, [facility] #04447, 30, pt needs labs, 1 tablet By Mouth David... Start Date: 06/12/21 Status: Ordered ipratropium nasal 21 mcg/inh spray See Instructions, PRN Nasal Congestion, 1 spray each nostril BID, # 1 each, 4 Refills, Maintenance,07/10/20 14:41:00 EDT, [facility] #[id number], 1 spray each nostril BID,PRN:Nasal Congestion, 165, cm, 03/14/20 15:15:00 EDT, Height Start Date: 07/10/20 Status: Ordered levothyroxine 175 mcg (0.175 mg) oral tablet 1 tablet, By Mouth, Daily, # 90 tablet, 2 Refills, Maintenance, 09/01/21 12:27:00 EST, [facility] #[id number], 165, cm, 07/13/21 11:17:00 EDT, Height Start Date: 09/01/21 Status: Ordered lidocaine 4% topical cream 1 application, Topically, 3 times a day, # 15 Gm, 1 Refills, Maintenance, 03/14/20 15:53:00 EDT, Cream, [facility] #[id number], 1 application Topically 3 times a day, 165, cm, 03/14/20 15:15:00 EDT, Height, 118.4, kg, 04/28/18 17:05:00 EDT, Dry W... Start Date: 03/14/20 Status: Ordered Lubricant Eye Drops ophthalmic solution 1 drops, Eyes, Both, 2 times a day, PRN for dry eyes, # 30 each, 1 Refills, Maintenance, 06/04/20 13:37:00 EDT, Solution, [facility] #[id number], 1 drops Eyes, Both 2 times a day,PRN:for dry eyes, 165, cm, 03/14/20 15:15:00 EDT, Height Start Date: 06/04/20 Status: Ordered metFORMIN 500 mg oral tablet, extended release 2 tablet = 1,000 mg, By Mouth, Daily, # 60 tablet, 5 Refills, Maintenance, 03/11/21 10:40:00 EDT, [facility] #[id number], 165, cm, 03/11/21 9:56:00 EDT, Height Start [...] 9:34:00 EST, Aerosol, Route to Pharmacy Electronically, [id number], [facility] #... Start Date: 11/12/20 Stop Date: 11/07/21 Status: Ordered Saline Mist 0.65% nasal spray 1 sprays, Nares, Both, 3 times a day, followed by bulb suction as directed and as needed for nasal congestion., # 1 each, 4 Refills, Maintenance, 09/08/20 12:56:00 EST, [facility] #[id number], 1sprays Nares, Both 3 times a day,x7 days,Instr:foll... Start Date: 09/08/20 Stop Date: 10/13/20 Status: Ordered sertraline 25 mg oral tablet 1 tablet, By Mouth, Daily, # 30 tablet, 3 Refills, Maintenance, 09/01/21 12:27:00 EST, [facility] #[id number], 165, cm, 07/13/21 11:17:00 EDT, Height Start Date: 09/01/21 Status: Ordered sucralfate 1 gm oral tablet See Instructions, # 120 tablet, TAKE 1 TABLET BY MOUTH FOUR TIMES DAILY, [facility] [id number] Start Date: 03/26/19 Status: Ordered Problem List [...]
--- OUTSIDE RECORDS SUMMARY | 2023-10-25 23:57 | XMS_ITS | Continuity of Care Document ---
Author Name Unknown Organization [facility] Address [address] [place] [address]- Care Team Providers Care Second Mate Name Role Phone Bridget Burk NP, Ila [id number] - 03[facility]19/[address] [address]- Attending Physician: Not on Staff, Attending MD Referring Physician: Ila Freed NP Allergies, Adverse Reactions, Alerts Substance Reaction [...] 6 Refills, Maintenance, 06/17/21 11:50:00 EDT, [id number], Partial fill upon patient request if the prescription is for a schedule II opioid drug., 2 puffs Inhalation 2 times a d... Start Date: 06/17/21 Status: Ordered Aspercreme 10% topical cream 1 application, Topically, 4 times a day, PRN for pain, n., # 1 each, 3 Refills, Maintenance, 07/13/21 11:47:00 EDT, Cream, [facility] #73196, Partial fill upon patient request if the [...] 5 Refills, Maintenance, 06/04/20 13:35:00 EDT, Tablet, [facility] #50756, 165, cm, 03/14/20 15:15:00 EDT, Height Start Date: 06/04/20 Status: Ordered dextromethorphan-guaifenesin 10 mg-100 mg/5 mL oral liquid 5 mL, By Mouth, Every 4 hours, PRN for cough, # 300 mL, 0 Refills, Maintenance, 09/08/20 12:59:00 EST, [facility] #08306, Partial fill upon patient request if the prescription is for a schedule II opioid drug., 5 mL By Mouth Every 4... Start Date: 09/08/20 Status: Ordered Diclofenac = 75 mg, By Mouth, 2 times a day, prescribed by Dr. Pierre, Neurologist in [facility] states takesprn, 0 Refills, Maintenance, 08/09/16 8:32:51 [...] 30 tablet, 2 Refills, Maintenance, 11/04/21 16:[id number], pt needs labs, 1 tablet By Mouth [...] 1 each, 4 Refills, Maintenance,07/10/20 14:41:00 EDT, [facility] #80839, 1 spray each nostril BID,PRN:Nasal Congestion, 165, cm, 03/14/20 15:15:00 EDT, Height Start Date: 07/10/20 Status: Ordered levothyroxine 175 mcg (0.175 mg) oral tablet 1 tablet, By Mouth, Daily, # 90 tablet, 2 Refills, Maintenance, 09/01/21 12:27:00 EST, [facility] #37039, 165, cm, 07/13/21 11:17:00 EDT, Height Start Date: 09/01/21 Status: Ordered lidocaine 4% topical cream 1 application, Topically, 3 times a day, # 15 Gm, 1 Refills, Maintenance, 03/14/20 15:53:00 EDT, Cream, [facility] #86038, 1 application Topically 3 times a day, 165, cm, 03/14/20 15:15:00 EDT, Height, 118.4, kg, 04/28/18 17:05:00 EDT, Dry W... Start Date: 03/14/20 Status: Ordered Lubricant Eye Drops ophthalmic solution 1 drops, Eyes, Both, 2 times a day, PRN for dry eyes, # 30 each, 1 Refills, Maintenance, 06/04/20 13:37:00 EDT, Solution, [facility] #26509, 1 drops Eyes, Both 2 times a day,PRN:for dry eyes, 165, cm, 03/14/20 15:15:00 EDT, Height Start Date: 06/04/20 Status: Ordered metFORMIN 500 mg oral tablet, extended release 2 tablet = 1,000 mg, By Mouth, Daily, # 60 tablet, 5 Refills, Maintenance, 02/02/22 16:11:00 EDT, [facility] #40771, 165, cm, 01/20/22 15:45:00 EDT, Height, 118, [...] 6 Refills, Maintenance, 02/03/22 17:18:00 EDT, Tablet, [facility] #1... Start Date: 02/03/22 Stop Date: 09/01/22 Status: Ordered Saline Mist 0.65% nasal spray 1 sprays, Nares, Both, 3 times a day, followed by bulb suction as directed and as needed for nasal congestion., # 1 each, 4 Refills, Maintenance, 09/08/20 12:56:00 EST, [facility] #78865, 1sprays Nares, Both 3 times a day,x7 days,Instr:foll... Start Date: 09/08/20 Stop Date: 10/13/20 Status: Ordered sertraline 25 mg oral tablet 1 tablet, By Mouth, Daily, # 30 tablet, 3 Refills, Maintenance, 09/01/21 12:27:00 EST, [facility] #83890, 165, cm, 07/13/21 11:17:00 EDT, Height Start Date: 09/01/21 Status: Ordered sucralfate 1 gm oral tablet See Instructions, # 120 tablet, TAKE 1 TABLET BY MOUTH FOUR TIMES DAILY, [facility] [address] Start Date: 03/26/19 Status: Ordered Problem List [...]
--- OUTSIDE RECORDS SUMMARY | 2023-10-25 23:57 | XMS_ITS | Continuity of Care Document ---
Author Name Unknown Organization [facility] Address [address] [place] [address]- Care Team Providers Care Germ Drier Name Role Phone Bridget Burk GRAPHICS SOFTWARE ENGINEER, Ila Primary Care Physician Encounter [facility] Date(s): 05/12/23 - 06/11/23 [facility] [address] [place] [id number] Attending Physician: AdmNely hodge Admitting Physician: Admtr, Ar8 Referring Physician: Admtr, Ar8 Allergies, Adverse Reactions, [...] Gm, 5 Refills, Maintenance, 06/06/23 10:02:00 EDT, [facility] #[id number], 30, INHALE 2 PUFFS BY MOUTH TWICE [...] 5 Refills, Maintenance, 06/04/20 13:35:00 EDT, Tablet, [facility] #10109, 165, cm, 03/14/20 15:15:00 EDT, Height Start Date: 06/04/20 Status: Ordered dextromethorphan-guaifenesin 10 mg-100 mg/5 mL oral liquid 5 mL, By Mouth, Every 4 hours, PRN for cough, # 300 mL, 0 Refills, Maintenance, 03/24/22 10:17:00 EDT, Liquid, [facility] #64585, Partial fill upon patient request if the prescription is for a schedule II opioid drug., 5 mL By Mouth Every 4... Start Date: 7/6/22 Status: Ordered Diclofenac = 75 mg, By [...] 1 Refills, Maintenance, 02/21/23 15:56:00 EDT, Capsule, [facility] #95237, Partial fill upon patient request if the [...] tablet, 0 Refills, Maintenance, 05/29/22 21:25:00 EDT, [facility] #27826, 90, TAKE 1 TABLET BY MOUTHEVERY DAY, DRINK ADEQUATE WATER AND CONTINUE TO MON... Start Date: 05/29/22 Status: Ordered ipratropium nasal 21 mcg/inh spray See Instructions, PRN Nasal Congestion, 1 spray each nostril BID, # 1 each, 4 Refills, Maintenance,07/10/20 14:41:00 EDT, [facility] #[id number], 1 spray each nostril BID,PRN:Nasal Congestion, 165, cm, 03/14/20 15:15:00 EDT, Height Start Date: 07/10/20 Status: Ordered levothyroxine 150 mcg (0.15 mg) oral tablet 1 tablet = 150 mcg, By Mouth, Daily, # 30 tablet, 11 Refills, Maintenance, 05/21/23 7:23:00 EDT, Tablet, [facility] #30804, Partial fill upon patient request if the prescription is for a schedule II opioid drug., 165, cm, 05/12/23 12:42:00 E... Start Date: 05/21/23 Stop Date: 05/15/24 Status: Ordered lidocaine 4% topical cream 1 application, Topically, 3 times a day, # 15 Gm, 1 Refills, Maintenance, 03/14/20 15:53:00 EDT, Cream, [facility] #70516, 1 application Topically 3 times a day, 165, cm, 03/14/20 15:15:00 EDT, Height, 118.4, kg, 04/28/18 17:05:00 EDT, Dry W... Start Date: 03/14/20 Status: Ordered Lubricant Eye Drops ophthalmic solution 1 drops, Eyes, Both, 2 times a day, PRN for dry eyes, # 30 each, 1 Refills, Maintenance, 06/04/20 13:37:00 EDT, Solution, [facility] #96711, 1 drops Eyes, Both 2 times a day,PRN:for dry eyes, 165, cm, 03/14/20 15:15:00 EDT, Height Start Date: 06/04/20 Status: Ordered MetFORMIN (Eqv-Glucophage XR) 500 mg oral tablet, extended release 2 tablet, By Mouth, Daily, # 180 tablet, 0 Refills, Maintenance, 05/06/23 19:10:00 EDT, [facility] #27723, 165, cm, 02/21/23 15:26:00 EDT, Height, 112.7, kg, 09/27/22 14:59:00 EST, Dry Weight Start Date: 05/06/23 Status: Ordered MiraLax oral powder for reconstitution = 17 Gm, By Mouth, Daily, PRN Constipation, dissolve in water before taking, # 255 Gm, 0 Refills, Maintenance, 02/21/23 15:55:00 EDT, REC Powder, [facility] #04875, Partial fill upon patient request if the [...] Refills, Maintenance, 12/31/22 13:28:00 EDT, REC Powder, [facility] #14734, Partial fill upon patient request if the prescription is for a schedule... Start Date: 12/31/22 Status: Ordered ProAir HFA 90 mcg/inh inhalation aerosol with adapter 2, puffs, Inhalation, Every 4 hours, PRN, # 8.5 Gm, Refills 0, Route to Pharmacy Electronically, [id number], [facility] #[id number], 165, cm, 04/30/22 10:50:00 EDT, Height, 118, kg, 01/18/22 15:08:00 EDT, Dry Weight Start Date: 05/10/22 Status: Ordered Saline Mist 0.65% nasal spray 1 sprays, Nares, Both, 3 times a day, followed by bulb suction as directed and as needed for nasal congestion., # 1 each, 4 Refills, Maintenance, 09/08/20 12:56:00 EST, [facility] #71174, 1sprays Nares, Both 3 times a day,x7 [...] tablet, 0 Refills, Maintenance, 10/27/22 17:07:00 EST, [facility] #28513, 165, cm, 09/27/22 14:59:00 EST, Height, 112.7, kg, 09/27/22 14:59:00 EST, Dry Weight Start Date: 10/27/22 Status: Ordered sucralfate 1 gm oral tablet See Instructions, # 120 tablet, TAKE 1 TABLET BY MOUTH FOUR TIMES DAILY, [facility] [id number] Start Date: 03/26/19 Status: Ordered Zithromax Z-Mulugeta 250 mg oral tablet 1 pack/packet, By Mouth, Once, # 6 tablet, 0 Refills, Soft Stop, 03/24/22 10:16:00 EDT, Tablet, [facility] #[id number], Partial fill upon patient request if the [...] Team Personnel Name: Vanessa Perry NP Position: [facility] Associate Professional Member Role: Lifetime Consulting Provider Address: Address: [address] [place] [address]- Name: Ila Freed NP Position: [facility] Associate Professional Member Role: PCP Address: Address: [address] [place] [address]- Care Team Related Persons Name: YESENIA ALARCON Address: [place] [address] Name: DORA ALARCON Address: home [address] [place] [address]
--- OUTSIDE RECORDS SUMMARY | 2023-10-25 23:57 | XMS_ITS | Continuity of Care Document ---
Author Name Unknown Organization [facility] Address [address] [place] [address]- Care Team Providers Care Director Housekeeping Name Role Phone Sonido VILLAREAL, Zuleika Lincoln Primary Care Physician Encounter [facility] Date(s): 11/12/20 - 12/12/[address] [address] Attending Physician: Nely Medina Allergies, Adverse Reactions, [...] 14:48:00 EDT, Powder, Route to Pharmacy Electronically, [id number], [facility] #10... Start Date: 07/10/20 Status: Ordered albuterol 0.083% inhalation solution 3 mL = 2.5 mg, Neb, Once, given as duoneb LOT [id number] EXP 01/2021, 0 Refills, Maintenance, 07/11/19 11:14:40 EDT Start Date: 07/11/19 Status: Ordered albuterol-ipratropium 3 mg-0.5 mg/3 ml inhalation solution 3 mL, Inhalation, 4 times a day, # 30 each, 0 Refills, Maintenance, 10/02/19 16:07:00 EST, Solution, [facility] #74178, 3 mL Inhalation 4 times a day, [...] 5 Refills, Maintenance, 06/04/20 13:35:00 EDT, Tablet, [facility] #42120, 165, cm, 03/14/20 15:15:00 EDT, Height Start Date: 06/04/20 Status: Ordered dextromethorphan-guaifenesin 10 mg-100 mg/5 mL oral liquid 5 mL, By Mouth, Every 4 hours, PRN for cough, # 300 mL, 0 Refills, Maintenance, 09/08/20 12:59:00 EST, Liquid, [facility] #42976, Partial fill upon patient request if the prescription is for a schedule II opioid drug., 5 mL By Mouth Every 4... Start Date: 09/08/20 Status: Ordered Diclofenac = 75 mg, By Mouth, 2 times a day, prescribed by Dr. Pierre, Neurologist in [facility] takesprn, 0 Refills, Maintenance, 08/09/16 8:32:51 [...] tablet, 2 Refills, Maintenance, 09/08/20 8:13:00 EST, [facility] #03083, 30, 1 tablet By Mouth Daily,Instr:FOR BLOOD PRESSURE., 165, cm,03/14/20 15:15:00 EDT, Height Start Date: 09/08/20 Status: Ordered Ipratropium 0.02% Inhalation Solution 2.5, mL, Neb, Once, given as duoneb LOT [id number] EXP 12/2020, Refills 0, Maintenance, 07/11/19 11:15:17 EDT Start Date: 07/11/19 Status: Ordered ipratropium nasal 21 mcg/inh spray See Instructions, PRN Nasal Congestion, 1 spray each nostril BID, # 1 each, 4 Refills, Maintenance,07/10/20 14:41:00 EDT, [facility] #33072, 1 spray each nostril BID,PRN:Nasal Congestion, 165, cm, 03/14/20 15:15:00 EDT, Height Start Date: 07/10/20 Status: Ordered levothyroxine 175 mcg (0.175 mg) oral tablet 1 tablet, By Mouth, Daily, # 90 tablet, 2 Refills, Maintenance, 09/08/20 12:51:00 EST, [facility] #62063, 165, cm, 03/14/20 15:15:00 EDT, Height Start Date: 09/08/20 Status: Ordered lidocaine 4% topical cream 1 application, Topically, 3 times a day, # 15 Gm, 1 Refills, Maintenance, 03/14/20 15:53:00 EDT, Cream, [facility] #87168, 1 application Topically 3 times a day, 165, cm, 03/14/20 15:15:00 EDT, Height, 118.4, kg, 04/28/18 17:05:00 EDT, Dry W... Start Date: 03/14/20 Status: Ordered Lubricant Eye Drops ophthalmic solution 1 drops, Eyes, Both, 2 times a day, PRN for dry eyes, # 30 each, 1 Refills, Maintenance, 06/04/20 13:37:00 EDT, Solution, [facility] #29416, 1 drops Eyes, Both 2 times a day,PRN:for dry eyes, 165, cm, 03/14/20 15:15:00 EDT, Height Start Date: 06/04/20 Status: Ordered metFORMIN 500 mg oral tablet, extended release 2 tablet = 1,000 mg, By Mouth, Daily, # 60 tablet, 5 Refills, Maintenance, 09/08/20 12:51:00 EST, [facility] #72285, 165, cm, 03/14/20 15:15:00 EDT, Height Start [...] 9:34:00 EST, Aerosol, Route to Pharmacy Electronically, [id number], [facility] #[id number], 165, cm, 11/12/20 9:01:00... Start Date: 11/12/20 Stop Date: 11/07/21 Status: Ordered Saline Mist 0.65% nasal spray 1 sprays, Nares, Both, 3 times a day, followed by bulb suction as directed and as needed for nasal congestion., # 1 each, 4 Refills, Maintenance, 09/08/20 12:56:00 EST, [facility] #94384, 1sprays Nares, Both 3 times a day,x7 days,Instr:foll... Start Date: 09/08/20 Stop Date: 10/13/20 Status: Ordered sertraline 25 mg oral tablet 1 tablet = 25 mg, By Mouth, Daily, # 30 tablet, 1 Refills, Maintenance, 11/12/20 14:51:00 EST, Tablet, [facility] #94246, Partial fill upon patient request if the prescription is for a schedule II opioid drug., 165, cm, 11/12/20 9:01:00 EST,... Start Date: 11/12/20 Status: Ordered Spiriva HandiHaler 18 mcg inhalation capsule 1 capsule = 18 mcg, Inhalation, Daily, use two inhalations of one capsule for each dose, # 30 capsule, 11 Refills, Maintenance, 07/10/20 14:50:00 EDT, [facility] #34962, 165, cm, 03/14/20 15:15:00 EDT, Height Start Date: 07/10/20 Status: Ordered sucralfate 1 gm oral tablet See Instructions, # 120 tablet, TAKE 1 TABLET BY MOUTH FOUR TIMES DAILY, [facility] 08[address] Start Date: 03/26/19 Status: Ordered traZODone 50 mg oral tablet 1, tablet, By Mouth, Daily at bedtime, # 30 tablet, Refills 2, Tot. Refills 2, Maintenance, 12/12/20 11:25:00 EDT, Route to Pharmacy Electronically, [facility] #[id number], 165, cm, 11/12/20 9:01:00 EST, Height Start [...]
--- OUTSIDE RECORDS SUMMARY | 2023-10-25 23:58 | XMS_ITS | Continuity of Care Document ---
Author Name Unknown Organization [facility] Address [address] [place] [address]- Care Team Providers Care Category Development Analyst Name Role Phone Bridget Burk MUNICIPAL ENGINEER, Ila Primary Care Physician Encounter [facility] Date(s): 04/28/22 - 05/28/[address] [address] Allergies, Adverse Reactions, Alerts [...] 11 Refills, Maintenance, 05/20/22 13:58:00 EDT, Aerosol, [facility] #98807, Partial fill upon patient request if the prescription is for a schedule II opioid drug., 2 puffs Inhalation 2 times a d... Start Date: 05/20/22 Status: Ordered AutoCPAP 10-16 with heated humidification AutoCPAP 10-16 with heated humidification, See Instructions, # 1 each, Refills 0, Tot. Refills 0, Maintenance, use overnight and naps from [facility], 03/25/20 13:05:00 EDT, Compound Start Date: 03/25/20 [...] 5 Refills, Maintenance, 06/04/20 13:35:00 EDT, Tablet, [facility] #62497, 165, cm, 03/14/20 15:15:00 EDT, Height Start Date: 06/04/20 Status: Ordered dextromethorphan-guaifenesin 10 mg-100 mg/5 mL oral liquid 5 mL, By Mouth, Every 4 hours, PRN for cough, # 300 mL, 0 Refills, Maintenance, 03/24/22 10:17:00 EDT, Liquid, [facility] #05395, Partial fill upon patient request if the prescription is for a schedule II opioid drug., 5 mL By Mouth Every 4... Start Date: 03/24/22 Status: Ordered Diclofenac = 75 mg, By Mouth, 2 times a day, prescribed by Dr. Pierre, Neurologist in [facility] takesprn, 0 Refills, Maintenance, 08/09/16 8:32:51 Start [...] BLOOD PRESSURE., # 270 tablet, 0 Refills, [facility] #68626, 90, TAKE 1 TABLET BY MOUTH EVERY DAY, DRINK ADEQUATE WATER ANDCONTINUE TO MONITOR BLOOD PRESSURE, 165, cm, 04/30/... Start Date: 05/01/22 Status: Ordered ipratropium nasal 21 mcg/inh spray See Instructions, PRN Nasal Congestion, 1 spray each nostril BID, # 1 each, 4 Refills, Maintenance,07/10/20 14:41:00 EDT, [facility] #42889, 1 spray each nostril BID,PRN:Nasal Congestion, 165, cm, 03/14/20 15:15:00 EDT, Height Start Date: 07/10/20 Status: Ordered levothyroxine 175 mcg (0.175 mg) oral tablet 1 tablet, By Mouth, Daily, # 90 tablet, 1 Refills, [facility] #75480, 165, cm, 03/26/22 11:46:00 EDT, Height, 118, kg, 01/18/22 15:08:00 EDT, Dry Weight Start Date: 04/29/22 Status: Ordered lidocaine 4% topical cream 1 application, Topically, 3 times a day, # 15 Gm, 1 Refills, Maintenance, 03/14/20 15:53:00 EDT, Cream, [facility] #56265, 1 application Topically 3 times a day, 165, cm, 03/14/20 15:15:00 EDT, Height, 118.4, kg, 04/28/18 17:05:00 EDT, Dry W... Start Date: 03/14/20 Status: Ordered Lubricant Eye Drops ophthalmic solution 1 drops, Eyes, Both, 2 times a day, PRN for dry eyes, # 30 each, 1 Refills, Maintenance, 06/04/20 13:37:00 EDT, Solution, [facility] #51387, 1 drops Eyes, Both 2 times a day,PRN:for dry eyes, 165, cm, 03/14/20 15:15:00 EDT, Height Start Date: 06/04/20 Status: Ordered metFORMIN 500 mg oral tablet, extended release 2 tablet = 1,000 mg, By Mouth, Daily, # 60 tablet, 5 Refills, Maintenance, 02/02/22 16:11:00 EDT, [facility] #69008, 165, cm, 01/20/22 15:45:00 EDT, Height, 118, [...] Gm, Refills 0, Route to Pharmacy Electronically, [id number], [facility] #53097, 165, cm, 04/30/22 10:50:00 EDT, Height, 118, [...] 6 Refills, Maintenance, 02/03/22 17:18:00 EDT, Tablet, [facility] #1... Start Date: 02/03/22 Stop Date: 09/01/22 Status: Ordered Saline Mist 0.65% nasal spray 1 sprays, Nares, Both, 3 times a day, followed by bulb suction as directed and as needed for nasal congestion., # 1 each, 4 Refills, Maintenance, 09/08/20 12:56:00 EST, [facility] #20416, 1sprays Nares, Both 3 times a day,x7 days,Instr:foll... Start Date: 09/08/20 Stop Date: 10/13/20 Status: Ordered sertraline 25 mg oral tablet 1 tablet, By Mouth, Daily, # 30 tablet, 0 Refills, [facility] #50267, 165, cm, 04/30/22 10:50:00 EDT, Height, 118, kg, 01/18/22 15:08:00 EDT, Dry Weight Start Date: 04/30/22 Status: Ordered sucralfate 1 gm oral tablet See Instructions, # 120 tablet, TAKE 1 TABLET BY MOUTH FOUR TIMES DAILY, [facility] [address] Start Date: 03/26/19 Status: Ordered Zithromax Z-Mulugeta 250 mg oral tablet 1 pack/packet, By Mouth, Once, # 6 tablet, 0 Refills, Soft Stop, 03/24/22 10:16:00 EDT, Tablet, [facility] #00771, Partial fill upon patient request if the [...] Team Personnel Name: Ila Freed NP Address: [address] [place] [address]
--- OUTSIDE RECORDS SUMMARY | 2023-10-25 23:58 | XMS_ITS | Continuity of Care Document ---
Author Name Unknown Organization [facility] Address [address] [place] [address]- Care Team Providers Care Seo Specialist Name Role Phone Sonido VILLAREAL, Zuleika Lincoln Primary Care Physician [phone] Encounter [facility] Date(s): 05/11/21 - 06/10/[address] [address] Allergies, Adverse Reactions, Alerts Substance Reaction Severity [...] 14:48:00 EDT, Powder, Route to Pharmacy Electronically, [id number], [facility]10... Start Date: 07/10/20 Status: Ordered albuterol 0.083% inhalation solution 3 mL = 2.5 mg, Neb, Once, given as duoneb LOT [id number] EXP 01/2021, 0 Refills, Maintenance, 07/11/19 11:14:40 EDT Start Date: 07/11/19 Status: Ordered albuterol-ipratropium 3 mg-0.5 mg/3 ml inhalation solution 3 mL, Inhalation, 4 times a day, # 30 each, 0 Refills, Maintenance, 10/02/19 16:07:00 EST, Solution, [facility] #[id number], 3 mL Inhalation 4 times a day, [...] 5 Refills, Maintenance, 06/04/20 13:35:00 EDT, Tablet, [facility] #25886, 165, cm, 03/14/20 15:15:00 EDT, Height Start Date: 06/04/20 Status: Ordered dextromethorphan-guaifenesin 10 mg-100 mg/5 mL oral liquid 5 mL, By Mouth, Every 4 hours, PRN for cough, # 300 mL, 0 Refills, Maintenance, 09/08/20 12:59:00 EST, Liquid, [facility] #44147, Partial fill upon patient request if the prescription is for a schedule II opioid drug., 5 mL By Mouth Every 4... Start Date: 09/08/20 Status: Ordered Diclofenac = 75 mg, By Mouth, 2 times a day, prescribed by Dr. Pierre, Neurologist in [facility] takesprn, 0 Refills, Maintenance, 08/09/16 8:32:51 [...] tablet, 2 Refills, Maintenance, 03/11/21 10:40:00 EDT, [facility] #14845, 30, pt needs labs, 1 tablet By Mouth David... Start Date: 03/11/21 Status: Ordered Ipratropium 0.02% Inhalation Solution 2.5, mL, Neb, Once, given as duoneb LOT [id number] EXP 12/2020, Refills 0, Maintenance, 07/11/19 11:15:17 EDT Start Date: 07/11/19 Status: Ordered ipratropium nasal 21 mcg/inh spray See Instructions, PRN Nasal Congestion, 1 spray each nostril BID, # 1 each, 4 Refills, Maintenance,07/10/20 14:41:00 EDT, [facility] #85904, 1 spray each nostril BID,PRN:Nasal Congestion, 165, cm, 03/14/20 15:15:00 EDT, Height Start Date: 07/10/20 Status: Ordered levothyroxine 175 mcg (0.175 mg) oral tablet 1 tablet, By Mouth, Daily, # 90 tablet, 2 Refills, Maintenance, 09/08/20 12:51:00 EST, [facility] #94513, 165, cm, 03/14/20 15:15:00 EDT, Height Start Date: 09/08/20 Status: Ordered lidocaine 4% topical cream 1 application, Topically, 3 times a day, # 15 Gm, 1 Refills, Maintenance, 03/14/20 15:53:00 EDT, Cream, [facility] #14420, 1 application Topically 3 times a day, 165, cm, 03/14/20 15:15:00 EDT, Height, 118.4, kg, 04/28/18 17:05:00 EDT, Dry W... Start Date: 03/14/20 Status: Ordered Lubricant Eye Drops ophthalmic solution 1 drops, Eyes, Both, 2 times a day, PRN for dry eyes, # 30 each, 1 Refills, Maintenance, 06/04/20 13:37:00 EDT, Solution, [facility] #23824, 1 drops Eyes, Both 2 times a day,PRN:for dry eyes, 165, cm, 03/14/20 15:15:00 EDT, Height Start Date: 06/04/20 Status: Ordered metFORMIN 500 mg oral tablet, extended release 2 tablet = 1,000 mg, By Mouth, Daily, # 60 tablet, 5 Refills, Maintenance, 03/11/21 10:40:00 EDT, [facility] #97129, 165, cm, 03/11/21 9:56:00 EDT, Height Start [...] 9:34:00 EST, Aerosol, Route to Pharmacy Electronically, [id number], [facility] #[id number], 165, cm, 11/12/20 9:01:00... Start Date: 11/12/20 Stop Date: 11/07/21 Status: Ordered Saline Mist 0.65% nasal spray 1 sprays, Nares, Both, 3 times a day, followed by bulb suction as directed and as needed for nasal congestion., # 1 each, 4 Refills, Maintenance, 09/08/20 12:56:00 EST, [facility] #00200, 1sprays Nares, Both 3 times a day,x7 days,Instr:foll... Start Date: 09/08/20 Stop Date: 10/13/20 Status: Ordered sertraline 25 mg oral tablet 1 tablet, By Mouth, Daily, # 30 tablet, 3 Refills, Maintenance, 02/10/21 22:06:00 EDT, [facility] #90961, 165, cm, 01/16/21 16:24:00 EDT, Height Start Date: 02/10/21 Status: Ordered Spiriva HandiHaler 18 mcg inhalation capsule 1 capsule = 18 mcg, Inhalation, Daily, use two inhalations of one capsule for each dose, # 30 capsule, 11 Refills, Maintenance, 07/10/20 14:50:00 EDT, [facility] #54887, 165, cm, 03/14/20 15:15:00 EDT, Height Start Date: 07/10/20 Status: Ordered sucralfate 1 gm oral tablet See Instructions, # 120 tablet, TAKE 1 TABLET BY MOUTH FOUR TIMES DAILY, [facility] 63280 Start Date: 03/26/19 Status: Ordered traZODone 50 mg oral tablet 1, tablet, By Mouth, Daily at bedtime, # 30 tablet, Refills 2, Tot. Refills 2, Maintenance, 03/11/21 10:40:00 EDT, Route to Pharmacy Electronically, [facility] #41161, 165, cm, 03/11/21 9:56:00 EDT, Height Start [...]
--- OUTSIDE RECORDS SUMMARY | 2023-10-25 23:58 | XMS_ITS | Continuity of Care Document ---
Author Name Unknown Organization [facility] Address [address] [place] [address]- Care Team Providers Care Manager Inside Name Role Phone Zuleika Head NP Primary Care Physician [place] [facility] [place] 11/07/[place] - 12/07/[address] [address] Allergies, Adverse Reactions, Alerts Substance Reaction [...] 14:48:00 EDT, Powder, Route to Pharmacy Electronically, [id number], [facility]10... Start Date: 07/10/20 Status: Ordered albuterol 0.083% inhalation solution 3 mL = 2.5 mg, Neb, Once, given as duoneb LOT [id number] EXP 01/2021, 0 Refills, Maintenance, 07/11/19 11:14:40 EDT Start Date: 07/11/19 Status: Ordered albuterol-ipratropium 3 mg-0.5 mg/3 ml inhalation solution 3 mL, Inhalation, 4 times a day, # 30 each, 0 Refills, Maintenance, 10/02/19 16:07:00 EST, Solution, [facility] #[id number], 3 mL Inhalation 4 times a day, [...] 5 Refills, Maintenance, 06/04/20 13:35:00 EDT, Tablet, [facility] #[id number], 165, cm, 03/14/20 15:15:00 EDT, Height Start Date: 06/04/20 Status: Ordered dextromethorphan-guaifenesin 10 mg-100 mg/5 mL oral liquid 5 mL, By Mouth, Every 4 hours, PRN for cough, # 300 mL, 0 Refills, Maintenance, 09/08/20 12:59:00 EST, Liquid, [facility] #[id number], Partial fill upon patient request if the prescription is for a schedule II opioid drug., 5 mL By Mouth Every 4... Start Date: 09/08/20 Status: Ordered Diclofenac = 75 mg, By Mouth, 2 times a day, prescribed by Dr. Pierre, Neurologist in [facility] takesprn, 0 Refills, Maintenance, 08/09/16 8:32:51 [...] tablet, 2 Refills, Maintenance, 09/08/20 8:13:00 EST, [facility] #[id number], 30, 1 tablet By Mouth Daily,Instr:FOR BLOOD PRESSURE., 165, cm,03/14/20 15:15:00 EDT, Height Start Date: 09/08/20 Status: Ordered Ipratropium 0.02% Inhalation Solution 2.5, mL, Neb, Once, given as duoneb LOT [id number] EXP 12/2020, Refills 0, Maintenance, 07/11/19 11:15:17 EDT Start Date: 07/11/19 Status: Ordered ipratropium nasal 21 mcg/inh spray See Instructions, PRN Nasal Congestion, 1 spray each nostril BID, # 1 each, 4 Refills, Maintenance,07/10/20 14:41:00 EDT, [facility] #72079, 1 spray each nostril BID,PRN:Nasal Congestion, 165, cm, 03/14/20 15:15:00 EDT, Height Start Date: 07/10/20 Status: Ordered levothyroxine 175 mcg (0.175 mg) oral tablet 1 tablet, By Mouth, Daily, # 90 tablet, 2 Refills, Maintenance, 09/08/20 12:51:00 EST, [facility] #41636, 165, cm, 03/14/20 15:15:00 EDT, Height Start Date: 09/08/20 Status: Ordered lidocaine 4% topical cream 1 application, Topically, 3 times a day, # 15 Gm, 1 Refills, Maintenance, 03/14/20 15:53:00 EDT, Cream, [facility] #[id number], 1 application Topically 3 times a day, 165, cm, 03/14/20 15:15:00 EDT, Height, 118.4, kg, 04/28/18 17:05:00 EDT, Dry W... Start Date: 03/14/20 Status: Ordered Lubricant Eye Drops ophthalmic solution 1 drops, Eyes, Both, 2 times a day, PRN for dry eyes, # 30 each, 1 Refills, Maintenance, 06/04/20 13:37:00 EDT, Solution, [facility] #[id number], 1 drops Eyes, Both 2 times a day,PRN:for dry eyes, 165, cm, 03/14/20 15:15:00 EDT, Height Start Date: 06/04/20 Status: Ordered metFORMIN 500 mg oral tablet, extended release 2 tablet = 1,000 mg, By Mouth, Daily, # 60 tablet, 5 Refills, Maintenance, 09/08/20 12:51:00 EST, [facility] #[id number], 165, cm, 03/14/20 15:15:00 EDT, Height Start [...] 9:34:00 EST, Aerosol, Route to Pharmacy Electronically, [id number], [facility] #[id number], 165, cm, 11/12/20 9:01:00... Start Date: 11/12/20 Stop Date: 11/07/21 Status: Ordered Saline Mist 0.65% nasal spray 1 sprays, Nares, Both, 3 times a day, followed by bulb suction as directed and as needed for nasal congestion., # 1 each, 4 Refills, Maintenance, 09/08/20 12:56:00 EST, [facility] #[id number], 1sprays Nares, Both 3 times a day,x7 days,Instr:foll... Start Date: 09/08/20 Stop Date: 10/13/20 Status: Ordered sertraline 25 mg oral tablet 1 tablet = 25 mg, By Mouth, Daily, # 30 tablet, 1 Refills, Maintenance, 11/12/20 14:51:00 EST, Tablet, [facility] #[id number], Partial fill upon patient request if the prescription is for a schedule II opioid drug., 165, cm, 11/12/20 9:01:00 EST,... Start Date: 11/12/20 Status: Ordered Spiriva HandiHaler 18 mcg inhalation capsule 1 capsule = 18 mcg, Inhalation, Daily, use two inhalations of one capsule for each dose, # 30 capsule, 11 Refills, Maintenance, 07/10/20 14:50:00 EDT, [facility] #66734, 165, cm, 03/14/20 15:15:00 EDT, Height Start Date: 07/10/20 Status: Ordered sucralfate 1 gm oral tablet See Instructions, # 120 tablet, TAKE 1 TABLET BY MOUTH FOUR TIMES DAILY, [facility] [address] Start Date: 03/26/19 Status: Ordered traZODone 50 mg oral tablet 1, tablet, By Mouth, Daily at bedtime, # 30 tablet, Refills 2, Tot. Refills 2, Maintenance, 09/14/20 12:55:00 EST, Route to Pharmacy Electronically, [facility] #[id number], 165, cm, 03/14/20 15:15:00 EDT, Height Start [...]
--- OUTSIDE RECORDS SUMMARY | 2023-10-25 23:58 | XMS_ITS | Continuity of Care Document ---
Author Name Unknown Organization [facility] Address [address] [place] [address]- Care Team Providers Care Recycle Coordinator Name Role Phone Sonido VILLAREAL, Zuleika Lincoln Primary Care Physician Encounter [facility] [id number] Date(s): 09/25/21 - 10/28/[address] [address] Attending Physician: Michel Ybarra MD Admitting Physician: Michel Ybarra MD Referring Physician: Zuleika Head NP Allergies, [...] 6 Refills, Maintenance, 06/17/21 11:50:00 EDT, Aerosol, [facility][id number], Partial fill upon patient request if the prescription is for a schedule II opioid drug., 2 puffs Inhalation 2 times a d... Start Date: 06/17/21 Status: Ordered Aspercreme 10% topical cream 1 application, Topically, 4 times a day, PRN for pain, n., # 1 each, 3 Refills, Maintenance, 07/13/21 11:47:00 EDT, Cream, [facility] #[id number], Partial fill upon patient request if the [...] 5 Refills, Maintenance, 06/04/20 13:35:00 EDT, Tablet, [facility] #85278, 165, cm, 03/14/20 15:15:00 EDT, Height Start Date: 06/04/20 Status: Ordered dextromethorphan-guaifenesin 10 mg-100 mg/5 mL oral liquid 5 mL, By Mouth, Every 4 hours, PRN for cough, # 300 mL, 0 Refills, Maintenance, 09/08/20 12:59:00 EST, Liquid, [facility] #26957, Partial fill upon patient request if the prescription is for a schedule II opioid drug., 5 mL By Mouth Every 4... Start Date: 09/08/20 Status: Ordered Diclofenac = 75 mg, By Mouth, 2 times a day, prescribed by Dr. Pierre, Neurologist in [facility] takesprn, 0 Refills, Maintenance, 08/09/16 8:32:51 [...] tablet, 5 Refills, Maintenance, 06/12/21 11:20:00 EDT, [facility] #[id number], 30, pt needs labs, 1 tablet By Mouth David... Start Date: 06/12/21 Status: Ordered ipratropium nasal 21 mcg/inh spray See Instructions, PRN Nasal Congestion, 1 spray each nostril BID, # 1 each, 4 Refills, Maintenance,07/10/20 14:41:00 EDT, [facility] #74075, 1 spray each nostril BID,PRN:Nasal Congestion, 165, cm, 03/14/20 15:15:00 EDT, Height Start Date: 07/10/20 Status: Ordered levothyroxine 175 mcg (0.175 mg) oral tablet 1 tablet, By Mouth, Daily, # 90 tablet, 2 Refills, Maintenance, 09/01/21 12:27:00 EST, [facility] #[id number], 165, cm, 07/13/21 11:17:00 EDT, Height Start Date: 09/01/21 Status: Ordered lidocaine 4% topical cream 1 application, Topically, 3 times a day, # 15 Gm, 1 Refills, Maintenance, 03/14/20 15:53:00 EDT, Cream, [facility] #61759, 1 application Topically 3 times a day, 165, cm, 03/14/20 15:15:00 EDT, Height, 118.4, kg, 04/28/18 17:05:00 EDT, Dry W... Start Date: 03/14/20 Status: Ordered Lubricant Eye Drops ophthalmic solution 1 drops, Eyes, Both, 2 times a day, PRN for dry eyes, # 30 each, 1 Refills, Maintenance, 06/04/20 13:37:00 EDT, Solution, [facility] #87728, 1 drops Eyes, Both 2 times a day,PRN:for dry eyes, 165, cm, 03/14/20 15:15:00 EDT, Height Start Date: 06/04/20 Status: Ordered metFORMIN 500 mg oral tablet, extended release 2 tablet = 1,000 mg, By Mouth, Daily, # 60 tablet, 5 Refills, Maintenance, 03/11/21 10:40:00 EDT, [facility] #06375, 165, cm, 03/11/21 9:56:00 EDT, Height Start [...] 9:34:00 EST, Aerosol, Route to Pharmacy Electronically, [id number], [facility] #... Start Date: 11/12/20 Stop Date: 11/07/21 Status: Ordered Saline Mist 0.65% nasal spray 1 sprays, Nares, Both, 3 times a day, followed by bulb suction as directed and as needed for nasal congestion., # 1 each, 4 Refills, Maintenance, 09/08/20 12:56:00 EST, [facility] #13928, 1sprays Nares, Both 3 times a day,x7 days,Instr:foll... Start Date: 09/08/20 Stop Date: 10/13/20 Status: Ordered sertraline 25 mg oral tablet 1 tablet, By Mouth, Daily, # 30 tablet, 3 Refills, Maintenance, 09/01/21 12:27:00 EST, [facility] #31482, 165, cm, 07/13/21 11:17:00 EDT, Height Start Date: 12/14/21 Status: Ordered sucralfate 1 gm oral tablet See Instructions, # 120 tablet, TAKE 1 TABLET BY MOUTH FOUR TIMES DAILY, [facility] [address]62 Start Date: 03/26/19 Status: Ordered Problem List [...]
--- OUTSIDE RECORDS SUMMARY | 2023-10-25 23:58 | XMS_ITS | Continuity of Care Document ---
Author Name Unknown Organization [facility] Address [address] [place] [address]- Care Team Providers Care Glass Artist Name Role Phone Sonido VILLAREAL, Zuleika Lincoln Primary Care Physician [phone] Encounter [facility] [place] Date(s): 09/30/21 - 10/30/21 [facility] [address] [address] Attending Physician: Nely Medina Admitting Physician: AdmtrNely Referring Physician: AdmtrNely Allergies, Adverse Reactions, Alerts Substance [...] 6 Refills, Maintenance, 06/17/21 11:50:00 EDT, Aerosol, [facility] #[id number], Partial fill upon patient request if the prescription is for a schedule II opioid drug., 2 puffs Inhalation 2 times a d... Start Date: 06/17/21 Status: Ordered Aspercreme 10% topical cream 1 application, Topically, 4 times a day, PRN for pain, n., # 1 each, 3 Refills, Maintenance, 07/13/21 11:47:00 EDT, Cream, [facility] #48124, Partial fill upon patient request if the [...] 5 Refills, Maintenance, 06/04/20 13:35:00 EDT, Tablet, [facility] #83294, 165, cm, 03/14/20 15:15:00 EDT, Height Start Date: 06/04/20 Status: Ordered dextromethorphan-guaifenesin 10 mg-100 mg/5 mL oral liquid 5 mL, By Mouth, Every 4 hours, PRN for cough, # 300 mL, 0 Refills, Maintenance, 09/08/20 12:59:00 EST, Liquid, [facility] #59752, Partial fill upon patient request if the prescription is for a schedule II opioid drug., 5 mL By Mouth Every 4... Start Date: 09/08/20 Status: Ordered Diclofenac = 75 mg, By Mouth, 2 times a day, prescribed by Dr. Pierre, Neurologist in [facility] takesprn, 0 Refills, Maintenance, 08/09/16 [...] tablet, 5 Refills, Maintenance, 06/12/21 11:20:00 EDT, [facility] #[id number], 30, pt needs labs, 1 tablet By Mouth David... Start Date: 06/12/21 Status: Ordered ipratropium nasal 21 mcg/inh spray See Instructions, PRN Nasal Congestion, 1 spray each nostril BID, # 1 each, 4 Refills, Maintenance,07/10/20 14:41:00 EDT, [facility] #01929, 1 spray each nostril BID,PRN:Nasal Congestion, 165, cm, 03/14/20 15:15:00 EDT, Height Start Date: 07/10/20 Status: Ordered levothyroxine 175 mcg (0.175 mg) oral tablet 1 tablet, By Mouth, Daily, # 90 tablet, 2 Refills, Maintenance, 09/01/21 12:27:00 EST, [facility] #19862, 165, cm, 07/13/21 11:17:00 EDT, Height Start Date: 09/01/21 Status: Ordered lidocaine 4% topical cream 1 application, Topically, 3 times a day, # 15 Gm, 1 Refills, Maintenance, 03/14/20 15:53:00 EDT, Cream, [facility] #62076, 1 application Topically 3 times a day, 165, cm, 03/14/20 15:15:00 EDT, Height, 118.4, kg, 04/28/18 17:05:00 EDT, Dry W... Start Date: 03/14/20 Status: Ordered Lubricant Eye Drops ophthalmic solution 1 drops, Eyes, Both, 2 times a day, PRN for dry eyes, # 30 each, 1 Refills, Maintenance, 06/04/20 13:37:00 EDT, Solution, [facility] #65051, 1 drops Eyes, Both 2 times a day,PRN:for dry eyes, 165, cm, 03/14/20 15:15:00 EDT, Height Start Date: 06/04/20 Status: Ordered metFORMIN 500 mg oral tablet, extended release 2 tablet = 1,000 mg, By Mouth, Daily, # 60 tablet, 5 Refills, Maintenance, 03/11/21 10:40:00 EDT, [facility] #26347, 165, cm, 03/11/21 9:56:00 EDT, Height Start [...] 9:34:00 EST, Aerosol, Route to Pharmacy Electronically, [id number], [facility] #... Start Date: 11/12/20 Stop Date: 11/07/21 Status: Ordered Saline Mist 0.65% nasal spray 1 sprays, Nares, Both, 3 times a day, followed by bulb suction as directed and as needed for nasal congestion., # 1 each, 4 Refills, Maintenance, 09/08/20 12:56:00 EST, [facility] #39485, 1sprays Nares, Both 3 times a day,x7 days,Instr:foll... Start Date: 09/08/20 Stop Date: 10/13/20 Status: Ordered sertraline 25 mg oral tablet 1 tablet, By Mouth, Daily, # 30 tablet, 3 Refills, Maintenance, 09/01/21 12:27:00 EST, [facility] #70788, 165, cm, 07/13/21 11:17:00 EDT, Height Start Date: 09/01/21 Status: Ordered sucralfate 1 gm oral tablet See Instructions, # 120 tablet, TAKE 1 TABLET BY MOUTH FOUR TIMES DAILY, [facility] [address] Start Date: 03/26/19 Status: Ordered Problem List [...]
--- OUTSIDE RECORDS SUMMARY | 2023-10-25 23:58 | XMS_ITS | Continuity of Care Document ---
Author Name Unknown Organization [facility] Address [address] [place] [address]- Care Team Providers Care Medical Csr Name Role Phone Bridget Burk NP, Ila Primary Care Physician [place] [facility] [id number] Date(s): 10/01/22 - 10/31/[address] [address]- Attending Physician: Admtr, Ar8 Allergies, Adverse Reactions, [...] 12 Gm, 6 Refills, Maintenance, 08/26/22 10:52:00 [facility] #67236, 30, INHALE 2 PUFFS BY MOUTH TWICE [...] 5 Refills, Maintenance, 06/04/20 13:35:00 EDT, Tablet, [facility] #51767, 165, cm, 03/14/20 15:15:00 EDT, Height Start Date: 06/04/20 Status: Ordered dextromethorphan-guaifenesin 10 mg-100 mg/5 mL oral liquid 5 mL, By Mouth, Every 4 hours, PRN for cough, # 300 mL, 0 Refills, Maintenance, 03/24/22 10:17:00 EDT, Liquid, [facility] #29351, Partial fill upon patient request if the prescription is for a schedule II opioid drug., 5 mL By Mouth Every 4... Start Date: 03/24/22 Status: Ordered Diclofenac = 75 mg, By Mouth, 2 times a day, prescribed by Dr. Pierre, Neurologist in [facility] takesprn, 0 Refills, Maintenance, 08/09/16 [...] tablet, 0 Refills, Maintenance, 05/29/22 21:25:00 EDT, [facility] #13682, 90, TAKE 1 TABLET BY MOUTHEVERY DAY, DRINK ADEQUATE WATER AND CONTINUE TO MON... Start Date: 05/29/22 Status: Ordered ipratropium nasal 21 mcg/inh spray See Instructions, PRN Nasal Congestion, 1 spray each nostril BID, # 1 each, 4 Refills, Maintenance,07/10/20 14:41:00 EDT, [facility] #10885, 1 spray each nostril BID,PRN:Nasal Congestion, 165, cm, 03/14/20 15:15:00 EDT, Height Start Date: 07/10/20 Status: Ordered levothyroxine 175 mcg (0.175 mg) oral tablet 1 tablet, By Mouth, Daily, # 90 tablet, 1 Refills, [facility] #35497, 165, cm, 03/26/22 11:46:00 EDT, Height, 118, kg, 01/18/22 15:08:00 EDT, Dry Weight Start Date: 04/29/22 Status: Ordered lidocaine 4% topical cream 1 application, Topically, 3 times a day, # 15 Gm, 1 Refills, Maintenance, 03/14/20 15:53:00 EDT, Cream, [facility] #93567, 1 application Topically 3 times a day, 165, cm, 03/14/20 15:15:00 EDT, Height, 118.4, kg, 04/28/18 17:05:00 EDT, Dry W... Start Date: 03/14/20 Status: Ordered Lubricant Eye Drops ophthalmic solution 1 drops, Eyes, Both, 2 times a day, PRN for dry eyes, # 30 each, 1 Refills, Maintenance, 06/04/20 13:37:00 EDT, Solution, [facility] #54491, 1 drops Eyes, Both 2 times a day,PRN:for dry eyes, 165, cm, 03/14/20 15:15:00 EDT, Height Start Date: 06/04/20 Status: Ordered MetFORMIN (Eqv-Glucophage XR) 500 mg oral tablet, extended release 2 tablet, By Mouth, Daily, # 180 tablet, 0 Refills, Maintenance, 10/21/22 10:18:00 EST, [facility] #84888, 165, cm, 09/27/22 14:59:00 EST, Height, 112.7, [...] Gm, Refills 0, Route to Pharmacy Electronically, [id number], [facility] #[id number], 165, cm, 04/30/22 10:50:00 EDT, Height, 118, [...] 6 Refills, Maintenance, 02/03/22 17:18:00 EDT, Tablet, [facility] #1... Start Date: 02/03/22 Stop Date: 09/01/22 Status: Ordered Saline Mist 0.65% nasal spray 1 sprays, Nares, Both, 3 times a day, followed by bulb suction as directed and as needed for nasal congestion., # 1 each, 4 Refills, Maintenance, 09/08/20 12:56:00 EST, [facility] #68897, 1sprays Nares, Both 3 times a day,x7 days,Instr:foll... Start Date: 09/08/20 Stop Date: 10/13/20 Status: Ordered sertraline 25 mg oral tablet 1 tablet, By Mouth, Daily, # 30 tablet, 0 Refills, Maintenance, 10/27/22 17:07:00 EST, [facility] #59463, 165, cm, 09/27/22 14:59:00 EST, Height, 112.7, kg, 09/27/22 14:59:00 EST, Dry Weight Start Date: 10/27/22 Status: Ordered sucralfate 1 gm oral tablet See Instructions, # 120 tablet, TAKE 1 TABLET BY MOUTH FOUR TIMES DAILY, [facility] [address]68 Start Date: 03/26/19 Status: Ordered Zithromax Z-Mulugeta 250 mg oral tablet 1 pack/packet, By Mouth, Once, # 6 tablet, 0 Refills, Soft Stop, 03/24/22 10:16:00 EDT, Tablet, [facility] #18716, Partial fill upon patient request if the [...] years ago 2012; entered on: 08/19/15 Sex Note * Hillary Constantino: PERFORM Event Display: Radiology Results Scanned Authored Date: [id number] * Hillary Constantino: PERFORM Event Display: Radiology Results Scanned Authored Date: [id number] * Adriana Rudolph: PERFORM Event Display: Radiology Results Scanned Authored Date: [id number] * Zhou Garza: PERFORM Event Display: Laboratory Results Scanned Authored Date: [id number] Patient Care team information Care Team Personnel Name: Bridget Burk NP, Ila Position: [facility] Associate Professional Member Role: PCP Address: Address: [address] [place] [address]- Care Team Related Persons Name: YESENIA ALARCON Address: [place] [address] Name: DORA ALARCON Address: home [address] [place] [address]
--- OUTSIDE RECORDS SUMMARY | 2023-10-25 23:58 | XMS_ITS | Continuity of Care Document ---
Author Name Unknown Organization [facility] Address [address] [place] [address]- Care Team Providers Care Line Out Man Name Role Phone Zuleika Head NP Primary Care Physician [phone] Encounter [facility] Date(s): 07/13/21 - 08/12/[address] [address] Attending Physician: AdmtrNely Allergies, Adverse Reactions, Alerts [...] 6 Refills, Maintenance, 06/17/21 11:50:00 EDT, Aerosol, [facility] #[id number], Partial fill upon patient request if the prescription is for a schedule II opioid drug., 2 puffs Inhalation 2 times a d... Start Date: 06/17/21 Status: Ordered albuterol 0.083% inhalation solution 3 mL = 2.5 mg, Neb, Once, given as duoneb LOT [id number] EXP 01/2021, 0 Refills, Maintenance, 07/11/19 11:14:40 EDT Start Date: 07/11/19 Status: Ordered albuterol-ipratropium 3 mg-0.5 mg/3 ml inhalation solution 3 mL, Inhalation, 4 times a day, # 30 each, 4 Refills, Maintenance, 06/12/21 10:55:00 EDT, Solution, [facility] #[id number], 3 mL Inhalation 4 times a day, 165, cm, 06/12/21 10:16:00 EDT, Height Start Date: 06/12/21 Status: Ordered Aspercreme 10% topical cream 1 application, Topically, 4 times a day, PRN for pain, n., # 1 each, 3 Refills, Maintenance, 07/13/21 11:47:00 EDT, [facility] #[id number], Partial fill upon patient request if the prescription is for a schedule II opioid drug., 1 applicat... Start Date: 07/13/21 Stop Date: 11/10/21 Status: Ordered AutoCPAP 10-16 with heated humidification AutoCPAP 10-16 with heated humidification, See Instructions, # 1 each, Refills 0, Tot. Refills 0, Maintenance, use overnight and naps from [facility], 03/25/20 13:05:00 EDT, Compound Start [...] 5 Refills, Maintenance, 06/04/20 13:35:00 EDT, Tablet, [facility] #[id number], 165, cm, 03/14/20 15:15:00 EDT, Height Start Date: 06/04/20 Status: Ordered dextromethorphan-guaifenesin 10 mg-100 mg/5 mL oral liquid 5 mL, By Mouth, Every 4 hours, PRN for cough, # 300 mL, 0 Refills, Maintenance, 09/08/20 12:59:00 EST, Liquid, [facility] #[id number], Partial fill upon patient request if the prescription is for a schedule II opioid drug., 5 mL By Mouth Every 4... Start Date: 09/08/20 Status: Ordered Diclofenac = 75 mg, By Mouth, 2 times a day, prescribed by Dr. Pierre, Neurologist in [facility] takesprn, 0 Refills, Maintenance, 08/09/16 [...] thank you [facility]., # 30 tablet, 5 Refills, Maintenance, 06/12/21 11:20:00 EDT, [facility] #[id number], 30, pt needs labs, 1 tablet By Mouth David... Start Date: 06/12/21 Status: Ordered Ipratropium 0.02% Inhalation Solution 2.5, mL, Neb, Once, given as duoneb LOT [id number] EXP 12/2020, Refills 0, Maintenance, 07/11/19 11:15:17 EDT Start Date: 07/11/19 Status: Ordered ipratropium nasal 21 mcg/inh spray See Instructions, PRN Nasal Congestion, 1 spray each nostril BID, # 1 each, 4 Refills, Maintenance,07/10/20 14:41:00 EDT, [facility] #[id number], 1 spray each nostril BID,PRN:Nasal Congestion, 165, cm, 03/14/20 15:15:00 EDT, Height Start Date: 07/10/20 Status: Ordered levothyroxine 175 mcg (0.175 mg) oral tablet 1 tablet, By Mouth, Daily, # 90 tablet, 2 Refills, Maintenance, 09/08/20 12:51:00 EST, [facility] #[id number], 165, cm, 03/14/20 15:15:00 EDT, Height Start Date: 09/08/20 Status: Ordered lidocaine 4% topical cream 1 application, Topically, 3 times a day, # 15 Gm, 1 Refills, Maintenance, 03/14/20 15:53:00 EDT, Cream, [facility] #[id number], 1 application Topically 3 times a day, 165, cm, 03/14/20 15:15:00 EDT, Height, 118.4, kg, 04/28/18 17:05:00 EDT, Dry W... Start Date: 03/14/20 Status: Ordered Lubricant Eye Drops ophthalmic solution 1 drops, Eyes, Both, 2 times a day, PRN for dry eyes, # 30 each, 1 Refills, Maintenance, 06/04/20 13:37:00 EDT, Solution, [facility] #[id number], 1 drops Eyes, Both 2 times a day,PRN:for dry eyes, 165, cm, 03/14/20 15:15:00 EDT, Height Start Date: 06/04/20 Status: Ordered metFORMIN 500 mg oral tablet, extended release 2 tablet = 1,000 mg, By Mouth, Daily, # 60 tablet, 5 Refills, Maintenance, 03/11/21 10:40:00 EDT, [facility] #[id number], 165, cm, 03/11/21 9:56:00 EDT, Height Start [...] EDT, Height Start Date: 07/10/21 Status: Ordered Percocet-5/325 325 mg-5 mg oral [...] 9:34:00 EST, Aerosol, Route to Pharmacy Electronically, [id number], [facility] #... Start Date: 11/12/20 Stop Date: 11/07/21 Status: Ordered ProAir HFA 90 mcg/inh inhalation aerosol with adapter 2, puffs, Inhalation, Every 4 hours, PRN, # 1 each, Refills 11, Tot. Refills 11, Maintenance, 11/07/21 9:34:00 EST, Aerosol, Route to Pharmacy Electronically, [id number], [facility] #[id number], 165, cm, 06/12/21 10:16:0... Start Date: 11/07/21 Stop Date: 11/02/22 Status: Ordered Saline Mist 0.65% nasal spray 1 sprays, Nares, Both, 3 times a day, followed by bulb suction as directed and as needed for nasal congestion., # 1 each, 4 Refills, Maintenance, 09/08/20 12:56:00 EST, [facility] #[id number], 1sprays Nares, Both 3 times a day,x7 days,Instr:foll... Start Date: 09/08/20 Stop Date: 10/13/20 Status: Ordered sertraline 25 mg oral tablet 1 tablet, By Mouth, Daily, # 30 tablet, 3 Refills, Maintenance, 02/10/21 22:06:00 EDT, [facility] #[id number], 165, cm, 01/16/21 16:24:00 EDT, Height Start Date: 02/10/21 Status: Ordered Spiriva HandiHaler 18 mcg inhalation capsule 1 capsule = 18 mcg, Inhalation, Daily, use two inhalations of one capsule for each dose, # 30 capsule, 11 Refills, Maintenance, 07/10/20 14:50:00 EDT, [facility] #[id number], 165, cm, 03/14/20 15:15:00 EDT, Height Start Date: 07/10/20 Status: Ordered sucralfate 1 gm oral tablet See Instructions, # 120 tablet, TAKE 1 TABLET BY MOUTH FOUR TIMES DAILY, [facility] [address] Start Date: 03/26/19 Status: Ordered traZODone 50 mg oral tablet 1, tablet, By Mouth, Daily at bedtime, # 30 tablet, Refills 2, Tot. Refills 2, Maintenance, 03/11/21 10:40:00 EDT, Route to Pharmacy Electronically, [facility] #[id number], 165, cm, 03/11/21 9:56:00 EDT, Height Start [...]
--- OUTSIDE RECORDS SUMMARY | 2023-10-25 23:58 | XMS_ITS | Continuity of Care Document ---
Author Name Unknown Organization [facility] Address [address] [place] [address]- Care Team Providers Care Hand Engraver Name Role Phone Bridget Burk DRILL PRESS TENDER, Ila Primary Care Physician Encounter [facility] Date(s): 11/03/21 - 12/03/[address] [address] Allergies, Adverse Reactions, Alerts [...] 6 Refills, Maintenance, 06/17/21 11:50:00 EDT, Aerosol, [facility] #[id number], Partial fill upon patient request if the prescription is for a schedule II opioid drug., 2 puffs Inhalation 2 times a d... Start Date: 06/17/21 Status: Ordered Aspercreme 10% topical cream 1 application, Topically, 4 times a day, PRN for pain, n., # 1 each, 3 Refills, Maintenance, 07/13/21 11:47:00 EDT, Cream, [facility] #[id number], Partial fill upon patient request if the [...] 5 Refills, Maintenance, 06/04/20 13:35:00 EDT, Tablet, [facility] #[id number], 165, cm, 03/14/20 15:15:00 EDT, Height Start Date: 06/04/20 Status: Ordered dextromethorphan-guaifenesin 10 mg-100 mg/5 mL oral liquid 5 mL, By Mouth, Every 4 hours, PRN for cough, # 300 mL, 0 Refills, Maintenance, 09/08/20 12:59:00 EST, Liquid, [facility] #[id number], Partial fill upon patient request if the prescription is for a schedule II opioid drug., 5 mL By Mouth Every 4... Start Date: 09/08/20 Status: Ordered Diclofenac = 75 mg, By Mouth, 2 times a day, prescribed by Dr. Pierre, Neurologist in [facility] states takesprn, 0 Refills, Maintenance, 08/09/16 [...] 30 tablet, 2 Refills, Maintenance, 11/04/21 16:10:00 [facility] #65590, pt needs labs, 1 tablet By Mouth Daily,x3... Start Date: 11/04/21 Stop Date: 02/02/22 Status: Ordered ipratropium nasal 21 mcg/inh spray See Instructions, PRN Nasal Congestion, 1 spray each nostril BID, # 1 each, 4 Refills, Maintenance,07/10/20 14:41:00 EDT, [facility] #[id number], 1 spray each nostril BID,PRN:Nasal Congestion, 165, cm, 03/14/20 15:15:00 EDT, Height Start Date: 07/10/20 Status: Ordered levothyroxine 175 mcg (0.175 mg) oral tablet 1 tablet, By Mouth, Daily, # 90 tablet, 2 Refills, Maintenance, 09/01/21 12:27:00 EST, [facility] #[id number], 165, cm, 07/13/21 11:17:00 EDT, Height Start Date: 09/01/21 Status: Ordered lidocaine 4% topical cream 1 application, Topically, 3 times a day, # 15 Gm, 1 Refills, Maintenance, 03/14/20 15:53:00 EDT, Cream, [facility] #[id number], 1 application Topically 3 times a day, 165, cm, 03/14/20 15:15:00 EDT, Height, 118.4, kg, 04/28/18 17:05:00 EDT, Dry W... Start Date: 03/14/20 Status: Ordered Lubricant Eye Drops ophthalmic solution 1 drops, Eyes, Both, 2 times a day, PRN for dry eyes, # 30 each, 1 Refills, Maintenance, 06/04/20 13:37:00 EDT, Solution, [facility] #90505, 1 drops Eyes, Both 2 times a day,PRN:for dry eyes, 165, cm, 03/14/20 15:15:00 EDT, Height Start Date: 06/04/20 Status: Ordered metFORMIN 500 mg oral tablet, extended release 2 tablet = 1,000 mg, By Mouth, Daily, # 60 tablet, 2 Refills, Maintenance, 11/04/21 16:11:00 EST, [facility] #[id number], 165, cm, 09/25/21 7:59:00 EST, Height Start [...] 9:34:00 EST, Aerosol, Route to Pharmacy Electronically, [id number], [facility] #10... Start Date: 11/07/21 Stop Date: 02/05/22 Status: Ordered Saline Mist 0.65% nasal spray 1 sprays, Nares, Both, 3 times a day, followed by bulb suction as directed and as needed for nasal congestion., # 1 each, 4 Refills, Maintenance, 09/08/20 12:56:00 EST, [facility] #[id number], 1sprays Nares, Both 3 times a day,x7 days,Instr:foll... Start Date: 09/08/20 Stop Date: 10/13/20 Status: Ordered sertraline 25 mg oral tablet 1 tablet, By Mouth, Daily, # 30 tablet, 3 Refills, Maintenance, 09/01/21 12:27:00 EST, [facility] #[id number], 165, cm, 07/13/21 11:17:00 EDT, Height Start Date: 09/01/21 Status: Ordered sucralfate 1 gm oral tablet See Instructions, # 120 tablet, TAKE 1 TABLET BY MOUTH FOUR TIMES DAILY, [facility] [address] Start Date: 03/26/19 Status: Ordered Problem List [...]
--- OUTSIDE RECORDS SUMMARY | 2023-10-25 23:58 | XMS_ITS | Continuity of Care Document ---
Author Name Unknown Organization [facility] Address [address] [place] [address]- Care Team Providers Care Information Technology Associate Name Role Phone Bridget Burk NP, Ila Primary Care Physician Encounter [facility] ACCT R [id number] Date(s): 02/03/22 - 03/05/[address] [address]- Attending Physician: Admtr, Ar8 Allergies, Adverse Reactions, [...] 6 Refills, Maintenance, 06/17/21 11:50:00 EDT, Aerosol, [facility] #[id number], Partial fill upon patient request if the prescription is for a schedule II opioid drug., 2 puffs Inhalation 2 times a d... Start Date: 06/17/21 Status: Ordered Aspercreme 10% topical cream 1 application, Topically, 4 times a day, PRN for pain, n., # 1 each, 3 Refills, Maintenance, 07/13/21 11:47:00 EDT, Cream, [facility] #[id number], Partial fill upon patient request if the [...] 5 Refills, Maintenance, 06/04/20 13:35:00 EDT, Tablet, [facility] #[id number], 165, cm, 03/14/20 15:15:00 EDT, Height Start Date: 06/04/20 Status: Ordered dextromethorphan-guaifenesin 10 mg-100 mg/5 mL oral liquid 5 mL, By Mouth, Every 4 hours, PRN for cough, # 300 mL, 0 Refills, Maintenance, 09/08/20 12:59:00 EST, Liquid, [facility] #[id number], Partial fill upon patient request if the prescription is for a schedule II opioid drug., 5 mL By Mouth Every 4... Start Date: 09/08/20 Status: Ordered Diclofenac = 75 mg, By Mouth, 2 times a day, prescribed by Dr. Pierre, Neurologist in [facility] states takesprn, 0 Refills, Maintenance, 08/09/16 [...] 30 tablet, 2 Refills, Maintenance, 11/04/21 16:10:00 [facility][id number], pt needs labs, 1 tablet By Mouth [...] 1 each, 4 Refills, Maintenance,07/10/20 14:41:00 EDT, [facility] #06701, 1 spray each nostril BID,PRN:Nasal Congestion, 165, cm, 03/14/20 15:15:00 EDT, Height Start Date: 07/10/20 Status: Ordered levothyroxine 175 mcg (0.175 mg) oral tablet 1 tablet, By Mouth, Daily, # 90 tablet, 2 Refills, Maintenance, 09/01/21 12:27:00 EST, [facility] #[id number], 165, cm, 07/13/21 11:17:00 EDT, Height Start Date: 09/01/21 Status: Ordered lidocaine 4% topical cream 1 application, Topically, 3 times a day, # 15 Gm, 1 Refills, Maintenance, 03/14/20 15:53:00 EDT, Cream, [facility] #30906, 1 application Topically 3 times a day, 165, cm, 03/14/20 15:15:00 EDT, Height, 118.4, kg, 04/28/18 17:05:00 EDT, Dry W... Start Date: 03/14/20 Status: Ordered Lubricant Eye Drops ophthalmic solution 1 drops, Eyes, Both, 2 times a day, PRN for dry eyes, # 30 each, 1 Refills, Maintenance, 06/04/20 13:37:00 EDT, Solution, [facility] #07965, 1 drops Eyes, Both 2 times a day,PRN:for dry eyes, 165, cm, 03/14/20 15:15:00 EDT, Height Start Date: 06/04/20 Status: Ordered metFORMIN 500 mg oral tablet, extended release 2 tablet = 1,000 mg, By Mouth, Daily, # 60 tablet, 5 Refills, Maintenance, 02/02/22 16:11:00 EDT, [facility] #[id number], 165, cm, 01/20/22 15:45:00 EDT, Height, 118, [...] 6 Refills, Maintenance, 02/03/22 17:18:00 EDT, Tablet, [facility] #1... Start Date: 02/03/22 Stop Date: 09/01/22 Status: Ordered Saline Mist 0.65% nasal spray 1 sprays, Nares, Both, 3 times a day, followed by bulb suction as directed and as needed for nasal congestion., # 1 each, 4 Refills, Maintenance, 09/08/20 12:56:00 EST, [facility] #42162, 1sprays Nares, Both 3 times a day,x7 days,Instr:foll... Start Date: 09/08/20 Stop Date: 10/13/20 Status: Ordered sertraline 25 mg oral tablet 1 tablet, By Mouth, Daily, # 30 tablet, 3 Refills, Maintenance, 09/01/21 12:27:00 EST, [facility] #[id number], 165, cm, 07/13/21 11:17:00 EDT, Height Start Date: 09/01/21 Status: Ordered sucralfate 1 gm oral tablet See Instructions, # 120 tablet, TAKE 1 TABLET BY MOUTH FOUR TIMES DAILY, [facility] [address] Start Date: 03/26/19 Status: Ordered Problem List [...]
--- OUTSIDE RECORDS SUMMARY | 2023-10-25 23:58 | XMS_ITS | Continuity of Care Document ---
Author Name Unknown Organization [facility] Address [address] [place] [id number]- Care Team Providers Care Phone Screener Name Role Phone Bridget Burk NP, Ila Primary Care Physician Encounter [facility] Date(s): 05/27/23 - 09/24/23 [facility] [address] [place] [id number] Attending Physician: Maya Tenorio MD Admitting Physician: [...] Gm, 5 Refills, Maintenance, 06/06/23 10:02:00 EDT, [facility] #59015, 30, INHALE 2 PUFFS BY MOUTH TWICE DAILY, 165, cm, 05/12/23 12:42:00 EDT, Height, 112.7, kg, 09/27/22 14:59:00 EST, Dry Weight Start Date: 06/06/23 Status: Ordered amLODIPine 5 mg oral tablet 5 mg, 1, tablet, By Mouth, Daily, # 30 tablet, Refills 0, Tot. Refills 0, Maintenance, 07/18/23 12:11:00 EDT, [id number], Partial fill upon patient request if the [...] 5 Refills, Maintenance, 06/04/20 13:35:00 EDT, Tablet, [facility] #23090, 165, cm, 03/14/20 15:15:00 EDT, Height Start Date: 06/04/20 Status: Ordered dextromethorphan-guaifenesin 10 mg-100 mg/5 mL oral liquid 5 mL, By Mouth, Every 4 hours, PRN for cough, # 300 mL, 0 Refills, Maintenance, 03/24/22 10:17:00 EDT, Liquid, [facility] #46735, Partial fill upon patient request if the prescription is for a schedule II opioid drug., 5 mL By Mouth Every 4... Start Date: 03/24/22 Status: Ordered Diclofenac = 75 mg, By Mouth, 2 times a day, prescribed by Dr. Pierre, Neurologist in [facility] takesprn, 0 Refills, Maintenance, 08/09/16 8:32:51 Start Date: 08/09/16 Status: Ordered docusate sodium 100 mg oral capsule 1 capsule = 100 mg, By Mouth, 2 times a day, PRN as needed for constipation, with plenty of water, # 60 capsule, 1 Refills, Maintenance, 02/21/23 15:56:00 EDT, Capsule, [facility] #[id number], Partial fill upon patient request if the [...] 1 each, 4 Refills, Maintenance,07/10/20 14:41:00 EDT, [facility] #[id number], 1 spray each nostril BID,PRN:Nasal Congestion, 165, cm, 03/14/20 15:15:00 EDT, Height Start Date: 07/10/20 Status: Ordered levothyroxine 150 mcg (0.15 mg) oral tablet 1 tablet = 150 mcg, By Mouth, Daily, # 30 tablet, 11 Refills, Maintenance, 05/21/23 7:23:00 EDT, [facility], Partial fill upon patient request if the prescription is for a schedule II opioid drug., 165, cm, 05/12/23 12:42:00 E... Start Date: 05/21/23 Stop Date: 05/15/24 Status: Ordered lidocaine 4% topical cream 1 application, Topically, 3 times a day, # 15 Gm, 1 Refills, Maintenance, 03/14/20 15:53:00 EDT, Cream, [facility] #75715, 1 application Topically 3 times a day, 165, cm, 03/14/20 15:15:00 EDT, Height, 118.4, kg, 04/28/18 17:05:00 EDT, Dry W... Start Date: 03/14/20 Status: Ordered lidocaine 5% topical film 1 patch, Topically, Daily, PRN Pain , Moderate, remove patches after 12 hours, # 30 patch, 1 Refills, Maintenance, 08/08/23 14:19:00 EST, Film, [facility] #[id number], Partial fill upon patient request if the prescription is for a schedule II opi... Start Date: 08/08/23 Status: Ordered lisinopril 20 mg oral tablet 20 mg, 1, tablet, By Mouth, Daily, # 90 tablet, Refills 0, Tot. Refills 0, Maintenance, 07/18/23 12:11:00 EDT, Route to Pharmacy Electronically, [facility] #[id number], Partial fill upon patientrequest if the prescription is for a schedule II op... Start Date: 07/18/23 Status: Ordered Lubricant Eye Drops ophthalmic solution 1 drops, Eyes, Both, 2 times a day, PRN for dry eyes, # 30 each, 1 Refills, Maintenance, 06/04/20 13:37:00 EDT, Solution, [facility] #89385, 1 drops Eyes, Both 2 times a day,PRN:for dry eyes, 165, cm, 03/14/20 15:15:00 EDT, Height Start Date: 06/04/20 Status: Ordered metFORMIN 750 mg oral tablet, extended release See Instructions, TAKE 1 TABLET BY MOUTH TWICE DAILY TAKE WITH MEALS, # 60 tablet, 3 Refills, Maintenance, 08/03/23 20:55:00 EST, [facility] #[id number], 165, cm, 07/25/23 13:56:00 EST, Height, 112.7, kg, 09/27/22 14:59:00 EST, Dry Weight Start Date: 08/03/23 Status: Ordered MiraLax oral powder for reconstitution = 17 Gm, By Mouth, Daily, PRN Constipation, dissolve in water before taking, # 255 Gm, 0 Refills, Maintenance, 02/21/23 15:55:00 EDT, REC Powder, [facility] #[id number], Partial fill upon patient request if the [...] Refills, Maintenance, 12/31/22 13:28:00 EDT, REC Powder, [facility] #[id number], Partial fill upon patient request if the prescription is for a schedule... Start Date: 12/31/22 Status: Ordered ProAir HFA 90 mcg/inh inhalation aerosol with adapter 2, puffs, Inhalation, Every 4 hours, PRN, # 8.5 Gm, Refills 0, Route to Pharmacy Electronically, [id number], [facility] #[id number], 165, cm, 04/30/22 10:50:00 EDT, Height, 118, kg, 01/18/22 15:08:00 EDT, Dry Weight Start Date: 05/10/22 Status: Ordered Saline Mist 0.65% nasal spray 1 sprays, Nares, Both, 3 times a day, followed by bulb suction as directed and as needed for nasal congestion., # 1 each, 4 Refills, Maintenance, 09/08/20 12:56:00 EST, [facility] #48024, 1sprays Nares, Both 3 times a day,x7 [...] tablet, 0 Refills, Maintenance, 10/27/22 17:07:00 EST, [facility] #[id number], 165, cm, 09/27/22 14:59:00 EST, Height, 112.7, kg, 09/27/22 14:59:00 EST, Dry Weight Start Date: 10/27/22 Status: Ordered sucralfate 1 gm oral tablet See Instructions, # 120 tablet, TAKE 1 TABLET BY MOUTH FOUR TIMES DAILY, [facility] [address]22 Start Date: 03/26/19 Status: Ordered Zithromax Z-Mulugeta 250 mg oral tablet 1 pack/packet, By Mouth, Once, # 6 tablet, 0 Refills, Soft Stop, 03/24/22 10:16:00 EDT, Tablet, [facility] #[id number], Partial fill upon patient request if the [...] Team Personnel Name: Vanessa Perry NP Position: [facility] PCO Associate Professional Member Role: Lifetime Consulting Provider Address: Address: [address] [place] [address] Name: Ila Freed NP Position: [facility] Associate Professional Member Role: PCP Address: Address: [address] [place] [address] Care Team Related Persons Name: YESENIA ALARCON Address: [place] [address] Name: DORA ALARCON Address: home [address] [place] [address]
--- OUTSIDE RECORDS SUMMARY | 2023-10-25 23:58 | XMS_ITS | Continuity of Care Document ---
Author Name Unknown Organization [facility] Address [address] [place] [address]- Care Team Providers Care Strip Polisher Name Role Phone Sonido VILLAREAL, Zuleika [place] Primary Care Physician [phone] Encounter [facility] [place](s): 04/01/20 - 05/14/[address] [address]- [facility] Attending Physician: Yesi Garcia MD Admitting Physician: Yesi Garcia MD Referring Physician: Pal VILLAREAL, Lan [place] Allergies, Adverse Reactions, Alerts Substance Reaction Severity [...] 16:07:00 EST, Powder, Route to Pharmacy Electronically, [id number], [id number]... Start Date: 10/02/19 Status: Ordered AirDuo RespiClick 55 mcg-14 mcg/inh inhalation powder 1, inhalation, Inhalation, 2 times a day, # 1 each, Refills 11, Tot. Refills 11, Maintenance, 12/10/19 12:44:00 EDT, Route to Pharmacy Electronically, [id number], [facility] #[id number], 165, cm, 11/26/19 14:41:00 EDT, Flavia. Start Date: 12/10/19 Status: Ordered albuterol 0.083% inhalation solution 3 mL = 2.5 mg, Neb, Once, given as duoneb LOT [id number] EXP 01/2021, 0 Refills, Maintenance, 07/11/19 11:14:40 EDT Start Date: 07/11/19 Status: Ordered albuterol-ipratropium 3 mg-0.5 mg/3 ml inhalation solution 3 mL, Inhalation, 4 times a day, # 30 each, 0 Refills, Maintenance, 10/02/19 16:07:00 EST, Solution, [facility] #[id number], 3 mL Inhalation 4 times a day, 165, cm, 10/02/19 15:38:00 EST, Height, 118.4, kg, 04/28/18 17:05:00 EDT, Dry Weight Start Date: 10/02/19 Status: Ordered amitriptyline 25 mg oral tablet 1, tablet, By Mouth, 2 times a day, # 60 tablet, Refills 2, Tot. Refills 0, Maintenance, 09/13/19 16:25:00 EST, Route to Pharmacy Electronically, [facility] #[id number], 165, cm, 07/11/19 10:33:00 EDT, Height, 118.4, [...] 11 Refills, Maintenance, 10/02/19 16:08:00 EST, Tablet, [facility] #43290, 165, cm, 10/02/19 15:38:00 EST, Height, 118.4, [...] times a day, PRN, prescribed by Dr Pirere Neurologist in [place], # 30 tablet, Refills 0, Maintenance, for spasm, 08/09/16 8:33:39 Start Date: 08/09/16 Stop Date: 08/23/16 Status: Ordered Diclofenac = 75 mg, By Mouth, 2 times a day, prescribed by Dr. Pierre, Neurologist in [place] pt states takesprn, 0 Refills, Maintenance, 08/09/16 8:32:51 Start Date: 08/09/16 Status: Ordered Fioricet Tablet 1 tab, By Mouth, Every 4 hours, prescribed by Dr. Mckeon for migraines, # 30 tablet, 0 Refills, Maintenance, 04/18/14 11:41:59 Start Date: 04/18/14 Status: Ordered Flonase 50 mcg/inh nasal spray 1 sprays, Nares, Both, 2 times a day, # 16 Gm, 2 Refills, Maintenance, 10/02/19 16:08:00 EST, [place], [facility] #[id number], 1 sprays Nares, Both 2 times a [...] 1 Refills, Maintenance, 04/04/20 14:33:00 EDT, Tablet, [facility] #24937, 1 tablet By Mouth Daily,x30 days,Instr:for blood pressure, 165, cm, 03/14/20 15:15:00 EDT, Height, 118.4, k... Start Date: 04/04/20 Stop Date: 06/03/20 Status: Ordered Ipratropium 0.02% Inhalation Solution 2.5, mL, Neb, Once, given as duoneb LOT [id number] EXP 12/2020, Refills 0, Maintenance, 07/11/19 11:15:17 [...] tablet, 2 Refills, Maintenance, 12/27/19 15:39:00 EDT, [facility] #[id number], 165, cm, 11/26/19 14:41:00 EDT, Height, 118.4, kg, 04/28/18 17:05:00 EDT, Dry Weight Start Date: 12/27/19 Status: Ordered lidocaine 4% topical cream 1 application, Topically, 3 times a day, # 15 Gm, 1 Refills, Maintenance, 03/14/20 15:53:00 EDT, Cream, [facility] #[id number], 1 application Topically 3 times a day, 165, cm, 03/14/20 15:15:00 EDT, Height, 118.4, kg, 04/28/18 17:05:00 EDT, Dry W... Start Date: 03/14/20 Status: Ordered metFORMIN 500 mg oral tablet, extended release 2 tablet = 1,000 mg, By Mouth, Daily, # 60 tablet, 5 Refills, Maintenance, 02/18/20 18:03:00 EDT, [facility] #[id number], 165, cm, 02/18/20 15:42:00 EDT, Height, 118.4, [...] 16:08:00 EST, Aerosol, Route to Pharmacy Electronically, [id number], [facility] #[id number], 165, cm, 10/02/19 15:38:... Start Date: 10/02/19 [...] tablet, 2 Refills, Maintenance, 09/13/19 16:25:00 EST, [facility] #71737, 165, cm, 07/11/19 10:33:00 EDT, Height, 118.4, kg, 04/28/18 17:05:00 EDT, Dry Weight Start Date: 09/13/19 Status: Ordered sucralfate 1 gm oral tablet See Instructions, # 120 tablet, TAKE 1 TABLET BY MOUTH FOUR TIMES DAILY, [facility] Start Date: 03/26/19 Status: Ordered traZODone 50 mg oral tablet 1, tablet, By Mouth, Daily at bedtime, # 30 tablet, Refills 2, Tot. Refills 0, Maintenance, 02/20/20 15:07:00 EDT, Route to Pharmacy Electronically, [facility] #[id number], 165, cm, 02/18/20 15:42:00 EDT, Height, 118.4, [...]
--- OUTSIDE RECORDS SUMMARY | 2023-10-25 23:58 | XMS_ITS | Continuity of Care Document ---
Author Name Unknown Organization [facility] Address [address] [place] [address]- Care Team Providers Care Biodiesel Plant Superintendent Name Role Phone Sonido VILLAREAL, Zuleika [place] Primary Care Physician [place] [facility] [place] 01/16/21 - 01/23/[address] [address]- Encounter Diagnosis Sialoadenitis, unspecified(Final) - Discharge Disposition: A-D/C Home Attending Physician: Kayden Hedrick MD Admitting Physician: Kayden Hedrick MD Referring Physician: Kayden Hedrick MD Allergies, Adverse Reactions, Alerts Substance Reaction [...] 14:48:00 EDT, Powder, Route to Pharmacy Electronically, [id number], [facility] #10... Start Date: 07/10/20 Status: Ordered albuterol 0.083% inhalation solution 3 mL = 2.5 mg, Neb, Once, given as duoneb LOT [id number] EXP 01/2021, 0 Refills, Maintenance, 07/11/19 11:14:40 EDT Start Date: 07/11/19 Status: Ordered albuterol-ipratropium 3 mg-0.5 mg/3 ml inhalation solution 3 mL, Inhalation, 4 times a day, # 30 each, 0 Refills, Maintenance, 10/02/19 16:07:00 EST, Solution, [facility] #39639, 3 mL Inhalation 4 times a day, 165, cm, 10/02/19 15:38:00 EST, Height, 118.4, kg, 04/28/18 17:05:00 EDT, Dry Weight Start Date: 10/02/19 Status: Ordered Augmentin 875 mg-125 mg oral tablet 1 tablet, By Mouth, Every 12 hours, for 7 days, # 14 tablet, 0 Refills, Acute 01/30/21 16:44:00 EDT, 01/23/21 16:44:00 EDT, Tablet, [facility] #[id number], Partial fill upon patient request if the prescription is for a schedule II opioid drug., 1... Start Date: 01/23/21 Stop Date: 01/30/21 Status: Ordered AutoCPAP 10-16 with heated humidification AutoCPAP 10-16 with heated humidification, See Instructions, # 1 each, Refills 0, Tot. Refills 0, Maintenance, use overnight and naps from [facility], 03/25/20 13:05:00 EDT, Compound Start [...] 5 Refills, Maintenance, 06/04/20 13:35:00 EDT, Tablet, [facility] #01918, 165, cm, 03/14/20 15:15:00 EDT, Height Start Date: 06/04/20 Status: Ordered dextromethorphan-guaifenesin 10 mg-100 mg/5 mL oral liquid 5 mL, By Mouth, Every 4 hours, PRN for cough, # 300 mL, 0 Refills, Maintenance, 09/08/20 12:59:00 EST, Liquid, [facility] #59369, Partial fill upon patient request if the prescription is for a schedule II opioid drug., 5 mL By Mouth Every 4... Start Date: 09/08/20 Status: Ordered Diclofenac = 75 mg, By Mouth, 2 times a day, prescribed by Dr. Pierre, Neurologist in [facility] states takesprn, 0 Refills, Maintenance, 08/09/16 [...] PRESSURE., # 30 tablet, 2 Refills, Maintenance, 12/17/20 16:02:00 EDT, [facility] #70731, 30, pt needs labs, 1 tablet By Mouth David... Start Date: 12/17/20 Status: Ordered Ipratropium 0.02% Inhalation Solution 2.5, mL, Neb, Once, given as duoneb LOT [id number] EXP 12/2020, Refills 0, Maintenance, 07/11/19 11:15:17 EDT Start Date: 07/11/19 Status: Ordered ipratropium nasal 21 mcg/inh spray See Instructions, PRN Nasal Congestion, 1 spray each nostril BID, # 1 each, 4 Refills, Maintenance,07/10/20 14:41:00 EDT, [facility] #69866, 1 spray each nostril BID,PRN:Nasal Congestion, 165, cm, 03/14/20 15:15:00 EDT, Height Start Date: 07/10/20 Status: Ordered levothyroxine 175 mcg (0.175 mg) oral tablet 1 tablet, By Mouth, Daily, # 90 tablet, 2 Refills, Maintenance, 09/08/20 12:51:00 EST, [facility] #18774, 165, cm, 03/14/20 15:15:00 EDT, Height Start Date: 09/08/20 Status: Ordered lidocaine 4% topical cream 1 application, Topically, 3 times a day, # 15 Gm, 1 Refills, Maintenance, 03/14/20 15:53:00 EDT, Cream, [facility] #38072, 1 application Topically 3 times a day, 165, cm, 03/14/20 15:15:00 EDT, Height, 118.4, kg, 04/28/18 17:05:00 EDT, Dry W... Start Date: 03/14/20 Status: Ordered Lubricant Eye Drops ophthalmic solution 1 drops, Eyes, Both, 2 times a day, PRN for dry eyes, # 30 each, 1 Refills, Maintenance, 06/04/20 13:37:00 EDT, Solution, [facility] #[id number], 1 drops Eyes, Both 2 times a day,PRN:for dry eyes, 165, cm, 03/14/20 15:15:00 EDT, Height Start Date: 06/04/20 Status: Ordered metFORMIN 500 mg oral tablet, extended release 2 tablet = 1,000 mg, By Mouth, Daily, # 60 tablet, 5 Refills, Maintenance, 09/08/20 12:51:00 EST, [facility] #63614, 165, cm, 03/14/20 15:15:00 EDT, Height Start [...] 9:34:00 EST, Aerosol, Route to Pharmacy Electronically, [id number], [facility] #37191, 165, cm, 11/12/20 9:01:00... Start Date: 11/12/20 Stop Date: 11/07/21 Status: Ordered Saline Mist 0.65% nasal spray 1 sprays, Nares, Both, 3 times a day, followed by bulb suction as directed and as needed for nasal congestion., # 1 each, 4 Refills, Maintenance, 09/08/20 12:56:00 EST, [facility] #60878, 1sprays Nares, Both 3 times a day,x7 days,Instr:foll... Start Date: 09/08/20 Stop Date: 10/13/20 Status: Ordered sertraline 25 mg oral tablet 1 tablet, By Mouth, Daily, # 30 tablet, 0 Refills, Maintenance, 01/13/21 14:56:00 EDT, [facility] #39781, 165, cm, 11/12/20 9:01:00 EST, Height Start Date: 01/13/21 Status: Ordered Spiriva HandiHaler 18 mcg inhalation capsule 1 capsule = 18 mcg, Inhalation, Daily, use two inhalations of one capsule for each dose, # 30 capsule, 11 Refills, Maintenance, 07/10/20 14:50:00 EDT, [facility] #64756, 165, cm, 03/14/20 15:15:00 EDT, Height Start Date: 07/10/20 Status: Ordered sucralfate 1 gm oral tablet See Instructions, # 120 tablet, TAKE 1 TABLET BY MOUTH FOUR TIMES DAILY, [facility] [address] Start Date: 03/26/19 Status: Ordered traZODone 50 mg oral tablet 1, tablet, By Mouth, Daily at bedtime, # 30 tablet, Refills 2, Tot. Refills 2, Maintenance, 12/12/20 11:25:00 EDT, Route to Pharmacy Electronically, [facility] #60064, 165, cm, 11/12/20 9:01:00 EST, Height Start [...] A1c goal of less than 7.0%(Confirmed) Active Vital Signs Most recent to oldest [Reference Range]: 1 Height 165 cm (01/16/21 4:24 PM) Weight 116.20 kg (01/16/21 4:24 PM) Oxygen Saturation [94-100 %] 99 % (01/16/21 4:24 PM) Pulse Rate [55-90 bpm] 78 bpm (01/16/21 4:24 PM) Body Mass Index [18.5-24.99] 42.68 *>HHI* (01/16/21 4:24 PM) Blood Pressure [90-138/55-84 mm Hg] 135/ 70mm Hg (01/16/21 4:24 PM) Temperature [96.8-100.4 DegF] 97.3 DegF (01/16/21 4:24 PM) Blood pressure sites Arm, right (01/16/21 4:24 PM) Temperature Route Tympanic (01/16/21 4:24 PM) Social History Social History Type Response Smoking Status Former smoker; Tobac co user in household: No; Other: stop 3 years ago 2012; entered on: 08/19/15 Sex
--- OUTSIDE RECORDS SUMMARY | 2023-10-25 23:58 | XMS_ITS | Continuity of Care Document ---
Author Name Unknown Organization [facility] Address [address] [place] [address]- Care Team Providers Care Balance Staff Staker Name Role Phone Bridget Burk PIN MACHINE TENDER, Ila Primary Care Physician En[place] [facility] [place] Date(s): 07/08/23 - 08/07/23 [facility] [address] [place] [id number] Allergies, Adverse Reactions, Alerts Substance Reaction Severity [...] Gm, 5 Refills, Maintenance, 06/06/23 10:02:00 EDT, [facility] #[id number], 30, INHALE 2 PUFFS BY MOUTH TWICE DAILY, 165, cm, 05/12/23 12:42:00 EDT, Height, 112.7, kg, 09/27/22 14:59:00 EST, Dry Weight Start Date: 06/06/23 Status: Ordered amLODIPine 5 mg oral tablet 5 mg, 1, tablet, By Mouth, Daily, # 30 tablet, Refills 0, Tot. Refills 0, Maintenance, 07/18/23 12:11:00 EDT, Route to Pharmacy Electronically, [facility] #[id number], Partial fill upon patient request if the [...] 5 Refills, Maintenance, 06/04/20 13:35:00 EDT, Tablet, [facility] #15538, 165, cm, 03/14/20 15:15:00 EDT, Height Start Date: 06/04/20 Status: Ordered dextromethorphan-guaifenesin 10 mg-100 mg/5 mL oral liquid 5 mL, By Mouth, Every 4 hours, PRN for cough, # 300 mL, 0 Refills, Maintenance, 03/24/22 10:17:00 EDT, Liquid, [facility] #40128, Partial fill upon patient request if the prescription is for a schedule II opioid drug., 5 mL By Mouth Every 4... Start Date: 03/24/22 Status: Ordered Diclofenac = 75 mg, By Mouth, 2 times a day, prescribed by Dr. Pierre, Neurologist in [facility] takesprn, 0 Refills, Maintenance, 08/09/16 8:32:51 Start Date: 08/09/16 Status: Ordered docusate sodium 100 mg oral capsule 1 capsule = 100 mg, By Mouth, 2 times a day, PRN as needed for constipation, with plenty of water, # 60 capsule, 1 Refills, Maintenance, 02/21/23 15:56:00 EDT, Capsule, [facility] #81739, Partial fill upon patient request if the [...] 1 each, 4 Refills, Maintenance,07/10/20 14:41:00 EDT, [facility] #21505, 1 spray each nostril BID,PRN:Nasal Congestion, 165, cm, 03/14/20 15:15:00 EDT, Height Start Date: 07/10/20 Status: Ordered levothyroxine 150 mcg (0.15 mg) oral tablet 1 tablet = 150 mcg, By Mouth, Daily, # 30 tablet, 11 Refills, Maintenance, 05/21/23 7:23:00 EDT, Tablet, [facility] #[id number], Partial fill upon patient request if the prescription is for a schedule II opioid drug., 165, cm, 05/12/23 12:42:00 E... Start Date: 05/21/23 Stop Date: 05/15/24 Status: Ordered lidocaine 4% topical cream 1 application, Topically, 3 times a day, # 15 Gm, 1 Refills, Maintenance, 03/14/20 15:53:00 EDT, Cream, [facility] #14239, 1 application Topically 3 times a day, 165, cm, 03/14/20 15:15:00 EDT, Height, 118.4, kg, 04/28/18 17:05:00 EDT, Dry W... Start Date: 03/14/20 Status: Ordered lisinopril 20 mg oral tablet 20 mg, 1, tablet, By Mouth, Daily, # 90 tablet, Refills 0, Tot. Refills 0, Maintenance, 07/18/23 12:11:00 EDT, Route to Pharmacy Electronically, [facility] #13188, Partial fill upon patientrequest if the prescription is for a schedule II op... Start Date: 07/18/23 Status: Ordered Lubricant Eye Drops ophthalmic solution 1 drops, Eyes, Both, 2 times a day, PRN for dry eyes, # 30 each, 1 Refills, Maintenance, 06/04/20 13:37:00 EDT, Solution, [facility] #23998, 1 drops Eyes, Both 2 times a day,PRN:for dry eyes, 165, cm, 03/14/20 15:15:00 EDT, Height Start Date: 06/04/20 Status: Ordered metFORMIN 750 mg oral tablet, extended release See Instructions, TAKE 1 TABLET BY MOUTH TWICE DAILY TAKE WITH MEALS, # 60 tablet, 3 Refills, Maintenance, 08/03/23 20:55:00 EST, [facility] #27520, 165, cm, 07/25/23 13:56:00 EST, Height, 112.7, kg, 09/27/22 14:59:00 EST, Dry Weight Start Date: 08/03/23 Status: Ordered MiraLax oral powder for reconstitution = 17 Gm, By Mouth, Daily, PRN Constipation, dissolve in water before taking, # 255 Gm, 0 Refills, Maintenance, 02/21/23 15:55:00 EDT, REC Powder, [facility] #62084, Partial fill upon patient request if the [...] Refills, Maintenance, 12/31/22 13:28:00 EDT, REC Powder, [facility] #86710, Partial fill upon patient request if the prescription is for a schedule... Start Date: 12/31/22 Status: Ordered ProAir HFA 90 mcg/inh inhalation aerosol with adapter 2, puffs, Inhalation, Every 4 hours, PRN, # 8.5 Gm, Refills 0, Route to Pharmacy Electronically, [id number], [facility] #46683, 165, cm, 04/30/22 10:50:00 EDT, Height, 118, kg, 01/18/22 15:08:00 EDT, Dry Weight Start Date: 05/10/22 Status: Ordered Saline Mist 0.65% nasal spray 1 sprays, Nares, Both, 3 times a day, followed by bulb suction as directed and as needed for nasal congestion., # 1 each, 4 Refills, Maintenance, 09/08/20 12:56:00 EST, [facility] #08059, 1sprays Nares, Both 3 times a day,x7 [...] tablet, 0 Refills, Maintenance, 10/27/22 17:07:00 EST, [facility] #49305, 165, cm, 09/27/22 14:59:00 EST, Height, 112.7, kg, 09/27/22 14:59:00 EST, Dry Weight Start Date: 10/27/22 Status: Ordered sucralfate 1 gm oral tablet See Instructions, # 120 tablet, TAKE 1 TABLET BY MOUTH FOUR TIMES DAILY, [facility] [address] Start Date: 03/26/19 Status: Ordered Zithromax Z-Mulugeta 250 mg oral tablet 1 pack/packet, By Mouth, Once, # 6 tablet, 0 Refills, Soft Stop, 03/24/22 10:16:00 EDT, Tablet, [facility] #38915, Partial fill upon patient request if the [...] Team Personnel Name: Vanessa Perry NP Position: [facility] Associate Professional Member Role: Lifetime Consulting Provider Address: Address: [address] [place] [address]- Name: Ila Freed NP Position: [facility] Associate Professional Member Role: PCP Address: Address: [address] [place] [address] Care Team Related Persons Name: YESENIA ALARCON Address: [place] [address] Name: DORA ALARCON Address: home [address] [place] [id number]
--- OUTSIDE RECORDS SUMMARY | 2023-10-25 23:58 | XMS_ITS | Continuity of Care Document ---
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 Name Role Phone Bridget Burk NP, Ila Primary Care Physician Encounter [facility] [place] Date(s): 05/13/23 - 09/14/[address] [address] [place] Attending Physician: Bolivar Perez MD Admitting Physician: Bolivar Perez MD Referring Physician: Bolivar Perez MD Allergies, [...] Gm, 5 Refills, Maintenance, 06/06/23 10:02:00 EDT, [facility] #15285, 30, INHALE 2 PUFFS BY MOUTH TWICE DAILY, 165, cm, 05/12/23 12:42:00 EDT, Height, 112.7, kg, 09/27/22 14:59:00 EST, Dry Weight Start Date: 06/06/23 Status: Ordered amLODIPine 5 mg oral tablet 5 mg, 1, tablet, By Mouth, Daily, # 30 tablet, Refills 0, Tot. Refills 0, Maintenance, 07/18/23 12:11:00 EDT, Route to Pharmacy Electronically, [facility] #43528, Partial fill upon patient request if the [...] 5 Refills, Maintenance, 06/04/20 13:35:00 EDT, Tablet, [facility] #80470, 165, cm, 03/14/20 15:15:00 EDT, Height Start Date: 06/04/20 Status: Ordered dextromethorphan-guaifenesin 10 mg-100 mg/5 mL oral liquid 5 mL, By Mouth, Every 4 hours, PRN for cough, # 300 mL, 0 Refills, Maintenance, 03/24/22 10:17:00 EDT, Liquid, [facility] #46478, Partial fill upon patient request if the prescription is for a schedule II opioid drug., 5 mL By Mouth Every 4... Start Date: 03/24/22 Status: Ordered Diclofenac = 75 mg, By Mouth, 2 times a day, prescribed by Dr. Pierre, Neurologist in [facility] takesprn, 0 Refills, Maintenance, 08/09/16 8:32:51 Start Date: 08/09/16 Status: Ordered docusate sodium 100 mg oral capsule 1 capsule = 100 mg, By Mouth, 2 times a day, PRN as needed for constipation, with plenty of water, # 60 capsule, 1 Refills, Maintenance, 02/21/23 15:56:00 EDT, Capsule, [facility] #05675, Partial fill upon patient request if the [...] 1 each, 4 Refills, Maintenance,07/10/20 14:41:00 EDT, [facility] #84552, 1 spray each nostril BID,PRN:Nasal Congestion, 165, cm, 03/14/20 15:15:00 EDT, Height Start Date: 07/10/20 Status: Ordered levothyroxine 150 mcg (0.15 mg) oral tablet 1 tablet = 150 mcg, By Mouth, Daily, # 30 tablet, 11 Refills, Maintenance, 05/21/23 7:23:00 EDT, [facility] #01856, Partial fill upon patient request if the prescription is for a schedule II opioid drug., 165, cm, 05/12/23 12:42:00 E... Start Date: 05/21/23 Stop Date: 05/15/24 Status: Ordered lidocaine 4% topical cream 1 application, Topically, 3 times a day, # 15 Gm, 1 Refills, Maintenance, 03/14/20 15:53:00 EDT, [facility]98960, 1 application Topically 3 times a day, 165, cm, 03/14/20 15:15:00 EDT, Height, 118.4, kg, 04/28/18 17:05:00 EDT, Dry W... Start Date: 03/14/20 Status: Ordered lidocaine 5% topical film 1 patch, Topically, Daily, PRN Pain , Moderate, remove patches after 12 hours, # 30 patch, 1 Refills, Maintenance, 08/08/23 14:19:00 EST, Film, [facility] #[id number], Partial fill upon patient request if the prescription is for a schedule II opi... Start Date: 08/08/23 Status: Ordered lisinopril 20 mg oral tablet 20 mg, 1, tablet, By Mouth, Daily, # 90 tablet, Refills 0, Tot. Refills 0, Maintenance, 07/18/23 12:11:00 EDT, Route to Pharmacy Electronically, [facility] #75199, Partial fill upon patientrequest if the prescription is for a schedule II op... Start Date: 07/18/23 Status: Ordered Lubricant Eye Drops ophthalmic solution 1 drops, Eyes, Both, 2 times a day, PRN for dry eyes, # 30 each, 1 Refills, Maintenance, 06/04/20 13:37:00 EDT, Solution, [facility] #09726, 1 drops Eyes, Both 2 times a day,PRN:for dry eyes, 165, cm, 03/14/20 15:15:00 EDT, Height Start Date: 06/04/20 Status: Ordered metFORMIN 750 mg oral tablet, extended release See Instructions, TAKE 1 TABLET BY MOUTH TWICE DAILY TAKE WITH MEALS, # 60 tablet, 3 Refills, Maintenance, 08/03/23 20:55:00 EST, [facility] #32857, 165, cm, 07/25/23 13:56:00 EST, Height, 112.7, kg, 09/27/22 14:59:00 EST, Dry Weight Start Date: 08/03/23 Status: Ordered MiraLax oral powder for reconstitution = 17 Gm, By Mouth, Daily, PRN Constipation, dissolve in water before taking, # 255 Gm, 0 Refills, Maintenance, 02/21/23 15:55:00 EDT, REC Powder, [facility] #99169, Partial fill upon patient request if the [...] Refills, Maintenance, 12/31/22 13:28:00 EDT, REC Powder, [facility] #[id number], Partial fill upon patient request if the prescription is for a schedule... Start Date: 12/31/22 Status: Ordered ProAir HFA 90 mcg/inh inhalation aerosol with adapter 2, puffs, Inhalation, Every 4 hours, PRN, # 8.5 Gm, Refills 0, Route to Pharmacy Electronically, [id number], [facility] #49098, 165, cm, 04/30/22 10:50:00 EDT, Height, 118, kg, 01/18/22 15:08:00 EDT, Dry Weight Start Date: 05/10/22 Status: Ordered Saline Mist 0.65% nasal spray 1 sprays, Nares, Both, 3 times a day, followed by bulb suction as directed and as needed for nasal congestion., # 1 each, 4 Refills, Maintenance, 09/08/20 12:56:00 EST, [facility] #67881, 1sprays Nares, Both 3 times a day,x7 [...] tablet, 0 Refills, Maintenance, 10/27/22 17:07:00 EST, [facility] #07523, 165, cm, 09/27/22 14:59:00 EST, Height, 112.7, kg, 09/27/22 14:59:00 EST, Dry Weight Start Date: 10/27/22 Status: Ordered sucralfate 1 gm oral tablet See Instructions, # 120 tablet, TAKE 1 TABLET BY MOUTH FOUR TIMES DAILY, [facility] Start Date: 03/26/19 Status: Ordered Zithromax Z-Mulugeta 250 mg oral tablet 1 pack/packet, By Mouth, Once, # 6 tablet, 0 Refills, Soft Stop, 03/24/22 10:16:00 EDT, Tablet, [facility] #16623, Partial fill upon patient request if the [...] Team Personnel Name: Vanessa Perry NP Position: [facility] Associate Professional Member Role: Lifetime Consulting Provider Address: Address: [address] [place] [address] Name: Ila Freed NP [facility] Associate Professional Member Role: PCP Address: Address: [address] [place] [address] Care Team Related Persons Name: YESENIA ALARCON Address: [place] [address] Name: DORA ALARCON Address: home [address] [place] [address]
--- OUTSIDE RECORDS SUMMARY | 2023-10-25 23:58 | XMS_ITS | Continuity of Care Document ---
Author Name Unknown Organization [facility] Address [address] [place] [address]- Care Team Providers Care Supervisor Byproducts Name Role Phone Zuleika Head NP Primary Care Physician Encounter [facility] Date(s): 02/12/21 - 03/14/[address] [address] Allergies, Adverse Reactions, Alerts Substance Reaction Severity [...] 14:48:00 EDT, Powder, Route to Pharmacy Electronically, [id number], [facility] #10... Start Date: 07/10/20 Status: Ordered albuterol 0.083% inhalation solution 3 mL = 2.5 mg, Neb, Once, given as duoneb LOT [id number] EXP 01/2021, 0 Refills, Maintenance, 07/11/19 11:14:40 EDT Start Date: 07/11/19 Status: Ordered albuterol-ipratropium 3 mg-0.5 mg/3 ml inhalation solution 3 mL, Inhalation, 4 times a day, # 30 each, 0 Refills, Maintenance, 10/02/19 16:07:00 EST, Solution, [facility] #69306, 3 mL Inhalation 4 times a day, [...] 5 Refills, Maintenance, 06/04/20 13:35:00 EDT, Tablet, [facility] #69655, 165, cm, 03/14/20 15:15:00 EDT, Height Start Date: 06/04/20 Status: Ordered dextromethorphan-guaifenesin 10 mg-100 mg/5 mL oral liquid 5 mL, By Mouth, Every 4 hours, PRN for cough, # 300 mL, 0 Refills, Maintenance, 09/08/20 12:59:00 EST, Liquid, [facility] #05171, Partial fill upon patient request if the prescription is for a schedule II opioid drug., 5 mL By Mouth Every 4... Start Date: 09/08/20 Status: Ordered Diclofenac = 75 mg, By Mouth, 2 times a day, prescribed by Dr. Pierre, Neurologist in [facility] takesprn, 0 Refills, Maintenance, 08/09/16 8:32:51 [...] tablet, 2 Refills, Maintenance, 03/11/21 10:40:00 EDT, [facility] #35463, 30, pt needs labs, 1 tablet By Mouth David... Start Date: 03/11/21 Status: Ordered Ipratropium 0.02% Inhalation Solution 2.5, mL, Neb, Once, given as duoneb LOT [id number] EXP 12/2020, Refills 0, Maintenance, 07/11/19 11:15:17 EDT Start Date: 07/11/19 Status: Ordered ipratropium nasal 21 mcg/inh spray See Instructions, PRN Nasal Congestion, 1 spray each nostril BID, # 1 each, 4 Refills, Maintenance,07/10/20 14:41:00 EDT, [facility] #22555, 1 spray each nostril BID,PRN:Nasal Congestion, 165, cm, 03/14/20 15:15:00 EDT, Height Start Date: 07/10/20 Status: Ordered levothyroxine 175 mcg (0.175 mg) oral tablet 1 tablet, By Mouth, Daily, # 90 tablet, 2 Refills, Maintenance, 09/08/20 12:51:00 EST, [facility] #23257, 165, cm, 03/14/20 15:15:00 EDT, Height Start Date: 09/08/20 Status: Ordered lidocaine 4% topical cream 1 application, Topically, 3 times a day, # 15 Gm, 1 Refills, Maintenance, 03/14/20 15:53:00 EDT, Cream, [facility] #90872, 1 application Topically 3 times a day, 165, cm, 03/14/20 15:15:00 EDT, Height, 118.4, kg, 04/28/18 17:05:00 EDT, Dry W... Start Date: 03/14/20 Status: Ordered Lubricant Eye Drops ophthalmic solution 1 drops, Eyes, Both, 2 times a day, PRN for dry eyes, # 30 each, 1 Refills, Maintenance, 06/04/20 13:37:00 EDT, Solution, [facility] #53328, 1 drops Eyes, Both 2 times a day,PRN:for dry eyes, 165, cm, 03/14/20 15:15:00 EDT, Height Start Date: 06/04/20 Status: Ordered metFORMIN 500 mg oral tablet, extended release 2 tablet = 1,000 mg, By Mouth, Daily, # 60 tablet, 5 Refills, Maintenance, 03/11/21 10:40:00 EDT, [facility] #59588, 165, cm, 03/11/21 9:56:00 EDT, Height Start [...] 9:34:00 EST, Aerosol, Route to Pharmacy Electronically, [id number], [facility] #20652, 165, cm, 11/12/20 9:01:00... Start Date: 11/12/20 Stop Date: 11/07/21 Status: Ordered Saline Mist 0.65% nasal spray 1 sprays, Nares, Both, 3 times a day, followed by bulb suction as directed and as needed for nasal congestion., # 1 each, 4 Refills, Maintenance, 09/08/20 12:56:00 EST, [facility] #56497, 1sprays Nares, Both 3 times a day,x7 days,Instr:foll... Start Date: 09/08/20 Stop Date: 10/13/20 Status: Ordered sertraline 25 mg oral tablet 1 tablet, By Mouth, Daily, # 30 tablet, 3 Refills, Maintenance, 02/10/21 22:06:00 EDT, [facility] #56462, 165, cm, 01/16/21 16:24:00 EDT, Height Start Date: 02/10/21 Status: Ordered Spiriva HandiHaler 18 mcg inhalation capsule 1 capsule = 18 mcg, Inhalation, Daily, use two inhalations of one capsule for each dose, # 30 capsule, 11 Refills, Maintenance, 07/10/20 14:50:00 EDT, [facility] #34936, 165, cm, 03/14/20 15:15:00 EDT, Height Start Date: 07/10/20 Status: Ordered sucralfate 1 gm oral tablet See Instructions, # 120 tablet, TAKE 1 TABLET BY MOUTH FOUR TIMES DAILY, [facility] 13041 Start Date: 03/26/19 Status: Ordered traZODone 50 mg oral tablet 1, tablet, By Mouth, Daily at bedtime, # 30 tablet, Refills 2, Tot. Refills 2, Maintenance, 03/11/21 10:40:00 EDT, Route to Pharmacy Electronically, [facility] #98015, 165, cm, 03/11/21 9:56:00 EDT, Height Start [...] - lower leg(Confirmed) Active Nasal congestion(Confirmed) Active TÑOITO on CPAP(Confirmed) Active Type 2 diabetes mellitus wit h hemoglobin A1c goal of less than 7.0%(Confirmed) Active Social History Social History Type Response Smoking Status Former smoker; Tobac co user in household: No; Other: stop 3 years ago 2012; entered on: 08/19/15 Sex
--- OUTSIDE RECORDS SUMMARY | 2023-10-25 23:58 | XMS_ITS | Continuity of Care Document ---
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 Start Date: 07/10/20 Status: Ordered albuterol 0.083% inhalation solution 3 mL = 2.5 mg, Neb, Once, given as duoneb LOT [id number] EXP 01/2021, 0 Refills, Maintenance, 07/11/19 11:14:40 EDT Start Date: 07/11/19 Status: Ordered albuterol-ipratropium 3 mg-0.5 mg/3 ml inhalation solution 3 mL, Inhalation, 4 times a day, # 30 each, 0 Refills, Maintenance, 10/02/19 16:07:00 EST, Solution, [facility] #83699, 3 mL Inhalation 4 times a day, 165, cm, 10/02/19 15:38:00 EST, Height, 118.4, kg, 04/28/18 17:05:00 EDT, Dry Weight Start Date: 10/02/19 Status: Ordered amitriptyline 25 mg oral tablet 1, tablet, By Mouth, 2 times a day, # 60 tablet, Refills 2, Tot. Refills 0, Maintenance, 09/13/19 16:25:00 EST, Route to Pharmacy Electronically, [facility] #79297, 165, cm, 07/11/19 10:33:00 EDT, Height, 118.4, kg, 04/28/18 17:05:00 EDT, . Start Date: 09/13/19 Status: Ordered AutoCPAP 10-16 with heated humidification AutoCPAP 10-16 with heated humidification, See Instructions, # 1 each, Refills 0, Tot. Refills 0, Maintenance, use overnight and naps from [facility], 03/25/20 13:05:00 EDT, Compound Start [...] PRN, prescribed by Dr Pierre Neurologist in [place], # 30 tablet, Refills 0, Maintenance, for spasm, 08/09/16 8:33:39 Start Date: 08/09/16 Stop Date: 08/23/16 Status: Ordered desloratadine 5 mg oral tablet 1 tablet = 5 mg, By Mouth, Daily, # 30 tablet, 5 Refills, Maintenance, 06/04/20 13:35:00 EDT, Tablet, [facility] #56520, 165, cm, 03/14/20 15:15:00 EDT, Height Start Date: 06/04/20 Status: Ordered Diclofenac = 75 mg, By Mouth, 2 times a day, prescribed by Dr. Pierre, Neurologist in [facility] takesprn, 0 Refills, Maintenance, 08/09/16 8:32:51 [...] tablet, 0 Refills, Maintenance, 07/21/20 16:15:00 EST, [facility] #75837, 30, TAKE 1 TABLET BY MOUTH DAILY FOR BLOOD PRESSURE, 165, cm, 03/14/20 15:15:00 EDT, Height Start Date: 07/21/20 Status: Ordered Ipratropium 0.02% Inhalation Solution 2.5, mL, Neb, Once, given as duoneb LOT [id number] EXP 12/2020, Refills 0, Maintenance, 07/11/19 11:15:17 EDT Start Date: 07/11/19 Status: Ordered ipratropium nasal 21 mcg/inh spray See Instructions, PRN Nasal Congestion, 1 spray each nostril BID, # 1 each, 4 Refills, Maintenance,07/10/20 14:41:00 EDT, [facility] #37368, 1 spray each nostril BID,PRN:Nasal Congestion, 165, cm, 03/14/20 15:15:00 EDT, Height Start Date: 07/10/20 Status: Ordered levothyroxine 175 mcg (0.175 mg) oral tablet 1 tablet, By Mouth, Daily, # 90 tablet, 2 Refills, Maintenance, 12/27/19 15:39:00 EDT, [facility] #28789, 165, cm, 11/26/19 14:41:00 EDT, Height, 118.4, kg, 04/28/18 17:05:00 EDT, Dry Weight Start Date: 12/27/19 Status: Ordered lidocaine 4% topical cream 1 application, Topically, 3 times a day, # 15 Gm, 1 Refills, Maintenance, 03/14/20 15:53:00 EDT, Cream, [facility] #99924, 1 application Topically 3 times a day, 165, cm, 03/14/20 15:15:00 EDT, Height, 118.4, kg, 04/28/18 17:05:00 EDT, Dry W... Start Date: 03/14/20 Status: Ordered Lubricant Eye Drops ophthalmic solution 1 drops, Eyes, Both, 2 times a day, PRN for dry eyes, # 30 each, 1 Refills, Maintenance, 06/04/20 13:37:00 EDT, Solution, [facility] #19354, 1 drops Eyes, Both 2 times a day,PRN:for dry eyes, 165, cm, 03/14/20 15:15:00 EDT, Height Start Date: 06/04/20 Status: Ordered metFORMIN 500 mg oral tablet, extended release 2 tablet = 1,000 mg, By Mouth, Daily, # 60 tablet, 5 Refills, Maintenance, 02/18/20 18:03:00 EDT, [facility] #49703, 165, cm, 02/18/20 15:42:00 EDT, Height, 118.4, [...] 16:08:00 EST, Aerosol, Route to Pharmacy Electronically, [id number], [facility] #18746, 165, cm, 10/02/19 15:38:... Start Date: 10/02/19 [...] each, 4 Refills, Maintenance, 06/04/20 13:36:00 EDT, [facility] #57188, 1sprays Nares, Both 3 times a day,x7 days,Instr:foll... Start Date: 06/04/20 Stop Date: 07/09/20 Status: Ordered sertraline 25 mg oral tablet 1 tablet, By Mouth, Daily, # 30 tablet, 2 Refills, Maintenance, 09/13/19 16:25:00 EST, [facility] #65329, 165, cm, 07/11/19 10:33:00 EDT, Height, 118.4, kg, 04/28/18 17:05:00 EDT, Dry Weight Start Date: 09/13/19 Status: Ordered Spiriva HandiHaler 18 mcg inhalation capsule 1 capsule = 18 mcg, Inhalation, Daily, use two inhalations of one capsule for each dose, # 30 capsule, 11 Refills, Maintenance, 07/10/20 14:50:00 EDT, [facility] #87816, 165, cm, 03/14/20 15:15:00 EDT, Height Start Date: 07/10/20 Status: Ordered sucralfate 1 gm oral tablet See Instructions, # 120 tablet, TAKE 1 TABLET BY MOUTH FOUR TIMES DAILY, [facility] 5[address]66 Start Date: 03/26/19 Status: Ordered traZODone 50 mg oral tablet 1, tablet, By Mouth, Daily at bedtime, # 30 tablet, Refills 2, Tot. Refills 2, Maintenance, 05/21/20 14:41:00 EDT, Route to Pharmacy Electronically, [facility] #02152, 165, cm, 03/14/20 15:15:00 EDT, Height, Dry [...]
--- OUTSIDE RECORDS SUMMARY | 2023-10-25 23:58 | XMS_ITS | Continuity of Care Document ---
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 Start Date: 10/02/19 Status: Ordered AirDuo RespiClick 55 mcg-14 mcg/inh inhalation powder 1, inhalation, Inhalation, 2 times a day, # 1 each, Refills 11, Tot. Refills 11, Maintenance, 12/10/19 12:44:00 EDT, Route to Pharmacy Electronically, [id number], [facility] #[id number], 165, cm, 11/26/19 14:41:00 EDT, [place]. Start Date: 12/10/19 Status: Ordered albuterol 0.083% inhalation solution 3 mL = 2.5 mg, Neb, Once, given as duoneb LOT [id number] EXP 01/2021, 0 Refills, Maintenance, 07/11/19 11:14:40 EDT Start Date: 07/11/19 Status: Ordered albuterol-ipratropium 3 mg-0.5 mg/3 ml inhalation solution 3 mL, Inhalation, 4 times a day, # 30 each, 0 Refills, Maintenance, 10/02/19 16:07:00 EST, Solution, [facility] #72415, 3 mL Inhalation 4 times a day, 165, cm, 10/02/19 15:38:00 EST, Height, 118.4, kg, 04/28/18 17:05:00 EDT, Dry Weight Start Date: 10/02/19 Status: Ordered amitriptyline 25 mg oral tablet 1, tablet, By Mouth, 2 times a day, # 60 tablet, Refills 2, Tot. Refills 0, Maintenance, 09/13/19 16:25:00 EST, Route to Pharmacy Electronically, [facility] #72112, 165, cm, 07/11/19 10:33:00 EDT, Height, 118.4, [...] 11 Refills, Maintenance, 10/02/19 16:08:00 EST, Tablet, [facility] #85837, 165, cm, 10/02/19 15:38:00 EST, Height, 118.4, [...] PRN, prescribed by Dr Pierre Neurologist in [place], # 30 tablet, Refills 0, Maintenance, for spasm, 08/09/16 8:33:39 Start Date: 08/09/16 Stop Date: 08/23/16 Status: Ordered Diclofenac = 75 mg, By Mouth, 2 times a day, prescribed by Dr. Pierre, Neurologist in [place] pt states takesprn, 0 Refills, Maintenance, 08/09/16 8:32:51 Start Date: 08/09/16 Status: Ordered Fioricet Tablet 1 tab, By Mouth, Every 4 hours, prescribed by Dr. Mckeon for migraines, # 30 tablet, 0 Refills, Maintenance, 04/18/14 11:41:59 Start Date: 04/18/14 Status: Ordered Flonase 50 mcg/inh nasal spray 1 sprays, Nares, Both, 2 times a day, # 16 Gm, 2 Refills, Maintenance, 10/02/19 16:08:00 EST, [place], [facility] #89753, 1 sprays Nares, Both 2 times a [...] 1 Refills, Maintenance, 04/04/20 14:33:00 EDT, Tablet, [facility] #35906, 1 tablet By Mouth Daily,x30 days,Instr:for blood pressure, 165, cm, 03/14/20 15:15:00 EDT, Height, 118.4, k... Start Date: 04/04/20 Stop Date: 06/03/20 Status: Ordered Ipratropium 0.02% Inhalation Solution 2.5, mL, Neb, Once, given as duoneb LOT [id number] EXP 12/2020, Refills 0, Maintenance, 07/11/19 11:15:17 [...] tablet, 2 Refills, Maintenance, 12/27/19 15:39:00 EDT, [facility] #84043, 165, cm, 11/26/19 14:41:00 EDT, Height, 118.4, kg, 04/28/18 17:05:00 EDT, Dry Weight Start Date: 12/27/19 Status: Ordered lidocaine 4% topical cream 1 application, Topically, 3 times a day, # 15 Gm, 1 Refills, Maintenance, 03/14/20 15:53:00 EDT, Cream, [facility] #90324, 1 application Topically 3 times a day, 165, cm, 03/14/20 15:15:00 EDT, Height, 118.4, kg, 04/28/18 17:05:00 EDT, Dry W... Start Date: 03/14/20 Status: Ordered metFORMIN 500 mg oral tablet, extended release 2 tablet = 1,000 mg, By Mouth, Daily, # 60 tablet, 5 Refills, Maintenance, 02/18/20 18:03:00 EDT, [facility] #92217, 165, cm, 02/18/20 15:42:00 EDT, Height, 118.4, [...] 16:08:00 EST, Aerosol, Route to Pharmacy Electronically, [id number], [facility] #29196, 165, cm, 10/02/19 15:38:... Start Date: 10/02/19 [...] tablet, 2 Refills, Maintenance, 09/13/19 16:25:00 EST, [facility] #30001, 165, cm, 07/11/19 10:33:00 EDT, Height, 118.4, kg, 04/28/18 17:05:00 EDT, Dry Weight Start Date: 09/13/19 Status: Ordered sucralfate 1 gm oral tablet See Instructions, # 120 tablet, TAKE 1 TABLET BY MOUTH FOUR TIMES DAILY, [facility] 98428 Start Date: 03/26/19 Status: Ordered traZODone 50 mg oral tablet 1, tablet, By Mouth, Daily at bedtime, # 30 tablet, Refills 2, Tot. Refills 0, Maintenance, 02/20/20 15:07:00 EDT, Route to Pharmacy Electronically, [facility] #[id number], 165, cm, 02/18/20 15:42:00 EDT, Height, 118.4, [...]
--- OUTSIDE RECORDS SUMMARY | 2023-10-25 23:59 | XMS_ITS | Continuity of Care Document ---
Author Name Unknown Organization [facility] Address [address] [place] [address]- Care Team Providers Care Retention Specialist Name Role Phone Bridget Burk ASSET PROTECTION GREETER, Ila Primary Care Physician Encounter [facility] Date(s): 02/02/23 - 03/04/[address] [address] Allergies, Adverse Reactions, Alerts [...] Gm, 6 Refills, Maintenance, 08/26/22 10:52:00 EST, [facility] #83900, 30, INHALE 2 PUFFS BY MOUTH TWICE DAILY, 165, cm, 05/20/22 13:56:00 EDT, Height, 118, kg, 01/18/22 15:08:00 EDT, Dry Weight Start Date: 08/26/22 Status: Ordered AutoCPAP 10-16 with heated humidification AutoCPAP 10-16 with heated humidification, See Instructions, # 1 each, Refills 0, Tot. Refills 0, Maintenance, use overnight and naps from [facility], 03/25/20 13:05:00 EDT, Compound Start Date: 03/25/20 [...] 5 Refills, Maintenance, 06/04/20 13:35:00 EDT, Tablet, [facility] #83919, 165, cm, 03/14/20 15:15:00 EDT, Height Start Date: 06/04/20 Status: Ordered dextromethorphan-guaifenesin 10 mg-100 mg/5 mL oral liquid 5 mL, By Mouth, Every 4 hours, PRN for cough, # 300 mL, 0 Refills, Maintenance, 03/24/22 10:17:00 EDT, Liquid, [facility] #72802, Partial fill upon patient request if the prescription is for a schedule II opioid drug., 5 mL By Mouth Every 4... Start Date: 03/24/22 Status: Ordered Diclofenac = 75 mg, By Mouth, 2 times a day, prescribed by Dr. Pierre, Neurologist in [place] pt states takesprn, 0 Refills, Maintenance, 08/09/16 8:32:51 Start Date: 08/09/16 Status: Ordered docusate sodium 100 mg oral capsule 1 capsule = 100 mg, By Mouth, 2 times a day, PRN as needed for constipation, with plenty of water, # 60 capsule, 1 Refills, Maintenance, 02/21/23 15:56:00 EDT, Capsule, [facility] #75934, Partial fill upon patient request if the [...] tablet, 0 Refills, Maintenance, 05/29/22 21:25:00 EDT, [facility] #40284, 90, TAKE 1 TABLET BY MOUTHEVERY DAY, DRINK ADEQUATE WATER AND CONTINUE TO MON... Start Date: 05/29/22 Status: Ordered ipratropium nasal 21 mcg/inh spray See Instructions, PRN Nasal Congestion, 1 spray each nostril BID, # 1 each, 4 Refills, Maintenance,07/10/20 14:41:00 EDT, [facility] #96482, 1 spray each nostril BID,PRN:Nasal Congestion, 165, cm, 03/14/20 15:15:00 EDT, Height Start Date: 07/10/20 Status: Ordered levothyroxine 175 mcg (0.175 mg) oral tablet 1 tablet, By Mouth, Daily, # 90 tablet, 0 Refills, Maintenance, 12/27/22 10:51:00 EDT, [facility] #84290, 165, cm, 09/27/22 14:59:00 EST, Height, 112.7, kg, 09/27/22 14:59:00 EST, Dry Weight Start Date: 12/27/22 Status: Ordered lidocaine 4% topical cream 1 application, Topically, 3 times a day, # 15 Gm, 1 Refills, Maintenance, 03/14/20 15:53:00 EDT, Cream, [facility] #55645, 1 application Topically 3 times a day, 165, cm, 03/14/20 15:15:00 EDT, Height, 118.4, kg, 04/28/18 17:05:00 EDT, Dry W... Start Date: 03/14/20 Status: Ordered Lubricant Eye Drops ophthalmic solution 1 drops, Eyes, Both, 2 times a day, PRN for dry eyes, # 30 each, 1 Refills, Maintenance, 06/04/20 13:37:00 EDT, Solution, [facility] #06891, 1 drops Eyes, Both 2 times a day,PRN:for dry eyes, 165, cm, 03/14/20 15:15:00 EDT, Height Start Date: 06/04/20 Status: Ordered metFORMIN 750 mg oral tablet, extended release 1 tablet = 750 mg, By Mouth, 2 times a day, Take with meals., # 60 tablet, 2 Refills, Maintenance, 05/22/23 21:27:00 EDT, ER Tablet, [facility] #81976, Partial fill upon patient request if the [...] Refills, Maintenance, 02/21/23 15:55:00 EDT, REC Powder, [facility] #05435, Partial fill upon patient request if the [...] Refills, Maintenance, 12/31/22 13:28:00 EDT, REC Powder, [facility] #22750, Partial fill upon patient request if the prescription is for a schedule... Start Date: 12/31/22 Status: Ordered ProAir HFA 90 mcg/inh inhalation aerosol with adapter 2, puffs, Inhalation, Every 4 hours, PRN, # 8.5 Gm, Refills 0, Route to Pharmacy Electronically, [id number], [facility] #47004, 165, cm, 04/30/22 10:50:00 EDT, Height, 118, kg, 01/18/22 15:08:00 EDT, Dry Weight Start Date: 05/10/22 Status: Ordered Saline Mist 0.65% nasal spray 1 sprays, Nares, Both, 3 times a day, followed by bulb suction as directed and as needed for nasal congestion., # 1 each, 4 Refills, Maintenance, 09/08/20 12:56:00 EST, [facility] #69219, 1sprays Nares, Both 3 times a day,x7 [...] tablet, 0 Refills, Maintenance, 10/27/22 17:07:00 EST, [facility] #61196, 165, cm, 09/27/22 14:59:00 EST, Height, 112.7, kg, 09/27/22 14:59:00 EST, Dry Weight Start Date: 10/27/22 Status: Ordered sucralfate 1 gm oral tablet See Instructions, # 120 tablet, TAKE 1 TABLET BY MOUTH FOUR TIMES DAILY, [facility] [address] Start Date: 03/26/19 Status: Ordered Zithromax Z-Mulugeta 250 mg oral tablet 1 pack/packet, By Mouth, Once, # 6 tablet, 0 Refills, Soft Stop, 03/24/22 10:16:00 EDT, Tablet, [facility] #89603, Partial fill upon patient request if the [...] Member Role: Lifetime Consulting Provider Address: Address: [address] [place] [address] Name: Ila Freed NP Position: [facility] PCO Associate Professional Member Role: PCP Address: Address: [address] [place] [address] Care Team Related Persons Name: YESENIA ALARCON Address: [place] [address] Name: DORA ALARCON Address: home [address] [place] [id number]
--- OUTSIDE RECORDS SUMMARY | 2023-10-25 23:59 | XMS_ITS | Continuity of Care Document ---
Author Name Unknown Organization [facility] Address [address] [place] [address]- Care Team Providers Care Rocket Engine Mechanic Name Role Phone Zuleika Head NP Primary Care Physician Encounter [facility] Date(s): 09/10/19 - 10/11/[address] [address]- [facility] Attending Physician: Not on Staff, Attending MD [...] 16:07:00 EST, Powder, Route to Pharmacy Electronically, [id number], [facility] #[id number]... Start Date: 10/02/19 Status: Ordered albuterol 0.083% inhalation solution 3 mL = 2.5 mg, Neb, Once, given as duoneb LOT [id number] EXP 01/2021, 0 Refills, Maintenance, 07/11/19 11:14:40 EDT Start Date: 07/11/19 Status: Ordered albuterol-ipratropium 3 mg-0.5 mg/3 ml inhalation solution 3 mL, Inhalation, 4 times a day, # 30 each, 0 Refills, Maintenance, 10/02/19 16:07:00 EST, Solution, [facility] #37779, 3 mL Inhalation 4 times a day, 165, cm, 10/02/19 15:38:00 EST, Height, 118.4, kg, 04/28/18 17:05:00 EDT, Dry Weight Start Date: 10/02/19 Status: Ordered amitriptyline 25 mg oral tablet 1, tablet, By Mouth, 2 times a day, # 60 tablet, Refills 2, Tot. Refills 0, Maintenance, 09/13/19 16:25:00 EST, Route to Pharmacy Electronically, [facility] #76533, 165, cm, 07/11/19 10:33:00 EDT, Height, 118.4, kg, 04/28/18 17:05:00 EDT, . Start Date: 09/13/19 Status: Ordered cetirizine 10 mg oral tablet 1 tablet = 10 mg, By Mouth, Daily, # 30 tablet, 11 Refills, Maintenance, 10/02/19 16:08:00 EST, Tablet, [facility] #88441, 165, cm, 10/02/19 15:38:00 EST, Height, 118.4, [...] PRN, prescribed by Dr Pierre Neurologist in [place], # 30 tablet, Refills 0, Maintenance, for spasm, 08/09/16 8:33:39 Start Date: 08/09/16 Stop Date: 08/23/16 Status: Ordered Diclofenac = 75 mg, By Mouth, 2 times a day, prescribed by Dr. Pierre, Neurologist in [place] pt states takesprn, 0 Refills, Maintenance, 08/09/16 8:32:51 Start Date: 08/09/16 Status: Ordered Fioricet Tablet 1 tab, By Mouth, Every 4 hours, prescribed by Dr. Mckeon for migraines, # 30 tablet, 0 Refills, Maintenance, 04/18/14 11:41:59 Start Date: 04/18/14 Status: Ordered Flonase 50 mcg/inh nasal spray 1 sprays, Nares, Both, 2 times a day, # 16 Gm, 2 Refills, Maintenance, 10/02/19 16:08:00 EST, [place], [facility] #41396, 1 sprays Nares, Both 2 times a [...] mL, Neb, Once, given as duoneb LOT [id number] EXP 12/2020, Refills 0, Maintenance, 07/11/19 11:15:17 [...] 16:08:00 EST, Aerosol, Route to Pharmacy Electronically, [id number], [facility] #[id number], 165, cm, 10/02/19 15:38:... Start Date: 10/02/19 Stop Date: 09/26/20 Status: Ordered Protonix 40 mg oral delayed release tablet 1 tablet = 40 mg, By Mouth, Daily, # 90 tablet, 3 Refills, Maintenance, 03/08/19 9:38:16 EDT, EC Tablet Start Date: 03/08/19 Status: Ordered sertraline 25 mg oral tablet 1 tablet, By Mouth, Daily, # 30 tablet, 2 Refills, Maintenance, 09/13/19 16:25:00 EST, [facility] #[id number], 165, cm, 07/11/19 10:33:00 EDT, Height, 118.4, [...] 1 TABLET BY MOUTH FOUR TIMES DAILY, [place] [id number] Start Date: 03/26/19 Status: Ordered Problem List [...]
--- OUTSIDE RECORDS SUMMARY | 2023-10-25 23:59 | XMS_ITS | Continuity of Care Document ---
Author Name Unknown Organization [facility] Address [address] [place] [id number]- Care Team Providers Care Quality Process Engineer Name Role Phone Zuleika Head NP Primary Care Physician [phone] Encounter [facility] [place] Date(s): 09/23/21 - 10/23/[address] [id number] Allergies, Adverse Reactions, Alerts [...] 6 Refills, Maintenance, 06/17/21 11:50:00 EDT, Aerosol, [facility] #[id number], Partial fill upon patient request if the prescription is for a schedule II opioid drug., 2 puffs Inhalation 2 times a d... Start Date: 06/17/21 Status: Ordered Aspercreme 10% topical cream 1 application, Topically, 4 times a day, PRN for pain, n., # 1 each, 3 Refills, Maintenance, 07/13/21 11:47:00 EDT, Cream, [facility] #[id number], Partial fill upon patient request if the [...] 5 Refills, Maintenance, 06/04/20 13:35:00 EDT, Tablet, [facility] #[id number], 165, cm, 03/14/20 15:15:00 EDT, Height Start Date: 06/04/20 Status: Ordered dextromethorphan-guaifenesin 10 mg-100 mg/5 mL oral liquid 5 mL, By Mouth, Every 4 hours, PRN for cough, # 300 mL, 0 Refills, Maintenance, 09/08/20 12:59:00 EST, Liquid, [facility] #[id number], Partial fill upon patient request if the prescription is for a schedule II opioid drug., 5 mL By Mouth Every 4... Start Date: 09/08/20 Status: Ordered Diclofenac = 75 mg, By Mouth, 2 times a day, prescribed by Dr. Pierre, Neurologist in [place] states takesprn, 0 Refills, Maintenance, 08/09/16 8:32:51 [...] tablet, 5 Refills, Maintenance, 06/12/21 11:20:00 EDT, [facility] #[id number], 30, pt needs labs, 1 tablet By Mouth David... Start Date: 06/12/21 Status: Ordered ipratropium nasal 21 mcg/inh spray See Instructions, PRN Nasal Congestion, 1 spray each nostril BID, # 1 each, 4 Refills, Maintenance,07/10/20 14:41:00 EDT, [facility] #[id number], 1 spray each nostril BID,PRN:Nasal Congestion, 165, cm, 03/14/20 15:15:00 EDT, Height Start Date: 07/10/20 Status: Ordered levothyroxine 175 mcg (0.175 mg) oral tablet 1 tablet, By Mouth, Daily, # 90 tablet, 2 Refills, Maintenance, 09/01/21 12:27:00 EST, [facility] #[id number], 165, cm, 07/13/21 11:17:00 EDT, Height Start Date: 09/01/21 Status: Ordered lidocaine 4% topical cream 1 application, Topically, 3 times a day, # 15 Gm, 1 Refills, Maintenance, 03/14/20 15:53:00 EDT, Cream, [facility] #[id number], 1 application Topically 3 times a day, 165, cm, 03/14/20 15:15:00 EDT, Height, 118.4, kg, 04/28/18 17:05:00 EDT, Dry W... Start Date: 03/14/20 Status: Ordered Lubricant Eye Drops ophthalmic solution 1 drops, Eyes, Both, 2 times a day, PRN for dry eyes, # 30 each, 1 Refills, Maintenance, 06/04/20 13:37:00 EDT, Solution, [facility] #[id number], 1 drops Eyes, Both 2 times a day,PRN:for dry eyes, 165, cm, 03/14/20 15:15:00 EDT, Height Start Date: 06/04/20 Status: Ordered metFORMIN 500 mg oral tablet, extended release 2 tablet = 1,000 mg, By Mouth, Daily, # 60 tablet, 5 Refills, Maintenance, 03/11/21 10:40:00 EDT, [facility] #[id number], 165, cm, 03/11/21 9:56:00 EDT, Height Start [...] 9:34:00 EST, Aerosol, Route to Pharmacy Electronically, [id number], [facility] #... Start Date: 11/12/20 Stop Date: 11/07/21 Status: Ordered Saline Mist 0.65% nasal spray 1 sprays, Nares, Both, 3 times a day, followed by bulb suction as directed and as needed for nasal congestion., # 1 each, 4 Refills, Maintenance, 09/08/20 12:56:00 EST, [facility] #[id number], 1sprays Nares, Both 3 times a day,x7 days,Instr:foll... Start Date: 09/08/20 Stop Date: 10/13/20 Status: Ordered sertraline 25 mg oral tablet 1 tablet, By Mouth, Daily, # 30 tablet, 3 Refills, Maintenance, 09/01/21 12:27:00 EST, [facility] #[id number], 165, cm, 07/13/21 11:17:00 EDT, Height Start Date: 09/01/21 Status: Ordered sucralfate 1 gm oral tablet See Instructions, # 120 tablet, TAKE 1 TABLET BY MOUTH FOUR TIMES DAILY, [facility] [id number] Start Date: 03/26/19 Status: Ordered Problem List [...]
--- OUTSIDE RECORDS SUMMARY | 2023-10-25 23:59 | XMS_ITS | Continuity of Care Document ---
Author Name Unknown Organization [facility] Address [address] [place] [address]- Care Team Providers Care J2Ee Java Developer Name Role Phone Zuleika Head NP Primary Care Physician [place] [id number] Date(s): 09/28/21 - 10/28/[address] [address] Attending Physician: Admtr, Ar8 Allergies, Adverse Reactions, [...] 6 Refills, Maintenance, 06/17/21 11:50:00 EDT, Aerosol, [facility][id number], Partial fill upon patient request if the prescription is for a schedule II opioid drug., 2 puffs Inhalation 2 times a d... Start Date: 06/17/21 Status: Ordered Aspercreme 10% topical cream 1 application, Topically, 4 times a day, PRN for pain, n., # 1 each, 3 Refills, Maintenance, 07/13/21 11:47:00 EDT, Cream, [facility] #[id number], Partial fill upon patient request if the [...] 5 Refills, Maintenance, 06/04/20 13:35:00 EDT, Tablet, [facility] #[id number], 165, cm, 03/14/20 15:15:00 EDT, Height Start Date: 06/04/20 Status: Ordered dextromethorphan-guaifenesin 10 mg-100 mg/5 mL oral liquid 5 mL, By Mouth, Every 4 hours, PRN for cough, # 300 mL, 0 Refills, Maintenance, 09/08/20 12:59:00 EST, Liquid, [facility] #[id number], Partial fill upon patient request if the prescription is for a schedule II opioid drug., 5 mL By Mouth Every 4... Start Date: 09/08/20 Status: Ordered Diclofenac = 75 mg, By Mouth, 2 times a day, prescribed by Dr. Pierre, Neurologist in [facility] states takesprn, 0 Refills, Maintenance, 08/09/16 [...] tablet, 5 Refills, Maintenance, 06/12/21 11:20:00 EDT, [facility] #[id number], 30, pt needs labs, 1 tablet By Mouth David... Start Date: 06/12/21 Status: Ordered ipratropium nasal 21 mcg/inh spray See Instructions, PRN Nasal Congestion, 1 spray each nostril BID, # 1 each, 4 Refills, Maintenance,07/10/20 14:41:00 EDT, [facility] #[id number], 1 spray each nostril BID,PRN:Nasal Congestion, 165, cm, 03/14/20 15:15:00 EDT, Height Start Date: 07/10/20 Status: Ordered levothyroxine 175 mcg (0.175 mg) oral tablet 1 tablet, By Mouth, Daily, # 90 tablet, 2 Refills, Maintenance, 09/01/21 12:27:00 EST, [facility] #[id number], 165, cm, 07/13/21 11:17:00 EDT, Height Start Date: 09/01/21 Status: Ordered lidocaine 4% topical cream 1 application, Topically, 3 times a day, # 15 Gm, 1 Refills, Maintenance, 03/14/20 15:53:00 EDT, Cream, [facility] #[id number], 1 application Topically 3 times a day, 165, cm, 03/14/20 15:15:00 EDT, Height, 118.4, kg, 04/28/18 17:05:00 EDT, Dry W... Start Date: 03/14/20 Status: Ordered Lubricant Eye Drops ophthalmic solution 1 drops, Eyes, Both, 2 times a day, PRN for dry eyes, # 30 each, 1 Refills, Maintenance, 06/04/20 13:37:00 EDT, Solution, [facility] #[id number], 1 drops Eyes, Both 2 times a day,PRN:for dry eyes, 165, cm, 03/14/20 15:15:00 EDT, Height Start Date: 06/04/20 Status: Ordered metFORMIN 500 mg oral tablet, extended release 2 tablet = 1,000 mg, By Mouth, Daily, # 60 tablet, 5 Refills, Maintenance, 03/11/21 10:40:00 EDT, [facility] #[id number], 165, cm, 03/11/21 9:56:00 EDT, Height Start [...] 9:34:00 EST, Aerosol, Route to Pharmacy Electronically, [id number], Info #... Start Date: 11/12/20 Stop Date: 11/07/21 Status: Ordered Saline Mist 0.65% nasal spray 1 sprays, Nares, Both, 3 times a day, followed by bulb suction as directed and as needed for nasal congestion., # 1 each, 4 Refills, Maintenance, 09/08/20 12:56:00 EST, [facility] #[id number], 1sprays Nares, Both 3 times a day,x7 days,Instr:foll... Start Date: 09/08/20 Stop Date: 10/13/20 Status: Ordered sertraline 25 mg oral tablet 1 tablet, By Mouth, Daily, # 30 tablet, 3 Refills, Maintenance, 09/01/21 12:27:00 EST, [facility] #[id number], 165, cm, 07/13/21 11:17:00 EDT, Height Start Date: 09/01/21 Status: Ordered sucralfate 1 gm oral tablet See Instructions, # 120 tablet, TAKE 1 TABLET BY MOUTH FOUR TIMES DAILY, [employer] [id number] Start Date: 03/26/19 Status: Ordered Problem List [...]
--- OUTSIDE RECORDS SUMMARY | 2023-10-25 23:59 | XMS_ITS | Continuity of Care Document ---
Author Name Unknown Organization [facility] Address [address] [place] [id number]- Care Team Providers Care Ballpoint Pens Assembler Name Role Phone Sonido VILLAREAL, Zuleika Lincoln Primary Care Physician Encounter [facility] [place] Date(s): 12/08/19 - 06/22/[address] [facility] [address] [address]- [facility] Attending Physician: Cece Bruce MD Admitting Physician: Cece Bruce MD Allergies, Adverse Reactions, Alerts Substance Reaction [...] 16:07:00 EST, Powder, Route to Pharmacy Electronically, [id number], [facility] #[id number]... Start Date: 10/02/19 Status: Ordered AirDuo RespiClick 55 mcg-14 mcg/inh inhalation powder 1, inhalation, Inhalation, 2 times a day, # 1 each, Refills 11, Tot. Refills 11, Maintenance, 12/10/19 12:44:00 EDT, Route to Pharmacy Electronically, [id number], [facility] #[id number], 165, cm, 11/26/19 14:41:00 EDT, Ned Start Date: 12/10/19 Status: Ordered albuterol 0.083% inhalation solution 3 mL = 2.5 mg, Neb, Once, given as duoneb LOT [id number] EXP 01/2021, 0 Refills, Maintenance, 07/11/19 11:14:40 EDT Start Date: 07/11/19 Status: Ordered albuterol-ipratropium 3 mg-0.5 mg/3 ml inhalation solution 3 mL, Inhalation, 4 times a day, # 30 each, 0 Refills, Maintenance, 10/02/19 16:07:00 EST, Solution, [facility] #[id number], 3 mL Inhalation 4 times a day, 165, cm, 10/02/19 15:38:00 EST, Height, 118.4, kg, 04/28/18 17:05:00 EDT, Dry Weight Start Date: 10/02/19 Status: Ordered amitriptyline 25 mg oral tablet 1, tablet, By Mouth, 2 times a day, # 60 tablet, Refills 2, Tot. Refills 0, Maintenance, 09/13/19 16:25:00 EST, Route to Pharmacy Electronically, [facility] #[id number], 165, cm, 07/11/19 10:33:00 EDT, Height, 118.4, [...] PRN, prescribed by Dr Pierre Neurologist in [place], # 30 tablet, Refills 0, Maintenance, for spasm, 08/09/16 8:33:39 Start Date: 08/09/16 Stop Date: 08/23/16 Status: Ordered desloratadine 5 mg oral tablet 1 tablet = 5 mg, By Mouth, Daily, # 30 tablet, 5 Refills, Maintenance, 06/04/20 13:35:00 EDT, Tablet, [facility] #[id number], 165, cm, 03/14/20 15:15:00 EDT, Height Start Date: 06/04/20 Status: Ordered Diclofenac = 75 mg, By Mouth, 2 times a day, prescribed by Dr. Pierre, Neurologist in [place] pt states takesprn, 0 Refills, Maintenance, 08/09/16 [...] 1 Refills, Maintenance, 04/04/20 14:33:00 EDT, Tablet, [facility] #[id number], 1 tablet By Mouth Daily,x30 days,Instr:for blood pressure, 165, cm, 03/14/20 15:15:00 EDT, Height, 118.4, k... Start Date: 04/04/20 Stop Date: 06/03/20 Status: Ordered Ipratropium 0.02% Inhalation Solution 2.5, mL, Neb, Once, given as duoneb LOT [id number] EXP 12/2020, Refills 0, Maintenance, 07/11/19 11:15:17 [...] tablet, 2 Refills, Maintenance, 12/27/19 15:39:00 EDT, [facility] #[id number], 165, cm, 11/26/19 14:41:00 EDT, Height, 118.4, kg, 04/28/18 17:05:00 EDT, Dry Weight Start Date: 12/27/19 Status: Ordered lidocaine 4% topical cream 1 application, Topically, 3 times a day, # 15 Gm, 1 Refills, Maintenance, 03/14/20 15:53:00 EDT, Cream, [facility] #[id number], 1 application Topically 3 times a day, 165, cm, 03/14/20 15:15:00 EDT, Height, 118.4, kg, 04/28/18 17:05:00 EDT, Dry W... Start Date: 03/14/20 Status: Ordered Lubricant Eye Drops ophthalmic solution 1 drops, Eyes, Both, 2 times a day, PRN for dry eyes, # 30 each, 1 Refills, Maintenance, 06/04/20 13:37:00 EDT, Solution, [facility] #[id number], 1 drops Eyes, Both 2 times a day,PRN:for dry eyes, 165, cm, 03/14/20 15:15:00 EDT, Height Start Date: 06/04/20 Status: Ordered metFORMIN 500 mg oral tablet, extended release 2 tablet = 1,000 mg, By Mouth, Daily, # 60 tablet, 5 Refills, Maintenance, 02/18/20 18:03:00 EDT, [facility] #[id number], 165, cm, 02/18/20 15:42:00 EDT, Height, 118.4, [...] 16:08:00 EST, Aerosol, Route to Pharmacy Electronically, [id number], [facility] #[id number], 165, cm, 10/02/19 15:38:... Start Date: 10/02/19 [...] each, 4 Refills, Maintenance, 06/04/20 13:36:00 EDT, [facility] #[id number], 1sprays Nares, Both 3 times a day,x7 days,Instr:foll... Start Date: 06/04/20 Stop Date: 07/09/20 Status: Ordered sertraline 25 mg oral tablet 1 tablet, By Mouth, Daily, # 30 tablet, 2 Refills, Maintenance, 09/13/19 16:25:00 EST, [facility] #[id number], 165, cm, 07/11/19 10:33:00 EDT, Height, 118.4, kg, 04/28/18 17:05:00 EDT, Dry Weight Start Date: 09/13/19 Status: Ordered sucralfate 1 gm oral tablet See Instructions, # 120 tablet, TAKE 1 TABLET BY MOUTH FOUR TIMES DAILY, [facility] [address] Start Date: 03/26/19 Status: Ordered traZODone 50 mg oral tablet 1, tablet, By Mouth, Daily at bedtime, # 30 tablet, Refills 2, Tot. Refills 2, Maintenance, 05/21/20 14:41:00 EDT, Route to Pharmacy Electronically, [facility] #[id number], 165, cm, 03/14/20 15:15:00 EDT, Height, Dry [...]
== END 2023-10-26 00:47 | disposition left against medical advice (07) ==
PROVIDERS: Nurse Practitioner Family; Emergency Provider Emergency Medicine
DX: R10.9 Unspecified abdominal pain (principal); E11.9 Type 2 diabetes mellitus without complications; I10 Essential (primary) hypertension; R11.0 Nausea; J45.909 Unspecified asthma, uncomplicated; E03.9 Hypothyroidism, unspecified
CPT/HCPCS: 36415; 80048; 80076; 81001; 85025; 99282; 99283

== ENCOUNTER 2025-07-04 14:35 | Outpatient (AMB) | payer OTHER, SELFPAY ==
--- NOTE | 2025-07-04 14:45 | A.OFFVIS_ITS ---
Intake Visit Reasons: 8M Migraine Allergies egg Allergy (Verified 07/04/25 14:45) Rash Penicillins Allergy (Verified 07/04/25 14:45) Rash Medication List - Last Reconciled 07/04/25 by Adali Gamboa CNP albuterol sulfate 90 mcg/actuation (Ventolin HFA) 2 puffs inhalation Q6H PRN amlodipine 5 mg PO DAILY fyqmszdnzf-qmkdlcwxhlhzg-bpxb 50-325-40 mg 1 tab PO Q6H PRN 30 days cyclobenzaprine 10 mg PO TID levothyroxine 175 mcg PO DAILY metformin ER 750 mg PO BID oxycodone-acetaminophen 5-325 mg (Percocet) 1 tab PO Q6H PRN 30 days pantoprazole 40 mg PO DAILY HPI Comments Details: She was doing okay. She was having few migraines a month. Fioricet as needed helps. She was taking acetazolamine on as needed basis. She had some occasional ringing in her ears. No visual disturbances. LBP continues, using Percocet as needed which helps some. No falls. She was unable to get injections as she was not able to tolerate MRI, even with medications. Generalized body pains continue. She was not taking amitriptyline. Sleep was up and down, not using CPAP. Had thyroid surgery 03/20/2024. Did not have LP done. High stress. Abdominal pain. Hx of diverticulitis and family hx of pancreatic cancer. She has a history of ps eudotumor cerebri of long-standing for which she had a lumbar peritoneal shunt put in many years ago which was subsequently removed because of malfunction. Last LP in 2011 showed OP of 20cm. Review of Systems Const Denies chills, Denies daytime sleepiness, Reports difficulty sleeping, Denies fatigue, Denies fever(s), Denies frequent falls, Reports headache(s), Denies increased appetite, Denies poor appetite, Denies snoring, Denies weakness, Denies weight gain and Denies weight loss Eyes Denies loss of vision ENT Denies vertigo, Denies dizziness, Reports headache(s) and Denies neck pain Card Denies chest pain at rest, Denies chest pain with activity, Denies syncope, Denies leg edema, Denies palpitations, Denies dyspnea and Denies dyspnea on exertion Resp Denies cough, Denies dyspnea, Denies dyspnea on exertion and Denies snoring GI Denies abdominal pain, Denies constipation, Denies heartburn, Denies diarrhea and Denies nausea Denies urinary frequency, Denies urinary incontinence and Denies urinary urgency Musc Denies abnormal gait, Reports back pain, Denies myalgias, Denies arthralgias, Denies neck pain, Reports numbness, Reports radiating pain into limb and Reports tingling Neuro Denies abnormal gait, Denies vertigo, Denies dizziness, Denies syncope, Denies frequent falls, Reports headache(s), Denies lack of coordination, Denies loss of vision, Denies memory loss, Reports numbness, Denies Other visual disturbances, Denies restless legs, Denies seizure-like activity, Reports tingling, Denies paresthesias, Denies tremor(s) and Denies weakness Psych Denies anxiety, Denies depression, Denies auditory hallucinations, Denies memory loss and Denies visual hallucinations Endo Denies fatigue and Denies palpitations Physical Exam Const Other: General Appearance:? normal, in no acute distress. Heart:? S1, S2 normal, no murmurs. Lungs:? clear anteriorly and posteriorly. Musculoskeletal:? normal. Extremities:? no edema. Psych:? alert, oriented, cognitive function intact, cooperative with exam. Neuro Other: Abnormal Neurological Findings:?Mild papilledema bilaterally. Decreased L ankle reflex. Tender LS spine. Mental Status: alert and oriented X 3. Normal attention, orientation, memory, and affect. Cranial Nerves: Pupils are equal, round, and reactive to light. Fundoscopy shows mild papilledema bilaterally. External ocular muscles are intact. Visual rico are full, no ptosis. Face is symmetrical, no facial weakness or droop. Facial sensations are normal. Tongue protrudes in midline. Palate elevates symmetrically. Shoulder shrugging is normal Motor Examination: As above. Sensory Exam: Normal light touch, temperature, pinprick, vibration, and joint- position sensations. Rhomberg sign is absent. Coordination: No ataxia. No titubation. Gait Exam: Within normal limits. Cerebellar Signs: Uswuau-gx-zuuz and kkot-kk-knwy is normal. No dysdiadochokinesia. Extrapyramidal System: No tremor, rigidity with normal facial expressions. No bradykinesia. No bradyphrenia. Normal arm swing and posture. No propulsion or retropulsion. Speech: Normal. Assessment & Plan Assessment & Plan (1) Migraine: Code(s): G43.909 - Migraine, unspecified, not intractable, without status migrainosus Category: Medical Qualifiers: Intractability: not intractable Migraine type: unspecified Status migrainosus presence: without status migrainosus Qualified Code(s): G43.909 - Migraine, unspecified, not intractable, without status migrainosus Plan: Continue hjkoghhywp-BMEX-ajmy 50-325-40mg 1 tablet as needed q6h for headaches #30 for 30 days. (2) IIH (idiopathic intracranial hypertension): Code(s): G93.2 - Benign intracranial hypertension Category: Medical Plan: Continue acetazolamide 250mg 1 tablet twice a day, use/side effects of medication reviewed. (3) Lumbar radiculopathy: Code(s): M54.16 - Radiculopathy, lumbar region Category: Medical Plan: Continue Percocet 5-325mg 1 tablet as needed q6h for pain #30 for 30 days. Continue cyclobenzaprine 10mg 1 tablet three times a day. (4) Fibromyalgia: Code(s): M79.7 - Fibromyalgia Category: Medical Plan: She had not been taking amitriptyline for some time and was not interested in restarting medication at this time. Medications: New acetazolamide 250 mg PO BID 180 tabs 1RF 90 days Coding Level of Care Code Est Pt Level 4 (30411) Diagnoses Migraine without status migrainosus, not intractable, unspecified migraine type G43.909 Intractability: not intractable Migraine type: unspecified Status migrainosus presence: without status migrainosus IIH (idiopathic intracranial hypertension) G93.2 Lumbar radiculopathy M54.16 Fibromyalgia M79.7
== END 2025-07-04 15:06 | disposition home or self-care (01) ==
LOC: HO.HSM 14:36
PROVIDERS: PCP Internal Medicine; Visit Provider Registered Nurse
DX: G43.909 Migraine, unspecified, not intractable, without status migrainosus (principal); G93.2 Benign intracranial hypertension; M54.16 Radiculopathy, lumbar region; M79.7 Fibromyalgia
CPT/HCPCS: 99214

== ENCOUNTER → 2025-07-04 14:35 | Outpatient (BNVA) | payer OTHER, SELFPAY | PROVIDERS: PCP Internal Medicine; Visit Provider Registered Nurse | DX: G43.909 Migraine, unspecified, not intractable, without status migrainosus (principal); G93.2 Benign intracranial hypertension; M54.16 Radiculopathy, lumbar region; M79.7 Fibromyalgia | CPT/HCPCS: 99212 ==